=== PATIENT | male | born 1955 | race Hispanic/Latino ===

== ENCOUNTER 2018-07-11 07:54 | Emergency (ER) | payer SELFPAY ==
--- OUTSIDE RECORDS SUMMARY | 2018-07-11 08:00 | XMS REPORT ---
:1955 [facility] Address [address] [place] [address] [address] [place] [address] Care Team Providers Name Role Phone GEORGINA STARR Unavailable Unavailable Problems This patient has no known problems. Allergies, Adverse Reactions, Alerts This patient has no known allergies or adverse reactions. Medications This patient has no known medications. Results Test Description Test Time Test Comments Text Results Atomic Results Result Comments Troponin T 2016-05-15 20:46:00 Test Item Value Reference Range Comments Troponin T (test code=GERARD) <0.010 ng/mL 0.000-0.090 Basic Metabolic [id number] 20:46:00 Test Item Value Reference Range Comments Sodium (test code=NA) 135 mmol/L 135-145 Potassium (test code=K) 4.5 mmol/L 3.5-5.1 Chloride (test code=CL) 99 mmol/L 98-105 Carbon Dioxide (test 24 mmol/L 22-29 code=CO2) Glucose (test code=GLU) 119 mg/dL 70-115 Blood Urea Nitrogen (test 21 mg/dL 6-20 code=BUN) Creatinine (test 1.6 mg/dL 0.7-1.2 code=CREAT) Calcium (test code=CA) 9.1 mg/dL 8.3-10.5 BUN/Creatinine Ratio 13.1 (test code=BCRATIO) Anion Gap (test 12 mmol/L 7-16 code=AGAP) Estimated GFR (test 47 mL/min/1.73m2 eGFR (estimated Glomerular code=GFR) Filtration Rate) is an estimated value,calculated from the patient's serum creatinine using the MDRD equation.It is NOT the patient's actual GFR. The eGFR provides a more clinicallyuseful measure of kidney disease than serum creatinine alone.This calculation takes sex and race into account, if the informationis provided. If the race is not provided, and the patient isAfrican-Colombian, multiply by 1.212. If sex is not provided, and thepatient is female, multiply by 0.742. Results for patients <18 years ofage have not been validated by the MDRD study and should be interpretedwith caution.eGFR Result Interpretation:eGFR > or=60 is in the Normal RangeeGFR < 60 may mean kidney diseaseeGFR < 15 may mean kidney failureRanges recommended by the National Kidney Foundation,http://nkdep.nih .gov CBC with [id number] 20:25:00 Test Item Value Reference Range Comments WBC (test code=WBC) 9.8 K/cumm 4.4-10.5 RBC (test code=RBC) 4.32 M/cumm 4.10-5.70 Hemoglobin (test code=HGB) 13.5 gm/dL 13.4-17.4 Hematocrit (test code=HCT) 42.6 % 38.7-52.0 MCV (test code=MCV) 98.5 fL 80-100 MCH (test code=MCH) 31.4 pg 27.0-32.5 MCHC (test code=MCHC) 31.8 g/dL 32.0-37.5 RDW (test code=RDW) 13.6 % 11.5-14.5 Platelet Count (test code=PLTCT) 177 K/cumm 140-440 MPV (test code=MPV) 10.5 fL Diff Method (test code=DIFFM) Auto Neutrophil (test code=NEUT) 68.7 % 36-70 Lymphocyte (test code=LYMPH) 17.1 % 12-44 Monocyte (test code=MONO) 12.6 % 0-11 Eosinophil (test code=EOS) 1.1 % 0-7 Basophil (test code=BASO) 0.6 % 0-2 Neutro Abs (test code=ANEUT) 6.8 K/cumm 1.6-7.4 Lymph Abs (test code=ALYMPH) 1.7 K/cumm 0.5-4.6 [place] Abs (test code=AMONO) 1.2 K/cumm 0.0-1.2 Eos Abs (test code=AEOS) 0.10 K/cumm 0.00-0.74 Baso Abs (test code=ABASO) 0.1 K/cumm 0.00-0.21
[2018-07-11] MEDS ORDERED: ONDANSETRON 4 MG/2 ML VIAL ONE (08:21)
[2018-07-11] MEDS ORDERED: NA CHLORIDE 0.9% 500 ML ONE (08:21)
[2018-07-11 08:31] LABS: Absolute Monocytes 1.4 K/uL (0.1-1.3); Absolute Neutrophil 3.7 K/uL (1.8-8.0); Basophils % 0.8 % (0-1.3); Eosinophils % 9.7 % (0-4.4); Lymphocytes % 33.8 % (15.3-44.8); MPV 10.4 fL (7.6-11.3); Monocytes % 15.1 % (3.3-12.3); RBC Red Blood Cell Count 4.29 M/uL (4.33-5.43)
[2018-07-11 08:45] LABS: ALT/SGPT 44 U/L (12-78); AST/SGOT 53 U/L (15-37); Albumin 3.4 g/dL (3.4-5.0); Alkaline Phosphatase 123 U/L (45-117); BUN Blood Urea Nitrogen 10 mg/dL (7-18); Bicarbonate 26 mmol/L (21-32); Bilirubin Direct 0.4 mg/dL (0-0.2); Glucose Level 98 mg/dL (74-106); Lipase 125 U/L (73-393); Potassium 3.6 mmol/L (3.5-5.1); Protein, Total 8.3 g/dL (6.4-8.2); Sodium Level 142 mmol/L (136-145)
[2018-07-11 09:17] LABS: Blood Morphology Comment NOT SEEN (NOT SEEN); Platelet Estimate ADEQ
--- NOTE | 2018-07-11 09:17 | EKG ---
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
--- NOTE | 2018-07-11 09:56 | RAD REPORT ---
EXAM DESCRIPTION: CT - Abdomen Pelvis W Contrast - 07/11/2018 9:42 am CLINICAL HISTORY: Abdominal pain. Vomiting COMPARISON: 2014 TECHNIQUE: Computed axial tomography of the abdomen and pelvis was obtained. 100 cc Isovue-300 is ad ministered intravenously. Oral contrast was given. All CT scans are performed using dose optimization technique as appropriate and may include automated exposure control or mA/KV adjustment according to patient size. FINDINGS: Cirrhotic liver. Distended portal vein. Splenectomy Adrenals and kidney unremarkable Mild gallbladder distention. The appendix is normal caliber. There is no evidence of diverticulitis Small right inguinal hernia contains fat Small ventral hernia to the left of midline within the mid abdomen contains a small portion of colon. Tiny umbilical hernia IMPRESSION: Mild gallbladder distention. If clinically indicated further evaluation with ultrasound could be obtained Cirrhosis
[2018-07-11] MEDS ORDERED: MAGNE/ALUM HYDROXD 30 ML UCUP ONE (10:48)
[2018-07-11] MEDS ORDERED: LIDOCAINE VISCOUS 2% SOLN 15 ML UDC ONE (10:49)
[2018-07-11] MEDS ORDERED: MEPERIDINE HCL 25 MG/0.5 ML ONE (10:49)
--- NOTE | 2018-07-11 11:12 | RAD REPORT ---
EXAM DESCRIPTION: US - Abdomen Exam Limited - 07/11/2018 10:52 am CLINICAL HISTORY: ABD PAIN COMPARISON: ABDOMINAL EXAM LIMITED dated 09/17/2014 FINDINGS: The gallbladder demonstrates no gallstones. No pericholecystic fluid or gallbladder wall t hickening. The common bile duct is normal measuring 3 mm. The liver demonstrates no findings of intrahepatic biliary dilatation. IMPRESSION: Unremarkable examination.
--- NOTE | 2018-07-11 11:20 | ER ---
Nurse's Notes [facility] Name: Mic Gross Age: 63 yrs Sex: Male : 1955 Arrival Date: 07/11/2018 Time: 07:56 Bed 20 Private MD: None, None Diagnosis: Unspecified cirrhosis of liver;Ventral hernia;Enteritis Presentation: 07/11 08:07 Presenting complaint: Patient states: epigastric discomfort that radiates towards back, ss N/V that began 1 week ago. Transition of care: patient was not received from another setting of care. Onset of symptoms was July 04, 2018. Risk Assessment: Do you want to hurt yourself or someone else? Patient reports no desire to harm self or others. Initial Sepsis Screen: Does the patient meet any 2 criteria? No. Patient's initial sepsis screen is negative. Does the patient have a suspected source of infection? No. Patient's initial sepsis screen is negative. Care prior to arrival: None. 08:07 Method Of Arrival: Ambulatory ss 08:07 Acuity: RADHA 3 ss Triage Assessment: 08:05 General: Appears distressed, uncomfortable, Behavior is cooperative. Pain: Complains of ss pain in epigastric area Pain radiates to back Pain currently is 9 out of 10 on a pain scale. Pain began 1 week ago Is continuous. Neuro: Level of Consciousness is awake, alert, obeys commands. Respiratory: Airway is patent Respiratory effort is even, unlabored, Respiratory pattern is regular, symmetrical. GI: Reports nausea, vomiting. Historical: - Allergies: 08:10 No Known Allergies; ss - Home Meds: 08:10 None [Active]; ss - PMHx: 08:10 Hypertension; ss - PSHx: 08:10 splenectomy; ss - Immunization history:: Adult Immunizations unknown. - Social history:: Smoking status: Patient/guardian denies using tobacco. - Family history:: not pertinent. - Ebola Screening: : Patient denies exposure to infectious person Patient denies travel to an Ebola-affected area in the 21 days before illness onset. - Hospitalizations: : No recent hospitalization is reported. Screenin:05 Abuse screen: Denies threats or abuse. Denies injuries from another. Nutritional sv screening: No deficits noted. Tuberculosis screening: No symptoms or risk factors identified. Fall Risk None identified. Assessment: 08:05 General: Appears in no apparent distress. uncomfortable, slender, well developed, sv Behavior is cooperative, appropriate for age, anxious. Pain: Complains of pain in epigastric area and left upper quadrant Pain currently is 9 out of 10 on a pain scale. Pain began a week ago Is continuous, Noted to be grimacing, guarding. Neuro: Level of Consciousness is awake, alert, obeys commands, Oriented to person, place, time, situation, Moves all extremities. Full function Gait is steady. Respiratory: Respiratory effort is even, unlabored, Respiratory pattern is regular, symmetrical. GI: Abd is soft X 4 quads Abdomen is tender to palpation in epigastric area and left upper quadrant Reports nausea, vomiting. Derm: Skin is pink, warm \T\ dry. 08:30 Reassessment: Patient appears in no apparent distress at this time. No changes from sv previously documented assessment. Patient and/or family updated on plan of care and expected duration. Pain level reassessed. Patient is alert, oriented x 3, equal unlabored respirations, skin warm/dry/pink. 09:50 Reassessment: Patient appears in no apparent distress at this time. No changes from sv previously documented assessment. Patient and/or family updated on plan of care and expected duration. Pain level reassessed. Patient is alert, oriented x 3, equal unlabored respirations, skin warm/dry/pink. 10:15 Reassessment: Patient transported to US via wheelchair. aj1 10:27 Reassessment: Patient transported back to ER bed 20 via wheelchair. aj1 10:29 Reassessment: Patient reports that he is still having a lot of epigastric pain. aj1 Notified Dr[address] Sorensen. General: Appears in no apparent distress. uncomfortable, Behavior is calm, cooperative, appropriate for age. Neuro: Level of Consciousness is awake, alert, obeys commands. Cardiovascular: Patient's skin is warm and dry. Respiratory: Airway is patent Respiratory effort is even, unlabored, Respiratory pattern is regular, symmetrical. GI: Abdomen is non-distended, Reports upper abdominal pain, nausea, vomiting. GI:. : EENT: No signs and/or symptoms were reported regarding the EENT system. Derm: Skin is pink, warm \T\ dry. normal. Musculoskeletal: No signs and/or symptoms reported regarding the musculoskeletal system. Circulation, motion, and sensation intact. 11:30 Reassessment: Patient appears in no apparent distress at this time. No changes from aj1 previously documented assessment. Patient and/or family updated on plan of care and expected duration. Pain level reassessed. Patient is alert, oriented x 3, equal unlabored respirations, skin warm/dry/pink. Vital Signs: 08:07 BP 184 / 90; Pulse 66; Resp 18; Temp 98.2(TE); Pulse Ox 96% on R/A; Weight 68.04 kg; ss Height 5 ft. 6 in. (167.64 cm); Pain 9/10; 08:56 BP 140 / 85; Pulse 62; Resp 18; Pulse Ox 96% ; sv 09:52 BP 139 / 113; Pulse 62; Resp 18; Pulse Ox 97% ; sv 10:30 BP 146 / 76; Pulse 60; Resp 18; Pulse Ox 96% on R/A; aj1 08:07 Body Mass Index 24.21 (68.04 kg, 167.64 cm) ED Course: 07:56 Patient arrived in ED. mr 07:57 None, None is Private Physician. mr 07:57 Wero Sorensen MD is Attending Physician. rn 08:05 Patient has correct armband on for positive identification. Placed in gown. Bed in low sv position. Call light in reach. Pulse ox on. NIBP on. Door closed. Warm blanket given. Head of bed elevated. 08:06 Naomi Albrecht, RN is Primary Nurse. sv 08:07 Arm band placed on right wrist. ss 08:08 Triage completed. ss 08:10 Initial lab(s) drawn, by de, sent to lab. Inserted saline lock: 20 gauge in right sv forearm, using aseptic technique. Blood collected. Flushed right forearm with 5 ml normal saline. 08:27 Awaiting lab results, Awaiting CT Scan. sv 08:31 EKG done, by meteorological technician. reviewed by Wero Sorensen MD. at1 09:37 CT completed. Patient tolerated procedure well. Patient moved to CT via wheelchair. jg6 Patient moved back from CT. 09:42 CT Abd/Pelvis - W/Contrast In Process Unspecified. EDMS 09:49 Awaiting radiology results. sv 10:53 US Abdomen Limited In Process Unspecified. EDMS 11:53 No provider procedures requiring assistance completed. aj1 11:53 IV discontinued, intact, bleeding controlled, No redness/swelling at site. Pressure aj1 dressing applied. Administered Medications: 08:21 Drug: Zofran 4 mg Route: IVP; Site: right forearm; sv 08:28 Follow up: Response: No adverse reaction; Nausea is decreased sv 08:21 Drug: NS 0.9% 500 ml Route: IV; Rate: bolus; Site: right forearm; sv 10:41 Drug: Demerol 25 mg Route: IVP; Site: right antecubital; aj1 11:54 Follow up: Response: No adverse reaction aj1 10:41 Drug: GI Cocktail without - (Maalox Suspension 30 ml, Lidocaine Liquid 2 % 15 aj1 ml) Route: PO; 11:54 Follow up: Response: No adverse reaction aj1 Point of Care Testing: Guaiac: 08:13 Stool Guaiac: Negative; Stool Hemoccult Control: Pass; rn 08:22 Stool Guaiac: Negative; Stool Hemoccult Control: Pass; sv 08:[address] Sorensen sv Intake: 08:23 PO: 500ml (Contrast); Total: 500ml. sv 08:[address] pt finished contrast. sv Outcome: 11:20 Discharge ordered by . rn 11:55 Discharged to home ambulatory. aj1 11:55 Condition: good 11:55 Discharge instructions given to patient, Instructed on discharge instructions, follow up and referral plans. medication usage, Demonstrated understanding of instructions, follow-up care, medications, Prescriptions given X 2. 11:55 Patient left the ED. aj1 Signatures: Dispatcher [employer] EDHI Beronica Garvin RN RN aj1 Naomi Albrecht RN Jenn Panda Roman, MD MD rn Smirch, Shelby, RN RN ss Gonzales, Amanda, crop specialist EKG Tat1 Opal [id number]
--- NOTE | 2018-07-11 11:21 | EDPHYS ---
Physician Documentation [facility] Name: Mic Gross Age: 63 yrs Sex: Male : 1955 Arrival Date: 07/11/2018 Time: 07:56 Bed 20 Private MD: None, None ED Physician Wero Sorensen HPI: 07/11 08:05 This 63 yrs old Male presents to ER via Unassigned with complaints of rn Abdominal Pain. 08:05 The patient presents with abdominal pain in the left upper quadrant. Onset: The rn symptoms/episode began/occurred 1 week(s) ago. The symptoms radiate to Associated signs and symptoms: Pertinent positives: nausea and vomiting, diarrhea, Pertinent negatives: blood in stools, fever, hematuria, shortness of breath, vomiting blood. The symptoms are described as intermittent, sharp. Modifying factors: The symptoms are alleviated by nothing, the symptoms are aggravated by touching the area. Severity of pain: At its worst the pain was moderate in the emergency department the pain is unchanged. The patient has not experienced similar symptoms in the past. Reports intermittent upper abd pain for 1 week, coming and going so didn't get evaluated, woke up today with worsening pain and constant, assoc with nausea/vomiting/diarrhea. REports stool a little darker than normal but not bloody or black. + hx of acid reflux, doesn't take his prescribed medication. . Historical: - Allergies: 08:10 No Known Allergies; ss - Home Meds: 08:10 None [Active]; ss - PMHx: 08:10 Hypertension; ss - PSHx: 08:10 splenectomy; ss - Immunization history:: Adult Immunizations unknown. - Social history:: Smoking status: Patient/guardian denies using tobacco. - Family history:: not pertinent. - Ebola Screening: : Patient denies exposure to infectious person Patient denies travel to an Ebola-affected area in the 21 days before illness onset. - Hospitalizations: : No recent hospitalization is reported. ROS: 08:05 Constitutional: Negative for fever, chills, and weight loss, Eyes: Negative for injury, rn pain, redness, and discharge, Neck: Negative for injury, pain, and swelling, Cardiovascular: Negative for chest pain, palpitations, and edema, Respiratory: Negative for shortness of breath, cough, wheezing, and pleuritic chest pain, Abdomen/GI: + abd pain/nausea/vomiting/diarrhea MS/Extremity: Negative for injury and deformity, Skin: Negative for injury, rash, and discoloration, Neuro: Negative for headache, weakness, numbness, tingling, and seizure. Exam: 08:05 Constitutional: This is a well developed, well nourished patient who is awake, alert, rn appears anxious Head/Face: Normocephalic, atraumatic. Eyes: Pupils equal round and reactive to light, extra-ocular motions intact. Periorbital areas with no swelling, redness, or edema. ENT: dry MM Cardiovascular: Regular rate and rhythm. No pulse deficits. Respiratory: No increased work of breathing, no retractions or nasal flaring. Abdomen/GI: soft, + moderate ventral hernia, midline vertical scar, + tender LUQ and left abdomen, no peritoneal signs. MS/ Extremity: Pulses equal, no cyanosis. Neurovascular intact. Full, normal range of motion. Equal circumference. Neuro: Awake and alert, GCS 15, oriented to person, place, time, and situation. Cranial nerves II-XII grossly intact. Motor strength 5/5 in all extremities. Sensory grossly intact. Cerebellar exam normal. Normal gait. 09:21 ECG was reviewed by the Attending Physician. rn Vital Signs: 08:07 BP 184 / 90; Pulse 66; Resp 18; Temp 98.2(TE); Pulse Ox 96% on R/A; Weight 68.04 kg; ss Height 5 ft. 6 in. (167.64 cm); Pain 9/10; 08:56 BP 140 / 85; Pulse 62; Resp 18; Pulse Ox 96% ; sv 09:52 BP 139 / 113; Pulse 62; Resp 18; Pulse Ox 97% ; sv 10:30 BP 146 / 76; Pulse 60; Resp 18; Pulse Ox 96% on R/A; aj1 08:07 Body Mass Index 24.21 (68.04 kg, 167.64 cm) ss MDM: 07:58 Patient medically screened. rn 11:18 Differential diagnosis: cholecystitis, Cholelithiasis, gastritis, gastroesophageal rn reflux disease, non-specific abd pain, pancreatitis, Peptic Ulcer Disease. Data reviewed: vital signs, nurses notes, lab test result(s), radiologic studies, CT scan, ultrasound, and as a result, I will discharge patient. Counseling: I had a detailed discussion with the patient and/or guardian regarding: the historical points, exam findings, and any diagnostic results supporting the discharge/admit diagnosis, lab results, radiology results, the need for outpatient follow up, to return to the emergency department if symptoms worsen or persist or if there are any questions or concerns that arise at home. Special discussion: Based on the patient's Hx, exam, and Dx evaluation, there is no indication for emergent surgery or inpatient Tx. It is understood by the patient/guardian that if the Sx's persist or worsen they need to return immediately for re-evaluation. I discussed with the patient/guardian in detail that at this point there is no indication for admission to the hospital. It is understood, however, that if the symptoms persist or worsen the patient needs to return immediately for re-evaluation. Based on the history and exam findings, there is no indication for further emergent testing or inpatient evaluation. I discussed with the patient/guardian the need to see the ski top trimmer for further evaluation of the symptoms. ED course: Negative bloodowork/ct abd/ultrasound. + cirrhosis. Abd pain likely 2/2 gastritis/acid reflux/enteritis. 07/11 08:05 Order name: Basic Metabolic Panel; Complete Time: 09:03 rn 07/11 08:05 Order name: CBC with Diff; Complete Time: 09:20 rn 07/11 08:05 Order name: Hepatic Function; Complete Time: 09:03 rn 07/11 08:05 Order name: Lipase; Complete Time: 09:03 rn 07/11 08:22 Order name: Occult Blood--Ancillary; Complete Time: 09:20 sv 07/11 08:35 Order name: Manual Differential; Complete Time: 09:20 EDMS 07/11 08:05 Order name: CT Abd/Pelvis - W/Contrast; Complete Time: 10:05 rn 07/11 08:05 Order name: EKG; Complete Time: 08:05 rn 07/11 10:05 Order name: US Abdomen Limited; Complete Time: 11:18 rn 07/11 08:05 Order name: IV Saline Lock; Complete Time: 08:20 rn 07/11 08:05 Order name: Labs collected and sent; Complete Time: 08:20 rn 07/11 08:05 Order name: EKG - Nurse/Tech; Complete Time: 08:28 rn EC:21 Rate is 54 beats/min. Rhythm is regular. QRS [place] is Normal. DC interval is normal. QRS rn interval is normal. QT interval is normal. No Q waves. T waves are Normal. No ST changes noted. Clinical impression: Sinus bradycardia and No evidence of ischemia. Interpreted by me. Reviewed by me. Administered Medications: 08:21 Drug: Zofran 4 mg Route: IVP; Site: right forearm; sv 08:28 Follow up: Response: No adverse reaction; Nausea is decreased sv 08:21 Drug: NS 0.9% 500 ml Route: IV; Rate: bolus; Site: right forearm; sv 10:41 Drug: Demerol 25 mg Route: IVP; Site: right antecubital; aj1 11:54 Follow up: Response: No adverse reaction aj1 10:41 Drug: GI Cocktail without - (Maalox Suspension 30 ml, Lidocaine Liquid 2 % 15 aj1 ml) Route: PO; 11:54 Follow up: Response: No adverse reaction aj1 Point of Care Testing: Guaiac: 08:13 Stool Guaiac: Negative; Stool Hemoccult Control: Pass; rn 08:22 Stool Guaiac: Negative; Stool Hemoccult Control: Pass; sv 08:[address] Sorensen Disposition: 07/11/18 11:20 Discharged to Home. Impression: Unspecified cirrhosis of liver, Ventral hernia, Enteritis. - Condition is Stable. - Discharge Instructions: Gastritis, Adult, Viral Gastroenteritis, Adult, Ventral Hernia. - Prescriptions for Zofran ODT 4 mg Oral tablet,disintegrating - place 1 tablet by TRANSLINGUAL route every 8 hours As needed; 20 tablet. Zantac 300 mg Oral Tablet - take 1 tablet by ORAL route At bedtime; 30 tablet. - Medication Reconciliation Form, Thank You Letter, Antibiotic Education, Prescription Opioid Use form. - Follow up: Private Physician; When: As needed; Reason: Recheck today's complaints, Re-evaluation by your physician. - Problem is new. - Symptoms have improved. Signatures: Dispatcher [employer] Beronica Whitman RN RN aj1 Naomi Albrecht RN RN sv Wero Sorensen MD MD rn Smirch, Shelby, RN RN ss Corrections: (The following items were deleted from the chart) 09:07 08:44 Occult Blood--Ancillary+PA.LAB.BRZ ordered. EDDE EDMS 11:55 11:20 07/11/2018 11:20 Discharged to Home. Impression: Unspecified cirrhosis of liver; aj1 Ventral hernia; Enteritis. Condition is Stable. Forms are Medication Reconciliation Form, Thank You Letter, Antibiotic Education, Prescription Opioid Use. Follow up: Private Physician; When: As needed; Reason: Recheck today's complaints, Re-evaluation by your physician. Problem is new. Symptoms have improved. rn
[2018-07-11 12:36] VITALS: TEMP 98.2
[2018-07-11 12:39] VITALS: BP 146/76; O2SAT 96
== END 2018-07-11 11:55 | disposition home or self-care (01) ==
LOC: ER 07:54
DX: K52.9 Noninfective gastroenteritis and colitis, unspecified (principal); K43.9 Ventral hernia without obstruction or gangrene; K74.60 Unspecified cirrhosis of liver; I10 Essential (primary) hypertension
CPT/HCPCS: 36415; 74177; 76705; 80048; 80076; 82272; 83690; 85025; 93005; 99285; J2175; J2405; Q9967

== ENCOUNTER 2019-03-11 08:43 | Emergency (ER) | payer SELFPAY ==
--- OUTSIDE RECORDS SUMMARY | 2019-03-11 08:45 | XMS REPORT | Summary of Care ---
:1955 Author Organization [facility] Address [address] [place] [address] Care Team Providers Name Role Phone Pcp, Patient Does Not Have A Primary Care Provider Reason for Referral Other (Routine) Status Reason Specialty Diagnoses / Referred By Contact Referred To Procedures Contact New Request Diagnoses Generalized abdominal pain Ventral hernia, recurrent Contusion of right knee, initial encounter Cellulitis of right lower extremity Narciso Aguilar MD Humphrey, [place], Procedures Discharge Follow-up: Specialty Provider KATIE PAUL; 3-[address] [place] [address] [address] [place], [place] [id number] [place] [address] [address]in [address] [place] [address] MRI/CAT Scan (STAT) Status Reason Specialty Diagnoses / Referred By Referred To Procedures Contact Contact New Request Diagnostic Diagnoses Generalized abdominal pain Narciso Aguilar, Radiology Procedures CT ABDOMEN PELVIS W CONTRAST 301 [facility] [address] [place] [address] Radiology Services (STAT) Status Reason Specialty Diagnoses / Referred By Referred To Procedures Contact Contact New Request Diagnostic Diagnoses Generalized abdominal pain Narciso Aguilar, Radiology Procedures XR KNEE 4+ VW RIGHT 301 [facility] [address] [place] [address] MRI/CAT Scan (STAT) Status Reason Specialty Diagnoses / Referred By Referred To Procedures Contact Contact New Request Diagnostic Diagnoses Generalized abdominal pain Narciso Aguilar, Radiology Procedures CT ABDOMEN PELVIS W CONTRAST [address] [place] [address] [place] [address] Radiology Services (STAT) Status Reason Specialty Diagnoses / Referred By Referred To Procedures Contact Contact New Request Diagnostic Diagnoses Generalized abdominal pain Narciso Aguilar, Radiology Procedures XR KNEE 4+ VW RIGHT [address] [place] [address] [place] [phone] Reason for Visit Reason Comments HIATAL HERNIA pain Leg Pain R Auth/Cert Status Reason Specialty Diagnoses / Referred By Referred To Procedures Contact Contact [facility] [address] [place] [address] [place] [address] Encounter Details Date Type Department Care Team Description 11/08/2018 Emergency [facility] Narciso Aguilar MD Generalized abdominal pain (Primary Dx); Department [address] [place] [address] Ventral hernia, recurrent; [address] [place] [address] [address] Contusion of right knee, initial encounter; [place] [address] [place] [address] Cellulitis of right lower extremity [phone] Allergies No Known Allergiesdocumented as of this encounter (statuses as of 11/08/2018) Medications Medication Sig Dispensed Refills Start Date End Date Status amLODIPine (NORVASC) Take 1 tablet 30 tablet 3 07/09/2015 Active 10 mg tablet by mouth daily. lisinopril Take 2 tablets 60 tablet 3 07/09/2015 Active (PRINIVIL,ZESTRIL) 10 by mouth daily. mg tablet traMADOL (ULTRAM) 50 Take 1 tablet 20 tablet 0 08/19/2015 Active mg tablet by mouth every 6 (six) hours as needed for Pain (scale 4-6). sulfamethoxazole-trime Take 1 tablet 20 tablet 0 08/19/2015 Active thoprim (BACTRIM DS) by mouth every 800-160 mg per tablet 12 (twelve) hours. docusate sodium 250 mg Take 1 capsule 20 capsule 0 11/08/2018 Active capsuleIndications: by mouth daily. Generalized abdominal pain, Ventral hernia, recurrent, Contusion of right knee, initial encounter, Cellulitis of right lower extremity ondansetron 4 mg Take 1 tablet 20 tablet 0 11/08/2018 Active disintegrating by mouth every tabletIndications: 4 (four) hours Generalized abdominal as needed for pain, Ventral hernia, Nausea and recurrent, Contusion Vomiting (N/V). of right knee, initial encounter, Cellulitis of right lower extremity clindamycin 300 mg Take 1 capsule 40 capsule 0 11/08/2018 11/18/2018 Active capsuleIndications: by mouth 4 Generalized abdominal (four) times pain, Ventral hernia, daily for 10 recurrent, Contusion days. of right knee, initial encounter, Cellulitis of right lower extremity documented as of this encounter (statuses as of 11/08/2018) Active Problems Problem Noted Date Gangrene of finger 07/06/2015 Osteomyelitis 07/06/2015 Adrenal insufficiency 07/06/2015 Chronic rheumatic arthritis 07/06/2015 Dry gangrene 07/04/2015 Arteritis 07/04/2015 documented as of this encounter (statuses as of 11/08/2018) Social History Tobacco Use Types Packs/Day Years Used Date Smoker, Current Status Unknown Comments: 1 pack per week, previously 1ppd x 10-15 years Alcohol Use Drinks/Week oz/Week Comments No 0 Standard drinks or equivalent 0.0 former heavy drinker Sex Assigned at Date Recorded Not on file Job Start Date Occupation Industry Not on file Not on file Not on file Travel History Travel Start Travel End No recent travel history available. documented as of this encounter Last Filed Vital Signs Vital Sign Reading Time Taken Comments Blood Pressure 167/139 11/08/2018 5:00 PM CDT Pulse 68 11/08/2018 5:00 PM CDT Temperature 36.8 C (98.3 F) 11/08/2018 2:25 PM CDT Respiratory Rate 18 11/08/2018 5:00 PM CDT Oxygen Saturation 95% 11/08/2018 5:00 PM CDT Inhaled Oxygen Concentration - - Weight 65.8 kg (145 lb) 11/08/2018 2:25 PM CDT Height 167.6 cm (5' 6") 11/08/2018 2:25 PM CDT Body Mass Index 23.4 11/08/2018 2:25 PM CDT documented in this encounter Discharge Instructions Narciso Bailey MD - 11/08/2018 RETURN FOR ANY QUESTIONS OR CONCERNS Today you were seen by Narciso Aguilar Jr., MD You were seen today for Chief Complaint Patient presents with HIATAL HERNIA pain Leg Pain R Your ER diagnosis was ICD-10-CM ICD-9-CM 1. Generalized abdominal pain R10.84 789.07 2. Ventral hernia, recurrent K43.2 553.21 3. Contusion of right knee, initial encounter S80.01XA 924.11 NO LIFE-THREATENING FINDINGS ON TODAY'S EXAM. YOUR PRESCRIPTIONS : Check out [employer] for medication discounts Medication List ASK your doctor about these medications amLODIPine 10 mg tablet Commonly known as: NORVASC Take 1 tablet by mouth daily. lisinopril 10 mg tablet Commonly known as: PRINIVIL,ZESTRIL Take 2 tablets by mouth daily. sulfamethoxazole-trimethoprim 800-160 mg per tablet Commonly known as: BACTRIM DS Take 1 tablet by mouth every 12 (twelve) hours. traMADol 50 mg tablet Commonly known as: ULTRAM Take 1 tablet by mouth every 6 (six) hours as needed for Pain (scale 4-6). ER precautions and follow up : 1. Return to ER if your symptoms should worsen or fail to improve within 72 hours. 2. The care provided in the emergency room was for acute problems only. 3. You should follow up with your primary care provider within 72 hours. 4. Fill and take all your medications as prescribed. 5. Make sure you are staying adequately hydrated. Busque attencion immediatamente si usted tiene los sitomas sigue, vuelve peor o si hay sitomas nuevas o para cualquiera preoccupacion incluyendo dolor del pecho , falta aire, se siente debile, mas fievre, mas dolor, nausea, vomitando, sangrando que no es normal, confusion, baja or pierdas conciencia. MAY FOLLOW-UP WITH A PROVIDER OF YOUR CHOICE, SUCH : 1. A PHYSICIAN OF YOUR CHOICE 2. [facility], . LOCATIONS IN [facility] 3. [facility], [address], [place]; [phone] OR, IF YOU WISH TO FOLLOW-UP WITHIN THE [facility], MAY TRY THESE OPTIONS (CLINIC APPOINTMENTS AVAILABLE ON [id number] BASIS): 1. SCHEDULE AN APPOINTMENT ONLINE AT WWW[facility] 2. OR CALL THE [facility] ACCESS CENTER AT OR 3. OR CALL YOUR [facility] PHYSICIAN'S OFFICE DIRECTLY IF YOU ARE ALREADY AN ESTABLISHED [facility] PATIENT. [facility] RETURN TO WORK / SCHOOL EXCUSE Mic Gross WAS SEEN IN THE ER AND DISCHARGED 11/08/2018 TODAY, 5:09 PM & May return to Work / School / Incarceration on X with activity as tolerated indicated below. ___The following limitations apply until pt is seen by Physician and cleared to return to normal activity. _X_ Off for two days and return to activity as tolerated at work or school ___ No Sports ___ No work ___ Do not return until fever free for 24 hours. ___ No school NARCISO AGUILAR Jr., MD [facility] [address] [place] [address] [place] [address] ### The patient may have been given Narcotic pain medications during their stay in the ED that may show up on a Drug Screen. The hospital discharge paper work will identify these medications. AttachmentsThe following attachments cannot be sent through Care Everywhere.Hernia (Adult) (Maldivian)Lower Extremity Contusion (Maldivian)Cellulitis , Discharge Instructions for (Maldivian)documented in this encounter Plan of Treatment Health Maintenance Due Date Last Done Comments DTaP,Tdap,and Td Vaccines (1 - 1976 Tdap) COLONOSCOPY 06/10/2007 Zoster Recombinant Vaccine 06/10/2007 (SHINGRIX) (1 of 2) LUNG CANCER SCREEN: Recommended 2012 for age 55-80 with 30 + pack year history INFLUENZA VACCINE (#1) 2018 HEPATITIS C (HCV) SCREEN Completed 07/05/2015 PNEUMOCOCCAL 0-64 YEARS COMBINED Aged Out No longer eligible based on SERIES patient's age to complete this topic documented as of this encounter Procedures Procedure Name Priority Date/Time Associated Diagnosis Comments CT ABDOMEN PELVIS W STAT 11/08/2018 4:26 Generalized Results for this CONTRAST PM CDT abdominal pain procedure are in the results section. XR KNEE 4+ VW RIGHT STAT 11/08/2018 3:34 Generalized Results for this PM CDT abdominal pain procedure are in the results section. CBC WITH DIFFERENTIAL STAT 11/08/2018 3:02 Generalized Results for this PM CDT abdominal pain procedure are in the results section. ACTIVATED PARTIAL STAT 11/08/2018 3:02 Generalized Results for this THRMPLAS JULIO C PM CDT abdominal pain procedure are in the results section. PROTHROMBIN TIME / STAT 11/08/2018 3:02 Generalized Results for this INR PM CDT abdominal pain procedure are in the results section. CBC WITH DIFF Routine 11/08/2018 3:02 Generalized Results for this PM CDT abdominal pain procedure are in the results section. BASIC METABOLIC PANEL STAT 11/08/2018 3:02 Generalized Results for this (NA, K, CL, CO2, PM CDT abdominal pain procedure are in GLUCOSE, BUN, the results CREATININE, CA) section. HEPATIC FUNCTION STAT 11/08/2018 3:02 Generalized Results for this PANEL (10355) PM CDT abdominal pain procedure are in (ALB,T.PRO,BILI the results T,BU/BC,ALT,AST,ALK section. PHOS) LIPASE STAT 11/08/2018 3:02 Generalized Results for this PM CDT abdominal pain procedure are in the results section. NOTICE OF PRIVACY Routine 11/08/2018 2:00 PRACTICES PM CDT CONSENT/REFUSAL FOR Routine 11/08/2018 1:59 DIAGNOSIS AND PM CDT TREATMENT documented in this encounter Results CT ABDOMEN PELVIS W CONTRAST (11/08/2018 4:26 PM CDT) Specimen Narrative Performed At CT Abdomen and Pelvis with intravenous contrast. PACS/VR/DOSE CLINICAL HISTORY: Hernia complication. DOSE: Up-to-date CT equipment and radiation dose reduction techniques were employed. CTDIvol: 5.90 mGy. DLP: 292 mGy-cm. TECHNIQUE : Contiguous axial imaging from the level of the lung bases through the pubic symphysis were performed after the uncomplicated administration of Omnipaque contrast material. Coronal and sagittal reconstructions were obtained. Auto mA and/or iterative reconstruction were used to reduce radiation dose. FINDINGS: Comparison is made with 09/18/2014 study. Lower lungs: Minimal groundglass haziness noted in the lower lungs, more in the left lower lung. No focal consolidation. No pleural effusion or pericardial effusion. Liver, Gallbladder and Spleen: S/P splenectomy. Liver is 16.7 cm with dilated portal venous circulation noted. Serosal surface of the liver appear slightly ambulating suggestive of chronic primary liver disease. Thickened gallbladder kaye with serosal edema also likely secondary to liver disease. Biliary ducts are normal size. 30 mm lesion is seen in the central right lobe (? Segment #8). Peritoneum:No free air or free fluid. No lymphadenopathy. Pancreas and Adrenals:Unremarkable pancreas and adrenal glands. Kidneys and Ureters:No visible calculi in the renal collecting systems. No hydroureter or hydronephrosis. No enhancing kidney lesions. Vessels: Mild atherosclerosis. Mild ectasia of infrarenal segment of the abdominal aorta just above the bifurcation with maximum diameter of 23 mm. No aortic aneurysm. Retroperitoneum: No abnormal fluid or lymphadenopathy. Bowel: Mild constipation. Unremarkable small bowel gas pattern. Normal appendix is visualized. Bladder and Reproductive Organs: Unremarkable. Bones: Multilevel degenerative disc disease, more severe at L4-L5. Soft tissues: Multiple small ventral abdominal wall hernias beginning at the level of the epigastrium containing small amount of fat and intra-abdominal blood vessels without any evidence of strangulation or incarceration. Small fat-containing umbilical hernia noted. CONCLUSION: 1. Multiple small ventral abdominal wall hernias, extending from the subxiphoid portion up to supraumbilical region, containing fat and intra-abdominal vessels without any evidence of strangulation or incarceration. 2. S/P splenectomy. 3. Liver morphology suggestive of chronic primary liver disease with dilated portal veins without any ascites. There is possibly an enhancing 3 cm lesion in the central right lobe, of uncertain etiology. The lesion may be monitored by follow up triple phase CT scan of liver. 4. Thickened gallbladder kaye and mucosal enhancement, likely secondary to liver disease, without any calcified gallstones or distention of the gallbladder. Procedure Note [facility], Radiant Results Inft User - 11/08/2018 4:[address] Abdomen and Pelvis with intravenous contrast. CLINICAL HISTORY: Hernia complication. DOSE: Up-to-date CT equipment and radiation dose reduction techniques were employed. CTDIvol: 5.90 mGy. DLP: 292 mGy-cm. TECHNIQUE : Contiguous axial imaging from the level of the lung bases through the pubic symphysis were performed after the uncomplicated administration of Omnipaque contrast material. Coronal and sagittal reconstructions were obtained. Auto mA and/or iterative reconstruction were used to reduce radiation dose. FINDINGS: Comparison is made with 09/18/2014 study. Lower lungs: Minimal groundglass haziness noted in the lower lungs, more in the left lower lung. No focal consolidation. No pleural effusion or pericardial effusion. Liver, Gallbladder and Spleen: S/P splenectomy. Liver is 16.7 cm with dilated portal venous circulation noted. Serosal surface of the liver appear slightly ambulating suggestive of chronic primary liver disease. Thickened gallbladder kaye with serosal edema also likely secondary to liver disease. Biliary ducts are normal size. 30 mm lesion is seen in the central right lobe (? Segment #8). Peritoneum: No free air or free fluid. No lymphadenopathy. Pancreas and Adrenals: Unremarkable pancreas and adrenal glands. Kidneys and Ureters: No visible calculi in the renal collecting systems. No hydroureter or hydronephrosis. No enhancing kidney lesions. Vessels: Mild atherosclerosis. Mild ectasia of infrarenal segment of the abdominal aorta just above the bifurcation with maximum diameter of 23 mm. No aortic aneurysm. Retroperitoneum: No abnormal fluid or lymphadenopathy. Bowel: Mild constipation. Unremarkable small bowel gas pattern. Normal appendix is visualized. Bladder and Reproductive Organs: Unremarkable. Bones: Multilevel degenerative disc disease, more severe at L4-L5. Soft tissues: Multiple small ventral abdominal wall hernias beginning at the level of the epigastrium containing small amount of fat and intra-abdominal blood vessels without any evidence of strangulation or incarceration. Small fat-containing umbilical hernia noted. CONCLUSION: 1. Multiple small ventral abdominal wall hernias, extending from the subxiphoid portion up to supraumbilical region, containing fat and intra-abdominal vessels without any evidence of strangulation or incarceration. 2. S/P splenectomy. 3. Liver morphology suggestive of chronic primary liver disease with dilated portal veins without any ascites. There is possibly an enhancing 3 cm lesion in the central right lobe, of uncertain etiology. The lesion may be monitored by follow up triple phase CT scan of liver. 4. Thickened gallbladder kaye and mucosal enhancement, likely secondary to liver disease, without any calcified gallstones or distention of the gallbladder. Performing Organization Address City/State/Zipcode Phone Number PACS/VR/DOSE XR KNEE 4+ VW RIGHT (11/08/2018 3:34 PM CDT) Specimen Narrative Performed At HISTORY:Pain. S/P fall. PACS/VR/DOSE FINDINGS: AP, lateral, oblique views of the right knee obtained with portable technique showed no acute fracture or dislocation. No significant changes of arthritis or aggressive bone lesions seen. No significant knee joint effusion. Mild soft tissue swelling along the anteromedial aspect of the knee noted. CONCLUSIONS: No acute fracture or dislocation in right knee. Procedure Note [facility], Radiant Results Inft User - 11/08/2018 3:41 PM CDT HISTORY: Pain. S/P fall. FINDINGS: AP, lateral, oblique views of the right knee obtained with portable technique showed no acute fracture or dislocation. No significant changes of arthritis or aggressive bone lesions seen. No significant knee joint effusion. Mild soft tissue swelling along the anteromedial aspect of the knee noted. CONCLUSIONS: No acute fracture or dislocation in right knee. Performing Organization Address City/State/Zipcode Phone Number PACS/VR/DOSE CBC WITH DIFFERENTIAL (11/08/2018 3:02 PM CDT) WBC 9.07 4.20 - 10.70 [facility] 10*3/L [facility] RBC 4.00 (L) 4.26 - 5.52 [facility] 10*6/L [facility] HGB 13.3 12.2 - 16.4 [facility] g/dL [facility] HCT 40.8 38.4 - 49.3 % [facility] MCV 102.0 (H) 81.7 - 95.6 fL [facility] MCH 33.3 (H) 26.1 - 32.7 pg [facility] MCHC 32.6 31.2 - 35.0 [facility] g/dL [facility] RDW-SD 52.8 (H) 38.5 - 51.6 fL [facility] RDW-CV 13.9 12.1 - 15.4 % [facility] PLT 185 150 - 328 [facility] 10*3/L [facility] MPV 11.4 9.8 - 13.0 fL [facility] NRBC/100 WBC 0.0 0.0 - 10.0 /100 [facility] WBCs [facility] NRBC x10^3 <0.01 10*3/L [facility] GRAN MAT (NEUT) % 44.6 % [facility] IMM GRAN % 0.30 % [facility] LYMPH % 32.1 % [facility] MONO % 14.4 % [facility] EOS % 8.2 % [facility] BASO % 0.4 % [facility] GRAN MAT x10^3(ANC) 4.04 1.99 - 6.95 [facility] 10*3/uL [facility] IMM GRAN x10^3 0.03 0.00 - 0.06 [facility] 10*3/uL HOSPITAL [facility] LYMPH x10^3 2.91 1.09 - 3.23 [facility] 10*3/uL [facility]ITAL [facility] MONO x10^3 1.31 (H) 0.36 - 1.02 [facility] 10*3/uL [facility] EOS x10^3 0.74 (H) 0.06 - 0.53 [facility] 10*3/uL [facility] BASO x10^3 0.04 0.01 - 0.09 [facility] 103/uL [facility] Specimen Blood - VENOUS Performing Organization Address [facility] Phone Number [facility] CLIA: [id number], [address] [place], [place] [id number] LAB[address]AT[address] Prothrombin Time (PT) / INR (11/08/2018 3:02 PM CDT) PROTIME PATIENT 13.7 12.0 - 14.7 [facility] LABORATORY INR 1.1Comment: Normal [facility] INR <1.1; Warfarin [facility] Therapeutic range LABORATORY 2.0 to 3.0 or 2.5 to 3.5, depending upon the indications. Specimen Blood - VENOUS Performing Organization Address [facility] Phone Number [facility] CLIA: [id number], [address] [place], [place] [address] LABORAT[address] aPTT (11/08/2018 3:02 PM CDT) APTT Patient 32 23 - 38 Seconds [facility] Specimen Blood - VENOUS Narrative Performed At The [facility] patient population mean normal value [facility] for aPTT is 30 seconds. Performing Organization Address [facility] Phone Number [facility] CLIA: [id number], [address] [place] [address] Lipase Serum (11/08/2018 3:02 PM CDT) LIPASE 195 0 - 220 U/L [facility] Specimen Blood - VENOUS Performing Organization Address [facility] Phone Number [facility] CLIA: [id number], [address] [place] [address] Hepatic Function Panel (ALB, T.PRO, BILI T, BU/BC, ALT, AST, ALK PHOS) (2018 3:02 PM CDT) TOTAL BILI 0.5 0.1 - 1.1 mg/dL [facility] BILI UNCON 0.3 0.1 - 1.1 mg/dL [facility] BILI CONJ 0.0 0.0 - 0.3 mg/dL [facility] T PROTEIN 8.1 6.3 - 8.2 g/dL [facility] ALBUMIN 3.9 3.5 - 5.0 g/dL [facility] ALK PHOS 124 (H) 34 - 122 U/L [facility] ALT(SGPT) 38 9 - 51 U/L [facility] AST(SGOT) 57 (H) 13 - 40 U/L [facility] Specimen Blood - VENOUS Performing Organization Address City/[facility] Phone Number [facility] CLIA: [id number], [address] [place] [address] Basic Metabolic Panel (NA, K, CL, CO2, GLUCOSE, BUN, CREATININE, CA) (2018 3:02 PM CDT) NA 146 (H) 135 - 145 [facility] mmol/L [facility] K 3.5 3.5 - 5.0 [facility] mmol/L [facility] CL 109 (H) 98 - 108 mmol/L [facility] CO2 TOTAL 28 23 - 31 mmol/L [facility] AGAP 9 2 - 16 [facility] BUN 10 7 - 23 mg/dL [facility] GLUCOSE 92 70 - 110 mg/dL [facility] CREATININE 0.77 0.60 - 1.25 [facility] mg/dL [facility] CALCIUM 9.2 8.6 - 10.6 [facility] mg/dL [facility] eGFR Calculation 102.7 mL/min/1.73m2 [facility] (Non-[facility] LABORATORY [place] Citizen) eGFR Calculation 124.5 mL/min/1.73m2 [facility] () [facility] Specimen Blood - VENOUS Narrative Performed At Association of Glomerular Filtration Rate (GFR) [facility]ATORY and Staging of Kidney Disease* + + +- + | GFR (mL/min/1.73 m2)| With Kidney Damage|Without Kidney Damage + + +- + |>90| Stage one| Normal + + +- + |60-89|S tage two| Decreased GFR + + +- + |30-59|S tage three| Stage three + + +- + |15-29|S tage four | Stage four + + +- + |<15 (or dialysis)|Stage five | Stage five + + +- + *Each stage assumes the associated GFR level has been in effect for at least three months.Stages 1 to 5, with or without kidney disease, indicate chronic kidney disease. Notes: Determination of stages one and two (with eGFR >59mL/min/1.73 m2) requires estimation of kidney damage for at least three months as defined by structural or functional abnormalities of the kidney, manifested by either: Pathological abnormalities or Markers of kidney damage (including abnormalities in the composition of the blood or urine or abnormalities in imaging tests). Performing Organization Address City/State/Zipcode Phone Number [facility] CLIA: [id number], [address] [place] [address] [facility] [address] documented in this encounter Visit Diagnoses Diagnosis Generalized abdominal pain - Primary Abdominal pain, generalized Ventral hernia, recurrent Incisional hernia without mention of obstruction or gangrene Contusion of right knee, initial encounter Cellulitis of right lower extremity Cellulitis and abscess of leg, except foot documented in this encounter Administered Medications Medication Order MAR Action Action Date Dose Rate Site FENTanyl PF (SUBLIMAZE (PF)) Given 11/08/2018 3:02 PM CDT 75 mcg injection 75 mcg 75 mcg, Slow IV Push, ONCE, 1 dose, 11/08/18 at 1600, STAT iohexol (OMNIPAQUE 350 BULK-150 mL) Given 11/08/2018 4:05 PM CDT 120 mL injection 120 mL 120 mL, Intravenous, ONCE, 1 dose, 11/08/18 at 1630, Routine ondansetron (ZOFRAN (PF)) injection 4 mg Given 11/08/2018 3:02 PM CDT 4 mg 4 mg, Slow IV Push, ONCE, 1 dose, 11/08/18 at 1600, RHETT documented in this encounter
--- OUTSIDE RECORDS SUMMARY | 2019-03-11 08:45 | XMS REPORT ---
:1955 [facility] Address [address] [place] [address] Care Team Providers Name Role Phone GEORGINA [...] (test code=GERARD) <0.010 ng/mL 0.000-0.090 Basic Metabolic [id number] 20:46:00 Test Item Value Reference Range Comments [...] race is not provided, and the patient isAfrican-Egyptian, multiply by 1.212. If sex is not [...] the National Kidney Foundation,http://nkdep.nih .gov CBC with [id number] 20:25:00 Test Item Value Reference Range Comments [...] Lymph Abs (test code=ALYMPH) 1.7 K/cumm 0.5-4.6 [place] Abs (test code=AMONO) 1.2 K/cumm 0.0-1.2 Eos Abs (test code=AEOS) 0.10 K/cumm 0.00-0.74 Baso Abs (test code=ABASO) 0.1 K/cumm 0.00-0.21
[2019-03-11] MEDS ORDERED: NA CHLORIDE 0.9% 500 ML ONE (09:03)
[2019-03-11] MEDS ORDERED: TRAMADOL HCL 50 MG TAB ONE (09:03)
[2019-03-11 09:33] LABS: ALT/SGPT 43 U/L (12-78); AST/SGOT 48 U/L (15-37); Albumin 3.4 g/dL (3.4-5.0); Alkaline Phosphatase 133 U/L (45-117); BUN Blood Urea Nitrogen 12 mg/dL (7-18); Bicarbonate 27 mmol/L (21-32); Bilirubin Direct 0.4 mg/dL (0-0.2); Bilirubin Total 1.1 mg/dL (0.2-1.0); Glucose Level 96 mg/dL (74-106); Lipase 145 U/L (73-393); Potassium 3.9 mmol/L (3.5-5.1); Protein, Total 8.3 g/dL (6.4-8.2); Sodium Level 140 mmol/L (136-145)
[2019-03-11] MEDS ORDERED: HYDROCODONE/APAP 10/325 TAB ONE (09:56)
--- NOTE | 2019-03-11 10:52 | RAD REPORT ---
EXAM DESCRIPTION: RAD - Hand Right 3 View - 03/11/2019 9:33 am CLINICAL HISTORY: Persistent right hand pain following trauma COMPARISON: April 2015 FINDINGS: No acute fractures identified. There is no dislocation or periosteal reaction noted. Defo rmity of the fifth metacarpal evident from remodeling of prior trauma. There is probably old trauma c hange to the base of the fourth with metacarpal. Minimal IP joint space narrowing. No erosive or spur ring component. IMPRESSION: No fracture or acute finding to the right hand.
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
[2019-03-11 11:44] VITALS: BP 147/79; TEMP 97.8; O2SAT 99
== END 2019-03-11 11:25 | disposition home or self-care (01) ==
LOC: ER 08:43
DX: K74.60 Unspecified cirrhosis of liver (principal); S60.221A Contusion of right hand, initial encounter; G89.29 Other chronic pain; I10 Essential (primary) hypertension
CPT/HCPCS: 36415; 80048; 80076; 83690; 99284; J7040

== ENCOUNTER 2019-03-21 08:29 | Emergency (ER) | payer SELFPAY ==
--- OUTSIDE RECORDS SUMMARY | 2019-03-21 08:31 | XMS REPORT ---
:1955 [facility] Address [address] [place] [address] [address] [place] [address] Care Team Providers Name Role Phone GEORGINA [...] (test code=GERARD) <0.010 ng/mL 0.000-0.090 Basic Metabolic [id number] 20:46:00 Test Item Value Reference Range Comments [...] race is not provided, and the patient isAfrican-Sri Lankan, multiply by 1.212. If sex is not [...] the National Kidney Foundation,http://nkdep.nih .gov CBC with [id number] 20:25:00 Test Item Value Reference Range Comments [...] Lymph Abs (test code=ALYMPH) 1.7 K/cumm 0.5-4.6 [place] Abs (test code=AMONO) 1.2 K/cumm 0.0-1.2 Eos Abs (test code=AEOS) 0.10 K/cumm 0.00-0.74 Baso Abs (test code=ABASO) 0.1 K/cumm 0.00-0.21
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
--- NOTE | 2019-03-21 09:47 | RAD REPORT ---
EXAM DESCRIPTION: RAD - Knee Left 3 View - 03/21/2019 8:51 am CLINICAL HISTORY: Left knee pain status post injury FINDINGS: No fracture or dislocation is seen. Osteoporosis
[2019-03-21 09:48] LABS: Absolute Lymphocytes (CBC) 1.7 K/uL (0.7-4.9); Basophils % 0.9 % (0-1.3); Hematocrit 41.4 % (39.6-49.0); Lymphocytes % 21.4 % (15.3-44.8); MPV 9.4 fL (7.6-11.3); RBC Red Blood Cell Count 4.06 M/uL (4.33-5.43)
--- NOTE | 2019-03-21 09:49 | RAD REPORT ---
EXAM DESCRIPTION: RAD - Hand Right 3 View - 03/21/2019 8:47 am CLINICAL HISTORY: Right hand pain status post injury FINDINGS: No acute fracture or dislocation is seen. Old fractures of the fourth and fifth metacarpal s Osteoporosis
[2019-03-21] MEDS ORDERED: MORPHINE 4 MG/ML SYR ONE (09:51)
[2019-03-21] MEDS ORDERED: ONDANSETRON 4 MG/2 ML VIAL ONE (09:51)
[2019-03-21 09:52] LABS: Protime INR 1.04
[2019-03-21 10:01] LABS: BUN Blood Urea Nitrogen 12 mg/dL (7-18); Bicarbonate 28 mmol/L (21-32); Glucose Level 64 mg/dL (74-106); Potassium 3.5 mmol/L (3.5-5.1); Sodium Level 140 mmol/L (136-145)
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
[2019-03-21 10:35] LABS: Blood Morphology Comment NOT SEEN (NOT SEEN); Platelet Estimate ADEQ
[2019-03-21 13:58] VITALS: BP 183/107; TEMP 98.2; O2SAT 96
== END 2019-03-21 11:29 | disposition home or self-care (01) ==
LOC: ER 08:29
DX: S16.1XXA Strain of muscle, fascia and tendon at neck level, initial encounter (principal); S20.229A Contusion of unspecified back wall of thorax, initial encounter; S60.221A Contusion of right hand, initial encounter; S83.8X2A Sprain of other specified parts of left knee, initial encounter; I10 Essential (primary) hypertension; V13.4XXA Pedal cycle driver injured in collision with car, pick-up truck or van in traffic accident, initial encounter; Z72.0 Tobacco use
CPT/HCPCS: 36415; 70450; 71260; 72125; 74177; 80048; 85025; 85610; 85730; 96374; 96375; 99284; J2405; Q9967

== ENCOUNTER 2019-06-01 11:53 | Inpatient (IN) | payer SELFPAY ==
--- OUTSIDE RECORDS SUMMARY | 2019-06-01 11:55 | XMS REPORT ---
:1955 [facility] Address [address] [place] [address] [address] [place] [address] Care Team Providers Name Role Phone GEORGINA [...] (test code=GERARD) <0.010 ng/mL 0.000-0.090 Basic Metabolic [id number] 20:46:00 Test Item Value Reference Range Comments [...] race is not provided, and the patient isAfrican-Cypriot, multiply by 1.212. If sex is not [...] the National Kidney Foundation,http://nkdep.nih .gov CBC with [id number] 20:25:00 Test Item Value Reference Range Comments [...] Lymph Abs (test code=ALYMPH) 1.7 K/cumm 0.5-4.6 Peñuelas Abs (test code=AMONO) 1.2 K/cumm 0.0-1.2 Eos Abs (test code=AEOS) 0.10 K/cumm 0.00-0.74 Baso Abs (test code=ABASO) 0.1 K/cumm 0.00-0.21
[2019-06-01] MEDS ORDERED: FENTANYL CITR 100 MCG/2 ML ONE (12:18)
[2019-06-01 12:19] LABS: Absolute Lymphocytes (CBC) 2.5 K/uL (0.7-4.9); Basophils % 1.1 % (0-1.3); MPV 9.9 fL (7.6-11.3); RBC Red Blood Cell Count 4.43 M/uL (4.33-5.43)
[2019-06-01] MEDS ORDERED: NITROGLYCERIN 0.4 MG/TAB SL ONE (12:19)
[2019-06-01] MEDS ORDERED: ONDANSETRON 4 MG/2 ML VIAL ONE (12:19)
[2019-06-01 12:26] LABS: Protime INR 0.97
[2019-06-01 12:37] LABS: ALT/SGPT 50 U/L (12-78); AST/SGOT 49 U/L (15-37); Albumin 3.4 g/dL (3.4-5.0); Alkaline Phosphatase 169 U/L (45-117); BUN Blood Urea Nitrogen 16 mg/dL (7-18); Bicarbonate 26 mmol/L (21-32); Bilirubin Direct 0.2 mg/dL (0-0.2); Bilirubin Total 0.5 mg/dL (0.2-1.0); Glucose Level 114 mg/dL (74-106); NT PRO-BNP 75 pg/mL (<125); Sodium Level 139 mmol/L (136-145); Troponin (Emerg Dept Use Only) < 0.02 ng/mL (0.0-0.045)
[2019-06-01] MEDS ORDERED: NITROGLYCERIN/D5W 50 MG/250 ML BTL IV ONE (13:14)
--- NOTE | 2019-06-01 13:16 | RAD REPORT ---
EXAM DESCRIPTION: RAD - Chest Single View - 06/01/2019 12:26 pm CLINICAL HISTORY: CHEST PAIN COMPARISON: Two view chest January 2017 TECHNIQUE: AP portable chest image was obtained 06/01/2019 12:26 pm . FINDINGS: Lungs are clear. Heart and vasculature are normal. No measurable pleural effusion and no p neumothorax. No acute bony abnormality seen. No acute aortic findings suspected. IMPRESSION: No acute cardiopulmonary process. No significant change from comparison.
--- NOTE | 2019-06-01 13:20 | RAD REPORT ---
EXAM DESCRIPTION: CT - Angio Aorta For Dissection - 06/01/2019 1:02 pm CLINICAL HISTORY: Chest pain radiating to the back. back pain;Chest pain COMPARISON: Abdomen Exam Limited dated 07/11/2018; Abdomen Pelvis W Contrast dated 07/11/2018 TECHNIQUE: CT angiography of the aorta was performed with MIPs. All CT scans are performed using dose optimization technique as appropriate and may include automated exposure control or mA/KV adjustment according to patient size. FINDINGS: A left aortic arch is present with normal branching pattern of the great vessels.No acute aortic finding is seen such as aneurysm, penetrating ulcer or dissection. The celiac axis, SMA, LOY and renal arteries are patent. No evidence of pulmonary embolism. The lungs are clear. Nodular liver contour is identified compatible with cirrhosis. Enhancing arterial phase mass is seen the superior right lobe liver measuring 26 x 25 mm and the smaller adjacent similar arterial phase en hancing lesion is present in the left lobe measuring 9 x 7 mm.Splenectomy noted.Pancreatic parenchyma is within normal limits. No pancreatic ductal dilatation. Adrenal glands and kidneys are within norm al limits. Several small fat containing umbilical hernias. No bowel obstruction, free fluid or abscess.Normal appendix.No pathologic enlarged lymphadenopathy id entified. [id number] degenerative changes throughout the lumbar spine. IMPRESSION: No acute aortic finding is demonstrated. Liver cirrhosis with enhancing arterial phase masses as detailed. In the setting of cirrhosis, this i s quite worrisome for hepatocellular carcinoma. Consider correlation with alpha fetoprotein levels. N onemergent MRI liver protocol followup may also provide additional information.
--- NOTE | 2019-06-01 14:13 | ER ---
Nurse's Notes [facility] Name: Mic Gross Age: 63 yrs Sex: Male : 1955 Arrival Date: 06/01/2019 Time: 11:57 Bed 4 Private MD: Diagnosis: Hypertensive Emergency;Unstable angina Presentation: 05/31 12:00 Chief complaint: Patient states: mid-sternal chest pain radiating to back that began aa5 this morning. Pt denies cough, denies SOB. Reports nausea, denies vomiting. 12:00 Coronavirus screen: Patient denies fever greater than 100.4F, cough, shortness of aa5 breath, or difficulty breathing. Ebola Screen: Patient negative for fever greater than or equal to 101.5 degrees Fahrenheit, and additional compatible Ebola Virus Disease symptoms. Initial Sepsis Screen: Does the patient meet any 2 criteria? No. Patient's initial sepsis screen is negative. Does the patient have a suspected source of infection? No. Patient's initial sepsis screen is negative. Risk Assessment: Do you want to hurt yourself or someone else? Patient reports no desire to harm self or others. 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 - Social history:: Smoking status: Patient reports the use of cigarette tobacco products, denies chronic smoking, but will smoke occasionally. Screenin:18 Abuse screen: Denies threats or abuse. Denies injuries from another. Nutritional hb screening: No deficits noted. Tuberculosis screening: No symptoms or risk factors identified. Fall Risk None identified. Assessment: 12:00 General: Appears distressed, uncomfortable, Behavior is calm, cooperative. Pain: aa5 Complains of pain in mid-sternal area Pain radiates to thoracic area Pain currently is 8 out of 10 on a pain scale. Quality of pain is described as sharp, shooting, Pain began "this morning" Is continuous. Neuro: Level of Consciousness is awake, alert, obeys commands, Oriented to person, place, time, situation. Cardiovascular: Heart tones S1 S2 present Rhythm is regular. Respiratory: Airway is patent Respiratory effort is even, unlabored, Respiratory pattern is regular, symmetrical, Breath sounds are clear bilaterally. Denies cough, shortness of breath. GI: Abdomen is round non-distended, Hernia noted Bowel sounds present X 4 quads. Abd is soft and non tender X 4 quads. Reports nausea, Patient currently denies vomiting. : No signs and/or symptoms were reported regarding the genitourinary system. EENT: No signs and/or symptoms were reported regarding the EENT system. Derm: Skin is pink, warm \\T\\ dry. Musculoskeletal: Range of motion: intact in all extremities. 12:52 Reassessment: Patient is alert, oriented x 3, equal unlabored respirations, skin aa5 warm/dry/pink. Patient states symptoms have not improved. 12:52 Pain: Pain currently is 7 out of 10 on a pain scale. aa5 13:17 Reassessment: Pt c/o chest pain 10/10, XIN Rothman notified, nitro infusion started as hb ordered. 13:40 Reassessment: Patient is alert, oriented x 3, equal unlabored respirations, skin aa5 warm/dry/pink. Patient states feeling better. Patient states symptoms have improved. General: Appears comfortable. Pain: Pain currently is 1 out of 10 on a pain scale. 14:15 Reassessment: Patient is alert, oriented x 3, equal unlabored respirations, skin aa5 warm/dry/pink. US at bedside. . 14:40 Reassessment: Patient is alert, oriented x 3, equal unlabored respirations, skin aa5 warm/dry/pink. Patient states feeling better. 14:40 Pain: Pain currently is 1 out of 10 on a pain scale. aa5 14:45 Reassessment: Dr. Spain (Hospitalist) at bedside. . aa5 15:20 Reassessment: Pt resting in bed with eyes closed, respirations even and unlabored, skin aa5 is pink/warm/dry. Sinus rhythm on monitor. . 16:16 Reassessment: Unsuccessful attempt to call report to ICU. aa5 16:16 Reassessment: Pt resting in bed with eyes closed, equal and unlabored respirations. . aa5 16:33 Reassessment: Pt resting in bed with eyes closed, easy to awaken to verbal stimuli. Pt aa5 notified of wait time to be transported to ICU 2, pt verbalized understanding of wait time. Awaiting for ICU nurse to call back for report. . 16:44 Reassessment: Patient is alert, oriented x 3, equal unlabored respirations, skin aa5 warm/dry/pink. Vital Signs: 12:02 BP 193 / 120 RA; Pulse 70; Resp 20 S; Pulse Ox 98% on R/A; aa5 12:04 BP 202 / 100 LA; Pulse 71; Resp 24 S; Pulse Ox 97% on R/A; aa5 12:15 BP 178 / 106; Pulse 68; Resp 24 S; Temp 98.5(O); Pulse Ox 97% on R/A; aa5 12:40 BP 122 / 77; Pulse 60; Resp 18 S; Pulse Ox 97% on R/A; aa5 13:03 BP 164 / 107; Pulse 66; Resp 16 S; Pulse Ox 99% on R/A; aa5 13:15 BP 174 / 128; Pulse 55; Resp 16 S; Pulse Ox 99% on R/A; aa5 13:30 BP 113 / 79; Pulse 57; Resp 18 S; Pulse Ox 96% on R/A; aa5 13:43 BP 125 / 82; Pulse 59; Resp 16 S; Pulse Ox 98% on R/A; aa5 14:00 BP 116 / 60; Pulse 58; Resp 18 S; Pulse Ox 98% on R/A; aa5 14:15 Weight 70.31 kg; Height 5 ft. 6 in. (167.64 cm); hb 14:20 BP 136 / 81; Pulse 57; Resp 18 S; Pulse Ox 100% on R/A; aa5 15:20 BP 119 / 70; Pulse 60; Resp 16; Temp 97.8(TE); Pulse Ox 100% on R/A; mh5 16:15 BP 134 / 77; Pulse 61; Resp 16; Pulse Ox 100% on R/A; hb 16:32 Temp 98.7(O); aa5 14:15 Body Mass Index 25.02 (70.31 kg, 167.64 cm) hb ED Course: 11:57 Patient arrived in ED. am2 12:00 Patient has correct armband on for positive identification. Placed in gown. Bed in low aa5 position. Call light in reach. Side rails up X2. funeral assistant on. Pulse ox on. NIBP on. 12:00 Arm band placed on. aa5 12:04 Stephan Pascual PA is PHCP. jr8 12:04 Juan J Forbes MD is Attending Physician. jr8 12:08 Initial lab(s) drawn, by al, sent to lab. Inserted saline lock: 20 gauge in left aa5 antecubital area, using aseptic technique. Blood collected. 12:12 Jessie Godwin, RN is Primary Nurse. aa5 12:13 Warm blanket given. 5 12:14 EKG done, by ED staff, reviewed by Stephan LAUREN. 5 12:20 Triage completed. aa5 12:26 XRAY Chest (1 view) In Process Unspecified. EDMS 13:02 CT Aorta for Dissection In Process Unspecified. EDMS 14:12 Jessie Spain MD is Hospitalizing Provider. jr8 16:43 No provider procedures requiring assistance completed. Patient admitted, IV remains in aa5 place. Administered Medications: 12:17 Drug: Nitroglycerin 0.4 mg Route: Sublingual; hb 12:18 Drug: fentaNYL (PF) 50 mcg Route: IVP; Site: left antecubital; hb 12:25 Follow up: Response: No adverse reaction aa5 12:18 Drug: Zofran (Ondansetron) 4 mg Route: IVP; Site: left antecubital; hb 12:25 Follow up: Response: No adverse reaction aa5 12:34 Drug: Nitroglycerin 0.4 mg Route: Sublingual; hb 12:48 Drug: Nitroglycerin 0.4 mg Route: Sublingual; aa5 12:52 Follow up: Response: No adverse reaction aa5 13:17 Drug: Nitro Drip - (Nitroglycerin 50 mg, D5W 250 ml) Route: IV; Rate: 5 mcg/min; Site: hb left antecubital; 13:40 Follow up: Response: Marked relief of symptoms aa5 16:44 Follow up: IV Status: Infusion continued upon admission aa5 14:39 Drug: Lovenox 1 mg/kg {Note: administered 70mg .} Route: Sub-Q; Site: left lower aa5 abdomen; 16:34 Follow up: Response: No adverse reaction aa5 14:39 Drug: Aspirin Chewable Tablet 324 mg Route: PO; aa5 16:34 Follow up: Response: No adverse reaction aa5 Outcome: 14:12 Decision to Hospitalize by Provider. boby 16:44 Admitted to ICU accompanied by nurse, accompanied by tech, via stretcher, room ICU 5, aa5 on monitor, with chart, Report called to MARKELL Hester 16:44 Condition: stable 16:44 Instructed on the need for admit, Demonstrated understanding of instructions. 16:54 Patient left the ED. Signatures: Dispatcher [employer] EDJessie Diego RN RN aa5 Stephan Pascual PA PA jr8 Lindsey Voss RN RN hb Martinez, Maria 5 Shamika Elizabeth am2 Corrections: (The following items were deleted from the chart) 12:23 12:13 Patient has correct armband on for positive identification. Placed in gown. Bed aa5 in low position. Call light in reach. Side rails up X2. 5 12:23 12:13 funeral assistant on. Pulse ox on. NIBP on. mh5 aa5
--- NOTE | 2019-06-01 14:13 | EDPHYS ---
Physician Documentation [facility] Name: Mic Gross Age: 63 yrs Sex: Male : 1955 Arrival Date: 06/01/2019 Time: 11:57 Bed 4 Private MD: ED Physician Juan J Forbes HPI: 05/31 14:07 This 63 yrs old Male presents to ER via Wheelchair with complaints of Chest jr8 Pain, Nausea. 14:07 The patient or guardian reports chest pain that is located primarily in the substernal jr8 area. Onset: acutely, today. The pain radiates to back. Associated signs and symptoms: The patient has no apparent associated signs or symptoms. The chest pain is described as sharp, stabbing. Duration: The patient or guardian reports a single episode, that is still ongoing, and worsening. Modifying factors: The symptoms are alleviated by nothing. the symptoms are aggravated by nothing. Severity of pain: At its worst the pain was moderate in the emergency department the pain is unchanged. The patient has not experienced similar symptoms in the past. The patient has not recently seen a physician. 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 - Social history:: Smoking status: Patient reports the use of cigarette tobacco products, denies chronic smoking, but will smoke occasionally. ROS: 14:07 Eyes: Negative for injury, pain, redness, and discharge, ENT: Negative for injury, jr8 pain, and discharge, Neck: Negative for injury, pain, and swelling, Respiratory: Negative for shortness of breath, cough, wheezing, and pleuritic chest pain, Abdomen/GI: Negative for abdominal pain, nausea, vomiting, diarrhea, and constipation, Back: Negative for injury and pain, MS/Extremity: Negative for injury and deformity, Skin: Negative for injury, rash, and discoloration, Neuro: Negative for headache, weakness, numbness, tingling, and seizure. 14:07 Cardiovascular: Positive for chest pain, Negative for edema, orthopnea, palpitations, paroxysmal nocturnal dyspnea. Exam: 14:07 Eyes: Pupils equal round and reactive to light, extra-ocular motions intact. Lids and jr8 lashes normal. Conjunctiva and sclera are non-icteric and not injected. Cornea within normal limits. Periorbital areas with no swelling, redness, or edema. ENT: Nares patent. No nasal discharge, no septal abnormalities noted. Tympanic membranes are normal and external auditory canals are clear. Oropharynx with no redness, swelling, or masses, exudates, or evidence of obstruction, uvula midline. Mucous membranes moist. Neck: Trachea midline, no thyromegaly or masses palpated, and no cervical lymphadenopathy. Supple, full range of motion without nuchal rigidity, or vertebral point tenderness. No Meningismus. Cardiovascular: Regular rate and rhythm with a normal S1 and S2. No gallops, murmurs, or rubs. Normal PMI, no JVD. No pulse deficits. Respiratory: Lungs have equal breath sounds bilaterally, clear to auscultation and percussion. No rales, rhonchi or wheezes noted. No increased work of breathing, no retractions or nasal flaring. Abdomen/GI: Soft, non-tender, with normal bowel sounds. No distension or tympany. No guarding or rebound. No evidence of tenderness throughout. Back: No spinal tenderness. No costovertebral tenderness. Full range of motion. Skin: Warm, dry with normal turgor. Normal color with no rashes, no lesions, and no evidence of cellulitis. Neuro: Awake and alert, GCS 15, oriented to person, place, time, and situation. Cranial nerves II-XII grossly intact. Motor strength 5/5 in all extremities. Sensory grossly intact. Cerebellar exam normal. Normal gait. 14:07 Musculoskeletal/extremity: Extremities: grossly normal except: noted in the RLE: erythema, tenderness, ROM: intact in all extremities, full active range of motion, full passive range of motion, Circulation is intact in all extremities. Sensation intact. 16:06 ECG was reviewed by the Attending Physician. [facility] Vital Signs: 12:02 BP 193 / 120 RA; Pulse 70; Resp 20 S; Pulse Ox 98% on R/A; aa5 12:04 BP 202 / 100 LA; Pulse 71; Resp 24 S; Pulse Ox 97% on R/A; aa5 12:15 BP 178 / 106; Pulse 68; Resp 24 S; Temp 98.5(O); Pulse Ox 97% on R/A; aa5 12:40 BP 122 / 77; Pulse 60; Resp 18 S; Pulse Ox 97% on R/A; aa5 13:03 BP 164 / 107; Pulse 66; Resp 16 S; Pulse Ox 99% on R/A; aa5 13:15 BP 174 / 128; Pulse 55; Resp 16 S; Pulse Ox 99% on R/A; aa5 13:30 BP 113 / 79; Pulse 57; Resp 18 S; Pulse Ox 96% on R/A; aa5 13:43 BP 125 / 82; Pulse 59; Resp 16 S; Pulse Ox 98% on R/A; aa5 14:00 BP 116 / 60; Pulse 58; Resp 18 S; Pulse Ox 98% on R/A; aa5 14:15 Weight 70.31 kg; Height 5 ft. 6 in. (167.64 cm); hb 14:20 BP 136 / 81; Pulse 57; Resp 18 S; Pulse Ox 100% on R/A; aa5 15:20 BP 119 / 70; Pulse 60; Resp 16; Temp 97.8(TE); Pulse Ox 100% on R/A; mh5 16:15 BP 134 / 77; Pulse 61; Resp 16; Pulse Ox 100% on R/A; hb 16:32 Temp 98.7(O); aa5 14:15 Body Mass Index 25.02 (70.31 kg, 167.64 cm) hb MDM: 12:04 Patient medically screened. [facility] 14:01 Data reviewed: vital signs, nurses notes, lab test result(s), EKG, radiologic studies, [facility] CT scan, plain films. Data interpreted: Pulse oximetry: on room air is 98 %. Interpretation: normal. Counseling: I had a detailed discussion with the patient and/or guardian regarding: the historical points, exam findings, and any diagnostic results supporting the discharge/admit diagnosis, lab results, radiology results, the need for further work-up and treatment in the hospital. Physician consultation: Jessie Spain MD was called at 14:02, was contacted at 14:02, regarding admission, to the ICU, consult, patient's condition, and will see patient in ED. 14:09 The patient was given aspirin in the Emergency Department. 05/31 12:05 Order name: Basic Metabolic Panel; Complete Time: 12:38 05/31 12:05 Order name: CBC with Diff; Complete Time: 12:36 05/31 12:05 Order name: LFT's; Complete Time: 12:38 05/31 12:05 Order name: Magnesium; Complete Time: 12:38 05/31 12:05 Order name: NT PRO-BNP; Complete Time: 12:38 05/31 12:05 Order name: PT-INR; Complete Time: 12:36 05/31 12:05 Order name: Troponin (emerg Dept Use Only); Complete Time: 12:38 05/31 12:05 Order name: XRAY Chest (1 view); Complete Time: 13:20 05/31 12:37 Order name: CT Aorta for Dissection; Complete Time: 13:41 05/31 14:07 Order name: US Extremity Venous Unilateral Ltd 05/31 14:49 Order name: US; Complete Time: 14:50 EDMS 05/31 12:05 Order name: EKG; Complete Time: 12:06 05/31 12:05 Order name: Cardiac monitoring; Complete Time: 12:12 05/31 12:05 Order name: EKG - Nurse/Tech; Complete Time: 12:12 05/31 12:05 Order name: IV Saline Lock; Complete Time: 12:12 05/31 12:05 Order name: Labs collected and sent; Complete Time: 12:12 05/31 12:05 Order name: O2 Per Protocol; Complete Time: 12:12 05/31 12:05 Order name: O2 Sat Monitoring; Complete Time: 12:12 05/31 16:32 Order name: Diet Heart Healthy; Complete Time: 16:32 aa5 EC:06 Rate is 57 beats/min. Rhythm is regular, Sinus bradycardia. QRS [place] is Normal. [place] jr8 interval is normal at 168 msec. QRS interval is normal at 82 msec. QT interval is normal at 451 msec. No Q waves. T waves are Normal. No ST changes noted. Clinical impression: Sinus bradycardia. Interpreted by me. Reviewed by me. Administered Medications: 12:17 Drug: Nitroglycerin 0.4 mg Route: Sublingual; hb 12:18 Drug: fentaNYL (PF) 50 mcg Route: IVP; Site: left antecubital; hb 12:25 Follow up: Response: No adverse reaction aa5 12:18 Drug: Zofran (Ondansetron) 4 mg Route: IVP; Site: left antecubital; hb 12:25 Follow up: Response: No adverse reaction aa5 12:34 Drug: Nitroglycerin 0.4 mg Route: Sublingual; hb 12:48 Drug: Nitroglycerin 0.4 mg Route: Sublingual; aa5 12:52 Follow up: Response: No adverse reaction aa5 13:17 Drug: Nitro Drip - (Nitroglycerin 50 mg, D5W 250 ml) Route: IV; Rate: 5 mcg/min; Site: hb left antecubital; 13:40 Follow up: Response: Marked relief of symptoms aa5 16:44 Follow up: IV Status: Infusion continued upon admission aa5 14:39 Drug: Lovenox 1 mg/kg {Note: administered 70mg .} Route: Sub-Q; Site: left lower aa5 abdomen; 16:34 Follow up: Response: No adverse reaction aa5 14:39 Drug: Aspirin Chewable Tablet 324 mg Route: PO; aa5 16:34 Follow up: Response: No adverse reaction aa5 Disposition: 06/01/19 14:12 Hospitalization ordered by Jessie Spain for Inpatient Admission. Preliminary diagnosis are Hypertensive Emergency, Unstable angina. - Bed requested for Intensive Care Unit. - Status is Inpatient Admission. hb - Condition is Fair. - Problem is new. - Symptoms have improved. Critical care time excluding procedures: 14:01 Critical care time: Bedside Care: 20 minutes, Consultation: 10 minutes. Total time: 30 jr8 minutes Addendum: 06/09/2019 06:52 Co-signature as Attending Physician, Juan J Forbes MD. m a2 Signatures: Dispatcher [employer] Jessie Casillas RN RN aa5 Maribel Thayer RN RN Stephan Pascual PA PA jr8 Lindsey Voss RN RN Juan J Forbes MD MD ma2 Corrections: (The following items were deleted from the chart) 05/31 16:04 14:12 Hospitalization Ordered by Jessie Spain MD for Inpatient Admission. Preliminary ss diagnosis is Hypertensive Emergency; Unstable angina. Bed requested for Intensive Care Unit. Status is Inpatient Admission. Condition is Fair. Problem is new. Symptoms have improved. jr8 16:44 16:04 06/01/2019 14:12 Hospitalization Ordered by Jessie Spain MD for Inpatient aa5 Admission. Preliminary diagnosis is Hypertensive Emergency; Unstable angina. Bed requested for Intensive Care Unit. Status is Inpatient Admission. Condition is Fair. Problem is new. Symptoms have improved. ss 16:54 16:44 06/01/2019 14:12 Hospitalization Ordered by Jessie Spain MD for Inpatient hb Admission. Preliminary diagnosis is Hypertensive Emergency; Unstable angina. Bed requested for Intensive Care Unit. Status is Inpatient Admission. Condition is Fair. Problem is new. Symptoms have improved. aa5
[2019-06-01] MEDS ORDERED: ENOXAPARIN 80 MG/0.8 ML SQ ONE (14:23)
[2019-06-01] MEDS ORDERED: ASPIRIN 81 MG CHEWABLE TABLET ONE (14:23)
--- NOTE | 2019-06-01 14:47 | RAD REPORT ---
EXAM DESCRIPTION: US - Extremity Venous Uni Ltd - 06/01/2019 2:41 pm CLINICAL HISTORY: erythema;Pain Leg swelling and edema. COMPARISON: UPPER EXT ARTERY BILATERAL dated 04/21/2015 FINDINGS: Right lower extremity venous system was interrogated with Doppler technique. Normal flow, compressibility and augmentation was noted. There is no DVT present. IMPRESSION: No evidence of right lower extremity deep venous thrombosis.
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
--- NOTE | 2019-06-01 16:53 | EKG ---
Test Date: 2019-06-01 Test Time: 12:05:38 Groundskeeping Yardman: MICHELLE MEASUREMENT RESULTS: Intervals: Rate: 66 NH: 160 QRSD: 82 QT: 404 QTc: 423 [place]: P: 62 NH: 160 QRS: 43 T: 73 INTERPRETIVE STATEMENTS: Sinus rhythm with premature atrial complexes Otherwise normal ECG Compared to ECG 07/11/2018 08:27:12 Atrial premature complex(es) now present Sinus bradycardia no longer present Electronically Signed On 06-01-19 16:52:51 CDT by Clint Sosa
[2019-06-01] MEDS ORDERED: MORPHINE 2 MG/ML SYR IV PRN (17:20)
[2019-06-01] MEDS ORDERED: NITROGLYCERIN/D5W 50 MG/250 ML BTL IV PRN (17:20)
[2019-06-01] MEDS ORDERED: ACETAMINOPHEN 500 MG TAB PO PRN (17:20)
[2019-06-01] MEDS ORDERED: HYDROMORPHONE HCL 1 MG/ML INJ IV PRN (17:51)
[2019-06-01 18:42] VITALS: BMI 25.0
[2019-06-01] MEDS ORDERED: ATORVASTATIN 40 MG TAB PO SCH (21:00)
[2019-06-01] MEDS: METOPROLOL TAR 50 MG TAB PO SCH (21:45)
[2019-06-01] MEDS: VANCOMYCIN 1.25 GM in NA CHLORIDE 0.9% 250 ML IVPB SCH (21:47)
[2019-06-01] MEDS: HYDROMORPHONE HCL 1 MG/ML INJ IV PRN (21:58)
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
[2019-06-02] MEDS: HYDROMORPHONE HCL 1 MG/ML INJ IV PRN ×6 (01:00→16:50)
[2019-06-02 06:16] LABS: BUN Blood Urea Nitrogen 14 mg/dL (7-18); Bicarbonate 27 mmol/L (21-32); Glucose Level 98 mg/dL (74-106); HDL Cholesterol 50 mg/dL (40-60); LDL Cholesterol, Calculated 93 (<130); Potassium 4.1 mmol/L (3.5-5.1); Sodium Level 139 mmol/L (136-145)
[2019-06-02 06:18] LABS: Absolute Lymphocytes (CBC) 2.9 K/uL (0.7-4.9); Basophils % 0.6 % (0-1.3); Hematocrit 43.7 % (39.6-49.0); Lymphocytes % 27.2 % (15.3-44.8); MPV 10.7 fL (7.6-11.3); RBC Red Blood Cell Count 4.39 M/uL (4.33-5.43)
[2019-06-02] MEDS ORDERED: REGADENOSON 0.4 MG/5 ML SYR IV ONE (08:06)
[2019-06-02] MEDS: ONDANSETRON 4 MG/2 ML VIAL IV PRN ×2 (08:54→16:49)
[2019-06-02] MEDS ORDERED: lisinopriL 20 MG TAB PO SCH (09:00)
[2019-06-02] MEDS: VANCOMYCIN 1.25 GM in NA CHLORIDE 0.9% 250 ML IVPB SCH (09:00)
[2019-06-02] MEDS ORDERED: ASPIRIN EC 81 MG TAB PO SCH (09:00)
[2019-06-02] MEDS: METOPROLOL TAR 50 MG TAB PO SCH (09:00)
[2019-06-02] MEDS ORDERED: ENSURE ENLIVE 237 ML CAN PO PRN (09:44)
--- NOTE | 2019-06-02 11:19 | RAD REPORT ---
EXAM DESCRIPTION: NM - Rest Stress Cardiac Imaging - 06/02/2019 11:09 am CLINICAL HISTORY: Chest pain. COMPARISON: None. TECHNIQUE: The patient was administered approximately 10mCi of Tc 99m Sestamibi prior to resting SPE CT imaging of the heart. The patient was then administered approximately 30 mCi of Tc 99m Sestamibi f ollowing exercise or pharmacologic stress. Multiplanar SPECT images were reviewed. FINDINGS: There is a small, mild area of diminished radiotracer activity involving the inferior lef t ventricular myocardium on stress sequences. This appears normal on rest images. Otherwise there is normal radiotracer uptake involving the entire left ventricular myocardium on stre ss and rest images The left ventricular ejection fraction equals 54% IMPRESSION: Small apparent reversible perfusion defect involving the inferior left ventricular myoca rdium. This may indicate stress-induced ischemia
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
[2019-06-02] MEDS ORDERED: NITROGLYCERIN 0.4 MG/TAB SL PRN (12:32)
[2019-06-02] MEDS ORDERED: MORPHINE 2 MG/ML SYR IV ONE (12:33)
[2019-06-02 13:24] LABS: Hematocrit 43.9 % (39.6-49.0); MPV 10.6 fL (7.6-11.3); RBC Red Blood Cell Count 4.42 M/uL (4.33-5.43)
[2019-06-02 13:29] LABS: Protime INR 1.01
[2019-06-02] MEDS ORDERED: LIDOCAINE 1% MPF 30 ML VIAL ONE (13:49)
[2019-06-02] MEDS ORDERED: HEPA 1000U/500MLS 1,000 UNIT/500 ML BAG IV ONE (13:49)
[2019-06-02] MEDS ORDERED: NA CHLORIDE 0.9% 0 ML ONE (13:49)
[2019-06-02] MEDS ORDERED: ATROPINE SULF 1 MG/10 ML SYR IV ONE (13:49)
[2019-06-02] MEDS ORDERED: FENTANYL CITR 100 MCG/2 ML ONE (13:49)
[2019-06-02] MEDS ORDERED: NA CHLORIDE 0.9% 500 ML ONE (13:50)
[2019-06-02 13:57] LABS: ALT/SGPT 42 U/L (12-78); AST/SGOT 44 U/L (15-37); Albumin 3.2 g/dL (3.4-5.0); Alkaline Phosphatase 140 U/L (45-117); BUN Blood Urea Nitrogen 13 mg/dL (7-18); Bicarbonate 26 mmol/L (21-32); Bilirubin Total 0.6 mg/dL (0.2-1.0); CKMB Creatine Kinase MB 2.1 ng/mL (0.3-3.6); Creatine Phosphokinase 105 U/L (39-308); Glucose Level 144 mg/dL (74-106); NT PRO-BNP 184 pg/mL (<125); Potassium 3.7 mmol/L (3.5-5.1); Protein, Total 8.3 g/dL (6.4-8.2); Sodium Level 138 mmol/L (136-145)
[2019-06-02 13:58] LABS: C-Reactive Protein < 2.90 mg/L (<3.00)
[2019-06-02] MEDS ORDERED: MIDAZOLAM HCL 2 MG/2 ML INJ ONE (14:01)
--- NOTE | 2019-06-02 14:36 | EKG ---
Test Date: 2019-06-02 Test Time: 12:32:44 Research Worker Kitchen: CY MEASUREMENT RESULTS: Intervals: Rate: 68 NH: 162 QRSD: 84 QT: 424 QTc: 450 [place]: P: 53 NH: 162 QRS: 46 T: 68 INTERPRETIVE STATEMENTS: Normal sinus rhythm Normal ECG Compared to ECG 06/01/2019 13:30:20 Sinus bradycardia no longer present Electronically Signed On 06-02-19 14:35:45 CDT by Clint Sosa
--- NOTE | 2019-06-02 14:39 | EKG ---
Test Date: 2019-06-01 Test Time: 13:30:20 Grounds Supervisor: WINSTON MEASUREMENT RESULTS: Intervals: Rate: 57 MA: 168 QRSD: 82 QT: 464 QTc: 451 [place]: P: 65 MA: 168 QRS: 56 T: 73 INTERPRETIVE STATEMENTS: Sinus bradycardia Otherwise normal ECG Compared to ECG 06/01/2019 12:05:38 Sinus rhythm no longer present Atrial premature complex(es) no longer present Electronically Signed On 06-02-19 14:37:03 CDT by Clint Sosa
--- NOTE | 2019-06-02 15:16 | ECHO ---
HEIGHT: 5 ft 6 in WEIGHT: 155 lb 0 oz DATE OF STUDY: 06/02/[address]: Clint Sosa MD 2-DIMENSIONAL: YES M.MODE: YES DOPPLER: YES COLOR FLOW: YES TDS: NO PORTABLE: NO DEFINITY: NO BUBBLE STUDY: NO DIAGNOSIS: CHEST PAIN, HYPERTENSION CARDIAC HISTORY: CATHERIZATION: NO SURGERY: NO PROSTHETIC VALVE: NO PACEMAKER: NO MEASUREMENTS (cm) DIASTOLIC (NORMALS) SYSTOLIC (NORMALS) IVSd 0.9 (0.6-1.2) LA Diam 3.6 (1.9-4.0) LVEF 55% LVIDd 3.9 (3.5-5.7) LVIDs 2.8 (2.0-3.5) %FS 28% LVPWd 0.8 (0.6-1.2) Ao Diam 2.8 (2.0-3.7) 2 DIMENSIONAL ASSESSMENT: RIGHT ATRIUM: NORMAL LEFT ATRIUM: NORMAL RIGHT VENTRICLE: NORMAL LEFT VENTRICLE: NORMAL TRICUSPID VALVE: NORMAL MITRAL VALVE: NORMAL PULMONIC VALVE: NORMAL AORTIC VALVE: NORMAL PERICARDIAL EFFUSION: NONE AORTIC ROOT: NORMAL LEFT VENTRICULAR WALL MOTION: NORMAL DOPPLER/COLOR FLOW: NORMAL COMMENTS: NORMAL 2D ECHOCARDIOGRAM WITH DOPPLER. NO WALL MOTION ABNORMALITY. NO EFFUSION. TECHNOLOGIST: Elizabeth OLIVER
--- NOTE | 2019-06-02 15:21 | TREADPHA ---
DX: CHEST PAIN Date of Study: 06/02/2019 Ht: 5 6 Wt: 155 lb 0 oz Consulting Physician: MATEO MEDICATIONS: TYLENOL, NORVASC, ASPIRIN, LIPITOR, DILAUDID, LOPRESSOR, PRINIVIL, ZOFRAN HISTORY: 63 YEAR OLD MALE WITH COMPLAINTS OF CHEST PAIN. HISTORY OF HEPATITIS C, HYPERTENSION, NON SMOKER AND NON DRINKER. PHYSICIAL EXAMINATION: RESTING B.P.: 146/89 RESTING H.R.: 62 RESTING EKG: NORMAL PROTOCOL: LEXISCAN EXERCISE TIME: 3:30 B.P. AT PEAK STRESS: 139/85 IMPRESSION: LEXISCAN INJECTED, FOLLOWED BY CARDIOLITE PER PROTOCOL. SEE NUCLEAR MEDICINE REPORT. NO SUPRAVENTRICULAR TACHYCARDIA, VENTRICULAR TACHYCARDIA, PREMATURE VENTRICULAR COMPLEXES OR PREMATURE ATRIAL COMPLEXES NOTED. PATIENT REPORTS CHEST PAIN 5/10 THROUGHOUT PROCEDURE.
[2019-06-02 16:22] VITALS: TEMP 98.3; O2SAT 95
--- NOTE | 2019-06-02 17:13 | OP ---
Surgeon: Clint Sosa MD Entry Specialist: Ramón Lazaro. Indications For Procedure: Mr. Gross came in with severe chest pain, diaphoresis, normal EKG, nor mal troponin, normal CT of the chest as far as dissection is concerned, looks like he may have liver cancer based on the CT of his abdomen. Continues to have chest pain. His echocardiogram was normal. He did have a positive stress test. Description Of Procedure: He was taken to the oven laborer today as an inpatient. He was prepped and dr mix in the routine sterile fashion. He was given fentanyl for sedation. A 6-Spanish sheath was intr oduced in the right common femoral artery successfully. Angio-Seal was used to close the case. Judk ins catheter left and right were used to cannulate the left main and right main respectively. His RC A was very large, dominant with diffuse plaquing throughout. The circumflex itself was normal. The LAD had diffuse plaquing throughout. There was about a 50% ostial ramus lesion very close to the lef t main, LAD, and the circumflex trifurcation. Decision was made to treat him medically. Complications: None. Estimated Blood Loss: 5 mL. Anesthesia: Total conscious sedation was 30 minutes. Final Diagnosis: Moderate coronary artery disease. Plan: Continue medical therapy with aspirin, Plavix, statin, and a calcium channel katia as well a s his lisinopril with hydrochlorothiazide. The patient is to follow up regarding his liver masses. The case was discussed with Dr. Spain. From my standpoint, patient can go home today. I would like to see him in the office in the next 2 to 4 weeks. STEVEN/ELANA Voice ID: [id number] Report ID: [id number]
[2019-06-02 17:55] VITALS: BP 141/77
[2019-06-02] MEDS ORDERED: AMLODIPINE 10 MG TAB PO SCH (18:00)
[2019-06-02] MEDS ORDERED: hydroCHLOROthiazide 12.5 MG CAP PO SCH (18:00)
== END 2019-06-02 18:15 | disposition home or self-care (01) | DRG 287 ==
LOC: ER 11:53 → ERHOLD 14:28 → 3RD-ICU 16:44
PROVIDERS: ADMIT Family Medicine; ATTEND Family Medicine
PROC: 4A023N7 Measurement of Cardiac Sampling and Pressure, Left Heart, Percutaneous Approach (ICD-10-PCS; principal; 2019-06-02)
PROC: 4A02XM4 Measurement of Cardiac Total Activity, External Approach (ICD-10-PCS; 2019-06-02)
PROC: B2111ZZ Fluoroscopy of Multiple Coronary Arteries using Low Osmolar Contrast (ICD-10-PCS; 2019-06-02)
PROC: B2151ZZ Fluoroscopy of Left Heart using Low Osmolar Contrast (ICD-10-PCS; 2019-06-02)
DX: I16.1 Hypertensive emergency (principal); C22.0 Liver cell carcinoma; L03.115 Cellulitis of right lower limb; I25.10 Atherosclerotic heart disease of native coronary artery without angina pectoris; F41.9 Anxiety disorder, unspecified; I10 Essential (primary) hypertension; F17.210 Nicotine dependence, cigarettes, uncomplicated; Z79.82 Long term (current) use of aspirin; Z79.899 Other long term (current) drug therapy; Z90.81 Acquired absence of spleen; M10.9 Gout, unspecified; B19.20 Unspecified viral hepatitis C without hepatic coma
CPT/HCPCS: 36415; 71045; 71275; 74175; 78452; 80048; 80053; 80061; 80076; 82550; 82553; 82947; 83735; 83880; 84484; 85025; 85027; 85610; 85730; 86140; 93005; 93017; 93306; 93458; 93971; 94760; 96365; 96366; 96372; 96375; 99285; A9500; C1760; C1893; J0583; J1170; J1650; J2250; J2270; J2405; J2785; J3010; J7030; J7040; Q9967

== ENCOUNTER 2019-08-18 09:04 | Emergency (ER) | payer SELFPAY ==
--- OUTSIDE RECORDS SUMMARY | 2019-08-18 09:52 | XMS REPORT | Continuity of Care Document ---
:1955 Author Organization [facility] t Address [facility] [address] [place] [address] Care Team Providers Name Role Phone GEORGINA STARR Attending Clinician Unavailable GEORGINA STARR Admitting Clinician Unavailable Problems This patient has no known problems. Allergies, Adverse Reactions, Alerts This patient has no known allergies or adverse reactions. Medications This patient has no known medications. Procedures This patient has no known procedures. Results Test Description Test Time Test Comments Results Result Comments Source Troponin T 2016-05-15 20:46:00 Test Item Value Reference Range Interpretation Comme nts Troponin T (test code = GERARD) <0.010 ng/mL 0.000-0.090 N Basic Metabolic [id number] 20:46:00 Test Item Value Reference Range Interpretation Comments Sodium (test code = 135 mmol/L 135-145 N NA) Potassium (test 4.5 mmol/L 3.5-5.1 N code = K) Chloride (test code 99 mmol/L 98-105 N = CL) Carbon Dioxide 24 mmol/L 22-29 N (test code = CO2) Glucose (test code 119 mg/dL 70-115 H = GLU) Blood Urea Nitrogen 21 mg/dL 6-20 H (test code = BUN) Creatinine (test 1.6 mg/dL 0.7-1.2 H code = CREAT) Calcium (test code 9.1 mg/dL 8.3-10.5 N = CA) BUN/Creatinine 13.1 Ratio (test code = BCRATIO) Anion Gap (test 12 mmol/L 7-16 N code = AGAP) Estimated GFR (test 47 eGFR (es timated code = GFR) mL/min/1.73m2 Glomerular Nhan tration Rate) is an est imated value,calculate d from the patient's s bob creatinine usin g the MDRD equation.I t is NOT the patient 's actual GFR. The eGFR provides a more clinicallyusefu l measure of kidn ey disease than se rum creatinine alone.This calculation tigist es sex and race into account, if the informationis provided. If th e race is not provided , and the patient isRina can, multiply by 1.2 12. If sex is not prov ided, and thepatient is female, multipl y by 0.742. Results for patients <18 ye ars ofage have not been validated by th e MDRD study and kaitlynn d be interpretedwith caution.eGFR Re sult Interpretation: eGFR > or = 60 is in t he Normal RangeeGF R < 60 may mean kidney diseaseeGFR < 1 5 may mean kidney failureRange s recommended by the National Kidney Foundation,http ://nkd ep.nih.gov CBC with [id number] 20:25:00 Test Item Value Reference Range Interpretation Comments WBC (test code = WBC) 9.8 K/cumm 4.4-10.5 N RBC (test code = RBC) 4.32 M/cumm 4.10-5.70 N Hemoglobin (test code = HGB) 13.5 gm/dL 13.4-17.4 N Hematocrit (test code = HCT) 42.6 % 38.7-52.0 N MCV (test code = MCV) 98.5 fL 80-100 N MCH (test code = MCH) 31.4 pg 27.0-32.5 N MCHC (test code = MCHC) 31.8 g/dL 32.0-37.5 L RDW (test code = RDW) 13.6 % 11.5-14.5 N Platelet Count (test code = 177 K/cumm 140-440 N PLTCT) MPV (test code = MPV) 10.5 fL Diff Method (test code = DIFFM) Auto Neutrophil (test code = NEUT) 68.7 % 36-70 N Lymphocyte (test code = LYMPH) 17.1 % 12-44 N Monocyte (test code = MONO) 12.6 % 0-11 H Eosinophil (test code = EOS) 1.1 % 0-7 N Basophil (test code = BASO) 0.6 % 0-2 N Neutro Abs (test code = ANEUT) 6.8 K/cumm 1.6-7.4 N Lymph Abs (test code = ALYMPH) 1.7 K/cumm 0.5-4.6 N [place] Abs (test code = AMONO) 1.2 K/cumm 0.0-1.2 N Eos Abs (test code = AEOS) 0.10 K/cumm 0.00-0.74 N Baso Abs (test code = ABASO) 0.1 K/cumm 0.00-0.21 N
[2019-08-18] MEDS ORDERED: HYDROCODONE/APAP 7.5/325 MG TAB ONE ×2 (09:54→11:51)
[2019-08-18 10:08] LABS: Hematocrit 42.8 % (39.6-49.0); Lymphocytes % 23.6 % (15.3-44.8); MPV 9.8 fL (7.6-11.3); RBC Red Blood Cell Count 4.27 M/uL (4.33-5.43)
[2019-08-18 10:27] LABS: BUN Blood Urea Nitrogen 15 mg/dL (7-18); Bicarbonate 25 mmol/L (21-32); Glucose Level 82 mg/dL (74-106); Potassium 3.3 mmol/L (3.5-5.1); Sodium Level 141 mmol/L (136-145)
--- NOTE | 2019-08-18 11:30 | EDPHYS ---
Physician Documentation [facility] Name: Mic Gross Age: 64 yrs Sex: Male : 1955 Arrival Date: 08/18/2019 Time: 09:07 Bed 15 Private MD: ED Physician Fabio Mock HPI: 08/17 10:25 This 64 yrs old Male presents to ER via Ambulatory with complaints of Leg kdr Swelling. 10:25 The patient presents with pain, that is acute, swelling, tenderness. The complaints kdr affect the right hamstring, posterior aspect of right knee, right calf, right quadriceps, right knee, right conley and anterior aspect of right ankle. Context: The problem was sustained at home, resulted from an unknown cause, the patient can fully bear weight, the patient is able to ambulate, with mild difficulty, Problem is a result from a previous injury: No. Onset: The symptoms/episode began/occurred acutely, yesterday. Modifying factors: The symptoms are alleviated by nothing. the symptoms are aggravated by movement, bending knee, Touching. Associated signs and symptoms: The patient has no apparent associated signs or symptoms. Treatment prior to arrival includes: no previous treatment. Severity of symptoms: At their worst the symptoms were severe, incapacitating, just prior to arrival, in the emergency department the symptoms are unchanged. The patient has not experienced similar symptoms in the past. The patient has not recently seen a physician. The patient was mowing his grass and when he sat down to rest, he started to have pain in his right medial knee area. It quickly spread to the entire leg from the ankle up to his right posterior iliac crest. There is no obvious injury or insect bite. He has not . 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 - Social history:: Smoking status: Patient denies any tobacco usage or history of. ROS: 10:25 Constitutional: Negative for fever, chills, and weight loss, Eyes: Negative for injury, kdr pain, redness, and discharge, Neck: Negative for injury, pain, and swelling, Cardiovascular: Negative for chest pain, palpitations, and edema, Respiratory: Negative for shortness of breath, cough, wheezing, and pleuritic chest pain, Abdomen/GI: Negative for abdominal pain, nausea, vomiting, diarrhea, and constipation, Back: Negative for injury and pain, : Negative for injury, bleeding, discharge, and swelling, Skin: Negative for injury, rash, and discoloration, Neuro: Negative for headache, weakness, numbness, tingling, and seizure activity. Psych: Negative for depression, anxiety, suicide ideation, homicidal ideation, and hallucinations, Allergy/Immunology: Negative for hives, rash, and allergies, Endocrine: Negative for neck swelling, polydipsia, polyuria, polyphagia, and marked weight changes, Hematologic/Lymphatic: Negative for swollen nodes, abnormal bleeding, and unusual bruising. 10:25 MS/extremity: Positive for pain, tenderness, of the right leg. Exam: 10:25 Constitutional: This is a well developed, well nourished patient who is awake, alert, kdr and in no acute distress. Head/Face: Normocephalic, atraumatic. Eyes: Pupils equal round and reactive to light, extra-ocular motions intact. Lids and lashes normal. Conjunctiva and sclera are non-icteric and not injected. Cornea within normal limits. Periorbital areas with no swelling, redness, or edema. Neck: Trachea midline, no thyromegaly or masses palpated, and no cervical lymphadenopathy. Supple, full range of motion without nuchal rigidity, or vertebral point tenderness. No Meningismus. Chest/axilla: Normal chest wall appearance and motion. Nontender with no deformity. No lesions are appreciated. Cardiovascular: Regular rate and rhythm with a normal S1 and S2. No gallops, murmurs, or rubs. Normal PMI, no JVD. No pulse deficits. Respiratory: Lungs have equal breath sounds bilaterally, clear to auscultation and percussion. No rales, rhonchi or wheezes noted. No increased work of breathing, no retractions or nasal flaring. 10:25 Musculoskeletal/extremity: Extremities: grossly normal except: noted in the right leg: pain, tenderness. Vital Signs: 09:39 BP 166 / 101; Pulse 117; Resp 18; Temp 98; Pulse Ox 96% ; Weight 65.77 kg; Height 5 ft. sv 6 in. (167.64 cm); Pain 10/10; 10:26 BP 164 / 96; Pulse 61; Resp 18; Pulse Ox 98% ; sv 11:35 BP 155 / 95; Pulse 62; Resp 20; Pulse Ox 99% ; sv 09:39 Body Mass Index 23.40 (65.77 kg, 167.64 cm) sv MDM: 10:25 Data reviewed: vital signs, nurses notes, lab test result(s), radiologic studies. kdr Counseling: I had a detailed discussion with the patient and/or guardian regarding: the historical points, exam findings, and any diagnostic results supporting the discharge/admit diagnosis, lab results, radiology results, the need for outpatient follow up. ED course: The patient is stating that his pain is improving. 11:29 Patient medically screened. kdr 08/17 09:31 Order name: CBC with Diff; Complete Time: 11:23 kdr 08/17 09:31 Order name: Chem 7; Complete Time: 11:23 kdr 08/17 09:31 Order name: ESR; Complete Time: 11:23 kdr 08/17 09:31 Order name: CRP; Complete Time: 11:23 kdr 08/17 09:31 Order name: US Extremity Venous Unilateral Ltd kdr Administered Medications: 10:09 Drug: [place] (7.5 mg-325 mg) 1 tabs {Note: rass2.} Route: PO; sv 11:00 Follow up: Response: No adverse reaction; RASS: Restless (+1) sv 11:52 Drug: [place] (7.5 mg-325 mg) 1 tabs {Note: rass2.} Route: PO; sv 11:53 Follow up: Response: Medication administered at discharge. sv 11:52 Drug: Flexeril 10 mg Route: PO; sv 11:53 Follow up: Response: Medication administered at discharge. sv Disposition: 08/18/19 11:29 Discharged to Home. Impression: Pain in right leg. - Condition is Stable. - Discharge Instructions: Leg Cramps, Musculoskeletal Pain, Heat Therapy, [id number]. - Prescriptions for Tylenol- Codeine #4 300-60 mg Oral Tablet - take 1 tablet by ORAL route every 6 hours As needed; 10 tablet. - Medication Reconciliation Form, Thank You Letter, Prescription Opioid Use form. - Follow up: Private Physician; When: 2 - 3 days; Reason: If symptoms return, Further diagnostic work-up, Recheck today's complaints, Continuance of care, Re-evaluation by your physician. - Problem is new. - Symptoms have improved. Signatures: Dispatcher [employer] Naomi Shane RN RN Fabio Eaton MD MD kdr Corrections: (The following items were deleted from the chart) 11:53 11:29 08/18/2019 11:29 Discharged to Home. Impression: Pain in right leg. Condition is sv Stable. Forms are Medication Reconciliation Form, Thank You Letter, Antibiotic Education, Prescription Opioid Use. Follow up: Private Physician; When: 2 - 3 days; Reason: If symptoms return, Further diagnostic work-up, Recheck today's complaints, Continuance of care, Re-evaluation by your physician. Problem is new. Symptoms have improved. kdr
--- NOTE | 2019-08-18 11:30 | ER ---
Nurse's Notes [facility] Name: Mic Gross Age: 64 yrs Sex: Male : 1955 Arrival Date: 08/18/2019 Time: 09:07 Bed 15 Private MD: Diagnosis: Pain in right leg Presentation: 08/17 09:39 Chief complaint: Patient states: RLE swelling, pain, and redness with pain to the right sv lower back started yesterday. Coronavirus screen: Proceed with normal triage. Patient denies a cough. Patient denies shortness of breath or difficulty breathing. Patient denies measured and/or subjective temperature greater than 100.4F prior to today's visit. Patient denies travel on a cruise ship or to a country the [facility] currently lists as an affected area. Patient denies contact with known and/or suspected case of COVID-19. Ebola Screen: No symptoms or risks identified at this time. Initial Sepsis Screen: Does the patient meet any 2 criteria? HR > 90 bpm. No. Patient's initial sepsis screen is negative. Does the patient have a suspected source of infection? No. Patient's initial sepsis screen is negative. Risk Assessment: Do you want to hurt yourself or someone else? Patient reports no desire to harm self or others. Onset of symptoms was August 17, 2019. 09:39 Method Of Arrival: Ambulatory 09:39 Acuity: RADHA 2 sv Triage Assessment: 09:39 General: Appears in no apparent distress. uncomfortable, well developed, Behavior is sv cooperative, appropriate for age, anxious, restless. Pain: Complains of pain in right leg Pain radiates to right low back Pain currently is 10 out of 10 on a pain scale. Pain began 1 day ago. Is continuous, Aggravated by increased activity, weight bearing. Neuro: Level of Consciousness is awake, alert, obeys commands, Oriented to person, place, time, situation, Moves all extremities. Full function Gait is steady. Respiratory: Airway is patent Respiratory effort is even, unlabored, Respiratory pattern is regular, symmetrical. Derm: Skin is intact, Skin is pink, warm \T\ dry. Musculoskeletal: Range of motion: intact in all extremities, Swelling present in lateral aspect of right calf, right calf, medial aspect of right calf and right conley Redness noted to RLE. 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 - Social history:: Smoking status: Patient denies any tobacco usage or history of. Screenin:39 Abuse screen: Denies threats or abuse. Denies injuries from another. Nutritional sv screening: No deficits noted. Tuberculosis screening: No symptoms or risk factors identified. Fall Risk None identified. Assessment: 09:59 Reassessment: Patient appears in no apparent distress at this time. No changes from sv previously documented assessment. Patient and/or family updated on plan of care and expected duration. Pain level reassessed. Patient is alert, oriented x 3, equal unlabored respirations, skin warm/dry/pink. 11:27 Reassessment: Patient appears in no apparent distress at this time. Patient and/or sv family updated on plan of care and expected duration. Pain level reassessed. Patient is alert, oriented x 3, equal unlabored respirations, skin warm/dry/pink. 11:51 Reassessment: Patient appears in no apparent distress at this time. No changes from sv previously documented assessment. Patient and/or family updated on plan of care and expected duration. Pain level reassessed. Patient is alert, oriented x 3, equal unlabored respirations, skin warm/dry/pink. Vital Signs: 09:39 BP 166 / 101; Pulse 117; Resp 18; Temp 98; Pulse Ox 96% ; Weight 65.77 kg; Height 5 ft. sv 6 in. (167.64 cm); Pain 10/10; 10:26 BP 164 / 96; Pulse 61; Resp 18; Pulse Ox 98% ; sv 11:35 BP 155 / 95; Pulse 62; Resp 20; Pulse Ox 99% ; sv 09:39 Body Mass Index 23.40 (65.77 kg, 167.64 cm) sv ED Course: 09:07 Patient arrived in ED. as 09:15 Naomi Albrecht RN is Primary Nurse. sv 09:16 Fabio Mock MD is Attending Physician. kdr 09:39 Patient has correct armband on for positive identification. Bed in low position. Call sv light in reach. Pulse ox on. NIBP on. Door closed. Head of bed elevated. 09:39 Arm band placed on. sv 09:40 Triage completed. sv 09:59 Inserted saline lock: 20 gauge in right antecubital area, using aseptic technique. sv Blood collected. Flushed right antecubital with 5 ml normal saline. 10:27 Awaiting: Ultrasound. sv 10:38 Patient taken to ultrasound. via wheelchair. sv 10:56 Patient moved back from ultrasound. sv 10:57 Awaiting radiology results. sv 11:25 US Extremity Venous Unilateral Ltd Sent. sv 11:27 Awaiting radiology results. sv 11:42 US Extremity Venous Unilateral Ltd In Process Unspecified. EDMS 11:51 No provider procedures requiring assistance completed. IV discontinued, intact, sv bleeding controlled, No redness/swelling at site. Pressure dressing applied. Administered Medications: 10:09 Drug: Cornelius (7.5 mg-325 mg) 1 tabs {Note: rass2.} Route: PO; sv 11:00 Follow up: Response: No adverse reaction; RASS: Restless (+1) sv 11:52 Drug: Cornelius (7.5 mg-325 mg) 1 tabs {Note: rass2.} Route: PO; sv 11:53 Follow up: Response: Medication administered at discharge. sv 11:52 Drug: Flexeril 10 mg Route: PO; sv 11:53 Follow up: Response: Medication administered at discharge. sv Outcome: 11:29 Discharge ordered by . kdr 11:51 Discharged to home ambulatory, with friend. sv 11:51 Condition: stable 11:51 Discharge instructions given to patient, Instructed on discharge instructions, follow up and referral plans. no drinking with medication, no driving heavy equipment, medication usage, Pt's friend driving him home Demonstrated understanding of instructions, follow-up care, medications, Prescriptions given X 1. 11:53 Patient left the ED. sv Signatures: Dispatcher [employer] EDMS Naomi Albrecht RN RN Fabio Eaton MD MD kdr Martinez, Amelia as
[2019-08-18] MEDS ORDERED: CYCLOBENZAPRINE 10 MG TAB ONE (11:50)
--- NOTE | 2019-08-18 11:50 | RAD REPORT ---
EXAM DESCRIPTION: US - Extremity Venous Uni Ltd - 08/18/2019 11:41 am CLINICAL HISTORY: PAIN COMPARISON: None. TECHNIQUE: Real-time sonographic evaluation of the right lower extremity deep venous systems was per formed. FINDINGS: Normal compressibility, flow augmentation, phasic flow and spontaneous flow are identified in the right lower extremity common femoral, superficial femoral, popliteal and posterior tibial vei ns. No intraluminal filling defects seen. Enlarged right groin lymph nodes are seen. These are likely reactive. Imaging characteristics support a benign etiology. IMPRESSION: No DVT in the right lower extremity. Prominent right groin lymph nodes appearing to be reactive and benign in appearance.
[2019-08-18 11:58] VITALS: TEMP 98
[2019-08-18 11:59] VITALS: BP 164/96; O2SAT 98
== END 2019-08-18 11:53 | disposition home or self-care (01) ==
LOC: ER 09:04
DX: M79.604 Pain in right leg (principal); Z85.05 Personal history of malignant neoplasm of liver
CPT/HCPCS: 36415; 80048; 85025; 85652; 86140; 93971; 99284

== ENCOUNTER 2020-03-01 06:34 | Inpatient (IN) | payer SELFPAY ==
--- OUTSIDE RECORDS SUMMARY | 2020-03-01 06:36 | XMS REPORT | Continuity of Care Document ---
:1955 Author Organization [facility] t Address [address] [place] [address] Care Team Providers Name Role Phone Jenn Michael RN Attending Clinician Akira Attending Clinician Malou Piedra Attending Clinician Ryan AREVALO Attending Clinician Miguel AREVALO Attending Clinician RO Attending Clinician Unavailable Ryan AREVALO Admitting Clinician RO Admitting Clinician Unavailable Problems This patient has no known problems. Allergies, Adverse Reactions, Alerts This patient has no known allergies or adverse reactions. Medications This patient has no known medications. Procedures This patient has no known procedures. Encounters Start End Encounter Admission Attending Care Care Encounter Source Date/Time Date/Time Type Type Clinicians Facility Department ID 2019-06-11 2019-06-11 Patient Jenn Michaelanshu [id number] 00:00:00 00:00:00 Outreach E [place] [id number] [place] [id number] 2019-04-27 2019-04-27 Patient Jenn Michael [id number] 00:00:00 00:00:00 Outreach E [place] [id number] [place] [id number] 2019-04-13 2019-04-13 Transition Shaila Champion [id number] 00:00:00 00:00:00 of Care Kandice [place] [id number] [place] [id number] 2019-04-10 2019-04-12 Hospital Fabio Guzman [id number] 10:55:39 18:18:00 Encounter Fabio Guzman [id number] [facility] [id number] 2018-11-08 2018-11-08 Emergency [facility] [id number] 14:26:03 17:32:00 Narciso Torres [id number] [place] [id number] [place] [id number] Results Test Description Test Time Test Comments Results Result Comments Source Troponin T 2016-05-15 20:46:00 Test Item Value Reference Range Interpretation Comme nts Troponin T (test code = GERARD) <0.010 ng/mL 0.000-0.090 N Basic Metabolic [id number] 20:46:00 Test Item Value Reference Range Interpretation [...] is not provided , and the patient isAfrican-Ameri can, multiply by 1.2 12. If sex is not prov ided, and thepatient is female, multipl y by 0.742. Results for patients <18 ye ars ofage have not been validated by th e MDRD study and shoul d be interpretedwith caution.eGFR Re sult Interpretation: eGFR > or = 60 is in t he Normal RangeeGF R < 60 may mean kidney diseaseeGFR < 1 5 may mean kidney failureRange s recommended by the National Kidney Foundation,http ://nkd ep.nih.gov CBC with [id number] 20:25:00 Test Item Value Reference Range Interpretation [...] code = ALYMPH) 1.7 K/cumm 0.5-4.6 N [place] Abs (test code = AMONO) 1.2 K/cumm 0.0-1.2 N Eos Abs (test code = AEOS) 0.10 K/cumm 0.00-0.74 N Baso Abs (test code = ABASO) 0.1 K/cumm 0.00-0.21 N
[2020-03-01 06:56] LABS: Absolute Lymphocytes (CBC) 2.4 K/uL (0.7-4.9); Hematocrit 40.2 % (39.6-49.0); MPV 10.1 fL (7.6-11.3); RBC Red Blood Cell Count 4.03 M/uL (4.33-5.43)
[2020-03-01 06:58] LABS: Protime INR 0.95
[2020-03-01 07:17] LABS: ALT/SGPT 49 U/L (12-78); AST/SGOT 60 U/L (15-37); Albumin 3.2 g/dL (3.4-5.0); Alkaline Phosphatase 202 U/L (45-117); BUN Blood Urea Nitrogen 18 mg/dL (7-18); Bicarbonate 27 mmol/L (21-32); Bilirubin Direct 0.2 mg/dL (0-0.2); Bilirubin Total 0.5 mg/dL (0.2-1.0); Glucose Level 98 mg/dL (74-106); Magnesium 2.1 mg/dL (1.8-2.4); NT PRO-BNP 87 pg/mL (<125); Potassium 3.3 mmol/L (3.5-5.1); Protein, Total 8.5 g/dL (6.4-8.2); Sodium Level 142 mmol/L (136-145); Troponin (Emerg Dept Use Only) < 0.02 ng/mL (0.0-0.045)
--- NOTE | 2020-03-01 08:04 | RAD REPORT ---
EXAM DESCRIPTION: RAD - Chest Single View - 03/01/2020 6:59 am CLINICAL HISTORY: CHEST PAIN COMPARISON: Portable May 2019 TECHNIQUE: AP portable chest image was obtained 03/01/2020 6:59 am . FINDINGS: Lungs are clear. Heart and vasculature are normal. No measurable pleural effusion and no p neumothorax. No acute bony abnormality seen. No acute aortic findings suspected. IMPRESSION: No acute cardiopulmonary process. No significant change from comparison study.
[2020-03-01 08:25] LABS: Blood Morphology Comment NOT SEEN (NOT SEEN); Platelet Estimate ADEQ
--- NOTE | 2020-03-01 08:25 | EDPHYS ---
Physician Documentation [facility] Name: Mic Gross Age: 64 yrs Sex: Male : 1955 Arrival Date: 03/01/2020 Time: 06:35 Bed 4 Private MD: ED Physician Matteo Reyes Historical: - Allergies: 03/01 06:40 No Known Allergies; rv - PMHx: 06:40 Hepatitis; C; Hernia; Hypertension; liver cancer; rv - Immunization history:: Adult Immunizations up to date. - Social history:: Smoking status: Patient denies any tobacco usage or history of. Vital Signs: 06:35 BP 157 / 86; Pulse 79; Resp 17; Temp 98.2; Pulse Ox 98% ; Weight 63.5 kg; Pain 10/10; rv MDM: 07:10 Patient medically screened. 03/01 06:37 Order name: Basic Metabolic Panel; Complete Time: 08:07 03/01 08:07 Interpretation: Normal except: K 3.3; CA 8.3. 03/01 06:37 Order name: CBC with Diff; Complete Time: 08:07 03/01 08:07 Interpretation: Normal except: RBC 4.03; HGB 13.2; EOSINOPHIL % 5.0; MN% 16.6. 03/01 06:37 Order name: LFT's; Complete Time: 08:07 03/01 08:07 Interpretation: Normal except: A/G 0.6; ALB 3.2; TP 8.5; GLOB 5.3; ALK 202; AST 60. 03/01 06:37 Order name: Magnesium; Complete Time: 08:07 03/01 08:08 Interpretation: Within normal limits: MG 2.1. 03/01 06:37 Order name: NT PRO-BNP; Complete Time: 08:07 03/01 08:08 Interpretation: Within normal limits: NT PRO-BNP 87. 03/01 06:37 Order name: PT-INR; Complete Time: 08:07 03/01 08:08 Interpretation: Within normal limits: PT 11.2. 03/01 06:37 Order name: Troponin (emerg Dept Use Only); Complete Time: 08:07 03/01 08:08 Interpretation: Within normal limits: TROPED < 0.02. 4 03/01 06:37 Order name: XRAY Chest (1 view); Complete Time: 08:07 03/01 08:08 Interpretation: No acute disease. 4 03/01 06:37 Order name: EKG; Complete Time: 06:38 ea 03/01 06:37 Order name: Cardiac monitoring; Complete Time: 06:37 ea 03/01 06:37 Order name: EKG - Nurse/Tech; Complete Time: 06:49 03/01 06:37 Order name: IV Saline Lock; Complete Time: 06:38 ea 03/01 06:37 Order name: Labs collected and sent; Complete Time: 06:38 ea 03/01 06:37 Order name: O2 Per Protocol; Complete Time: 06:38 03/01 06:37 Order name: O2 Sat Monitoring; Complete Time: 06:38 ea Administered Medications: No medications were administered Disposition: 03/01/20 08:24 Hospitalization ordered by Juan J Meza for Observation. Preliminary diagnosis is Chest pain, unspecified. - Bed requested for Telemetry/MedSurg (observation). - Status is Observation. tw4 - Condition is Stable. - Problem is new. - Symptoms have improved. Signatures: Dispatcher [employer] Vickie Canales, RN RN Matteo Whitlock MD MD tw4 Trevor Gramajo RN RN rv
--- NOTE | 2020-03-01 08:25 | ER ---
Nurse's Notes [facility] Name: Mic Gross Age: 64 yrs Sex: Male : 1955 Arrival Date: 03/01/2020 Time: 06:35 Bed 4 Private MD: Diagnosis: Chest pain, unspecified Presentation: 03/01 06:35 Chief complaint: EMS states: CHEST PAIN STARTED AT 0200, SHARP IN THE MIDSTERNAL rv RADIATING TO THE BACK. 10/10 PAIN SCALE. EMS GIVEN ONE DOSE OF 0.4MG NITRO, CHEST PAIN UNRELIEVED. Coronavirus screen: Client denies travel out of the [place] in the last 14 days. Ebola Screen: No symptoms or risks identified at this time. Initial Sepsis Screen: Does the patient meet any 2 criteria? No. Patient's initial sepsis screen is negative. Does the patient have a suspected source of infection? No. Patient's initial sepsis screen is negative. Risk Assessment: Do you want to hurt yourself or someone else? Patient reports no desire to harm self or others. Onset of symptoms was March 01, 2020 at 02:00. 06:35 Method Of Arrival: EMS: [facility] rv 06:35 Acuity: RADHA 3 rv Triage Assessment: 06:40 General: Appears comfortable, Behavior is calm, cooperative. Pain: Complains of pain in rv chest. Neuro: Level of Consciousness is awake, alert, obeys commands, Oriented to person, place, time, situation. Cardiovascular: Patient's skin is warm and dry. Cardiovascular: Rhythm is sinus tachycardia. Respiratory: Airway is patent Respiratory effort is even, unlabored. Derm: Skin is intact. Historical: - Allergies: 06:40 No Known Allergies; rv - PMHx: 06:40 Hepatitis; C; Hernia; Hypertension; liver cancer; rv - Immunization history:: Adult Immunizations up to date. - Social history:: Smoking status: Patient denies any tobacco usage or history of. Screenin:38 Abuse screen: Denies threats or abuse. Nutritional screening: No deficits noted. ea Tuberculosis screening: No symptoms or risk factors identified. Fall Risk IV access (20 points). Assessment: 08:46 Reassessment: Patient appears in no apparent distress at this time. Patient and/or ph family updated on plan of care and expected duration. Pain level reassessed. Patient is alert, oriented x 3, equal unlabored respirations, skin warm/dry/pink. P ambulated to restroom w/ steady gait, c/o pain to mid-sternal area. 09:45 Reassessment: Patient appears in no apparent distress at this time. Patient and/or ph family updated on plan of care and expected duration. Pain level reassessed. Patient is alert, oriented x 3, equal unlabored respirations, skin warm/dry/pink. General: Appears in no apparent distress. uncomfortable, Behavior is cooperative, anxious. Pain: Complains of pain in mid-sternal area. Neuro: Level of Consciousness is awake, alert, obeys commands, Oriented to person, place, time, situation. Cardiovascular: Reports chest pain, nausea. Respiratory: Reports cough that is since yesterday Airway is patent Respiratory effort is even, unlabored, Respiratory pattern is regular, symmetrical. GI: Reports nausea, vomiting. Derm: Skin is intact, Skin is pink, warm \T\ dry. Musculoskeletal: Circulation, motion, and sensation intact. Range of motion: intact in all extremities. Vital Signs: 06:35 BP 157 / 86; Pulse 79; Resp 17; Temp 98.2; Pulse Ox 98% ; Weight 63.5 kg; Pain 10/10; rv 08:00 BP 157 / 91; Pulse 62; Resp 18; Pulse Ox 96% on R/A; ph 09:00 BP 133 / 86; Pulse 67; Resp 18; Pulse Ox 98% on R/A; ph 10:33 BP 134 / 93; Pulse 69; Resp 18; Pulse Ox 95% on R/A; ph ED Course: 06:35 Patient arrived in ED. rv 06:38 Maintain EMS IV. Dressing intact. Good blood return noted. Site clean \T\ dry. Gauge \T\ ea site: 20 G left AC. 06:40 Triage completed. rv 06:41 Arm band placed on right wrist. Patient placed in the treatment room, on a stretcher, rv Patient notified of wait time. 06:41 Patient has correct armband on for positive identification. Pulse ox on. NIBP on. rv 06:58 XRAY Chest (1 view) In Process Unspecified. EDMS 07:08 Be Vincent RN is Primary Nurse. em 07:10 Matteo Reyes MD is Attending Physician. tw4 08:24 Juan J Meza MD is Hospitalizing Provider. tw4 10:33 No provider procedures requiring assistance completed. ph Administered Medications: 09:00 CANCELLED (Physician Discretion): TORadol 30 mg IVP once tw4 09:14 Drug: morphine 4 mg Route: IVP; Site: left antecubital; ph 10:56 Follow up: Response: No adverse reaction ph 09:14 Drug: Zofran (Ondansetron) 4 mg Route: IVP; Site: left antecubital; ph 10:56 Follow up: Response: No adverse reaction ph Outcome: 08:24 Decision to Hospitalize by Provider. tw4 10:56 Patient left the ED. ph Signatures: Dispatcher [employer] Be De Los Santos, RN RN Abimbola Rolon RN RN Vickie Dean RN RN ea Wadley, Terrence, MD MD tw4 Trevor Gramajo RN RN rv
[2020-03-01] MEDS ORDERED: KETOROLAC 30 MG/ML INJ ONE (09:16)
[2020-03-01] MEDS ORDERED: MORPHINE 4 MG/ML SYR ONE (09:20)
[2020-03-01] MEDS ORDERED: ONDANSETRON 4 MG/2 ML VIAL ONE (09:20)
[2020-03-01] MEDS ORDERED: ALPRAZOLAM 0.25 MG TABLET PO PRN (09:26)
[2020-03-01] MEDS ORDERED: ACETAMINOPHEN 500 MG TAB PO PRN (09:26)
[2020-03-01 12:28] LABS: HDL Cholesterol 59 mg/dL (40-60); LDL Cholesterol, Calculated 103 (<130); Troponin I < 0.02 ng/mL (0.0-0.045)
[2020-03-01] MEDS: MORPHINE 4 MG/ML SYR IV PRN ×2 (13:54→18:47)
[2020-03-01] MEDS: METOPROLOL TAR 50 MG TAB PO SCH (16:15)
[2020-03-01] MEDS: lisinopriL 10 MG TAB PO SCH (16:15)
[2020-03-01 18:40] VITALS: BMI 22.6
--- NOTE | 2020-03-01 20:04 | CON ---
Date of Consultation: 03/01/2020 Reason For Admission: Chest pain. History Of Present Illness: Mr. Gross is a 64-year-old male. He has a history of liver cancer, h ypertension, hepatitis C, dyslipidemia. He has moderate coronary artery disease. Heart catheterizat ion in May 2019 showed moderate plaquing in the RCA, LAD, and circumflex, but he had a significant stenosis in the ostium of the ramus, which was small and it was decided to treat it medically. He ca me in with chest pain, shortness of breath, cough. No fever. No chills. Denied PND, orthopnea, ped al edema, palpitation, or syncope. He is already ruled out for an NC. His chest x-ray is negative. His potassium was 3.3. Past Medical History: As stated above. Allergies: NONE. Review of Systems: Negative. Social History: Negative. Family History: Negative. Medications: At home include aspirin, Plavix, Lipitor, Norvasc, lisinopril, metoprolol, hydrochlorot hiazide. Physical Examination: Vital Signs: Stable. He was afebrile. General: He was in no acute distress. He was in sinus rhythm. HEENT: Negative. Neck: Supple with no bruit. Chest: Some expiratory wheezing. Cardiac: Normal. Abdomen: Benign. Extremities: No clubbing, cyanosis, or edema. Diagnostic Data: As stated earlier. EKG was nonspecific. Impression And Plan: 1.Chest pain, sounds more like related to bronchitis than cardiac. It is somehow pleuritic. Nevert heless, he does have a history of CAD that is mild and that could be causing his symptoms. The locat ion of the stenosis in the ramus is such where we should not do any intervention. I would increase h is beta-blockers. It may be worse. Put him on some antibiotics and some inhalers as well. 2.History of liver cancer. 3.Hypertension, well controlled. 4.Hepatitis C. 5.Dyslipidemia, well controlled. 6.Hypokalemia, probably secondary to hydrochlorothiazide. He should be on potassium supplements at home. The patient can go home whenever it is okay with Dr. Meza. We will see him in the office as a n outpatient. STEVEN/ELANA Voice ID: [id number] Report ID: [id number]
[2020-03-02] MEDS: METOPROLOL TAR 50 MG TAB PO SCH (05:30)
[2020-03-02] MEDS: MORPHINE 4 MG/ML SYR IV PRN (05:31)
[2020-03-02 05:36] LABS: Absolute Lymphocytes (CBC) 2.3 K/uL (0.7-4.9); Basophils % 0.7 % (0-1.3); Lymphocytes % 25.7 % (15.3-44.8); MPV 10.4 fL (7.6-11.3); RBC Red Blood Cell Count 4.09 M/uL (4.33-5.43)
[2020-03-02 05:51] LABS: BUN Blood Urea Nitrogen 15 mg/dL (7-18); Bicarbonate 28 mmol/L (21-32); Glucose Level 95 mg/dL (74-106); Potassium 3.8 mmol/L (3.5-5.1); Sodium Level 140 mmol/L (136-145)
[2020-03-02] MEDS: lisinopriL 10 MG TAB PO SCH (08:13)
[2020-03-02] MEDS ORDERED: ASPIRIN EC 81 MG TAB PO SCH (09:00)
[2020-03-02] MEDS ORDERED: ENOXAPARIN 40 MG/0.4 ML SQ SCH (09:00)
--- NOTE | 2020-03-02 10:27 | P.HP ---
Certification for Inpatient Patient admitted to: Inpatient With expected LOS: >2 Midnights Patient will require the following post-hospital care: None Practitioner: I am a practitioner with admitting privileges, knowledge of patient current condition, hospital course, and medical plan of care. Services: Services provided to patient in accordance with Admission requirements found in Title 42 Section 412.3 of the Code of Federal Regulations Patient History Date of Service: 03/01/20 Reason for admission: Chest pain rule out acute coronary syndrome History of Present Illness: Patient is a 64-year-old gentleman who came to the hospital with chest discomfort. Pain was mainly in the sternal region. Patient has some lightheadedness associated with it. He came into the ER for further evaluation. Cardiology saw the patient in 1 to rule map for acute coronary syndrome. Patient does have Coronary artery disease but medical therapy has been recommen ded. Heart catheterization was performed a few months ago and at this time unless troponins elevate no further interventions will be necessary. Patient is homeless and he really has no place to go. Will have health and social care teacher give information regarding shelters. At this time, patient be admitted for observation. Patient also has a history of liver cancer. He does not want anything done extensively regarding this. Patient would benefit from hospice care. Allergies No Known Drug Allergies Allergy (Verified 10/15/15 08:12) Unknown No Known Allergies Allergy (Uncoded 02/07/17 15:49) Unknown Home Medications: NK [No Home Meds] 03/01/20 - Past Medical/Surgical History Diabetic: No -: Hypertension -: gout -: hepatitis c -: ruputured spleen -: hernia -: tobacco abuse -: splenectomy -: I&D left hand - Family History Mother Medical History: Heart disease, Diabetes Father Medical History: Lung disease, Diabetes Brother Medical History: Diabetes - Social History Smoking Status: Former smoker Alcohol use: Yes CD- Drugs: No Caffeine use: Yes Place of Residence: Homeless Review of Systems 10-point ROS is otherwise unremarkable Physical Examination - Vital Signs Temperature: 97.2 F Blood Pressure: 149/83 Pulse: 57 Respirations: 17 Pulse Ox (%): 98 - Physical Exam General: Alert, In no apparent distress, Oriented x3 HEENT: Atraumatic, PERRLA, Mucous membr. moist/pink, EOMI, Sclerae nonicteric Neck: Supple, 2+ carotid pulse no bruit, No LAD, Without JVD or thyroid abnormality Respiratory: Clear to auscultation bilaterally, Normal air movement Cardiovascular: Regular rate/rhythm, Normal S1 S2, No murmurs Gastrointestinal: Normal bowel sounds, Soft and benign, Non-distended, No tenderness Musculoskeletal: No clubbing, No swelling, No tenderness Integumentary: Other (Rash in the inguinal region in the back) Neurological: Normal gait, Normal speech, Normal strength at 5/5 x4 extr, Normal tone, Normal affect Lymphatics: No axilla or inguinal lymphadenopathy - Studies Laboratory Data (last 24 hrs) 03/01/20 11:48: Troponin I < 0.02, Triglycerides 64, Cholesterol 175, HDL Cholesterol 59, Cholesterol/HDL Ratio 2.97 Assessment & Plan - Problems (Diagnosis) (1) Chest pain, rule out acute myocardial infarction Current Visit: Yes Status: Acute (2) Hepatocellular carcinoma Current Visit: Yes Status: Acute (3) DM2 (diabetes mellitus, type 2) Current Visit: No Status: Acute (4) Hepatitis C Current Visit: No Status: Chronic - Plan 1. Serial troponins and EKG 2. Appreciate Cardiology consultation 3. Follow up as an outpatient at discharge 4. Anti-platelet therapy, anti coagulation, beta-katia, statin, and O2 as needed 5. IV morphine for pain 6. Nitro p.r.n. 7. Was inpatient information regarding hospice care Discharge Plan: Home Plan to discharge in: 24 Hours - Advance Directives Does patient have a Living Will: No Does patient have a Durable POA for Healthcare: No - Code Status/Comfort Care Code Status Assessed: Yes Code Status: Full Code Critical Care: No Time Spent Managing PTS Care (In Minutes): 35
[2020-03-02 13:03] VITALS: BP 117/72; TEMP 97.6
[2020-03-02 13:38] VITALS: O2SAT 95
--- NOTE | 2020-03-02 14:07 | EKG ---
Test Date: 2020-03-01 Test Time: 06:37:06 Export Freight Clerk: DOLORES MEASUREMENT RESULTS: Intervals: Rate: 78 KS: 154 QRSD: 84 QT: 402 QTc: 458 [place]: P: -6 KS: 154 QRS: 41 T: 63 INTERPRETIVE STATEMENTS: Normal sinus rhythm Normal ECG Compared to ECG 06/02/2019 12:32:44 No significant changes Electronically Signed On 03-02-20 14:04:53 ROD PLACER by Clint Sosa
--- NOTE | 2020-03-04 23:37 | P.DS ---
Discharge Date: 03/02/20 Disposition: ROUTINE DISCHARGE Discharge Condition: GOOD Reason for Admission: Chest pain rule out acute coronary syndrome - Problems (1) Chest pain, rule out acute myocardial infarction Status: Acute (2) Hepatocellular carcinoma Status: Acute (3) DM2 (diabetes mellitus, type 2) Status: Acute (4) Hepatitis C Status: Chronic Brief History of Present Illness: Patient is a 64-year-old gentleman who came to the hospital with chest discomfort. Pain was mainly in the sternal region. Patient has some lightheadedness associated with it. He came into the ER for further evaluation. Cardiology saw the patient in 1 to rule map for acute coronary syndrome. Patient does have Coronary artery disease but medical therapy has been recommended. Heart catheterization was performed a few months ago and at this time unless troponins elevate no further interventions will be necessary. Patient is homeless and he really has no place to go. Will have social security specialist give information regarding shelters. At this time, patient be admitted for observation. Patient also has a history of liver cancer. He does not want anything done extensively regarding this. Patient would benefit from hospice care. Hospital Course: Patient being ruled out for acute coronary syndrome. Troponins were negative x3. At this time, patient is stable for discharge with outpatient followup. Patient has a history of liver cancer but does not want any further treatment. He will benefit from hospice care. Vital Signs/Physical Exam: Temp Pulse Resp BP Pulse Ox 97.6 F 65 16 117/72 95 03/02/20 12:00 03/02/20 12:00 03/02/20 12:00 03/02/20 12:00 03/02/20 12:00 General: Alert, In no apparent distress, Oriented x3 Laboratory Data at Discharge: WBC 8.9 K/uL (4.3-10.9) 03/02/20 05:06 Hgb 13.4 g/dL (13.6-17.9) L 03/02/20 05:06 Hct 41.0 % (39.6-49.0) 03/02/20 05:06 Plt Count 201 K/uL (152-406) 03/02/20 05:06 PT 11.2 SECONDS (9.5-12.5) 03/01/20 06:39 INR 0.95 03/01/20 06:39 Sodium 140 mmol/L (136-145) 03/02/20 05:06 Potassium 3.8 mmol/L (3.5-5.1) 03/02/20 05:06 BUN 15 mg/dL (7-18) 03/02/20 05:06 Creatinine 0.71 mg/dL (0.55-1.3) 03/02/20 05:06 Glucose 95 mg/dL (74-106) 03/02/20 05:06 Magnesium 2.1 mg/dL (1.8-2.4) 03/01/20 06:39 Total Bilirubin 0.5 mg/dL (0.2-1.0) 03/01/20 06:39 AST 60 U/L (15-37) H 03/01/20 06:39 ALT 49 U/L (12-78) 03/01/20 06:39 Alkaline Phosphatase 202 U/L (45-117) H 03/01/20 06:39 Troponin I < 0.02 ng/mL (0.0-0.045) 03/01/20 20:08 Triglycerides 64 mg/dL (<150) 03/01/20 11:48 Cholesterol 175 mg/dL (<200) 03/01/20 11:48 HDL Cholesterol 59 mg/dL (40-60) 03/01/20 11:48 Cholesterol/HDL Ratio 2.97 03/01/20 11:48 Home Medications: NK [No Home Meds] 03/01/20 Patient Discharge Instructions: OK TO DC IV AND DC HOME. FOLLOW-UP WITH PRIMARY CARE PROVIDER IN 1-2 WEEKS. FOLLOW-UP WITH CARDIOLOGY IN 1-2 WEEKS. RETURN TO THE ER IF symptoms worsen. CALL or TEXT DR. GLORIA AT [phone] IF ANY QUESTIONS REGARDING HOSPITAL STAY. PLEASE CALL THE FLOOR AT [phone] IF ANY MEDICATION OR NURSING QUESTIONS. Diet: ADA Activity: Fall precautions Followup: Clint Sosa MD [ACTIVE - CAN ADMIT] - NONE,NONE [Primary Care Provider] - Time spent managing pt's care (in minutes): 25
== END 2020-03-02 14:33 | disposition home or self-care (01) | DRG 313 ==
LOC: ER 06:34 → ERHOLD 09:26 → 2ND 10:42 → OBSVTOIN 18:18
PROVIDERS: ADMIT Hospitalist; ATTEND Hospitalist
DX: R07.9 Chest pain, unspecified (principal); C22.0 Liver cell carcinoma; I10 Essential (primary) hypertension; E78.5 Hyperlipidemia, unspecified; E11.9 Type 2 diabetes mellitus without complications; E87.6 Hypokalemia; I25.10 Atherosclerotic heart disease of native coronary artery without angina pectoris; B19.20 Unspecified viral hepatitis C without hepatic coma; Z85.05 Personal history of malignant neoplasm of liver; Z79.82 Long term (current) use of aspirin; Z79.899 Other long term (current) drug therapy; Z79.02 Long term (current) use of antithrombotics/antiplatelets; Z59.0 Homelessness; Z87.891 Personal history of nicotine dependence; Z20.822 Contact with and (suspected) exposure to COVID-19
CPT/HCPCS: 36415; 71045; 80048; 80061; 80076; 82105; 82947; 83735; 83880; 84484; 85025; 85610; 93005; 96374; 96375; 99284; G0378; J1650; J2405; U0003

== ENCOUNTER 2020-04-03 06:35 | Emergency (ER) | payer SELFPAY ==
--- OUTSIDE RECORDS SUMMARY | 2020-04-03 06:37 | XMS REPORT | Continuity of Care Document ---
:1955 Author Organization [facility] t Address [address] [place] [address] Care Team Providers Name Role Phone Jenn [...] Facility Department ID 2019-06-11 2019-06-11 Patient Jenn Michael [id number] 00:00:00 00:00:00 Outreach E [place] [id number] [place] [id number] 2019-04-27 2019-04-27 Patient Jenn Michael [id number] 00:00:00 00:00:00 Outreach E [place] [id number] [place] [id number] 2019-04-13 2019-04-13 Transition Shaila Champion [id number] 00:00:00 00:00:00 of Care Kandice Aviles [id number] [place] [id number] 2019-04-10 2019-04-12 Hospital Fabio Guzman [id number] 10:55:39 18:18:00 Encounter Fabio Guzman [id number] [facility] [id number] 2018-11-08 2018-11-08 Emergency [facility] [id number] 14:26:03 17:32:00 Narciso Torres [id number] [place] [id number] [place] [id number] Results Test Description Test Time Test Comments Results Result Comments Source Troponin T 2016-05-15 20:46:00 Test Item Value Reference Range Interpretation Comme nts Troponin T (test code = GERARD) <0.010 ng/mL 0.000-0.090 N Basic Metabolic [id number] 20:46:00 Test Item Value Reference Range Interpretation [...] National Kid[employer] Foundation,http ://nkd ep.nih.gov CBC with [id number] 20:25:00 Test Item Value Reference Range Interpretation [...] code = ALYMPH) 1.7 K/cumm 0.5-4.6 N Mitchell Abs (test code = AMONO) 1.2 K/cumm 0.0-1.2 N Eos Abs (test code = AEOS) 0.10 K/cumm 0.00-0.74 N Baso Abs (test code = ABASO) 0.1 K/cumm 0.00-0.21 N
[2020-04-03 07:26] LABS: Absolute Lymphocytes (CBC) 1.7 K/uL (0.7-4.9); Basophils % 0.8 % (0-1.3); Hematocrit 39.6 % (39.6-49.0); Lymphocytes % 19.4 % (15.3-44.8); RBC Red Blood Cell Count 4.04 M/uL (4.33-5.43)
[2020-04-03 07:33] LABS: ALT/SGPT 46 U/L (12-78); AST/SGOT 50 U/L (15-37); Alkaline Phosphatase 172 U/L (45-117); BUN Blood Urea Nitrogen 12 mg/dL (7-18); Bicarbonate 28 mmol/L (21-32); Bilirubin Direct 0.2 mg/dL (0-0.2); Bilirubin Total 0.4 mg/dL (0.2-1.0); Glucose Level 128 mg/dL (74-106); Lipase 153 U/L (73-393); Potassium 3.5 mmol/L (3.5-5.1); Sodium Level 140 mmol/L (136-145)
[2020-04-03] MEDS ORDERED: ONDANSETRON 4 MG/2 ML VIAL ONE ×2 (07:39→09:27)
[2020-04-03] MEDS ORDERED: NA CHLORIDE 0.9% 1,000 ML ONE (07:39)
[2020-04-03] MEDS ORDERED: MORPHINE 4 MG/ML SYR ONE (07:39)
[2020-04-03] MEDS ORDERED: FAMOTIDINE 20 MG/2 ML VIAL IV ONE (07:39)
--- NOTE | 2020-04-03 08:26 | RAD REPORT ---
EXAM DESCRIPTION: CTAbdomen Pelvis W Contrast - 04/03/2020 7:52 am CLINICAL HISTORY: Abdominal pain. ABD PAIN COMPARISON: Abdomen Pelvis W Contrast dated 07/11/2018; CT ABD PELVIS W CONTRAST dated 09/17/2014; C T ABD PELVIS W CONTRAST dated 09/11/2008 TECHNIQUE: Biphasic CT imaging of the abdomen and pelvis was performed with 100 ml non-ionic IV cont rast. All CT scans are performed using dose optimization technique as appropriate and may include automated exposure control or mA/KV adjustment according to patient size. FINDINGS: The lung bases are clear. The liver is prominent in size with nodular contour present most compatible with liver cirrhosis. Dif fuse fatty liver infiltration is present. Several vague rounded low-density lesions are present in th e liver, the largest in the superior right lobe measuring 3.0 x 2.6 cm. No intrahepatic biliary dilat ation seen. The spleen appears surgically absent. The pancreas, right adrenal gland are normal. Mild nodular thic kening of the left adrenal gland is seen, measuring up to 11 mm. No focal renal mass or hydronephrosi s. No perinephric abnormality. Complex small to moderate sized fat containing midline ventral hernia noted. No bowel involvement is seen. Small bilateral inguinal hernias containing fat, slightly greater on the right. No bowel obstruction, free air, free fluid or abscess. The appendix is normal. No evidence of signi ficant lymphadenopathy. Moderate lumbar degenerative changes are present. IMPRESSION: Liver cirrhosis is present with diffuse fatty liver. Several liver lesions are suspected , largest in the superior right lobe measuring 3 cm. Nonemergent follow-up MRI liver protocol is paolo mmended. Small to moderate fat containing ventral hernia along the midline is noted without bowel involvement.
[2020-04-03] MEDS ORDERED: PROMETHAZINE INJ 25 MG/ML AMP ONE (10:26)
--- NOTE | 2020-04-03 11:38 | ER ---
Nurse's Notes [facility] Name: Mic Gross Age: 64 yrs Sex: Male : 1955 Arrival Date: 04/03/2020 Time: 06:35 Bed 13 Private MD: Diagnosis: Vomiting;Abdominal and pelvic pain Presentation: 04/03 06:50 Chief complaint: Patient states: abd pain that radiates into back after lifting up a em boiler, hx of hernia, states that it is bigger since last night. Coronavirus screen: Client denies travel out of the [place] in the last 14 days. Ebola Screen: Patient negative for fever greater than or equal to 101.5 degrees Fahrenheit, and additional compatible Ebola Virus Disease symptoms Patient denies exposure to infectious person. Patient denies travel to an Ebola-affected area in the 21 days before illness onset. No symptoms or risks identified at this time. Initial Sepsis Screen: Does the patient meet any 2 criteria? No. Patient's initial sepsis screen is negative. Does the patient have a suspected source of infection? No. Patient's initial sepsis screen is negative. Risk Assessment: Do you want to hurt yourself or someone else? Patient reports no desire to harm self or others. Onset of symptoms was April 03, 2020. 06:50 Method Of Arrival: Ambulatory em 06:50 Acuity: RADHA 3 em Historical: - Allergies: 06:52 No Known Allergies; em - PMHx: 06:52 Hepatitis; C; Hernia; Hypertension; liver cancer; em - PSHx: 06:52 abd surgery; em - Immunization history:: Adult Immunizations up to date. - Social history:: Smoking status: Patient denies any tobacco usage or history of. Screenin:20 Abuse screen: Denies threats or abuse. Nutritional screening: No deficits noted. em Tuberculosis screening: No symptoms or risk factors identified. Fall Risk None identified. Assessment: 07:40 Reassessment: Patient appears in no apparent distress at this time. Patient and/or tw2 family updated on plan of care and expected duration. Pain level reassessed. Patient is alert, oriented x 3, equal unlabored respirations, skin warm/dry/pink. Patient states symptoms have not improved. 10:13 Reassessment: pt dry heaving at this time, provider notified, pt states "it feels like tw2 acid reflux". 11:36 Reassessment: Patient appears in no apparent distress at this time. Patient and/or tw2 family updated on plan of care and expected duration. Pain level reassessed. Patient is alert, oriented x 3, equal unlabored respirations, skin warm/dry/pink. Patient states feeling better. 12:21 Reassessment: Patient appears in no apparent distress at this time. Patient and/or tw2 family updated on plan of care and expected duration. Pain level reassessed. Patient is alert, oriented x 3, equal unlabored respirations, skin warm/dry/pink. Vital Signs: 06:50 BP 167 / 98; Pulse 73; Resp 18; Temp 98.0(O); Pulse Ox 100% on R/A; Weight 68.04 kg; em Height 5 ft. 6 in. (167.64 cm); Pain 10/10; 08:40 BP 137 / 95; Pulse 75; Resp 17; Pulse Ox 97% on R/A; tw2 09:45 BP 153 / 87; Pulse 65; Resp 14; Pulse Ox 97% on R/A; tw2 11:37 BP 137 / 74; Pulse 64; Resp 17; Pulse Ox 97% on R/A; tw2 06:50 Body Mass Index 24.21 (68.04 kg, 167.64 cm) em ED Course: 06:35 Patient arrived in ED. cl3 06:52 Triage completed. em 06:52 Arm band placed on. em 07:00 Initial lab(s) drawn, by mi, sent to lab. Inserted saline lock: 20 gauge in right em forearm, using aseptic technique. Blood collected. 07:13 Fabio Mock MD is Attending Physician. kdr 07:21 Mary Mercedes RN is Primary Nurse. tw2 07:35 Inserted saline lock: 22 gauge in left forearm, using aseptic technique. tw2 07:42 IV discontinued, intact, bleeding controlled, No redness/swelling at site. Pressure tw2 dressing applied, 20 g RIGHT FA, infiltration noted. 07:52 CT Abd/Pelvis - IV Contrast Only In Process Unspecified. EDMS Administered Medications: 07:35 Drug: NS 0.9% 1000 ml Route: IV; Rate: 1 bolus; Site: left forearm; tw2 09:44 Follow up: Response: No adverse reaction; IV Status: Completed infusion; IV Intake: tw2 1000ml 07:36 Drug: Zofran (Ondansetron) 4 mg Route: IVP; Site: left forearm; tw2 09:44 Follow up: Response: No adverse reaction tw2 07:38 Drug: morphine 4 mg {Note: RASS 0.} Route: IVP; Site: left forearm; tw2 09:11 Follow up: Response: No adverse reaction; Pain is decreased; RASS: Alert and Calm (0) tw2 07:40 Drug: Pepcid 20 mg Route: IVP; Site: left forearm; tw2 09:07 Follow up: Response: No adverse reaction tw2 09:11 Drug: Zofran (Ondansetron) 4 mg Route: IVP; Site: left forearm; tw2 11:36 Follow up: Response: No adverse reaction tw2 10:13 Drug: Phenergan 12.5 mg Route: IVP; Site: left forearm; tw2 11:36 Follow up: Response: No adverse reaction; Nausea is decreased tw2 Intake: 09:44 IV: 1000ml; Total: 1000ml. tw2 Outcome: 11:38 Discharge ordered by . kdr 12:21 Discharged to home ambulatory. tw2 12:21 Condition: stable 12:21 Discharge instructions given to patient, Instructed on discharge instructions, follow up and referral plans. medication usage, Demonstrated understanding of instructions, follow-up care, medications, Prescriptions given X 2. 12:22 Patient left the ED. tw2 Signatures: Dispatcher [employer] Fabio Ramirez MD MD kdr Munoz, Edgar, RN RN em Wise, Tara, RN RN tw2 Juliann Draper cl3 Corrections: (The following items were deleted from the chart) 07:49 07:48 Reassessment: Patient appears in no apparent distress at this time. Patient tw2 and/or family updated on plan of care and expected duration. Pain level reassessed. Patient is alert, oriented x 3, equal unlabored respirations, skin warm/dry/pink. Patient states symptoms have not improved. tw2
--- NOTE | 2020-04-03 11:38 | EDPHYS ---
Physician Documentation [facility] Name: Mic Gross Age: 64 yrs Sex: Male : 1955 Arrival Date: 04/03/2020 Time: 06:35 Bed 13 Private MD: ED Physician Fabio Mock HPI: 04/03 07:20 This 64 yrs old Male presents to ER via Ambulatory with complaints of kdr Abdominal Pain. 07:20 The patient presents with abdominal pain in the upper abdomen. Onset: The kdr symptoms/episode began/occurred last night. The symptoms radiate to left back, the left flank. Associated signs and symptoms: Pertinent positives: nausea and vomiting. The symptoms are described as achy, constant, dull, steady. Modifying factors: The symptoms are alleviated by nothing, the symptoms are aggravated by nothing. Severity of pain: At its worst the pain was severe incapacitating in the emergency department the pain is unchanged. The patient has not experienced similar symptoms in the past. The patient has not recently seen a physician. Historical: - Allergies: 06:52 No Known Allergies; em - PMHx: 06:52 Hepatitis; C; Hernia; Hypertension; liver cancer; em - PSHx: 06:52 abd surgery; em - Immunization history:: Adult Immunizations up to date. - Social history:: Smoking status: Patient denies any tobacco usage or history of. ROS: 07:20 Constitutional: Negative for fever, chills, and weight loss, Eyes: Negative for injury, kdr pain, redness, and discharge, Neck: Negative for injury, pain, and swelling, Cardiovascular: Negative for chest pain, palpitations, and edema, Respiratory: Negative for shortness of breath, cough, wheezing, and pleuritic chest pain, Back: Negative for injury and pain, : Negative for injury, bleeding, discharge, and swelling, MS/Extremity: Negative for injury and deformity, Skin: Negative for injury, rash, and discoloration, Neuro: Negative for headache, weakness, numbness, tingling, and seizure activity. Psych: Negative for depression, anxiety, suicide ideation, homicidal ideation, and hallucinations, Allergy/Immunology: Negative for hives, rash, and allergies, Endocrine: Negative for neck swelling, polydipsia, polyuria, polyphagia, and marked weight changes, Hematologic/Lymphatic: Negative for swollen nodes, abnormal bleeding, and unusual bruising. 07:20 Abdomen/GI: Positive for abdominal pain, nausea and vomiting, abdominal cramps, Negative for black/tarry stool, rectal pain, rectal bleeding. Exam: 07:20 Constitutional: This is a well developed, well nourished patient who is awake, alert, kdr and in moderate distress. Head/Face: Normocephalic, atraumatic. Eyes: Pupils equal round and reactive to light, extra-ocular motions intact. Lids and lashes normal. Conjunctiva and sclera are non-icteric and not injected. Cornea within normal limits. Periorbital areas with no swelling, redness, or edema. Neck: Trachea midline, no thyromegaly or masses palpated, and no cervical lymphadenopathy. Supple, full range of motion without nuchal rigidity, or vertebral point tenderness. No Meningismus. Chest/axilla: Normal chest wall appearance and motion. Nontender with no deformity. No lesions are appreciated. Cardiovascular: Regular rate and rhythm with a normal S1 and S2. No gallops, murmurs, or rubs. Normal PMI, no JVD. No pulse deficits. Respiratory: Lungs have equal breath sounds bilaterally, clear to auscultation and percussion. No rales, rhonchi or wheezes noted. No increased work of breathing, no retractions or nasal flaring. Back: No spinal tenderness. No costovertebral tenderness. Full range of motion. Skin: Warm, dry with normal turgor. Normal color with no rashes, no lesions, and no evidence of cellulitis. MS/ Extremity: Pulses equal, no cyanosis. Neurovascular intact. Full, normal range of motion. Neuro: Awake and alert, GCS 15, oriented to person, place, time, and situation. Cranial nerves II-XII grossly intact. Motor strength 5/5 in all extremities. Sensory grossly intact. Cerebellar exam normal. Normal gait. Psych: Awake, alert, with orientation to person, place and time. Behavior, mood, and affect are within normal limits. 07:20 Abdomen/GI: Inspection: scar(s), are noted in the epigastric area, umbilical area and suprapubic area, Bowel sounds: Vital Signs: 06:50 BP 167 / 98; Pulse 73; Resp 18; Temp 98.0(O); Pulse Ox 100% on R/A; Weight 68.04 kg; em Height 5 ft. 6 in. (167.64 cm); Pain 10/10; 08:40 BP 137 / 95; Pulse 75; Resp 17; Pulse Ox 97% on R/A; tw2 09:45 BP 153 / 87; Pulse 65; Resp 14; Pulse Ox 97% on R/A; tw2 11:37 BP 137 / 74; Pulse 64; Resp 17; Pulse Ox 97% on R/A; tw2 06:50 Body Mass Index 24.21 (68.04 kg, 167.64 cm) em MDM: 11:38 Patient medically screened. kdr 14:56 Data reviewed: vital signs, nurses notes, lab test result(s), radiologic studies. kdr Counseling: I had a detailed discussion with the patient and/or guardian regarding: the historical points, exam findings, and any diagnostic results supporting the discharge/admit diagnosis, lab results, radiology results, the need for outpatient follow up. 04/03 06:56 Order name: Basic Metabolic Panel; Complete Time: 08:51 em 04/03 06:56 Order name: CBC with Diff; Complete Time: 08:51 em 04/03 06:56 Order name: Hepatic Function; Complete Time: 08:51 em 04/03 06:56 Order name: Lipase; Complete Time: 08:51 em 04/03 07:19 Order name: CT Abd/Pelvis - IV Contrast Only; Complete Time: 08:51 kdr 04/03 06:56 Order name: IV Saline Lock; Complete Time: 07:27 em 04/03 06:56 Order name: Labs collected and sent; Complete Time: 07:27 em 04/03 09:04 Order name: PO challenge; Complete Time: 09:44 kdr 04/03 10:26 Order name: PO challenge: Repeat 15 - 20 minutes after phenergan; Complete Time: 11:36 kdr Administered Medications: 07:35 Drug: NS 0.9% 1000 ml Route: IV; Rate: 1 bolus; Site: left forearm; tw2 09:44 Follow up: Response: No adverse reaction; IV Status: Completed infusion; IV Intake: tw2 1000ml 07:36 Drug: Zofran (Ondansetron) 4 mg Route: IVP; Site: left forearm; tw2 09:44 Follow up: Response: No adverse reaction tw2 07:38 Drug: morphine 4 mg {Note: RASS 0.} Route: IVP; Site: left forearm; tw2 09:11 Follow up: Response: No adverse reaction; Pain is decreased; RASS: Alert and Calm (0) tw2 07:40 Drug: Pepcid 20 mg Route: IVP; Site: left forearm; tw2 09:07 Follow up: Response: No adverse reaction tw2 09:11 Drug: Zofran (Ondansetron) 4 mg Route: IVP; Site: left forearm; tw2 11:36 Follow up: Response: No adverse reaction tw2 10:13 Drug: Phenergan 12.5 mg Route: IVP; Site: left forearm; tw2 11:36 Follow up: Response: No adverse reaction; Nausea is decreased tw2 Disposition: 04/03/20 11:38 Discharged to Home. Impression: Vomiting, Abdominal and pelvic pain. - Condition is Stable. - Discharge Instructions: Nausea and Vomiting, Adult, [id number], Abdominal Pain, Adult, [id number]. - Prescriptions for promethazine 25 mg Oral Tablet - take 1 tablet by ORAL route every 6 hours As needed; 20 tablet. - Medication Reconciliation Form, Thank You Letter form. - Follow up: Private Physician; When: 2 - 3 days; Reason: If symptoms return, Further diagnostic work-up, Recheck today's complaints, Continuance of care, Re-evaluation by your physician. - Problem is new. - Symptoms have improved. Signatures: Dispatcher [employer] EDFabio Duncan MD MD [facility] Be Vincent RN RN Mary Mercedes RN RN tw2 Corrections: (The following items were deleted from the chart) 12:22 11:38 04/03/2020 11:38 Discharged to Home. Impression: Vomiting; Abdominal and pelvic tw2 pain. Condition is Stable. Forms are Medication Reconciliation Form, Thank You Letter, Antibiotic Education, Prescription Opioid Use. Follow up: Private Physician; When: 2 - 3 days; Reason: If symptoms return, Further diagnostic work-up, Recheck today's complaints, Continuance of care, Re-evaluation by your physician. Problem is new. Symptoms have improved. kdr
[2020-04-03 12:42] VITALS: TEMP 98
[2020-04-03 12:43] VITALS: O2SAT 97
[2020-04-03 12:45] VITALS: BP 137/74
== END 2020-04-03 12:22 | disposition home or self-care (01) ==
LOC: ER 06:35
DX: R10.2 Pelvic and perineal pain (principal); I10 Essential (primary) hypertension; Z85.05 Personal history of malignant neoplasm of liver
CPT/HCPCS: 36415; 74177; 80048; 80076; 83690; 85025; 96361; 96374; 96375; 99284; J2405; J2550; J7030; Q9967

== ENCOUNTER 2020-04-29 07:24 | Emergency (ER) | payer SELFPAY ==
--- OUTSIDE RECORDS SUMMARY | 2020-04-29 07:27 | XMS REPORT | Continuity of Care Document ---
:[address] [facility] t Address [address] [place] [address] Care Team Providers Name Role Phone Jenn [...] 2019-06-11 2019-06-11 Patient Jenn Michael [id number] 00:00:00 00:00:00 Outreach E [place] [id number] [place] [id number] 2019-04-27 2019-04-27 Patient Jenn Michael [id number] 00:00:00 00:00:00 Outreach E [place] [id number] [place] [id number] 2019-04-13 2019-04-13 Transition Shaila Champion [id number] 00:00:00 00:00:00 of Care Kandice Aviles [id number] [place] [id number] 2019-04-10 2019-04-12 Hospital Fabio Guzman [id number] 10:55:39 18:18:00 Encounter Fabio Guzman [id number] [facility] [id number] 2018-11-08 2018-11-08 Emergency [facility] [id number] 14:26:03 17:32:00 Narciso Torres [id number] [place] [id number] [place] [id number] [id number] Results Test Description Test Time Test Comments Results Result Comments Source Troponin T 2016-05-15 20:46:00 Test Item Value Reference Range Interpretation Comme nts Troponin T (test code = GERARD) <0.010 ng/mL 0.000-0.090 N Basic Metabolic [id number] 20:46:00 Test Item Value Reference Range Interpretation [...] [employer],http :[email or web address] ep.nih.gov CBC with [id number] 20:25:00 Test Item Value Reference Range Interpretation [...] code = ALYMPH) 1.7 K/cumm 0.5-4.6 N Whitley Abs (test code = AMONO) 1.2 K/cumm 0.0-1.2 N Eos Abs (test code = AEOS) 0.10 K/cumm 0.00-0.74 N Baso Abs (test code = ABASO) 0.1 K/cumm 0.00-0.21 N
[2020-04-29] MEDS ORDERED: MEPERIDINE HCL 50 MG/ML ONE (08:05)
[2020-04-29] MEDS ORDERED: dexAMETHasone 10 MG/ML VIAL ONE (08:05)
[2020-04-29 08:29] LABS: BUN Blood Urea Nitrogen 8 mg/dL (7-18); Bicarbonate 23 mmol/L (21-32); Glucose Level 96 mg/dL (74-106); Sodium Level 140 mmol/L (136-145)
--- NOTE | 2020-04-29 08:29 | RAD REPORT ---
EXAM DESCRIPTION: CT - Stone Protocol - 04/29/2020 8:09 am CLINICAL HISTORY: left flank pain, history of liver cancer COMPARISON: Abdomen Pelvis W Contrast dated 04/03/2020 TECHNIQUE: Axial [address] imaging of the abdomen and pelvis was performed without IV contrast. No IV contrast was given because of allergy, abnormal renal function, patient refusal or physician re quest. No oral contrast. All CT scans are performed using dose optimization technique as appropriate and may include automated exposure control or mA/KV adjustment according to patient size. FINDINGS: No suspicious findings in the lung bases. No focal liver lesions confirmed on this noncontrast study. Left lobe is enlarged relative to the rig ht and there is a prominent nodular liver capsule. Caudate lobe is also larger than typically seen. F indings are all consistent with the previously detailed cirrhosis. Prominent vasculature is seen in t he upper abdomen. Splenomegaly changes are present. No pancreatic or peripancreatic acute findings. Gallstones can be o ccult on CT imaging. No acute gallbladder or biliary tree finding. No obstructing or nonobstructing calculi seen in either kidney. There is no hydronephrosis. No signi ficant adrenal finding. Isodense renal masses and pyelonephritis cannot be excluded in the absence of IV contrast. Urinary bladder is only partially filled. No bladder wall thickening or mass. No bladde r stone or intraluminal abnormality seen. Prostate gland and seminal vesicles are not outside of norm al range. No gastric dilatation. Gastric wall thickening is seen in the proximal body and antrum which could be peristalsis artifacts. Gastritis or antritis cannot be excluded and can be correlated with clinical presentation. No small bowel dilatation. No acute small bowel finding. Moderately large stool volume fills the rect um. There is a section of rectosigmoid colon that shows circumferential wall thickening believed to b e a peristalsis artifact. The bowel and bowel content proximal to this narrowing are not distended or dilated. Moderately large stool volume fills the right-side of the colon. The appendix is normal. No free air, free fluid or inflammatory stranding. No mass or bulky lymphadenopathy. The patient britt s multiple small ventral hernia defects superior to the umbilicus. There is no extension of bowel and no significant congestion or edema in the herniated fat. Patient has a small to moderate-sized fat o nly right inguinal hernia. No suspicious bony findings. Disc and bony degenerative changes are present throughout the lumbar spi ne. Degenerative changes most pronounced at L5-S1. IMPRESSION: No hydronephrosis, obstructing calculus or other acute finding to explain the patient 's pain pattern. Isodense masses and pyelonephritis are not excluded on a stone protocol study. Rivera of the gastric antrum, proximal body are prominent. This is probably due to peristalsis and joseph ited content within the lumen. Gastritis/antritis cannot be excluded. Moderate retained stool volume in the rectum and right-side of the colon. No free air or surgically emergent finding. Full assessment is limited is the absence of IV contrast.
[2020-04-29 08:34] LABS: Absolute Lymphocytes (CBC) 2.8 K/uL (0.7-4.9); Basophils % 0.8 % (0-1.3); Hematocrit 41.4 % (39.6-49.0); MPV 11.3 fL (7.6-11.3); RBC Red Blood Cell Count 4.21 M/uL (4.33-5.43)
[2020-04-29 08:37] LABS: Potassium 4.2 mmol/L (3.5-5.1)
[2020-04-29] MEDS ORDERED: MORPHINE 4 MG/ML SYR ONE (09:24)
--- NOTE | 2020-04-29 10:07 | EDPHYS ---
Physician Documentation [facility] Name: Mic Gross Age: 64 yrs Sex: Male : 1955 Arrival Date: 04/29/2020 Time: 07:24 Bed 19 Private MD: ED Physician Wero Sorensen HPI: 04/29 08:02 This 64 yrs old Male presents to ER via Wheelchair with complaints of L Side rn Pain. 08:02 The patient complains of pain in the left low back and left mid back. The pain radiates rn to the left leg. Onset: The symptoms/episode began/occurred this morning. Modifying factors: The symptoms are alleviated by nothing. the symptoms are aggravated by movement. Associated signs and symptoms: Pertinent positives: pain radiating to left lower extremity, Pertinent negatives: fever, urinary frequency, hematuria. Severity of pain: At its worst the pain was moderate in the emergency department the pain is unchanged. The patient has not experienced similar symptoms in the past. The patient has not recently seen a physician. Reports woke up with left flank pain, worse with movement and palpation, radiates down left leg, + chronic back problems, told in past needed lower back surgery, no recent injury. No weakness to legs. . Historical: - Allergies: 07:42 No Known Allergies; jd3 - Home Meds: 07:42 lisinopril 10 mg Oral tab 1 tab once daily for Hypertension [Active]; jd3 - PMHx: 07:42 Hepatitis; C; Hernia; Hypertension; liver cancer; jd3 - PSHx: 07:42 abd surgery; jd3 - Immunization history:: Adult Immunizations unknown. - Social history:: Smoking status: Patient reports the use of cigarette tobacco products, denies chronic smoking, but will smoke occasionally. - Family history:: not pertinent. - Hospitalizations: : No recent hospitalization is reported. ROS: 08:02 Constitutional: Negative for fever, chills, and weight loss, Eyes: Negative for injury, rn pain, redness, and discharge, Cardiovascular: Negative for chest pain, palpitations, and edema, Respiratory: Negative for shortness of breath, cough, wheezing, and pleuritic chest pain, Abdomen/GI: Negative for abdominal pain, nausea, vomiting, diarrhea, and constipation, Back: + left lower back pain : Negative for injury, bleeding, discharge, and swelling, MS/Extremity: Negative for injury and deformity, Skin: Negative for injury, rash, and discoloration, Neuro: Negative for headache, weakness, numbness, tingling, and seizure. Exam: 08:02 Constitutional: This is a well developed, well nourished patient who is awake, alert, rn appears uncomfortable Head/Face: Normocephalic, atraumatic. Neck: No midline tenderness Cardiovascular: Regular rate and rhythm. No pulse deficits. Respiratory: No increased work of breathing, no retractions or nasal flaring. Abdomen/GI: soft, non-tender, + ventral hernia, easily reducible MS/ Extremity: Pulses equal, no cyanosis. Neurovascular intact. Full, normal range of motion. Equal circumference. Neuro: Awake and alert, GCS 15, oriented to person, place, time, and situation. Cranial nerves II-XII grossly intact. Motor strength 5/5 in all extremities. Sensory grossly intact. Vital Signs: 07:43 BP 142 / 95; Pulse 68; Resp 19 S; Temp 98.0(O); Pulse Ox 96% on R/A; Weight 65.77 kg jd3 (R); Height 5 ft. 6 in. (167.64 cm) (R); Pain 10/10; 08:37 BP 169 / 92; Pulse 67; Resp 18 S; Pulse Ox 100% on R/A; jd3 09:58 BP 157 / 89; Pulse 67; Resp 17 S; Pulse Ox 97% on R/A; jd3 07:43 Body Mass Index 23.40 (65.77 kg, 167.64 cm) jd3 MDM: 07:44 Patient medically screened. rn 10:04 Differential diagnosis: nephrolithiasis, radiculopathy. Data reviewed: vital signs, rn nurses notes, lab test result(s), radiologic studies, CT scan, and as a result, I will discharge patient. Counseling: I had a detailed discussion with the patient and/or guardian regarding: the historical points, exam findings, and any diagnostic results supporting the discharge/admit diagnosis, lab results, radiology results, the need for outpatient follow up. Response to treatment: the patient's symptoms have mildly improved after treatment, and as a result, I will discharge patient. Special discussion: I discussed with the patient/guardian in detail that at this point there is no indication for admission to the hospital. It is understood, however, that if the symptoms persist or worsen the patient needs to return immediately for re-evaluation. ED course: CT no acute findings, likely radiculopathy given no injury and chronic back problems, now walking and feels better after medication. Will dc home with pcp and spine f/u as needed. . 04/29 07:46 Order name: CBC with Diff rn 04/29 07:46 Order name: Basic Metabolic Panel; Complete Time: 09:04 rn 04/29 07:44 Order name: CT Stone Protocol; Complete Time: 09: rn 04/29 07:46 Order name: CBC with Automated Diff; Complete Time: 09:04 EDMS 04/29 07:46 Order name: IV Start; Complete Time: 08:22 rn Administered Medications: 07:55 Drug: Decadron - Dexamethasone 10 mg Route: IVP; Site: right forearm; jd3 08:50 Follow up: Response: No adverse reaction jd3 08:22 Drug: Demerol 50 mg Route: IVP; Site: right forearm; jd3 09:20 Follow up: Response: No adverse reaction; RASS: Alert and Calm (0) jd3 09:10 Drug: morphine 4 mg Route: IVP; Site: right forearm; jd3 10:10 Follow up: Response: No adverse reaction; RASS: Alert and Calm (0) jd3 Disposition: 04/29/20 10:06 Discharged to Home. Impression: Radiculopathy, lumbosacral region. - Condition is Stable. - Discharge Instructions: Lumbosacral Radiculopathy. - Prescriptions for Cyclobenzaprine 10 mg Oral Tablet - take 1 tablet by ORAL route every 8 hours As needed; 12 tablet. Medrol ([place]) 4 mg Oral Tablets, Dose Pack - take 1 tablet by ORAL route as directed - follow package instructions; 1 packet. Tylenol- Codeine #3 300-30 mg Oral Tablet - take 1 tablet by ORAL route every 4-6 hours As needed; 12 tablet. - Medication Reconciliation Form, Thank You Letter, Antibiotic Education, Prescription Opioid Use form. - Follow up: Private Physician; When: As needed; Reason: Recheck today's complaints, Re-evaluation by your physician. - Problem is new. - Symptoms have improved. Signatures: Dispatcher [employer] EDMS Wero Sorensen MD MD rn Demarco, MARKELL Cash RN jd3 Corrections: (The following items were deleted from the chart) 10:45 10:06 04/29/2020 10:06 Discharged to Home. Impression: Radiculopathy, lumbosacral jd3 region. Condition is Stable. Forms are Medication Reconciliation Form, Thank You Letter, Antibiotic Education, Prescription Opioid Use. Follow up: Private Physician; When: As needed; Reason: Recheck today's complaints, Re-evaluation by your physician. Problem is new. Symptoms have improved. rn
--- NOTE | 2020-04-29 10:07 | ER ---
Nurse's Notes [facility] Name: Mic Gross Age: 64 yrs Sex: Male : 1955 Arrival Date: 04/29/2020 Time: 07:24 Bed 19 Private MD: Diagnosis: Radiculopathy, lumbosacral region Presentation: 04/29 07:40 Chief complaint: Patient states: "when I got up this morning I had intense left side jd3 pain about at my hip that goes all the way down and then up through my back. some nausea, but this pain made it to where I can't move.". Coronavirus screen: At this time, the client does not indicate any symptoms associated with coronavirus-19. Ebola Screen: Patient negative for fever greater than or equal to 101.5 degrees Fahrenheit, and additional compatible Ebola Virus Disease symptoms. Initial Sepsis Screen: Does the patient meet any 2 criteria? No. Patient's initial sepsis screen is negative. Does the patient have a suspected source of infection? No. Patient's initial sepsis screen is negative. Risk Assessment: Do you want to hurt yourself or someone else? Patient reports no desire to harm self or others. Onset of symptoms was April 29, 2020. 07:40 Method Of Arrival: Wheelchair jd3 07:40 Acuity: RADHA 3 jd3 07:42 Note pt reports not taking home meds recently for being out of his meds. jd3 Historical: - Allergies: 07:42 No Known Allergies; jd3 - Home Meds: 07:42 lisinopril 10 mg Oral tab 1 tab once daily for Hypertension [Active]; jd3 - PMHx: 07:42 Hepatitis; C; Hernia; Hypertension; liver cancer; jd3 - PSHx: 07:42 abd surgery; jd3 - Immunization history:: Adult Immunizations unknown. - Social history:: Smoking status: Patient reports the use of cigarette tobacco products, denies chronic smoking, but will smoke occasionally. - Family history:: not pertinent. - Hospitalizations: : No recent hospitalization is reported. Screenin:45 Abuse screen: Denies threats or abuse. Nutritional screening: No deficits noted. jd3 Tuberculosis screening: No symptoms or risk factors identified. Fall Risk Ambulatory Aid- None/Bed Rest/Nurse Assist (0 pts). Gait- Normal/Bed Rest/Wheelchair (0 pts) Mental Status- Oriented to own ability (0 pts). Total Caldwell Fall Scale indicates No Risk (0-24 pts). Assessment: 07:43 General: Appears in no apparent distress. uncomfortable, Behavior is calm, cooperative, jd3 appropriate for age. Pain: Complains of pain in left flank Pain radiates to back and left leg Quality of pain is described as sharp, shooting. Neuro: Level of Consciousness is awake, alert, obeys commands, Oriented to person, place, time, situation. Cardiovascular: Denies chest pain, Capillary refill < 3 seconds Patient's skin is warm and dry. Respiratory: Airway is patent Respiratory effort is even, unlabored, Respiratory pattern is regular, symmetrical. GI: Abdomen is round non-distended, Abd is soft and non tender X 4 quads. Reports nausea. : Reports pain in left flank(s). EENT: No signs and/or symptoms were reported regarding the EENT system. Derm: Skin is intact, Skin is dry, Skin is normal, Skin temperature is warm. Musculoskeletal: Circulation, motion, and sensation intact. Range of motion: intact in all extremities. 08:38 Reassessment: No changes from previously documented assessment. Patient and/or family jd3 updated on plan of care and expected duration. Pain level reassessed. Patient is alert, oriented x 3, equal unlabored respirations, skin warm/dry/pink. provider notified of continued pain. 09:59 Reassessment: Patient appears in no apparent distress at this time. Patient and/or jd3 family updated on plan of care and expected duration. Pain level reassessed. Patient is alert, oriented x 3, equal unlabored respirations, skin warm/dry/pink. 10:43 Reassessment: Patient appears in no apparent distress at this time. Patient and/or jd3 family updated on plan of care and expected duration. Pain level reassessed. Patient is alert, oriented x 3, equal unlabored respirations, skin warm/dry/pink. Vital Signs: 07:43 BP 142 / 95; Pulse 68; Resp 19 S; Temp 98.0(O); Pulse Ox 96% on R/A; Weight 65.77 kg jd3 (R); Height 5 ft. 6 in. (167.64 cm) (R); Pain 10/10; 08:37 BP 169 / 92; Pulse 67; Resp 18 S; Pulse Ox 100% on R/A; jd3 09:58 BP 157 / 89; Pulse 67; Resp 17 S; Pulse Ox 97% on R/A; jd3 07:43 Body Mass Index 23.40 (65.77 kg, 167.64 cm) jd3 ED Course: 07:24 Patient arrived in ED. ds1 07:40 Shailesh Demarco RN is Primary Nurse. jd3 07:42 Triage completed. jd3 07:43 Wero Sorensen MD is Attending Physician. rn 07:43 Arm band placed on. jd3 07:45 Patient has correct armband on for positive identification. Bed in low position. Call jd3 light in reach. Side rails up X 1. Pulse ox on. NIBP on. 07:55 Inserted saline lock: 20 gauge in right forearm, using aseptic technique. Blood jd3 collected. 08:09 CT Stone Protocol In Process Unspecified. EDMS 10:43 No provider procedures requiring assistance completed. IV discontinued, intact, jd3 bleeding controlled, No redness/swelling at site. Pressure dressing applied. Administered Medications: 07:55 Drug: Decadron - Dexamethasone 10 mg Route: IVP; Site: right forearm; jd3 08:50 Follow up: Response: No adverse reaction jd3 08:22 Drug: Demerol 50 mg Route: IVP; Site: right forearm; jd3 09:20 Follow up: Response: No adverse reaction; RASS: Alert and Calm (0) jd3 09:10 Drug: morphine 4 mg Route: IVP; Site: right forearm; jd3 10:10 Follow up: Response: No adverse reaction; RASS: Alert and Calm (0) jd3 Outcome: 10:06 Discharge ordered by . rn 10:43 Discharged to home via wheelchair, with friend. jd3 10:43 Condition: stable 10:43 Discharge instructions given to patient, Instructed on discharge instructions, follow up and referral plans. medication usage, Demonstrated understanding of instructions, follow-up care, medications, Prescriptions given X 3. 10:45 Patient left the ED. jd3 Signatures: [facility] Madga Ruiz ds1 Wero Sorensen MD MD rn Davies, Jonathon, RN RN jamy
== END 2020-04-29 10:45 | disposition home or self-care (01) ==
LOC: ER 07:24
DX: M54.17 Radiculopathy, lumbosacral region (principal); F17.210 Nicotine dependence, cigarettes, uncomplicated; I10 Essential (primary) hypertension; Z85.05 Personal history of malignant neoplasm of liver
CPT/HCPCS: 36415; 74176; 76377; 80048; 85025; 96374; 96375; 99284; J1100; J2175

== ENCOUNTER 2020-06-18 06:31 | Emergency (ER) | payer SELFPAY ==
--- OUTSIDE RECORDS SUMMARY | 2020-06-18 06:34 | XMS REPORT | Continuity of Care Document ---
:1955 Author Organization [facility] t Address [address] [place] [address] Care Team Providers Name Role Phone Jenn [...] 2019-06-11 2019-06-11 Patient Jenn Michael [id number] 00:00:00 00:00:00 Outreach E [place] [id number] [place] [id number] [id number] 2019-04-27 2019-04-27 Patient Jenn Michael [id number] 00:00:00 00:00:00 Outreach E [place] [id number] [place] [id number] 2019-04-13 2019-04-13 Transition Shaila Champion [id number] 00:00:00 00:00:00 of Care Kandice Av[place] [id number] [place] [id number] 2019-04-10 2019-04-12 [facility] Fabio Guzman [id number] 10:55:39 18:18:00 Encounter Fabio Guzman [id number] [facility] [id number] 2018-11-08 2018-11-08 Emergency [facility] [id number] 14:26:03 17:32:00 Narciso Torres [id number] [place] [id number] [place] [id number] Results Test Description Test Time Test Comments Results Result Comments Source Troponin T 2016-05-15 20:46:00 Test Item Value Reference Range Interpretation Comme nts Troponin T (test code = GERARD) <0.010 ng/mL 0.000-0.090 N Basic Metabolic [id number] 20:46:00 Test Item Value Reference Range Interpretation [...] National Kidney Foundation,http :[email or web address] ep.nih.gov CBC with [id number] 20:25:00 Test Item Value Reference Range Interpretation [...] code = ALYMPH) 1.7 K/cumm 0.5-4.6 N [place] Abs (test code = AMONO) 1.2 K/cumm 0.0-1.2 N Eos Abs (test code = AEOS) 0.10 K/cumm 0.00-0.74 N Baso Abs (test code = ABASO) 0.1 K/cumm 0.00-0.21 N
[2020-06-18 07:12] LABS: Absolute Lymphocytes (CBC) 2.2 K/uL (0.7-4.9); Basophils % 0.8 % (0-1.3); Hematocrit 40.4 % (39.6-49.0); Lymphocytes % 23.3 % (15.3-44.8); MPV 9.8 fL (7.6-11.3); RBC Red Blood Cell Count 4.15 M/uL (4.33-5.43)
[2020-06-18 07:19] LABS: Protime INR 1.05
[2020-06-18] MEDS ORDERED: NA CHLORIDE 0.9% 1,000 ML ONE (07:20)
[2020-06-18] MEDS ORDERED: MORPHINE 4 MG/ML SYR ONE ×2 (07:20→08:49)
[2020-06-18] MEDS ORDERED: ONDANSETRON 4 MG/2 ML VIAL ONE (07:20)
[2020-06-18 07:33] LABS: ALT/SGPT 54 U/L (12-78); AST/SGOT 62 U/L (15-37); Albumin 3.2 g/dL (3.4-5.0); Alkaline Phosphatase 157 U/L (45-117); BUN Blood Urea Nitrogen 10 mg/dL (7-18); Bicarbonate 26 mmol/L (21-32); Bilirubin Direct 0.2 mg/dL (0-0.2); Bilirubin Total 0.5 mg/dL (0.2-1.0); Glucose Level 90 mg/dL (74-106); Lipase 351 U/L (73-393); Magnesium 1.9 mg/dL (1.8-2.4); NT PRO-BNP 71 pg/mL (<125); Potassium 3.7 mmol/L (3.5-5.1); Protein, Total 8.1 g/dL (6.4-8.2); Sodium Level 138 mmol/L (136-145); Troponin (Emerg Dept Use Only) < 0.02 ng/mL (0.0-0.045)
--- NOTE | 2020-06-18 08:27 | RAD REPORT ---
EXAM DESCRIPTION: RAD - Chest Single View - 06/18/2020 7:05 am CLINICAL HISTORY: COUGH COMPARISON: Portable March 01, 2020 TECHNIQUE: AP portable chest image was obtained 06/18/2020 7:05 am . FINDINGS: Lungs are clear. Heart and vasculature are normal. No measurable pleural effusion and no p neumothorax. No acute bony abnormality seen. No acute aortic findings suspected. IMPRESSION: No acute cardiopulmonary process. No significant change from comparison study.
[2020-06-18 08:33] LABS: Urine Blood Negative (Negative); Urine Glucose Negative (Negative); Urine Protein Negative (Negative)
--- NOTE | 2020-06-18 08:49 | RAD REPORT ---
EXAM DESCRIPTION: CT - Angio Aorta For Dissection - 06/18/2020 8:11 am CLINICAL HISTORY: Dissection;Abdominal distention, abdominal pain, chest pain, cardiac stents, prior splenectomy COMPARISON: Portable chest June 18, noncontrast CT abdomen and pelvis April 29, CT dissection study May 2019, contrast CT study June 01, 2020 TECHNIQUE: Dynamically enhanced 3 mm thick images of the chest, abdomen, and upper pelvis were obtai katey during administration of approximately 150mL Isovue 370 IV contrast. Sagittal and coronal reconst ruction images were generated using MIP and reviewed. Exam utilizes a protocol to evaluate entire cou rse of the aorta. All CT scans are performed using dose optimization technique as appropriate and may include automated exposure control or mA/KV adjustment according to patient size. FINDINGS: Aorta is normal in diameter with no dissection or other acute aortic findings. Mild athero sclerotic calcifications are present along the kaye with no displaced calcification. Minimal dilatat ion of the infrarenal abdominal aorta is noted. Aorta reaches 2.6 cm AP x 2.1 cm TR. This matches the examination performed 1 year earlier. Reconstruction images show no significant findings. Pulmonary arteries are normal as well. No cardiomegaly, pericardial thickening or pericardial effusio n. In the medial margin and superior segment left lower lobe there is an ill-defined 7 millimeter sized area of ground-glass opacification not clearly seen on prior imaging. This could be trace amount of a telectasis, scarring or a very minute infiltrate. Mass lesion is unlikely but follow-up is needed. Fl eischner Society 2017 follow-up recommendation would be CT imaging in 6-12 months. No other mass or n odule identified. No pleural thickening, pleural effusion or pneumothorax. Kaye of the esophagus appear mildly prominent but difficult to fully assess. No abnormal mediastinal or hilar mass or lymphadenopathy seen. No chest wall mass or abnormal axillary lymphadenopathy. Celiac, SMA and renal arteries show no suspicious findings. Nodular liver capsule contour is present with an enlarged left lobe relative to the right lobe. This cirrhotic or diffuse hepatic parenchymal pattern has been previously detailed. In the upper central r ight lobe at the segment IV/VIII junction there is a 3.0 cm AP x 3.5 cm TR enhancing focus. This rafael ures larger than prior imaging. At the posterior margin of this enhancing mass is a the 1.4 cm AP x 2 .1 cm mass showing similar enhancement characteristics. In the midline central left lobe a 14 x 14 mi llimeter rounded enhancing focus is present. There are numerous additional smaller rounded enhancing foci scattered throughout the liver parenchyma. No mass seen within the pancreatic parenchyma. Small lymph nodes are present in the gastrohepatic lig ament and posterior body of the pancreas large is 13 mm in size (image 78/220). Splenectomy changes a re present. Renal function is symmetric with no renal parenchymal mass lesion. Left renal mass or lym ph node (image 82/220) measures 2.1 cm which is increased from the April 03 study. Gallbladder is distended without wall thickening or adjacent edema. No biliary tree dilatation. No di lated bowel loop or acute bowel finding. No free air, free fluid or inflammatory stranding. No bulky lymphadenopathy or omental thickening. No urinary bladder abnormality. Bilateral fat filled inguinal hernias are present. Patient has several ventral hernias. In the superi or most aspect of the midline abdominal wall the hernia contains the anti mesenteric portion of the m id transverse colon. No edema of the colon or adjacent fat. IMPRESSION: Negative CT scan of the aorta for acute finding. The minimal dilatation of the infrarena l portion has not changed from the study of 1 year earlier. Multiple enhancing lesions of a cirrhotic liver showing evidence for interval enlargement and new les ions. The comparison studies all have a different protocol which results in imaging of the liver at d ifferent time intervals from contrast administration. This makes it difficult to definitively assess for interval growth or change. A true interval change in the liver is suspected and multifocal hepatocellular carcinoma cannot be ex cluded in a patient with cirrhosis. Follow-up contrast-enhanced outpatient liver MRI imaging would be recommended. Small focus of ground-glass opacification in the superior segment left lower lobe is present as the o nly lung parenchymal abnormality. This can be re-evaluated with CT imaging in 6-12 months. A few upper abdominal lymph nodes and left adrenal mass/lymph node have enlarged since the April maging. Superior abdomen ventral hernia contains anti mesenteric margin of the mid transverse colon. No colon wall thickening or edema. No congestion or edematous fat No other significant findings on chest, abdomen and upper pelvis examination.
--- NOTE | 2020-06-18 08:55 | ER ---
Nurse's Notes [facility] Name: Mic Gross Age: 65 yrs Sex: Male : 1955 Arrival Date: 06/18/2020 Time: 06:32 Bed 13 Private MD: Diagnosis: Other chronic pain;Unspecified cirrhosis of liver Presentation: 06/18 06:44 Chief complaint: Patient states: I am having left leg pain and left upper abdominal jb4 pain. It started earlier this morning. I can't take it anymore. Coronavirus screen: At this time, the client does not indicate any symptoms associated with coronavirus-19. Ebola Screen: No symptoms or risks identified at this time. Initial Sepsis Screen: Does the patient meet any 2 criteria? No. Patient's initial sepsis screen is negative. Does the patient have a suspected source of infection? No. Patient's initial sepsis screen is negative. Risk Assessment: Do you want to hurt yourself or someone else? Patient reports no desire to harm self or others. Onset of symptoms was June 18, 2020. Transition of care: patient was not received from another setting of care. 06:44 Method Of Arrival: Wheelchair jb4 06:44 Acuity: RADHA 2 jb4 Historical: - Allergies: 06:46 No Known Allergies; jb4 - Home Meds: 06:46 lisinopril 10 mg Oral tab 1 tab once daily for Hypertension [Active]; jb4 - PMHx: 06:46 Hepatitis; C; Hernia; Hypertension; liver cancer; jb4 - PSHx: 06:46 abd surgery; Heart stents; splenectomy; jb4 - Immunization history:: Adult Immunizations up to date, Client reports having NOT received the Covid vaccine. - Social history:: Smoking status: Patient denies any tobacco usage or history of. Patient uses alcohol, occasionally. Patient/guardian denies using street drugs. Screenin:07 Abuse screen: Denies threats or abuse. Denies injuries from another. Nutritional hb screening: No deficits noted. Tuberculosis screening: No symptoms or risk factors identified. Fall Risk None identified. Assessment: 06:44 General: Appears in no apparent distress. uncomfortable, Behavior is cooperative, jb4 agitated, anxious. Pain: Complains of pain in anterior aspect of left lateral abdomen and left upper quadrant Pain radiates to left leg Pain currently is 10 out of 10 on a pain scale. Quality of pain is described as stabbing. Neuro: Level of Consciousness is awake, alert, obeys commands, Oriented to person, place, time, situation. Cardiovascular: Patient's skin is warm and dry. Respiratory: Airway is patent Respiratory effort is even, unlabored, Respiratory pattern is regular, symmetrical. GI: No signs and/or symptoms were reported involving the gastrointestinal system. : No signs and/or symptoms were reported regarding the genitourinary system. EENT: No signs and/or symptoms were reported regarding the EENT system. Derm: Skin is intact, Skin is pink, warm \T\ dry. Musculoskeletal: Circulation, motion, and sensation intact. Range of motion: intact in all extremities. 07:46 Reassessment: Pt to CT. hb 09:10 Reassessment: Patient appears in no apparent distress at this time. Patient and/or hb family updated on plan of care and expected duration. Pain level reassessed. Patient is alert, oriented x 3, equal unlabored respirations, skin warm/dry/pink. Vital Signs: 06:44 BP 197 / 110; Pulse 72; Resp 20; Temp 98.2(O); Pulse Ox 99% on R/A; Weight 68.04 kg jb4 (R); Height 5 ft. 6 in. (167.64 cm) (R); Pain 10/10; 09:10 BP 160 / 87; Pulse 88; Resp 16; Pulse Ox 100% ; hb 06:44 Body Mass Index 24.21 (68.04 kg, 167.64 cm) jb4 ED Course: 06:32 Patient arrived in ED. cl3 06:35 Matt Harris MD is Attending Physician. vinod 06:46 Triage completed. jb4 06:46 Arm band placed on right wrist. jb4 07:00 Inserted saline lock: 20 gauge in right antecubital area, using aseptic technique. ds4 Blood collected. 07:01 Attending Physician role handed off by Matt Harris MD rn 07:01 Wero Sorensen MD is Attending Physician. rn 07:24 Lindsey Voss, MARKELL is Primary Nurse. hb 08:07 Patient has correct armband on for positive identification. Bed in low position. Call hb light in reach. 08:13 XRAY Chest (1 view) In Process Unspecified. EDMS 08:13 CT Aorta for Dissection In Process Unspecified. EDMS 09:11 No provider procedures requiring assistance completed. IV discontinued, intact, hb bleeding controlled, No redness/swelling at site. Administered Medications: 07:10 Drug: Zofran (Ondansetron) 4 mg Route: IVP; Site: right antecubital; jb4 07:12 Drug: NS 0.9% 500 ml Route: IV; Rate: bolus; Site: right antecubital; jb4 07:12 Drug: morphine 4 mg Route: IVP; Site: right antecubital; jb4 08:34 Drug: morphine 4 mg Route: IVP; Site: right antecubital; hb 08:36 Drug: NS 0.9% 1000 ml Route: IV; Rate: 100 ml/hr; Site: right antecubital; hb Outcome: 08:54 Discharge ordered by MD. rn 09:11 Discharged to home ambulatory. hb 09:11 Condition: stable 09:11 Discharge instructions given to patient, Instructed on discharge instructions, follow up and referral plans. medication usage, Demonstrated understanding of instructions, follow-up care, medications, Prescriptions given X 1. 11:00 Patient left the ED. vg1 Signatures: Dispatcher [employer] EDPR Matt Harris MD MD cha Nieto, Roman, MD MD rn Swanson, Donovan ds4 Lindsey Voss RN RN hb Bryson, James, RN RN jb4 Juliann Draper Victoria RN RN vg1
--- NOTE | 2020-06-18 08:55 | EDPHYS ---
Physician Documentation [facility] Name: Mic Gross Age: 65 yrs Sex: Male : 1955 Arrival Date: 06/18/2020 Time: 06:32 Bed 13 Private MD: ED Physician Wero Sorensen HPI: 06/18 06:49 This 65 yrs old Male presents to ER via Wheelchair with complaints of Numbness vinod Of Arm, Numbness Of Legs. Historical: - Allergies: 06:46 No Known Allergies; jb4 - Home Meds: 06:46 lisinopril 10 mg Oral tab 1 tab once daily for Hypertension [Active]; jb4 - PMHx: 06:46 Hepatitis; C; Hernia; Hypertension; liver cancer; jb4 - PSHx: 06:46 abd surgery; Heart stents; splenectomy; jb4 - Immunization history:: Adult Immunizations up to date, Client reports having NOT received the Covid vaccine. - Social history:: Smoking status: Patient denies any tobacco usage or history of. Patient uses alcohol, occasionally. Patient/guardian denies using street drugs. ROS: 06:50 Constitutional: Negative for fever, chills, and weight loss, Eyes: Negative for injury, vinod pain, redness, and discharge, ENT: Negative for injury, pain, and discharge, Neck: Negative for injury, pain, and swelling, Cardiovascular: Negative for chest pain, palpitations, and edema, Respiratory: Negative for shortness of breath, cough, wheezing, and pleuritic chest pain, Back: Negative for injury and pain, : Negative for injury, bleeding, discharge, and swelling, Skin: Negative for injury, rash, and discoloration, Neuro: Negative for headache, weakness, numbness, tingling, and seizure, Psych: Negative for depression, anxiety, suicide ideation, homicidal ideation, and hallucinations, Allergy/Immunology: Negative for hives, rash, and allergies, Endocrine: Negative for neck swelling, polydipsia, polyuria, polyphagia, and marked weight changes, Hematologic/Lymphatic: Negative for swollen nodes, abnormal bleeding, and unusual bruising. 06:50 Abdomen/GI: Positive for abdominal pain, nausea and vomiting, abdominal distension, of the right upper quadrant, right lower quadrant, left lower quadrant and abdomen diffusely. 06:50 MS/extremity: Positive for pain, strong femoral, popliteal, dp and pt, no homans , no cords. Exam: 06:50 Constitutional: This is a well developed, well nourished patient who is awake, alert, vinod and in no acute distress. Head/Face: Normocephalic, atraumatic. Eyes: Pupils equal round and reactive to light, extra-ocular motions intact. Lids and lashes normal. Conjunctiva and sclera are non-icteric and not injected. Cornea within normal limits. Periorbital areas with no swelling, redness, or edema. ENT: Nares patent. No nasal discharge, no septal abnormalities noted. Tympanic membranes are normal and external auditory canals are clear. Oropharynx with no redness, swelling, or masses, exudates, or evidence of obstruction, uvula midline. Mucous membranes moist. Neck: Trachea midline, no thyromegaly or masses palpated, and no cervical lymphadenopathy. Supple, full range of motion without nuchal rigidity, or vertebral point tenderness. No Meningismus. Chest/axilla: Normal chest wall appearance and motion. Nontender with no deformity. No lesions are appreciated. Cardiovascular: Regular rate and rhythm with a normal S1 and S2. No gallops, murmurs, or rubs. Normal PMI, no JVD. No pulse deficits. Respiratory: Lungs have equal breath sounds bilaterally, clear to auscultation and percussion. No rales, rhonchi or wheezes noted. No increased work of breathing, no retractions or nasal flaring. Back: No spinal tenderness. No costovertebral tenderness. Full range of motion. Male : Normal genitalia with no discharge or lesions. Skin: Warm, dry with normal turgor. Normal color with no rashes, no lesions, and no evidence of cellulitis. Neuro: Awake and alert, GCS 15, oriented to person, place, time, and situation. Cranial nerves II-XII grossly intact. Motor strength 5/5 in all extremities. Sensory grossly intact. Cerebellar exam normal. Normal gait. Psych: Awake, alert, with orientation to person, place and time. Behavior, mood, and affect are within normal limits. 06:50 Abdomen/GI: Inspection: distension, Bowel sounds: active, Palpation: nontender, Liver: no appreciated palpable abnormalities, Hernia: noted in the epigastric area, incarceration, is not appreciated, tenderness, is not appreciated. 06:57 ECG was reviewed by the Attending Physician. [facility] Vital Signs: 06:44 BP 197 / 110; Pulse 72; Resp 20; Temp 98.2(O); Pulse Ox 99% on R/A; Weight 68.04 kg jb4 (R); Height 5 ft. 6 in. (167.64 cm) (R); Pain 10/10; 09:10 BP 160 / 87; Pulse 88; Resp 16; Pulse Ox 100% ; hb 06:44 Body Mass Index 24.21 (68.04 kg, 167.64 cm) jb4 MDM: 06:35 Patient medically screened. vinod 06:54 Differential diagnosis: pyelonephritis, UTI, ruptured AAA, dissecting AAA, AAA, acute vinod coronary syndrome, bowel obstruction, coronary artery disease, diverticulitis, Herpes Zoster, sympomatic leaking abdominal aortic aneurysm, Mesenteric ischemia or infarction, non-specific abd pain, pancreatitis, Peptic Ulcer Disease, Pyelonephritis, Ureterolithiasis. Data reviewed: vital signs, nurses notes, lab test result(s), EKG, radiologic studies, plain films. Data interpreted: groundwater monitoring technician: rate is 72 beats/min, rhythm is regular, Pulse oximetry: on room air is 99 %. Test interpretation: by ED physician or midlevel provider: ECG, plain radiologic studies. Counseling: I had a detailed discussion with the patient and/or guardian regarding: the historical points, exam findings, and any diagnostic results supporting the discharge/admit diagnosis, lab results, radiology results. 06:56 ED course: dr sorensen to check labs, dispo accordingly. vinod 07:32 ED course: Signed out to me by Dr. Harris, plan is for bloodwork and ct scan. Patient rn evaluated by me, reports chronic left sided abd and flank pain, but now with vomiting and diarrhea. reports has followed up with pcp and still no clear diagnosis since I saw him last for this 1.5 months ago.. 08:53 ED course: No acute findings in blood or CT chest/abdomen/pelvis. + slight worsening of rn known cirrhosis. Will dc home with GI f/u for outpt MRI and further evaluation. BP improved to 160/87 after pain medication. . 06/18 06:49 Order name: Basic Metabolic Panel [facility] 06/18 06:49 Order name: CBC with Diff [facility] 06/18 06:49 Order name: LFT's 06/18 06:49 Order name: Magnesium 06/18 06:49 Order name: NT PRO-BNP 06/18 06:49 Order name: PT-INR 06/18 06:49 Order name: Troponin (emerg Dept Use Only) 06/18 06:49 Order name: Lipase 06/18 06:49 Order name: Urine Culture 06/18 06:56 Order name: Lactate 06/18 07:19 Order name: CBC with Automated Diff; Complete Time: 07:55 EDMS 06/18 07:20 Order name: Protime (+INR); Complete Time: 07:55 EDMS 06/18 07:31 Order name: Lactate; Complete Time: 07:55 EDMS 06/18 07:34 Order name: Basic Metabolic Panel; Complete Time: 07:55 EDMS 06/18 06:49 Order name: XRAY Chest (1 view); Complete Time: 08:51 vinod 06/18 06:49 Order name: EKG; Complete Time: 06:50 06/18 06:49 Order name: Cardiac monitoring; Complete Time: 06:58 06/18 06:49 Order name: CT Aorta for Dissection; Complete Time: 08:51 06/18 07:34 Order name: Liver (Hepatic) Function; Complete Time: 07:55 EDMS 06/18 07:34 Order name: Troponin (Emerg Dept Use Only); Complete Time: 07:55 EDMS 06/18 07:34 Order name: NT PRO-BNP; Complete Time: 07:55 EDMS 06/18 07:34 Order name: Magnesium; Complete Time: 07:55 EDMS 06/18 07:34 Order name: Lipase; Complete Time: 07:55 EDMS 06/18 08:33 Order name: Urine Dipstick-Ancillary EDMS 06/18 06:49 Order name: EKG - Nurse/Tech; Complete Time: 06:58 vinod 06/18 06:49 Order name: IV Saline Lock; Complete Time: 07:00 vinod 06/18 06:49 Order name: Labs collected and sent; Complete Time: 06:58 vinod 06/18 06:49 Order name: O2 Per Protocol; Complete Time: 06:58 vinod 06/18 06:49 Order name: O2 Sat Monitoring; Complete Time: 06:58 [facility] 06/18 06:49 Order name: Urine Dipstick-Ancillary (obtain specimen); Complete Time: 08:36 vinod EC:57 Rate is 68 beats/min. Rhythm is regular. QRS Erhard is Normal. ID interval is normal. QRS vinod interval is normal. QT interval is normal. No Q waves. T waves are Normal. No ST changes noted. Clinical impression: Normal ECG and No evidence of ischemia. Interpreted by me. Reviewed by me. Administered Medications: 07:10 Drug: Zofran (Ondansetron) 4 mg Route: IVP; Site: right antecubital; jb4 07:12 Drug: NS 0.9% 500 ml Route: IV; Rate: bolus; Site: right antecubital; jb4 07:12 Drug: morphine 4 mg Route: IVP; Site: right antecubital; jb4 08:34 Drug: morphine 4 mg Route: IVP; Site: right antecubital; hb 08:36 Drug: NS 0.9% 1000 ml Route: IV; Rate: 100 ml/hr; Site: right antecubital; hb Disposition: 06/18/20 08:54 Discharged to Home. Impression: Other chronic pain, Unspecified cirrhosis of liver. - Condition is Stable. - Discharge Instructions: Chronic Pain, Inguinal Hernia, Adult. - Prescriptions for Tramadol 50 mg Oral Tablet - take 1 tablet by ORAL route every 8 hours as needed; 12 tablet. - Medication Reconciliation Form, Thank You Letter, Antibiotic Education, Prescription Opioid Use, SBAR form form. - Follow up: Private Physician; When: As needed; Reason: Recheck today's complaints, Re-evaluation by your physician. - Problem is chronic. - Symptoms have improved. Signatures: Dispatcher [employer] [facility] Matt Harris MD MD cha Nieto, Roman, MD MD rn Baxter, Heather, MARKELL RN Ramirez Arora RN MARKELL jb4 Telma Tejeda RN RN vg1 Corrections: (The following items were deleted from the chart) 09:01 08:42 URINE DIPSTICK--ANCILLARY+U.LAB.BRZ ordered. [facility] 11:00 08:54 06/18/2020 08:54 Discharged to Home. Impression: Other chronic pain; Unspecified vg1 cirrhosis of liver. Condition is Stable. Forms are SBAR form, Medication Reconciliation Form, Thank You Letter, Antibiotic Education, Prescription Opioid Use. Follow up: Private Physician; When: As needed; Reason: Recheck today's complaints, Re-evaluation by your physician. Problem is chronic. Symptoms have improved. rn
[2020-06-18 11:13] VITALS: TEMP 98.2
[2020-06-18 11:15] VITALS: BP 160/87; O2SAT 100
--- NOTE | 2020-06-19 16:14 | EKG ---
Test Date: 2020-06-18 Test Time: 06:54:08 Invoice Classification Clerk: EBEN MEASUREMENT RESULTS: Intervals: Rate: 68 WV: 170 QRSD: 90 QT: 410 QTc: 435 [place]: P: 68 WV: 170 QRS: 67 T: 68 INTERPRETIVE STATEMENTS: Normal sinus rhythm Normal ECG Compared to ECG 03/01/2020 06:37:06 No significant changes Electronically Signed On 06-19-20 16:07:33 CDT by Clint Sosa
== END 2020-06-18 11:00 | disposition home or self-care (01) ==
LOC: ER 06:31
DX: G89.29 Other chronic pain (principal); K74.60 Unspecified cirrhosis of liver; B19.20 Unspecified viral hepatitis C without hepatic coma; I10 Essential (primary) hypertension; Z95.818 Presence of other cardiac implants and grafts
CPT/HCPCS: 36415; 71045; 71275; 74175; 80048; 80076; 81003; 83605; 83690; 83735; 83880; 84484; 85025; 85610; 87086; 87088; 93005; 96374; 96375; 99284; J2405; J7030; Q9967

== ENCOUNTER 2020-07-22 09:01 | Emergency (ER) | payer SELFPAY ==
--- OUTSIDE RECORDS SUMMARY | 2020-07-22 09:04 | XMS REPORT | Continuity of Care Document ---
:1955 Author Organization [facility] t Address [address] [place] [address] Care Team Providers Name Role Phone Jenn [...] 2019-06-11 2019-06-11 Patient Jenn Michael [id number] 00:00:00 00:00:00 Outreach E [place] [id number] Julian [id number] 2019-04-27 2019-04-27 Patient Jenn Michael [id number] 00:00:00 00:00:00 Outreach E [place]iles [id number] Julian [id number] 2019-04-13 2019-04-13 Transition Shaila Champion [id number] 00:00:00 00:00:00 of Care Kandice Aviles [id number] [place] [id number] 2019-04-10 2019-04-12 [facility] Fabio Guzman [id number] 10:55:39 18:18:00 Encounter Fabio Guzman [id number] [facility] [id number] 2018-11-08 2018-11-08 Emergency [facility] [id number] 14:26:03 17:32:00 Narciso Torres [id number] [place] [id number] [place] [id number] Results Test Description Test Time Test Comments Results Result Comments Source Troponin T 2016-05-15 20:46:00 Test Item Value Reference Range Interpretation Comme nts Troponin T (test code = GERARD) <0.010 ng/mL 0.000-0.090 N Basic Metabolic [id number] 20:46:00 Test Item Value Reference Range Interpretation [...] [employer],http :[email or web address] ep.nih.gov CBC with [id number] 20:25:00 Test Item Value Reference Range Interpretation [...] code = ALYMPH) 1.7 K/cumm 0.5-4.6 N Cataño Abs (test code = AMONO) 1.2 K/cumm 0.0-1.2 N Eos Abs (test code = AEOS) 0.10 K/cumm 0.00-0.74 N Baso Abs (test code = ABASO) 0.1 K/cumm 0.00-0.21 N
[2020-07-22 10:00] LABS: Absolute Lymphocytes (CBC) 1.7 K/uL (0.7-4.9); Hematocrit 40.1 % (39.6-49.0); Lymphocytes % 18.6 % (15.3-44.8); RBC Red Blood Cell Count 4.17 M/uL (4.33-5.43)
[2020-07-22] MEDS ORDERED: ONDANSETRON 4 MG/2 ML VIAL ONE (10:13)
[2020-07-22] MEDS ORDERED: MORPHINE 4 MG/ML SYR ONE (10:13)
[2020-07-22 10:22] LABS: Protime INR 1.05
[2020-07-22 10:34] LABS: ALT/SGPT 60 U/L (12-78); AST/SGOT 63 U/L (15-37); Albumin 3.4 g/dL (3.4-5.0); Alkaline Phosphatase 157 U/L (45-117); BUN Blood Urea Nitrogen 13 mg/dL (7-18); Bicarbonate 26 mmol/L (21-32); Bilirubin Direct 0.4 mg/dL (0-0.2); Glucose Level 105 mg/dL (74-106); NT PRO-BNP 185 pg/mL (<125); Potassium 3.8 mmol/L (3.5-5.1); Protein, Total 8.8 g/dL (6.4-8.2); Sodium Level 142 mmol/L (136-145); Troponin (Emerg Dept Use Only) < 0.02 ng/mL (0.0-0.045)
--- NOTE | 2020-07-22 11:21 | RAD REPORT ---
EXAM DESCRIPTION: US - Extremity Venous Uni Ltd - 07/22/2020 10:31 am CLINICAL HISTORY: Pain;Swelling COMPARISON: None. TECHNIQUE: Real-time sonographic evaluation of the right lower extremity deep venous systems was per formed. FINDINGS: Normal compressibility, flow augmentation, phasic flow and spontaneous flow are identified in the right lower extremity common femoral, superficial femoral, popliteal and posterior tibial vei ns. No intraluminal filling defects seen. IMPRESSION: No DVT in the right lower extremity.
--- NOTE | 2020-07-22 11:22 | RAD REPORT ---
EXAM DESCRIPTION: RAD - Chest Single View - 07/22/2020 9:40 am CLINICAL HISTORY: Cough;Chest pain, shortness of breath COMPARISON: Portable May 18 TECHNIQUE: AP portable chest image was obtained 07/22/2020 9:40 am . FINDINGS: Lungs are clear. Heart and vasculature are normal. No measurable pleural effusion and no p neumothorax. No acute bony abnormality seen. No acute aortic findings suspected. IMPRESSION: No acute cardiopulmonary process. No significant change from comparison study.
--- NOTE | 2020-07-22 11:22 | RAD REPORT ---
EXAM DESCRIPTION: RAD - Shoulder Left 2 View - 07/22/2020 9:40 am CLINICAL HISTORY: PAIN COMPARISON: No comparisons TECHNIQUE: Internal and external rotation views of the left shoulder were obtained. FINDINGS: There is no fracture or dislocation. Minimal AC joint degenerative changes are present. No significant spurring from the clavicle or acromion. Acromial humeral joint space normal. No abnormal soft tissue calcifications. No acute or suspicious findings. IMPRESSION: Negative two-view left shoulder examination for acute findings.
[2020-07-22 11:32] LABS: SARS-COV-2 RT PCR NEGATIVE (NEGATIVE)
--- NOTE | 2020-07-22 14:20 | EDPHYS ---
Physician Documentation [facility] Name: Mic Gross Age: 65 yrs Sex: Male : 1955 Arrival Date: 07/22/2020 Time: 09:02 Bed 6 Private MD: Matt Richards HPI: 07/22 09:26 This 65 yrs old Male presents to ER via Ambulatory with complaints of Chest pm1 Pain, Leg Swelling. 09:26 The patient or guardian reports chest pain that is located primarily in the mid-sternal pm1 area. Onset: yesterday. The pain does not radiate. Associated signs and symptoms: Pertinent positives: Cough with productive sputum that he attributes to walking in the rain yesterday. Patient did not have a car so he walked from [place] to [place] yesterday. Prior to onset of chest pain yesterday, he was working on a car. The trunk latch or support failed and the trunk landed on his left shoulder. The chest pain is described as Constant and aching. Duration: The patient or guardian reports a single episode, that is still ongoing, and unchanged. Historical: - Allergies: 09:12 No Known Allergies; ll1 - PMHx: 09:12 Hepatitis; C; Hernia; Hypertension; liver cancer; ll1 - PSHx: 09:12 abd surgery; Heart stents; splenectomy; ll1 - Immunization history:: Flu vaccine is up to date. - Social history:: Smoking status: Patient reports the use of cigarette tobacco products, denies chronic smoking, but will smoke occasionally. ROS: 09:26 Constitutional: Negative for fever, chills, and weight loss, Eyes: Negative for injury, pm1 pain, redness, and discharge, ENT: Negative for injury, pain, and discharge, Neck: Negative for injury, pain, and swelling. 09:26 Respiratory: Negative for shortness of breath, cough, wheezing, and pleuritic chest pain, Abdomen/GI: Negative for abdominal pain, nausea, vomiting, diarrhea, and constipation, Back: Negative for injury and pain, Skin: Negative for injury, rash, and discoloration, Neuro: Negative for headache, weakness, numbness, tingling, and seizure. 09:26 Cardiovascular: Positive for chest pain, swelling to right lower conley, Negative for edema, palpitations. 09:26 MS/extremity: Positive for pain, of the anterior aspect of left shoulder. Exam: 09:26 Constitutional: This is a well developed, well nourished patient who is awake, alert, pm1 and in no acute distress. Head/Face: Normocephalic, atraumatic. Neck: Trachea midline, no thyromegaly or masses palpated, and no cervical lymphadenopathy. Supple, full range of motion without nuchal rigidity, or vertebral point tenderness. No Meningismus. 09:26 Respiratory: Lungs have equal breath sounds bilaterally, clear to auscultation and percussion. No rales, rhonchi or wheezes noted. No increased work of breathing, no retractions or nasal flaring. 09:26 Back: No spinal tenderness. No costovertebral tenderness. Full range of motion. Skin: Warm, dry with normal turgor. Normal color with no rashes, no lesions, and no evidence of cellulitis. MS/ Extremity: Pulses equal, no cyanosis. Neurovascular intact. Full, normal range of motion. 09:26 Eyes: Exam is negative for acute changes, Periorbital structures: appear normal, Pupils: no acute changes, Extraocular movements: no acute changes, Conjunctiva: normal. 09:26 ENT: Mouth: Lips: normal, Oral mucosa: normal, pink and intact, moist, Posterior pharynx: is normal, airway is patent, no erythema, no exudate, no peritonsilar mass, no pooling of secretions, no swelling. 09:26 Chest/axilla: Inspection: normal, Palpation: tenderness, of the left clavicle, anterior aspect of left upper chest and mid-sternal area, that totally reproduces the patient's complaints. 09:26 Cardiovascular: Exam negative for acute changes, Rate: normal, Rhythm: regular, Pulses: no pulse deficits are appreciated, Heart sounds: normal, normal S1and S2. 09:26 Abdomen/GI: Exam negative for acute changes, Inspection: abdomen appears normal, Palpation: abdomen is soft and non-tender, in all quadrants. 09:26 Neuro: Exam negative for acute changes, Orientation: is normal, Mentation: is normal, Motor: is normal, moves all fours. Vital Signs: 09:09 BP 156 / 106; Pulse 68; Resp 18; Temp 97.7; Pulse Ox 92% on R/A; Weight 70.31 kg; ll1 Height 5 ft. 6 in. (167.64 cm); Pain 10/10; 10:06 BP 155 / 92; Pulse 70; Resp 16 S; Pulse Ox 95% on R/A; jd3 11:00 BP 156 / 99; Pulse 64; Resp 17 S; Pulse Ox 95% on R/A; jd3 12:05 BP 157 / 75; Pulse 85; Resp 16 S; Pulse Ox 95% on R/A; jd3 13:16 BP 144 / 80; Pulse 71; Resp 17 S; Pulse Ox 95% on R/A; Pain 10/10; jd3 14:18 BP 165 / 100; Pulse 77; Resp 18 S; Pulse Ox 95% on R/A; jd3 09:09 Body Mass Index 25.02 (70.31 kg, 167.64 cm) ll1 MDM: 09:11 Patient medically screened. vinod 14:16 Data reviewed: vital signs. Data interpreted: Pulse oximetry: on room air is 95 %. pm1 Interpretation: normal. 07/22 09:18 Order name: Basic Metabolic Panel; Complete Time: 10:37 pm07/22 09:18 Order name: CBC with Diff; Complete Time: 10:16 pm1 07/22 09:18 Order name: LFT's; Complete Time: 10:37 pm07/22 09:18 Order name: Magnesium; Complete Time: 10:37 pm07/22 09:18 Order name: NT PRO-BNP; Complete Time: 10:37 pm07/22 09:18 Order name: PT-INR; Complete Time: 10:37 pm07/22 09:18 Order name: Troponin (emerg Dept Use Only); Complete Time: 10:37 pm07/22 09:18 Order name: XRAY Chest (1 view); Complete Time: 11:26 pm07/22 09:18 Order name: Strep; Complete Time: 11:20 pm07/22 09:18 Order name: Shoulder Left (2 View) XRAY; Complete Time: 11:26 pm07/22 11:16 Order name: Throat Culture EDMS 07/22 11:32 Order name: COVID-19/FLU A+B; Complete Time: 11:32 EDMS 07/22 09:18 Order name: EKG; Complete Time: 09:19 pm1 07/22 09:18 Order name: Cardiac monitoring; Complete Time: 09:43 pm1 07/22 09:18 Order name: EKG - Nurse/Tech; Complete Time: 09:25 pm1 07/22 09:18 Order name: IV Saline Lock; Complete Time: 09:53 pm1 07/22 09:18 Order name: Labs collected and sent; Complete Time: 09:53 pm1 07/22 09:18 Order name: O2 Per Protocol; Complete Time: 09:22 pm1 07/22 09:18 Order name: O2 Sat Monitoring; Complete Time: 09:22 pm1 07/22 09:18 Order name: Extremity Venous Uni Ltd US; Complete Time: 11:26 pm1 Administered Medications: 10:02 Drug: morphine 4 mg Route: IVP; Site: right antecubital; jd3 11:00 Follow up: Response: No adverse reaction; RASS: Alert and Calm (0) jd3 10:02 Drug: Zofran (Ondansetron) 4 mg Route: IVP; Site: right antecubital; jd3 11:02 Follow up: Response: No adverse reaction jd3 Disposition: 07/23 10:00 Co-signature as Attending Physician, Matt Harris MD I agree with the assessment and vinod plan of care. Disposition: 07/22/20 14:19 Discharged to Home. Impression: Cellulitis of right lower limb, Bronchitis, not specified as acute or chronic. - Condition is Stable. - Discharge Instructions: Acute Bronchitis, Adult, Cellulitis, Adult, How to Use an Inhaler. - Prescriptions for Bactrim DS 800- 160 mg Oral Tablet - take 1 tablet by ORAL route every 12 hours for 10 days; 20 tablet. Medrol ([place]) 4 mg Oral Tablets, Dose Pack - take 1 tablet by ORAL route as directed - follow package instructions; 1 packet. Guaifenesin AC 10- 100 mg/5 mL Oral Liquid - take 10 milliliter by ORAL route every 4 hours As needed; 240 milliliter. - Medication Reconciliation Form, Thank You Letter, Antibiotic Education, Prescription Opioid Use form. - Follow up: Emergency Department; When: As needed; Reason: Worsening of condition. Follow up: Private Physician; When: 2 - 3 days; Reason: Recheck today's complaints, Continuance of care, Re-evaluation by your physician. - Problem is new. - Symptoms have improved. Signatures: Dispatcher [employer] EDUT Matt Harris, Familia Casillas MD, cha, PUBLISHING EDITOR PUBLISHING EDITOR pm1 Shailesh Demarco RN RN Erwin Russell RN RN ll1 Corrections: (The following items were deleted from the chart) 07/22 10:47 09:19 CORONAVIRUS+MR.LAB.BRZ ordered. EDUT EDUT 10:48 09:19 Influenza Screen (A \T\ B)+BA.LAB.BRZ ordered. [facility] EDMS 14:48 14:19 07/22/2020 14:19 Discharged to Home. Impression: Cellulitis of right lower limb; jd3 Bronchitis, not specified as acute or chronic. Condition is Stable. Forms are Medication Reconciliation Form, Thank You Letter, Antibiotic Education, Prescription Opioid Use. Follow up: Emergency Department; When: As needed; Reason: Worsening of condition. Follow up: Private Physician; When: 2 - 3 days; Reason: Recheck today's complaints, Continuance of care, Re-evaluation by your physician. Problem is new. Symptoms have improved. pm1
--- NOTE | 2020-07-22 14:20 | ER ---
Nurse's Notes [facility] Name: Mic Gross Age: 65 yrs Sex: Male : 1955 Arrival Date: 07/22/2020 Time: 09:02 Bed 6 Private MD: Diagnosis: Cellulitis of right lower limb;Bronchitis, not specified as acute or chronic Presentation: 07/22 09:09 Chief complaint: Patient states: CP and SOB since last night. R leg swelling worse than ll1 L. + N/V. States his L shoulder hurts, car trunk fell onto L shoulder yesterday. Coronavirus screen: Client denies travel out of the [place] in the last 14 days. difficulty breathing, Client presents with at least one sign or symptom that may indicate coronavirus-19. Standard/surgical mask placed on the client. Ebola Screen: Patient denies travel to an Ebola-affected area in the 21 days before illness onset. Initial Sepsis Screen: Does the patient meet any 2 criteria? No. Patient's initial sepsis screen is negative. Does the patient have a suspected source of infection? Yes: Other: CP/SOB. Risk Assessment: Do you want to hurt yourself or someone else? Patient reports no desire to harm self or others. Onset of symptoms was July 21, 2020. 09:09 Method Of Arrival: Ambulatory ll1 09:09 Acuity: RADHA 3 ll1 Historical: - Allergies: 09:12 No Known Allergies; ll1 - PMHx: 09:12 Hepatitis; C; Hernia; Hypertension; liver cancer; ll1 - PSHx: 09:12 abd surgery; Heart stents; splenectomy; ll1 - Immunization history:: Flu vaccine is up to date. - Social history:: Smoking status: Patient reports the use of cigarette tobacco products, denies chronic smoking, but will smoke occasionally. Screenin:05 Abuse screen: Denies threats or abuse. Nutritional screening: No deficits noted. jd3 Tuberculosis screening: No symptoms or risk factors identified. Fall Risk IV access (20 points). Ambulatory Aid- None/Bed Rest/Nurse Assist (0 pts). Gait- Normal/Bed Rest/Wheelchair (0 pts) Mental Status- Oriented to own ability (0 pts). Total Caldwell Fall Scale indicates No Risk (0-24 pts). Assessment: 10:03 General: Appears in no apparent distress. uncomfortable, Behavior is calm, cooperative, jd3 appropriate for age. Pain: Complains of pain in chest, right leg and left leg Pain does not radiate. Quality of pain is described as sharp, shooting, Pain began 1 day ago. Neuro: Level of Consciousness is awake, alert, obeys commands, Oriented to person, place, time, situation. Cardiovascular: Reports chest pain, Capillary refill < 3 seconds Patient's skin is warm and dry. Rhythm is regular. Respiratory: Airway is patent Respiratory effort is even, unlabored, Respiratory pattern is regular, symmetrical, Denies cough, shortness of breath. GI: Abdomen is non-distended, Abd is soft and non tender X 4 quads. Reports nausea. : No signs and/or symptoms were reported regarding the genitourinary system. EENT: No signs and/or symptoms were reported regarding the EENT system. Derm: Skin is intact, Skin is dry, Skin is normal, Skin temperature is warm Rash noted that is red, on right conley. 11:01 Reassessment: Patient appears in no apparent distress at this time. Patient and/or jd3 family updated on plan of care and expected duration. Pain level reassessed. Patient is alert, oriented x 3, equal unlabored respirations, skin warm/dry/pink. 12:05 Reassessment: Patient appears in no apparent distress at this time. No changes from jd3 previously documented assessment. Patient and/or family updated on plan of care and expected duration. Pain level reassessed. Patient is alert, oriented x 3, equal unlabored respirations, skin warm/dry/pink. 13:15 Reassessment: Patient appears in no apparent distress at this time. Patient and/or jd3 family updated on plan of care and expected duration. Pain level reassessed. Patient is alert, oriented x 3, equal unlabored respirations, skin warm/dry/pink. pt reporting pain returning in stomach. pt hunched over in pain, provider notified. 14:18 Reassessment: Patient appears in no apparent distress at this time. Patient and/or jd3 family updated on plan of care and expected duration. Pain level reassessed. Patient is alert, oriented x 3, equal unlabored respirations, skin warm/dry/pink. provider at bedside. 14:46 Reassessment: Patient appears in no apparent distress at this time. Patient and/or jd3 family updated on plan of care and expected duration. Pain level reassessed. Patient is alert, oriented x 3, equal unlabored respirations, skin warm/dry/pink. pt reported understanding of discharge instructions, even and steady gait upon discharge. Vital Signs: 09:09 BP 156 / 106; Pulse 68; Resp 18; Temp 97.7; Pulse Ox 92% on R/A; Weight 70.31 kg; ll1 Height 5 ft. 6 in. (167.64 cm); Pain 10/10; 10:06 BP 155 / 92; Pulse 70; Resp 16 S; Pulse Ox 95% on R/A; jd3 11:00 BP 156 / 99; Pulse 64; Resp 17 S; Pulse Ox 95% on R/A; jd3 12:05 BP 157 / 75; Pulse 85; Resp 16 S; Pulse Ox 95% on R/A; jd3 13:16 BP 144 / 80; Pulse 71; Resp 17 S; Pulse Ox 95% on R/A; Pain 10/10; jd3 14:18 BP 165 / 100; Pulse 77; Resp 18 S; Pulse Ox 95% on R/A; jd3 09:09 Body Mass Index 25.02 (70.31 kg, 167.64 cm) ll1 ED Course: 09:02 Patient arrived in ED. as 09:06 Familia Merchant NP is PHCP. pm1 09:06 Matt Harris MD is Attending Physician. pm1 09:12 Triage completed. ll1 09:12 Arm band placed on Patient placed in an exam room, on a stretcher. ll1 09:21 Shailesh Demarco, MARKELL is Primary Nurse. jd3 09:40 XRAY Chest (1 view) In Process Unspecified. EDMS 09:40 Shoulder Left (2 View) XRAY In Process Unspecified. EDMS 09:49 Extremity Venous Uni Ltd US In Process Unspecified. EDMS 10:00 Inserted saline lock: 20 gauge in right antecubital area, using aseptic technique. jd3 Blood collected. 10:05 Patient has correct armband on for positive identification. Placed in gown. Bed in low jd3 position. Call light in reach. Side rails up X 1. monitoring engineer on. Pulse ox on. NIBP on. 10:06 Patient maintains SpO2 saturation greater than 95% on room air. jd3 14:46 No provider procedures requiring assistance completed. IV discontinued, intact, jd3 bleeding controlled, No redness/swelling at site. Pressure dressing applied. Administered Medications: 10:02 Drug: morphine 4 mg Route: IVP; Site: right antecubital; jd3 11:00 Follow up: Response: No adverse reaction; RASS: Alert and Calm (0) jd3 10:02 Drug: Zofran (Ondansetron) 4 mg Route: IVP; Site: right antecubital; jd3 11:02 Follow up: Response: No adverse reaction jd3 Outcome: 14:19 Discharge ordered by MD. pm1 14:47 Discharged to home ambulatory, with family. jd3 14:47 Condition: stable 14:47 Discharge instructions given to patient, Instructed on discharge instructions, follow up and referral plans. medication usage, Demonstrated understanding of instructions, follow-up care, medications, Prescriptions given X 3. 14:48 Patient left the ED. jd3 Signatures: Dispatcher [employer] EDHoney Reyes Patrick, GEORGE TEST ENG pm1 Shailesh Demarco, MARKELL RN jd3 Erwin Draper RN RN ll1
[2020-07-22 14:56] VITALS: TEMP 97.7
[2020-07-22 14:58] VITALS: O2SAT 95
[2020-07-22 15:04] VITALS: BP 165/100
--- NOTE | 2020-07-23 11:35 | EKG ---
Test Date: 2020-07-22 Test Time: 09:17:58 Brine Purifier: FRANKY MEASUREMENT RESULTS: Intervals: Rate: 66 ID: [id number] QRSD: 84 QT: 416 QTc: 436 [place]: P: 56 ID: [id number] QRS: 56 T: 66 INTERPRETIVE STATEMENTS: Normal sinus rhythm Normal ECG Compared to ECG 06/18/2020 06:54:08 No significant changes Electronically Signed On 07-23-20 11:31:24 CDT by Clint Sosa
== END 2020-07-22 14:48 | disposition home or self-care (01) ==
LOC: ER 09:01
DX: J40 Bronchitis, not specified as acute or chronic (principal); L03.115 Cellulitis of right lower limb; I10 Essential (primary) hypertension; F17.210 Nicotine dependence, cigarettes, uncomplicated; Z20.822 Contact with and (suspected) exposure to COVID-19; Z85.05 Personal history of malignant neoplasm of liver; Z95.818 Presence of other cardiac implants and grafts
CPT/HCPCS: 0240U; 36415; 71045; 80048; 80076; 83735; 83880; 84484; 85025; 85610; 87070; 87081; 93005; 93971; 96374; 96375; 99285; J2405

== ENCOUNTER 2020-08-02 08:25 | Emergency (ER) | payer SELFPAY ==
--- OUTSIDE RECORDS SUMMARY | 2020-08-02 08:29 | XMS REPORT | Continuity of Care Document ---
:1955 Author Organization [facility] t Address [address] [place] [address] Care Team Providers Name Role Phone Jenn Michael RN Attending Clinician Akira Attending Clinician Maolu Piedra Attending Clinician Ryan AREVALO Attending Clinician [...] Department ID 2019-06-11 2019-06-11 Patient Jenn Michael Shaila [id number] 00:00:00 00:00:00 Outreach Nettie Aviles [id number] [place] [id number] 2019-04-27 2019-04-27 Patient Jenn Michael Shaila [id number] 00:00:00 00:00:00 Outreach Nettie Aviles [id number] [place] [id number] 2019-04-13 2019-04-13 Transition Shaila Champion [id number] 00:00:00 00:00:00 of Care Kandice Aviles [id number] [place] [id number] 2019-04-10 2019-04-12 [facility] Fabio Guzman [id number] 10:55:39 18:18:00 Encounter Fabio Guzman [id number] [facility] [id number] 2018-11-08 2018-11-08 [facility] [id number] 14:26:03 17:32:00 Narciso Torres [id number] [place] [id number] [place] [id number] [id number] Results Test Description Test Time Test Comments Results Result Comments Source Troponin T 2016-05-15 20:46:00 Test Item Value Reference Range Interpretation Comme nts Troponin T (test code = GERARD) <0.010 ng/mL 0.000-0.090 N Basic Metabolic [id number] 20:46:00 Test Item Value Reference Range Interpretation [...] National Kid[employer] Foundation,http :[email or web address] ep.nih.gov CBC with [id number] 20:25:00 Test Item Value Reference Range Interpretation [...] code = ALYMPH) 1.7 K/cumm 0.5-4.6 N [place] Abs (test code = AMONO) 1.2 K/cumm 0.0-1.2 N Eos Abs (test code = AEOS) 0.10 K/cumm 0.00-0.74 N Baso Abs (test code = ABASO) 0.1 K/cumm 0.00-0.21 N
[2020-08-02 11:09] LABS: Absolute Lymphocytes (CBC) 2.4 K/uL (0.7-4.9); Hematocrit 44.3 % (39.6-49.0); Lymphocytes % 29.2 % (15.3-44.8); MPV 10.4 fL (7.6-11.3); RBC Red Blood Cell Count 4.52 M/uL (4.33-5.43)
[2020-08-02] MEDS ORDERED: cloNIDine HCL 0.1 MG TAB ONE (11:16)
[2020-08-02] MEDS ORDERED: ONDANSETRON 4 MG/2 ML VIAL ONE (11:20)
[2020-08-02 11:32] LABS: ALT/SGPT 70 U/L (12-78); AST/SGOT 72 U/L (15-37); Albumin 3.5 g/dL (3.4-5.0); Alkaline Phosphatase 154 U/L (45-117); BUN Blood Urea Nitrogen 12 mg/dL (7-18); Bicarbonate 27 mmol/L (21-32); Bilirubin Direct 0.3 mg/dL (0-0.2); Bilirubin Total 0.7 mg/dL (0.2-1.0); Glucose Level 98 mg/dL (74-106); Lipase 113 U/L (73-393); Potassium 4.2 mmol/L (3.5-5.1); Protein, Total 9.1 g/dL (6.4-8.2); Sodium Level 139 mmol/L (136-145)
--- NOTE | 2020-08-02 11:38 | RAD REPORT ---
EXAM DESCRIPTION: CT - Chest Abdomen Pelvis W Cont - 08/02/2020 11:10 am CLINICAL HISTORY: abdominal pain, chest pain, prior splenectomy, prior heart stent COMPARISON: CT CHEST ABD PELVIS W CONTRAST dated 10/06/2014; Angio Aorta For Dissection dated 06/19/19 21; Stone Protocol dated 04/29/2020; Abdomen Pelvis W Contrast dated 04/03/2020 TECHNIQUE: Following dynamic enhancement using 100 milliliters nonionic IV contrast, axial imaging o f the chest, abdomen and pelvis was performed. Biphasic technique was utilized through the abdomen. No oral contrast administered. All CT scans are performed using dose optimization technique as appropriate and may include automated exposure control or mA/KV adjustment according to patient size. FINDINGS: Lungs are clear of mass and infiltrate. No pleural effusion, pleural thickening or pneumot horax. No significant aortic or pulmonary arterial tree finding. Mediastinal and hilar regions show n o mass or abnormal lymphadenopathy. No chest wall mass or axillary lymphadenopathy. The liver is again noted to be grossly abnormal. There is nodularity of the liver capsule. No portal vein thrombus is present. Again noted are multiple enhancing lesions within the hepatic parenchyma. T he clustered masses near the hepatic veins superior aspect of the liver show evidence for further inc rease in size. One of the clustered lesions measured 3.0 x 3.5 cm May 2020. This lesion now measure s 3.3 x 3.9 cm. Similar enlargement noted in the other clustered masses. The additional small lesions scattered in the liver are similar or slightly enlarged from prior imaging. Spleen is absent. No pancreatic abnormality. No acute gallbladder or biliary tree finding. Gallstones can be occult on CT imaging. Symmetric renal function is seen with no mass or hydronephrosis. Right adrenal gland is normal. A 26 millimeter left adrenal mass has enlarged from serial imaging. Attenuat ion value is 78 Hounsfield units. Kaye of the stomach are prominent in the fundus and proximal body. This is similar to prior imaging. Assessment is difficult. There is a small amount of content within the gastric lumen. No dilated lar ge or small bowel loops. Moderate stool volume present throughout the colon. No free air, free fluid or inflammatory stranding. In the superior aspect of the abdominal wall at the level of the liver the re is a ventral hernia. This contains the anti mesenteric border of the mid transverse colon. This is similar to prior imaging. No wall thickening is present. Disc and bone degenerative changes are present. No clearly pathologic bone process. No significant vascular findings. IMPRESSION: CT chest imaging shows no acute or emergent finding. Grossly abnormal cirrhotic liver with interval enlargement of the multiple liver lesions previously d etailed. Interval enlargement of left adrenal mass since prior imaging. Gastric kaye are prominent but not fully assessed in a contracted state. No gross change from prior imaging. Herniated midportion transverse colon upper abdomen unchanged from prior imaging. No acute component seen.
--- NOTE | 2020-08-02 12:00 | ER ---
Nurse's Notes [facility] Name: Mic Gross Age: 65 yrs Sex: Male : 1955 Arrival Date: 08/02/2020 Time: 08:28 Bed 7 Private MD: Diagnosis: Abdominal and pelvic pain;Nausea and vomiting Presentation: 08/02 08:31 Chief complaint: Patient states: "I am having stomach pain in my left upper stomach jd3 with nausea and vomiting. it is also been hard for me to use the bathroom, like I have to push it out.". Coronavirus screen: At this time, the client does not indicate any symptoms associated with coronavirus-19. Ebola Screen: Patient negative for fever greater than or equal to 101.5 degrees Fahrenheit, and additional compatible Ebola Virus Disease symptoms. Initial Sepsis Screen: Does the patient meet any 2 criteria? No. Patient's initial sepsis screen is negative. Does the patient have a suspected source of infection? No. Patient's initial sepsis screen is negative. Risk Assessment: Do you want to hurt yourself or someone else? Patient reports no desire to harm self or others. Onset of symptoms was August 02, 2020. 08:31 Method Of Arrival: Wheelchair jd3 08:31 Acuity: RADHA 3 jd3 Historical: - Allergies: 08:33 No Known Allergies; jd3 - Home Meds: 08:33 lisinopril 10 mg Oral tab 1 tab once daily for Hypertension [Active]; jd3 - PMHx: 08:33 Hepatitis; C; Hernia; Hypertension; liver cancer; jd3 - PSHx: 08:33 abd surgery; Heart stents; splenectomy; jd3 - Immunization history:: Adult Immunizations up to date. - Social history:: Smoking status: Patient reports the use of cigarette tobacco products. Screenin:32 Abuse screen: Denies threats or abuse. Denies injuries from another. Nutritional ld1 screening: No deficits noted. Tuberculosis screening: No symptoms or risk factors identified. Fall Risk None identified. Assessment: 10:32 General: Appears in no apparent distress. uncomfortable, Behavior is calm, cooperative, ld1 appropriate for age. Pain: Complains of pain in left upper quadrant and left lower quadrant Pain currently is 9 out of 10 on a pain scale. Quality of pain is described as throbbing, Pain began 1 day ago. Is continuous. Neuro: Level of Consciousness is awake, alert, obeys commands, Oriented to person, place, time, situation. Cardiovascular: Capillary refill < 3 seconds Patient's skin is warm and dry. Respiratory: Airway is patent Respiratory effort is even, unlabored, Respiratory pattern is regular, symmetrical. GI: Abdomen is round non-distended, Last BM was August 02, 2020. Bowel sounds present X 4 quads. Abd is soft Abdomen is tender to palpation X 4 quads. Guarding noted Reports lower abdominal pain, upper abdominal pain, nausea, vomiting. : No signs and/or symptoms were reported regarding the genitourinary system. EENT: No signs and/or symptoms were reported regarding the EENT system. Derm: Pt has raised area, size of an egg on left abd. Pt states it is a hernia. Musculoskeletal: No signs and/or symptoms reported regarding the musculoskeletal system. 11:46 Reassessment: Patient appears in no apparent distress at this time. No changes from ld1 previously documented assessment. Patient and/or family updated on plan of care and expected duration. Pain level reassessed. Waiting on results in bed. Denies concerns at this time. 12:25 Reassessment: Pt up for discharge, waiting for Dr Mock to speak to pt regarding sv discharge. 13:27 Reassessment: Patient appears in no apparent distress at this time. No changes from ld1 previously documented assessment. Patient and/or family updated on plan of care and expected duration. Pain level reassessed. Waiting on results in bed. No signs of distress. Vital Signs: 08:33 BP 125 / 93; Pulse 94; Resp 17 S; Temp 97.2(TE); Pulse Ox 97% on R/A; Weight 68.04 kg jd3 (R); Height 5 ft. 6 in. (167.64 cm) (R); Pain 10/10; 10:32 BP 175 / 158; Pulse 64; Resp 18; Temp 97.5(O); Pulse Ox 97% on R/A; Weight 68.1 kg; ld1 Pain 9/10; 11:46 BP 156 / 136; Pulse 71; Resp 18; Pulse Ox 98% on R/A; Pain 8/10; ld1 13:27 BP 143 / 102; Pulse 72; Resp 18; Pulse Ox 99% on R/A; ld1 10:32 Body Mass Index 24.23 (68.10 kg, 167.64 cm) ld1 ED Course: 08:28 Patient arrived in ED. mr 08:33 Triage completed. jd3 08:34 Arm band placed on. jd3 10:32 Betty Bedolla, MARKELL is Primary Nurse. ld1 10:32 Patient has correct armband on for positive identification. Bed in low position. Call ld1 light in reach. Side rails up X2. Pulse ox on. NIBP on. 10:45 Fabio Mock MD is Attending Physician. kdr 11:00 Inserted saline lock: 20 gauge in right antecubital area, using aseptic technique. bp Blood collected. 11:10 CT Chest, Abdomen, Pelvis - W/Contrast In Process Unspecified. EDMS 13:28 No provider procedures requiring assistance completed. IV discontinued, intact, ld1 bleeding controlled, No redness/swelling at site. Administered Medications: 10:57 Drug: cloNIDine 0.2 mg Route: PO; ld1 11:15 Follow up: Response: No adverse reaction ld1 11:03 Drug: Zofran (Ondansetron) 4 mg Route: IVP; Site: right antecubital; ld1 13:26 Follow up: Response: Nausea is decreased ld1 Outcome: 12:00 Discharge ordered by . kdr 13:28 Discharged to home ambulatory. ld1 13:28 Condition: stable 13:28 Discharge instructions given to patient, Instructed on discharge instructions, follow up and referral plans. medication usage, Demonstrated understanding of instructions, follow-up care, medications. 13:28 Patient left the ED. ld1 Signatures: Dispatcher [employer] EDMS Naomi Albrecht RN RN sv Rittger, Kevin, MD MD [facility] eJnn Rubio mr DemarcoShailesh RN RN jd3 Peltier, Brian, RN RN bp Betty Bedolla RN RN ld1 Corrections: (The following items were deleted from the chart) 11:50 11:46 BP 170 / 149; Pulse 69bpm; Resp 18bpm; Pulse Ox 98% RA; Pain 8/10; ld1 ld1
--- NOTE | 2020-08-02 12:00 | EDPHYS ---
Physician Documentation [facility] Name: Mic Gross Age: 65 yrs Sex: Male : 1955 Arrival Date: 08/02/2020 Time: 08:28 Bed 7 Private MD: ED Physician Fabio Mock HPI: 08/02 16:14 This 65 yrs old Male presents to ER via Wheelchair with complaints of kdr Abdominal Pain, Breathing Difficulty. 16:14 The patient presents with abdominal pain in the upper abdomen. Onset: The kdr symptoms/episode began/occurred gradually, 2 day(s) ago. Associated signs and symptoms: Pertinent positives: nausea, Pertinent negatives: vomiting. The symptoms are described as achy, crampy, intermittent, sharp. Modifying factors: The symptoms are alleviated by nothing, the symptoms are aggravated by movement, touching the area. Severity of pain: At its worst the pain was moderate severe just prior to arrival, in the emergency department the pain is unchanged. The patient has experienced similar episodes in the past, a few times. The patient has not recently seen a physician. Historical: - Allergies: 08:33 No Known Allergies; jd3 - Home Meds: 08:33 lisinopril 10 mg Oral tab 1 tab once daily for Hypertension [Active]; jd3 - PMHx: 08:33 Hepatitis; C; Hernia; Hypertension; liver cancer; jd3 - PSHx: 08:33 abd surgery; Heart stents; splenectomy; jd3 - Immunization history:: Adult Immunizations up to date. - Social history:: Smoking status: Patient reports the use of cigarette tobacco products. ROS: 16:14 Constitutional: Negative for fever, chills, and weight loss, Eyes: Negative for injury, kdr pain, redness, and discharge, Neck: Negative for injury, pain, and swelling, Cardiovascular: Negative for chest pain, palpitations, and edema, Respiratory: Negative for shortness of breath, cough, wheezing, and pleuritic chest pain, Back: Negative for injury and pain, : Negative for injury, bleeding, discharge, and swelling, MS/Extremity: Negative for injury and deformity, Skin: Negative for injury, rash, and discoloration, Neuro: Negative for headache, weakness, numbness, tingling, and seizure activity. Psych: Negative for depression, anxiety, suicide ideation, homicidal ideation, and hallucinations, Allergy/Immunology: Negative for hives, rash, and allergies, Endocrine: Negative for neck swelling, polydipsia, polyuria, polyphagia, and marked weight changes, Hematologic/Lymphatic: Negative for swollen nodes, abnormal bleeding, and unusual bruising. 16:14 Abdomen/GI: Positive for abdominal pain, nausea, Negative for diarrhea, constipation, abdominal cramps, abdominal distension, black/tarry stool, rectal pain. Exam: 16:14 Constitutional: This is a well developed, well nourished patient who is awake, alert, kdr and in no acute distress. Head/Face: Normocephalic, atraumatic. Eyes: Pupils equal round and reactive to light, extra-ocular motions intact. Lids and lashes normal. Conjunctiva and sclera are non-icteric and not injected. Cornea within normal limits. Periorbital areas with no swelling, redness, or edema. Neck: Trachea midline, no thyromegaly or masses palpated, and no cervical lymphadenopathy. Supple, full range of motion without nuchal rigidity, or vertebral point tenderness. No Meningismus. Chest/axilla: Normal chest wall appearance and motion. Nontender with no deformity. No lesions are appreciated. Cardiovascular: Regular rate and rhythm with a normal S1 and S2. No gallops, murmurs, or rubs. Normal PMI, no JVD. No pulse deficits. Respiratory: Lungs have equal breath sounds bilaterally, clear to auscultation and percussion. No rales, rhonchi or wheezes noted. No increased work of breathing, no retractions or nasal flaring. Back: No spinal tenderness. No costovertebral tenderness. Full range of motion. Skin: Warm, dry with normal turgor. Normal color with no rashes, no lesions, and no evidence of cellulitis. MS/ Extremity: Pulses equal, no cyanosis. Neurovascular intact. Full, normal range of motion. Neuro: Awake and alert, GCS 15, oriented to person, place, time, and situation. Cranial nerves II-XII grossly intact. Motor strength 5/5 in all extremities. Sensory grossly intact. Cerebellar exam normal. Normal gait. Psych: Awake, alert, with orientation to person, place and time. Behavior, mood, and affect are within normal limits. 16:14 Abdomen/GI: Inspection: abdomen appears normal, Bowel sounds: normal, Palpation: soft, mild abdominal tenderness, in the left upper quadrant. Vital Signs: 08:33 BP 125 / 93; Pulse 94; Resp 17 S; Temp 97.2(TE); Pulse Ox 97% on R/A; Weight 68.04 kg jd3 (R); Height 5 ft. 6 in. (167.64 cm) (R); Pain 10/10; 10:32 BP 175 / 158; Pulse 64; Resp 18; Temp 97.5(O); Pulse Ox 97% on R/A; Weight 68.1 kg; ld1 Pain 9/10; 11:46 BP 156 / 136; Pulse 71; Resp 18; Pulse Ox 98% on R/A; Pain 8/10; ld1 13:27 BP 143 / 102; Pulse 72; Resp 18; Pulse Ox 99% on R/A; ld1 10:32 Body Mass Index 24.23 (68.10 kg, 167.64 cm) ld1 MDM: 12:00 Patient medically screened. kdr 12:28 ED course: HORSE TREKKING GUIDE: Negative. kdr 16:14 Data reviewed: vital signs, nurses notes, lab test result(s), radiologic studies. kdr Counseling: I had a detailed discussion with the patient and/or guardian regarding: the historical points, exam findings, and any diagnostic results supporting the discharge/admit diagnosis, lab results, radiology results, the need for outpatient follow up. Response to treatment: the patient's symptoms have markedly improved after treatment. Special discussion: Based on the patient's Hx, exam, and Dx evaluation, there is no indication for emergent surgery or inpatient Tx. It is understood by the patient/guardian that if the Sx's persist or worsen they need to return immediately for re-evaluation. I discussed with the patient/guardian in detail that at this point there is no indication for admission to the hospital. It is understood, however, that if the symptoms persist or worsen the patient needs to return immediately for re-evaluation. 08/02 10:51 Order name: Basic Metabolic Panel; Complete Time: 11:54 kdr 08/02 10:51 Order name: CBC with Diff; Complete Time: 11:54 kdr 08/02 10:51 Order name: CT Chest, Abdomen, Pelvis - W/Contrast; Complete Time: 11:54 kdr 08/02 10:51 Order name: Hepatic Function; Complete Time: 11:54 [facility] 08/02 10:51 Order name: Lipase; Complete Time: 11:54 kdr 08/02 10:51 Order name: IV Saline Lock; Complete Time: 10:57 [facility] 08/02 10:51 Order name: Labs collected and sent; Complete Time: 10:58 [facility] Administered Medications: 10:57 Drug: cloNIDine 0.2 mg Route: PO; ld1 11:15 Follow up: Response: No adverse reaction ld1 11:03 Drug: Zofran (Ondansetron) 4 mg Route: IVP; Site: right antecubital; ld1 13:26 Follow up: Response: Nausea is decreased ld1 Disposition: 08/02/20 12:00 Discharged to Home. Impression: Abdominal and pelvic pain, Nausea and vomiting. - Condition is Fair. - Discharge Instructions: Nausea and Vomiting, Adult, Vzjx-li-Rjec, Abdominal Pain, Adult, Xrgd-bn-Rbay. - Prescriptions for Pepcid 20 mg Oral Tablet - take 1 tablet by ORAL route every 12 hours for 10 days; 20 tablet. Tramadol 50 mg Oral Tablet - take 1 tablet by ORAL route every 8 hours as needed; 12 tablet. - Medication Reconciliation Form, Thank You Letter, Prescription Opioid Use form. - Follow up: Private Physician; When: 2 - 3 days; Reason: If symptoms return, Further diagnostic work-up, Recheck today's complaints, Continuance of care, Re-evaluation by your physician. - Problem is an acute exacerbation. - Symptoms have improved. Signatures: Dispatcher [employer] EDOR Fabio Mock MD MD kdr Shailesh Demarco RN RN jBetty Templeton RN RN ld1 Corrections: (The following items were deleted from the chart) 13:28 12:00 08/02/2020 12:00 Discharged to Home. Impression: Abdominal and pelvic pain; ld1 Nausea and vomiting. Condition is Fair. Forms are Medication Reconciliation Form, Thank You Letter, Antibiotic Education, Prescription Opioid Use. Follow up: Private Physician; When: 2 - 3 days; Reason: If symptoms return, Further diagnostic work-up, Recheck today's complaints, Continuance of care, Re-evaluation by your physician. Problem is an acute exacerbation. Symptoms have improved. kdr
[2020-08-02 14:03] VITALS: TEMP 97.5
[2020-08-02 14:06] VITALS: BP 143/102; O2SAT 99
== END 2020-08-02 13:28 | disposition home or self-care (01) ==
LOC: ER 08:25
DX: R10.10 Upper abdominal pain, unspecified (principal); R11.2 Nausea with vomiting, unspecified; R10.2 Pelvic and perineal pain; I10 Essential (primary) hypertension; Z85.05 Personal history of malignant neoplasm of liver; B19.20 Unspecified viral hepatitis C without hepatic coma; Z95.5 Presence of coronary angioplasty implant and graft; F17.210 Nicotine dependence, cigarettes, uncomplicated
CPT/HCPCS: 36415; 71260; 74177; 80048; 80076; 82565; 83690; 85025; 96374; 99284; J2405; Q9967

== ENCOUNTER 2020-08-27 18:25 | Emergency (ER) | payer SELFPAY ==
--- OUTSIDE RECORDS SUMMARY | 2020-08-27 18:29 | XMS REPORT | Continuity of Care Document ---
:1955 Author Organization [facility] t Address [address] [place] [address] Care Team Providers Name Role Phone Jenn [...] 2019-06-11 Patient Jenn Michael Shaila [id number] 00:00:00 00:00:00 Outreach E Stefan [id number] [place] [id number] 2019-04-27 2019-04-27 Patient Jenn Michael Shaila [id number] 00:00:00 00:00:00 Outreach E Stefan [id number] [place] [id number] 2019-04-13 2019-04-13 Transition Shaila Champion [id number] 00:00:00 00:00:00 of Care Kandice Aviles [id number] [place] [id number] 2019-04-10 2019-04-12 Hospital Fabio Guzman [id number] 10:55:39 18:18:00 Encounter Fabio Guzman [id number] [facility] [id number] 2018-11-08 2018-11-08 Emergency [facility] [id number] 14:26:03 17:32:00 Narciso Torres [id number] [place] [id number] [place] [id number] Results Test Description Test Time Test Comments Results Result Comments Source Troponin T 2016-05-15 20:46:00 Test Item Value Reference Range Interpretation Comme nts Troponin T (test code = GERARD) <0.010 ng/mL 0.000-0.090 N Basic Metabolic [id number] 20:46:00 Test Item Value Reference Range Interpretation [...] National Kidney Foundation,http ://nkd ep.nih.gov CBC with [id number] 20:25:00 Test Item Value Reference Range Interpretation [...] code = ALYMPH) 1.7 K/cumm 0.5-4.6 N [place] Abs (test code = AMONO) 1.2 K/cumm 0.0-1.2 N Eos Abs (test code = AEOS) 0.10 K/cumm 0.00-0.74 N Baso Abs (test code = ABASO) 0.1 K/cumm 0.00-0.21 N
--- NOTE | 2020-08-27 19:33 | RAD REPORT ---
EXAM DESCRIPTION: RAD - Ribs Left - 08/27/2020 7:06 pm CLINICAL HISTORY: Left rib pain FINDINGS: No fracture is seen
[2020-08-27] MEDS ORDERED: HYDROCODONE/APAP 7.5/325 MG TAB ONE (19:42)
--- NOTE | 2020-08-27 20:07 | RAD REPORT ---
EXAM DESCRIPTION: USExtremity Venous Uni Ltd08/27/2020 7:36 pm CLINICAL HISTORY: Right leg pain COMPARISON: June 2020 FINDINGS: Right common femoral, superficial femoral, popliteal and right posterior tibial veins are compressible and demonstrate augmentation. Doppler demonstrates good flow. IMPRESSION: No evidence of deep venous thrombosis involving the right lower extremity.
--- NOTE | 2020-08-27 20:48 | EDPHYS ---
Physician Documentation [facility] Name: Mic Gross Age: 65 yrs Sex: Male : 1955 Arrival Date: 08/27/2020 Time: 18:26 Bed 16 Private MD: ED Physician Wero Sorensen HPI: 08/27 18:44 This 65 yrs old Male presents to ER via Wheelchair with complaints of right cp side pain, Arm Pain. 18:44 The patient or guardian reports chest pain that is located primarily in the left cp lateral anterior chest and left lateral posterior chest. 18:44 Onset: today. cp 18:44 Patient reports striking left lateral rib area against truck while loading drum today. cp Patient also c/o redness and pain to right lower leg for past several days. Historical: - Allergies: 18:35 No Known Allergies; jl7 - PMHx: 18:35 Hepatitis; C; Hernia; Hypertension; liver cancer; jl7 - PSHx: 18:35 Splenectomy; jl7 - Immunization history:: Adult Immunizations up to date, Client reports receiving the 1st dose of the Covid vaccine. - Social history:: Smoking status: Patient denies any tobacco usage or history of. ROS: 18:50 Constitutional: Negative for body aches, chills, fever, poor PO intake. cp 18:50 Eyes: Negative for injury, pain, redness, and discharge. cp 18:50 ENT: Negative for ear pain, sore throat, difficulty swallowing, difficulty handling secretions. 18:50 Cardiovascular: Positive for chest pain, of the left lateral posterior chest and left lateral anterior chest, Negative for edema, palpitations. 18:50 Respiratory: Negative for cough, shortness of breath, wheezing. 18:50 Abdomen/GI: Negative for abdominal pain, nausea, vomiting, and diarrhea. 18:50 Skin: Positive for erythema, swelling, of the right lower leg. 18:50 Neuro: Negative for altered mental status, headache, weakness. 18:50 All other systems are negative. Exam: 18:55 Constitutional: The patient appears in no acute distress, alert, awake, cp non-diaphoretic, non-toxic, well developed, well nourished. 18:55 Head/Face: Normocephalic, atraumatic. cp 18:55 Eyes: Periorbital structures: appear normal, Conjunctiva: normal, no exudate, no injection, Sclera: no appreciated abnormality, Lids and lashes: appear normal, bilaterally. 18:55 ENT: External ear(s): are unremarkable, Nose: is normal, Mouth: Lips: moist, Oral mucosa: moist, Posterior pharynx: Airway: no evidence of obstruction, patent. 18:55 Neck: ROM/movement: is normal, is supple, without pain, no range of motions limitations. 18:55 Chest/axilla: Inspection: normal, Palpation: crepitus, is not appreciated, tenderness, that is severe, of the left lateral anterior chest and left lateral posterior chest. 18:55 Cardiovascular: Rate: normal, Rhythm: regular. 18:55 Respiratory: the patient does not display signs of respiratory distress, Respirations: normal, no use of accessory muscles, no retractions, labored breathing, is not present, Breath sounds: are clear throughout, no decreased breath sounds, no stridor, no wheezing. 18:55 Abdomen/GI: Inspection: scar(s), Bowel sounds: active, all quadrants, Palpation: abdomen is soft and non-tender, in all quadrants. 18:55 Back: vertebral tenderness, is not appreciated. 18:55 Skin: cellulitis, that is mild, well demarcated, on the right lower leg. Vital Signs: 18:32 BP 162 / 98; Pulse 112; Resp 22 S; Temp 99.1(TE); Pulse Ox 98% on R/A; Weight 68.04 kg; jl7 Pain 10/10; 21:08 Pulse 70; Resp 18 S; Pulse Ox 95% on R/A; ad5 MDM: 18:39 Patient medically screened. cp 19:00 Differential diagnosis: acute pericarditis, costochondritis, pleurisy, pneumonia, cp pneumothorax, rib contusion, rib fracture, cellulitis, abscess, DVT. 20:47 Data reviewed: vital signs, nurses notes, radiologic studies, plain films, ultrasound. cp 20:47 Test interpretation: by ED physician or midlevel provider: plain radiologic studies. cp Counseling: I had a detailed discussion with the patient and/or guardian regarding: the historical points, exam findings, and any diagnostic results supporting the discharge/admit diagnosis, radiology results, the need for outpatient follow up, a family practitioner, to return to the emergency department if symptoms worsen or persist or if there are any questions or concerns that arise at home. Response to treatment: the patient's symptoms have markedly improved after treatment, VSS. No signs of respiratory distress and patient appears non-toxic. Pain improved with meds. Will discharge to home for continued monitoring. 08/27 18:44 Order name: US Extremity Venous Unilateral Ltd; Complete Time: 20:24 cp 08/27 20:24 Interpretation: Report reviewed. cp 08/27 18:44 Order name: VANE Ribs LEFT; Complete Time: 19:35 cp 08/27 19:35 Interpretation: Report reviewed. cp Administered Medications: 19:25 Drug: Hydrocodone-Acetaminophen (7.5 mg-325 mg) 1 tabs Route: PO; ad5 20:54 Follow up: Response: No adverse reaction; RASS: Alert and Calm (0) ad5 20:41 Drug: Clindamycin 600 mg {Note: medication changed to po per provider VORB, IM not ad5 available.} Route: IM; Site: Other; 20:42 Drug: fentaNYL (PF) 25 mcg {Note: RASS 0.} Route: IM; Site: left deltoid; ad5 Disposition Summary: 08/27/20 20:48 Discharge Ordered Location: Home cp Problem: new cp Symptoms: have improved cp Condition: Stable cp Diagnosis - Cellulitis of right lower limb cp - Contusion of thorax - left lateral chest cp Followup: cp - With: Private Physician - When: 1 - 2 days - Reason: Recheck today's complaints Discharge Instructions: - Discharge Summary Sheet cp - Rib Contusion cp - Cellulitis, Adult cp Forms: - Medication Reconciliation Form cp - Thank You Letter cp - Antibiotic Education cp - Prescription Opioid Use cp Prescriptions: - Clindamycin HCl 300 mg Oral Capsule - take 1 capsule by ORAL route every 6 hours for 10 days; 40 capsule; Refills: 0, cp Product Selection Permitted - Ibuprofen 800 mg Oral Tablet - take 1 tablet by ORAL route every 8 hours As needed take with food; 30 tablet; cp Refills: 0, Product Selection Permitted - Cyclobenzaprine 10 mg Oral Tablet - take 1 tablet by ORAL route every 8 hours As needed; 20 tablet; Refills: 0, cp Product Selection Permitted Signatures: Dispatcher [employer] EDMS Matt Costa PA PA cp Leal, Jahala, RN RN [email or web address] [place] ad5 Corrections: (The following items were deleted from the chart) 20:50 20:48 Chest pain, unspecified - left lateral rib pain cp cp
--- NOTE | 2020-08-27 20:48 | ER ---
Nurse's Notes [facility] Name: Mic Gross Age: 65 yrs Sex: Male : 1955 Arrival Date: 08/27/2020 Time: 18:26 Bed 16 Private MD: Diagnosis: Cellulitis of right lower limb;Contusion of thorax-left lateral chest Presentation: 08/27 18:32 Chief complaint: Patient states: Loading a drum onto the truck, turned and ran left rib jl7 cage into tailgate, reports severe pain to left rib cage. Right lower extremity noted to be red and swollen, reports it's been like that for a couple days. Coronavirus screen: Client denies travel out of the [place] in the last 14 days. At this time, the client does not indicate any symptoms associated with coronavirus-19. Ebola Screen: No symptoms or risks identified at this time. Initial Sepsis Screen: Does the patient meet any 2 criteria? No. Patient's initial sepsis screen is negative. Does the patient have a suspected source of infection? No. Patient's initial sepsis screen is negative. Risk Assessment: Do you want to hurt yourself or someone else? Patient reports no desire to harm self or others. Onset of symptoms was August 27, 2020 at 12:00. Care prior to arrival: None. 18:32 Method Of Arrival: Wheelchair [facility] 18:32 Acuity: RADHA 3 jl7 Historical: - Allergies: 18:35 No Known Allergies; jl7 - PMHx: 18:35 Hepatitis; C; Hernia; Hypertension; liver cancer; jl7 - PSHx: 18:35 Splenectomy; jl7 - Immunization history:: Adult Immunizations up to date, Client reports receiving the 1st dose of the Covid vaccine. - Social history:: Smoking status: Patient denies any tobacco usage or history of. Screenin:33 Abuse screen: Denies threats or abuse. Denies injuries from another. Nutritional ad5 screening: No deficits noted. Tuberculosis screening: No symptoms or risk factors identified. Fall Risk None identified. Assessment: 19:32 General: Appears uncomfortable, Behavior is calm, cooperative, appropriate for age. ad5 Pain: Complains of pain in L ribs. Neuro: No deficits noted. Level of Consciousness is awake, alert, obeys commands, Oriented to person, place, time, situation, Appropriate for age Spinner Iron are equal bilaterally Moves all extremities. Cardiovascular: Capillary refill < 3 seconds Patient's skin is warm and dry. Respiratory: Airway is patent Respiratory effort is even, unlabored, Respiratory pattern is regular, symmetrical. Derm: Reports redness, edema to RLE, states s/s over past few days. Ambulatory with steady gait, distal SMCs intact. 19:33 Musculoskeletal: Reports pain to L chest s/p hitting on rail of truck. ad5 20:30 Reassessment: Pt reports continued pain to L ribs, resp even/unlabored. Provider aware, ad5 awaiting further orders. Will continue to monitor. Vital Signs: 18:32 BP 162 / 98; Pulse 112; Resp 22 S; Temp 99.1(TE); Pulse Ox 98% on R/A; Weight 68.04 kg; jl7 Pain 10/10; 21:08 Pulse 70; Resp 18 S; Pulse Ox 95% on R/A; ad5 ED Course: 18:26 Patient arrived in ED. am2 18:35 Triage completed. jl7 18:35 Arm band placed on right wrist. jl7 18:37 Matt Costa PA is PHCP. cp 18:37 Wero Sorensen MD is Attending Physician. cp 18:44 Raman Henderson, MARKELL is Primary Nurse. bp 19:05 XRAY Ribs LEFT In Process Unspecified. EDMS 19:32 US Extremity Venous Unilateral Ltd Sent. ad5 19:34 Patient has correct armband on for positive identification. Bed in low position. Call ad5 light in reach. Side rails up X 1. Door closed. Noise minimized. Head of bed elevated. 19:36 US Extremity Venous Unilateral Ltd In Process Unspecified. EDMS 21:09 No provider procedures requiring assistance completed. Patient did not have IV access ad5 during this emergency room visit. Administered Medications: 19:25 Drug: Hydrocodone-Acetaminophen (7.5 mg-325 mg) 1 tabs Route: PO; ad5 20:54 Follow up: Response: No adverse reaction; RASS: Alert and Calm (0) ad5 20:41 Drug: Clindamycin 600 mg {Note: medication changed to po per provider VORB, IM not ad5 available.} Route: IM; Site: Other; 20:42 Drug: fentaNYL (PF) 25 mcg {Note: RASS 0.} Route: IM; Site: left deltoid; ad5 Outcome: 20:48 Discharge ordered by MD. cp 21:09 Discharged to home ambulatory, with family. ad5 21:09 Condition: stable 21:09 Discharge instructions given to patient, Instructed on discharge instructions, follow up and referral plans. medication usage, Demonstrated understanding of instructions, follow-up care, medications, Prescriptions given X 3. 21:09 Patient left the ED. ad5 Signatures: Dispatcher [employer] EDMS Matt Costa PA PA cp Leal, Jahala, RN RN jl7 Shamika Elizabeth 2 Raman Henderson RN RN [place] ad5 Corrections: (The following items were deleted from the chart) 19:34 19:32 Neuro: No deficits noted. Level of Consciousness is awake, alert, obeys commands, ad5 Oriented to person, place, time, situation, Appropriate for age Spinner Iron are equal bilaterally Moves all extremities. ad5
[2020-08-27 21:15] VITALS: BP 162/98; TEMP 99.1
[2020-08-27 21:18] VITALS: O2SAT 95
[2020-08-27] MEDS ORDERED: FENTANYL CITR 100 MCG/2 ML ONE (21:18)
== END 2020-08-27 21:09 | disposition home or self-care (01) ==
LOC: ER 18:25
DX: L03.115 Cellulitis of right lower limb (principal); S20.212A Contusion of left front wall of thorax, initial encounter; I10 Essential (primary) hypertension; Z85.05 Personal history of malignant neoplasm of liver
CPT/HCPCS: 93971; 96372; 99283; J3010

== ENCOUNTER 2020-09-03 09:40 | Emergency (ER) | payer SELFPAY ==
--- OUTSIDE RECORDS SUMMARY | 2020-09-03 09:48 | XMS REPORT | Continuity of Care Document ---
:1955 Author Organization [facility] t Address [address] [place] [address] Care Team Providers Name Role Phone Jenn [...] 2019-06-11 Patient Jenn Michael Shaila [id number] 00:00:00 00:00:00 Outreach Nettie Aviles [id number] [place] [id number] 2019-04-27 2019-04-27 Patient Jenn Michael Shaila [id number] 00:00:00 00:00:00 Outreach E Stefan [id number] [place] [id number] 2019-04-13 2019-04-13 Transition Shaila Champion [id number] 00:00:00 00:00:00 of Care Kandice Aviles [id number] [place] [id number] 2019-04-10 2019-04-12 [facility] Fabio Guzman [id number] 10:55:39 18:18:00 Encounter Fabio Guzman [id number] [facility] [id number] 2018-11-08 2018-11-08 Emergency [facility] [id number] 14:26:03 17:32:00 Narciso Torres [id number] [place] [id number] [place] [id number] Results Test Description Test Time Test Comments Results Result Comments Source Troponin T 2016-05-15 20:46:00 Test Item Value Reference Range Interpretation Comme nts Troponin T (test code = GERARD) <0.010 ng/mL 0.000-0.090 N Basic Metabolic [id number] 20:46:00 Test Item Value Reference Range Interpretation [...] National Kidney Foundation,http ://nkd ep.nih.gov CBC with [id number] 20:25:00 Test Item Value Reference Range Interpretation [...] code = ALYMPH) 1.7 K/cumm 0.5-4.6 N [place] Abs (test code = AMONO) 1.2 K/cumm 0.0-1.2 N Eos Abs (test code = AEOS) 0.10 K/cumm 0.00-0.74 N Baso Abs (test code = ABASO) 0.1 K/cumm 0.00-0.21 N
[2020-09-03 10:11] LABS: Absolute Lymphocytes (CBC) 2.9 K/uL (0.7-4.9); Basophils % 0.7 % (0-1.3); Hematocrit 36.7 % (39.6-49.0); Lymphocytes % 35.4 % (15.3-44.8); MPV 9.1 fL (7.6-11.3); RBC Red Blood Cell Count 3.77 M/uL (4.33-5.43)
[2020-09-03 10:14] LABS: Protime INR 0.97
[2020-09-03] MEDS ORDERED: FENTANYL CITR 100 MCG/2 ML ONE (10:26)
--- NOTE | 2020-09-03 10:29 | RAD REPORT ---
EXAM DESCRIPTION: RAD - Chest Single View - 09/03/2020 10:21 am CLINICAL HISTORY: Chest pain COMPARISON: 07/22/2020 TECHNIQUE: AP portable chest image was obtained . FINDINGS: Lungs are clear. Heart and vasculature are normal. No measurable pleural effusion and no p neumothorax. No gross bony abnormality seen. IMPRESSION: No acute cardiopulmonary process.
[2020-09-03 10:33] LABS: ALT/SGPT 63 U/L (12-78); AST/SGOT 70 U/L (15-37); Albumin 3.2 g/dL (3.4-5.0); Alkaline Phosphatase 142 U/L (45-117); BUN Blood Urea Nitrogen 17 mg/dL (7-18); Bicarbonate 27 mmol/L (21-32); Bilirubin Direct 0.2 mg/dL (0-0.2); Bilirubin Total 0.5 mg/dL (0.2-1.0); Glucose Level 86 mg/dL (74-106); Lipase 154 U/L (73-393); Magnesium 1.9 mg/dL (1.8-2.4); NT PRO-BNP 168 pg/mL (<125); Potassium 3.8 mmol/L (3.5-5.1); Protein, Total 8.2 g/dL (6.4-8.2); Sodium Level 142 mmol/L (136-145); Troponin (Emerg Dept Use Only) < 0.02 ng/mL (0.0-0.045)
[2020-09-03 11:00] LABS: Blood Morphology Comment NOT SEEN (NOT SEEN); Platelet Estimate ADEQ
--- NOTE | 2020-09-03 11:18 | RAD REPORT ---
EXAM DESCRIPTION: CT - Abdomen Pelvis W Contrast - 09/03/2020 11:00 am CLINICAL HISTORY: Abdominal pain, vomiting and diarrhea. COMPARISON: 04/03/2020 TECHNIQUE: Biphasic, helical CT imaging of the abdomen and pelvis was performed following oral and 1 00 ml non-ionic IV contrast. All CT scans are performed using dose optimization technique as appropriate and may include automated exposure control or mA/KV adjustment according to patient size. FINDINGS: No suspicious findings in the lung bases. Cirrhotic liver morphology. Lesion in the left hepatic lobe measuring approximately 3.6 centimeters i s identified, previously 3 centimeter. There are also smaller satellite lesions. Enlarging 2.9 centim eter nodule either arising from or adjacent to the left adrenal gland. No renal calculi or hydronephr osis. Splenectomy. Pancreas is unremarkable. Several small fat containing ventral hernias no bowel ob struction is identified. Nonspecific pericholecystic edema. This was present on the prior CT as well. Atherosclerosis. No renal lesions or hydronephrosis. The bladder is decompressed. No osseous lesions are seen. Degener ative changes are present in the spine. IMPRESSION: Mild interval enlargement of a lesion in the left hepatic lobe as well as enlarging left adrenal nodule concerning which may represent multifocal hepatocellular carcinoma with metastatic di sease. Hepatic protocol MRI could better evaluate. No acute process identified, however.
--- NOTE | 2020-09-03 11:55 | RAD REPORT ---
EXAM DESCRIPTION: CT - Chest For Pe Angio - 09/03/2020 11:00 am CLINICAL HISTORY: Chest pain COMPARISON: None. TECHNIQUE: Dynamically enhanced 5 mm thick images of the chest were obtained during administration o f 100 mL non-ionic IV contrast. All CT scans are performed using dose optimization technique as appropriate and may include automated exposure control or mA/KV adjustment according to patient size. FINDINGS: No mass or infiltrate in the lung parenchyma. No pleural thickening or pleural effusion. N o pneumothorax. Coronary artery calcifications. No abnormal mediastinal or hilar mass or lymphadenopathy seen. Reference same-day CT the abdomen pelvis for additional findings. IMPRESSION: Negative for pulmonary embolism or other acute findings within the chest. Reference [facility] e-day CT of the abdomen and pelvis for additional findings regarding the liver and adrenal mass.
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
[2020-09-03 13:51] VITALS: TEMP 98.2
[2020-09-03 13:56] VITALS: BP 138/97; O2SAT 100
--- NOTE | 2020-09-04 13:03 | EKG ---
Test Date: 2020-09-03 Test Time: 09:59:19 Paintings Conservator: CHANTE MEASUREMENT RESULTS: Intervals: Rate: 67 NM: 162 QRSD: 84 QT: 412 QTc: 435 Starks: P: 52 NM: 162 QRS: 59 T: 63 INTERPRETIVE STATEMENTS: Normal sinus rhythm Normal ECG Compared to ECG 07/22/2020 09:17:58 No significant changes Electronically Signed On 09-04-20 12:59:45 CDT by Clint Sosa
== END 2020-09-03 13:44 | disposition home or self-care (01) ==
LOC: ER 09:40
DX: R16.0 Hepatomegaly, not elsewhere classified (principal); I10 Essential (primary) hypertension; Z85.05 Personal history of malignant neoplasm of liver
CPT/HCPCS: 36415; 71045; 71275; 74177; 80048; 80076; 83690; 83735; 83880; 84484; 85025; 85610; 93005; 96374; 99285; J3010; Q9967

== ENCOUNTER 2020-10-18 07:44 | Emergency (ER) | payer SELFPAY ==
--- OUTSIDE RECORDS SUMMARY | 2020-10-18 07:46 | XMS REPORT | Continuity of Care Document ---
:1955 Author Organization [facility] t Address [address] [place] [address] Care Team Providers Name Role Phone Pinky Nieto Attending Clinician Jenn Michael RN Attending Clinician Akira Attending [...] Date/Time Type Type Clinicians Facility Department ID 2020-10-07 2020-10-07 Emergency STANLEY Fong [id number] 10:18:00 11:49:00 Pinky Torres [id number] [place] [id number] [place] [id number] 2019-06-11 2019-06-11 Patient Jenn Michael [id number] 00:00:00 00:00:00 Outreach Nettie Bostony [id number] [place] [id number] 2019-04-27 2019-04-27 Patient Jenn Michael [id number] 00:00:00 00:00:00 Outreach Nettie Bostony [id number] [place] [id number] 2019-04-13 2019-04-13 Transition Shaila Champion [id number] 00:00:00 00:00:00 of Care Kandice Aviles [id number] [place] [id number] 2019-04-10 2019-04-12 [facility] Fabio Guzman Elvira [id number] 10:55:39 18:18:00 [id number] [id number] 2018-11-08 2018-11-08 Emergency [facility] [id number] 14:26:03 17:32:00 Narciso Torres [id number] [place] [id number] [place] [id number] [id number] Results Test Description Test Time Test Comments Results Result Comments Source Troponin T 2016-05-15 20:46:00 Test Item Value Reference Range Interpretation Comme nts Troponin T (test code = GERARD) <0.010 ng/mL 0.000-0.090 N Basic Metabolic [id number] 20:46:00 Test Item Value Reference Range Interpretation [...] National [employer],http :[email or web address] ep.nih.gov CBC with [id number] 20:25:00 Test Item Value Reference Range Interpretation [...] code = ALYMPH) 1.7 K/cumm 0.5-4.6 N [place] Abs (test code = AMONO) 1.2 K/cumm 0.0-1.2 N Eos Abs (test code = AEOS) 0.10 K/cumm 0.00-0.74 N Baso Abs (test code = ABASO) 0.1 K/cumm 0.00-0.21 N
--- NOTE | 2020-10-18 09:27 | RAD REPORT ---
EXAM DESCRIPTION: RAD - Chest Single View - 10/18/2020 8:43 am CLINICAL HISTORY: CHEST PAIN COMPARISON: September 03, 2020 TECHNIQUE: AP portable chest image was obtained 10/18/2020 8:43 am . Image was repeated with a BB mar ker placed lower left chest at an area noted by the patient has a painful palpable mass FINDINGS: No peripheral mass or consolidations seen. Small bilateral nipple shadows seen lower lung robertson. No failure or volume overload. Heart and vasculature are normal. No measurable pleural effusion and no pneumothorax. No acute bony abnormality seen. No acute aortic findings suspected. In the BB marked area there is no defined mass, air, foreign body or abnormal calcification. The deep er ribcage is unremarkable. IMPRESSION: No acute cardiopulmonary process.
--- NOTE | 2020-10-18 09:38 | RAD REPORT ---
EXAM DESCRIPTION: RAD - Ribs Left - 10/18/2020 8:44 am CLINICAL HISTORY: Fall, left-sided chest and rib pain COMPARISON: None. FINDINGS: No displaced rib fracture is seen and no non-displaced rib fractures suspected. No aggress brigette rib lesion. No underlying pneumothorax, effusion, infiltrate or pulmonary contusion. No abnormal soft tissue finding identifiable. IMPRESSION: Negative left rib series.
--- NOTE | 2020-10-18 09:54 | EDPHYS ---
Physician Documentation [facility] Name: Mic Gross Age: 65 yrs Sex: Male : 1955 Arrival Date: 10/18/2020 Time: 07:46 Bed Waiting Private MD: ED Physician Fabio Mock HPI: 10/18 08:04 This 65 yrs old Male presents to ER via Ambulatory with complaints of kdr Shortness Of Breath, Congestion. 08:04 The patient has shortness of breath at rest, with light activity. Onset: The kdr symptoms/episode began/occurred gradually, 1 week(s) ago. Duration: The symptoms are continuous, and are steadily getting worse. The patient's shortness of breath is aggravated by coughing, Palpation. Associated signs and symptoms: Pertinent positives: productive cough, fever, Patient also has several other complaints including discharge from both eyes, nausea vomiting and cough and congestion. He also complains of subjective fever.. Severity of symptoms: At their worst the symptoms were mild moderate in the emergency department the symptoms are unchanged. The patient has not experienced similar symptoms in the past. The patient has been recently seen by a physician: The patient states that last week, he was trying to jump over someone has supposed to step on them and when he did so, he hit the corner of a wall. Since then he has had increasing and persistent pain to the left lateral chest wall. He was seen at [facility] (Former[facility]) the day this happened and states he had a chest x-ray at that time which was reportedly negative. Since then he has had increasing pain and what he feels is a cyst on his left lateral posterior axillary line thorax at about the nipple line. There is no obvious trauma.. Historical: - Allergies: 08:01 No Known Allergies; da3 - Immunization history:: Client reports receiving the 1st dose of the Covid vaccine, first shot 1 month ago. ROS: 08:04 Constitutional: Negative for fever, chills, and weight loss, ENT: Negative for injury, kdr pain, and discharge, Neck: Negative for injury, pain, and swelling, Back: Negative for injury and pain, : Negative for injury, bleeding, discharge, and swelling, MS/Extremity: Negative for injury and deformity, Skin: Negative for injury, rash, and discoloration, Neuro: Negative for headache, weakness, numbness, tingling, and seizure activity. Psych: Negative for depression, anxiety, suicide ideation, homicidal ideation, and hallucinations, Allergy/Immunology: Negative for hives, rash, and allergies, Endocrine: Negative for neck swelling, polydipsia, polyuria, polyphagia, and marked weight changes, Hematologic/Lymphatic: Negative for swollen nodes, abnormal bleeding, and unusual bruising. 08:04 Eyes: Positive for discharge, matting, Patient complains of green discharge since this morning from both eyes, Negative for icterus, injury or acute deformity, itching, pain. 08:04 Cardiovascular: Positive for chest pain, with cough, with movement, Negative for edema, orthopnea, palpitations, paroxysmal nocturnal dyspnea. 08:04 Respiratory: Positive for cough, with clear sputum, shortness of breath, at rest. Patient has shortness of breath secondary to chest pain at the site previously described, Negative for dyspnea on exertion, hemoptysis, orthopnea, pleurisy. Exam: 08:04 Constitutional: This is a well developed, well nourished patient who is awake, alert, kdr and in no acute distress. Head/Face: Normocephalic, atraumatic. Eyes: Pupils equal round and reactive to light, extra-ocular motions intact. Lids and lashes normal. Conjunctiva and sclera are non-icteric and not injected. Cornea within normal limits. Periorbital areas with no swelling, redness, or edema. Neck: Trachea midline, no thyromegaly or masses palpated, and no cervical lymphadenopathy. Supple, full range of motion without nuchal rigidity, or vertebral point tenderness. No Meningismus. Cardiovascular: Regular rate and rhythm with a normal S1 and S2. No gallops, murmurs, or rubs. Normal PMI, no JVD. No pulse deficits. Respiratory: Lungs have equal breath sounds bilaterally, clear to auscultation and percussion. No rales, rhonchi or wheezes noted. No increased work of breathing, no retractions or nasal flaring. Abdomen/GI: Soft, non-tender, with normal bowel sounds. No distension or tympany. No guarding or rebound. No evidence of tenderness throughout. Back: No spinal tenderness. No costovertebral tenderness. Full range of motion. Skin: Warm, dry with normal turgor. Normal color with no rashes, no lesions, and no evidence of cellulitis. MS/ Extremity: Pulses equal, no cyanosis. Neurovascular intact. Full, normal range of motion. Neuro: Awake and alert, GCS 15, oriented to person, place, time, and situation. Cranial nerves II-XII grossly intact. Motor strength 5/5 in all extremities. Sensory grossly intact. Cerebellar exam normal. Normal gait. Psych: Awake, alert, with orientation to person, place and time. Behavior, mood, and affect are within normal limits. 08:04 Chest/axilla: Inspection: Patient has a tender nodule and on the left lateral thorax at about the nipple line. It is at the posterior axillary line. There is no ecchymosis or erythema at the site. On palpation there is a tender movable nodule. Is approximately 1 cm in diameter.. Vital Signs: 07:57 BP 153 / 103; Pulse 84; Resp 20; Temp 98.7; Pulse Ox 97% on R/A; da3 MDM: 09:53 Patient medically screened. kdr 14:40 Data reviewed: vital signs, nurses notes, lab test result(s), EKG, radiologic studies. kdr Counseling: I had a detailed discussion with the patient and/or guardian regarding: the historical points, exam findings, and any diagnostic results supporting the discharge/admit diagnosis, lab results, radiology results, the need for outpatient follow up. 10/18 10:31 Order name: SARS-COV-2 RT PCR EDMS 10/18 08:03 Order name: CXR XRAY; Complete Time: 09:35 kdr 10/18 08:03 Order name: Ribs Left XRAY; Complete Time: 09:51 kdr Administered Medications: No medications were administered Disposition Summary: 10/18/20 09:53 Discharge Ordered Location: Home kdr Problem: new kdr Symptoms: have improved kdr Condition: Stable kdr Diagnosis - Chest pain on breathing kdr - Chest pain, unspecified - Left lateral chest wall pain kdr - Fracture of one rib, left side - Clinical diagnosis kdr Followup: kdr - With: Private Physician - When: 2 - 3 days - Reason: If symptoms return, Further diagnostic work-up, Recheck today's complaints, Continuance of care, Re-evaluation by your physician Discharge Instructions: - Discharge Summary Sheet kdr - Chest Wall Pain, [id number] kdr - Nonspecific Chest Pain, Adult, [id number] kdr - Rib Fracture, [id number] kdr Forms: - Medication Reconciliation Form kdr - Thank You Letter kdr Prescriptions: - Tramadol 50 mg Oral Tablet - take 1 tablet by ORAL route every 8 hours as needed; 12 tablet; Refills: 0, kdr Product Selection Permitted Signatures: Dispatcher [employer] EDMS Fabio Mock MD MD kdr Lex Long RN RN da3 Corrections: (The following items were deleted from the chart) 09:23 08:03 CORONAVIRUS+MRRePADMINI.BRZ ordered. EDNV EDMS
--- NOTE | 2020-10-18 09:54 | ER ---
Nurse's Notes [facility] Name: Mic Gross Age: 65 yrs Sex: Male : 1955 Arrival Date: 10/18/2020 Time: 07:46 Bed Waiting Private MD: Diagnosis: Chest pain on breathing;Chest pain, unspecified-Left lateral chest wall pain;Fracture of one rib, left side-Clinical diagnosis Presentation: 10/18 07:56 Chief complaint: Patient states: left rib pain secondary to a fall 1 week ago. da3 07:56 Method Of Arrival: Ambulatory da3 08:00 Coronavirus screen: Client denies travel out of the [place] in the last 14 days. Ebola da3 Screen: No symptoms or risks identified at this time. Risk Assessment: Do you want to hurt yourself or someone else? Patient reports no desire to harm self or others. 08:00 Acuity: RADHA 3 da3 Triage Assessment: 07:59 General: Appears uncomfortable, Behavior is calm, cooperative. da3 Historical: - Allergies: 08:01 No Known Allergies; da3 - Immunization history:: Client reports receiving the 1st dose of the Covid vaccine, first shot 1 month ago. Vital Signs: 07:57 BP 153 / 103; Pulse 84; Resp 20; Temp 98.7; Pulse Ox 97% on R/A; da3 ED Course: 07:46 Patient arrived in ED. as 07:52 Fabio Mock MD is Attending Physician. kdr 08:00 Triage completed. da3 08:44 CXR XRAY In Process Unspecified. EDMS 08:44 Ribs Left XRAY In Process Unspecified. EDMS Administered Medications: No medications were administered Outcome: 09:53 Discharge ordered by . kdr 10:33 Patient left the ED. da3 Signatures: Dispatcher [employer] EDMS Fabio Mock MD MD kdr Honey Nuno David, RN RN da3
[2020-10-18 10:39] VITALS: BP 153/103; TEMP 98.7; O2SAT 97
== END 2020-10-18 10:33 | disposition home or self-care (01) ==
LOC: ER 07:44
DX: U07.1 COVID-19 (principal); S22.32XA Fracture of one rib, left side, initial encounter for closed fracture; W22.8XXA Striking against or struck by other objects, initial encounter; Y93.89 Activity, other specified
CPT/HCPCS: 71045; 99282; U0003

== ENCOUNTER 2020-12-02 07:41 | Emergency (ER) | payer SELFPAY ==
[2020-12-02 08:18] LABS: Protime INR 1.02
[2020-12-02] MEDS ORDERED: ONDANSETRON 4 MG/2 ML VIAL ONE (08:20)
[2020-12-02] MEDS ORDERED: MORPHINE 4 MG/ML SYR ONE (08:20)
[2020-12-02 08:24] LABS: BUN Blood Urea Nitrogen 11 mg/dL (7-18); Bicarbonate 26 mmol/L (21-32); Glucose Level 120 mg/dL (74-106); Potassium 3.8 mmol/L (3.5-5.1); Sodium Level 141 mmol/L (136-145)
[2020-12-02 08:55] LABS: Basophils % 0.8 % (0-1.3); Hematocrit 39.1 % (39.6-49.0); Lymphocytes % 24.9 % (15.3-44.8); MPV 10.4 fL (7.6-11.3)
--- NOTE | 2020-12-02 09:17 | RAD REPORT ---
EXAM DESCRIPTION: CT - Chest Abdomen Pelvis W Cont - 12/02/2020 8:47 am CLINICAL HISTORY: Chest and abdominal pain status post fall COMPARISON: September 03, 2020 cat scan TECHNIQUE: Computed axial tomography of the chest, abdomen and pelvis was obtained. 100 cc Isovue-30 0 was administered intravenously. Oral contrast was not requested. This limits evaluation of bowel. All CT scans are performed using dose optimization technique as appropriate and may include automated exposure control or mA/KV adjustment according to patient size. FINDINGS: A pleural effusion is not present. No pericardial effusion A pulmonary contusion is not seen. A mediastinal hematoma is not present. 3.9 centimeter left adrenal mass has enlarged. Previously it measured 2.6 centimeters Cirrhotic liver containing multiple lesions. 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 Small ventral hernias IMPRESSION: No traumatic injury involving the chest, abdomen nor pelvis is seen. 3.9 centimeter left adrenal mass has enlarged Multiple hepatic lesions again demonstrated. Cirrhosis
--- NOTE | 2020-12-02 09:27 | ER ---
Nurse's Notes [facility] Name: Mic Gross Age: 65 yrs Sex: Male : 1955 Arrival Date: 12/02/2020 Time: 07:43 Bed 6 Private MD: Diagnosis: Contusion of back wall of thorax Presentation: 12/02 07:53 Chief complaint: Left sided rib cage pain 10 after mechanical fall on stairs last hb night. Coronavirus screen: At this time, the client does not indicate any symptoms associated with coronavirus-19. Ebola Screen: No symptoms or risks identified at this time. Risk Assessment: Do you want to hurt yourself or someone else? Patient reports no desire to harm self or others. Onset of symptoms was December 02, 2020. 07:53 Method Of Arrival: Ambulatory hb 07:53 Acuity: RADHA 3 hb 08:13 Initial Sepsis Screen: Does the patient meet any 2 criteria? No. Patient's initial ap3 sepsis screen is negative. Does the patient have a suspected source of infection? No. Patient's initial sepsis screen is negative. Historical: - Allergies: 07:48 No Known Drug Allergies; ll1 - Home Meds: 08:14 lisinopril 10 mg Oral tab 1 tab once daily for Hypertension [Active]; ap3 - PMHx: 07:48 Hepatitis; C; Hernia; Hypertension; liver cancer; ll1 - PSHx: 07:48 Splenectomy; ll1 - Immunization history:: Client reports receiving the 1st dose of the Covid vaccine. - Social history:: Smoking status: Patient denies any tobacco usage or history of. - Family history:: not pertinent. - Hospitalizations: : No recent hospitalization is reported. Screenin:48 Abuse screen: Denies threats or abuse. Nutritional screening: No deficits noted. ll1 Tuberculosis screening: No symptoms or risk factors identified. 08:13 Fall Risk Fall in past 12 months (25 points). No secondary diagnosis (0 pts). IV access ap3 (20 points). Ambulatory Aid- None/Bed Rest/Nurse Assist (0 pts). Gait- Normal/Bed Rest/Wheelchair (0 pts) Mental Status- Oriented to own ability (0 pts). Total Caldwell Fall Scale indicates High Risk Score (45 or more points). Fall prevention measures have been instituted. Side Rails Up X 2 Placed Close to Nursing Station Frequent Obs/Assessments Occuring As available patient and family educated on Fall Prevention Program and Strategies. Assessment: 08:11 General: Appears uncomfortable, Behavior is restless. Pain: Complains of pain in ap3 anterior and postierior left sided rib pain. Neuro: Level of Consciousness is awake, alert, obeys commands, Oriented to person, place, time, situation, Moves all extremities. Gait is steady, Speech is normal. Cardiovascular: Capillary refill < 3 seconds Patient's skin is warm and dry. Respiratory: Airway is patent Respiratory effort is even. GI: No signs and/or symptoms were reported involving the gastrointestinal system. : No signs and/or symptoms were reported regarding the genitourinary system. Musculoskeletal:. Musculoskeletal: Reports off and on cramping in the right leg. Vital Signs: 07:53 BP 182 / 113; Pulse 95; Resp 18; Temp 98.1(TE); Pulse Ox 100% on R/A; Weight 68.04 kg; hb Height 5 ft. 6 in. (167.64 cm); Pain 10/10; 08:59 Pulse 81; Resp 18; Pulse Ox 99% on R/A; ap3 07:53 Body Mass Index 24.21 (68.04 kg, 167.64 cm) hb ED Course: 07:43 Patient arrived in ED. ds1 07:44 Wero Sorensen MD is Attending Physician. rn 07:48 Erwin Draper, MARKELL is Primary Nurse. ll1 07:48 Arm band placed on Patient placed in an exam room, on a stretcher. ll1 07:55 Triage completed. hb 07:59 Inserted saline lock: 20 gauge in right antecubital area, using aseptic technique. ap3 Blood collected. 08:10 Ptt, Activated Sent. mh5 08:10 PT-INR Sent. mh5 08:10 Basic Metabolic Panel Sent. mh5 08:10 CBC with Diff Sent. mh5 08:11 Shamika Tirado, MARKELL is Primary Nurse. ap3 08:13 Patient has correct armband on for positive identification. Placed in gown. Bed in low ap3 position. Call light in reach. Side rails up X 1. Pulse ox on. NIBP on. Door closed. Noise minimized. 08:47 CT Chest, Abdomen, Pelvis - W/Contrast In Process Unspecified. EDMS 09:40 No provider procedures requiring assistance completed. IV discontinued, intact, ap3 bleeding controlled, No redness/swelling at site. Pressure dressing applied. Administered Medications: 08:04 Drug: morphine 4 mg Route: IVP; Site: right antecubital; ap3 09:41 Follow up: Response: No adverse reaction ap3 09:41 Follow up: Response: Pain is decreased; RASS: Alert and Calm (0) ap3 08:04 Drug: Zofran (Ondansetron) 4 mg Route: IVP; Site: right antecubital; ap3 09:41 Follow up: Response: No adverse reaction; Nausea is decreased ap3 Outcome: 09:27 Discharge ordered by . rn 09:41 Discharged to home ambulatory. ap3 09:41 Condition: good 09:41 Discharge instructions given to patient, Instructed on discharge instructions, follow up and referral plans. Demonstrated understanding of instructions, follow-up care. 09:41 Patient left the ED. ap3 Signatures: Dispatcher [employer] EDKY Magda Ruiz ds1 Wero Sorensen MD MD rn Baxter, Heather RN Pavithra Cassidy [facility] Shamika Tirado RN RN ap3 Erwin Draper RN RN ll1
--- NOTE | 2020-12-02 09:27 | EDPHYS ---
Physician Documentation [facility] Name: Mic Gross Age: 65 yrs Sex: Male : 1955 Arrival Date: 12/02/2020 Time: 07:43 Bed 6 Private MD: ED Physician Wero Sorensen HPI: 12/02 08:05 This 65 yrs old Male presents to ER via Ambulatory with complaints of Fall rn Injury - Rib Pain. 08:05 Details of fall: The patient fell from an upright position, while walking. Onset: The rn symptoms/episode began/occurred just prior to arrival. Associated injuries: The patient sustained injury to the chest, contusion, swelling, tenderness, injury to the abdomen, tenderness. Severity of symptoms: At their worst the symptoms were moderate, in the emergency department the symptoms are unchanged. The patient has not experienced similar symptoms in the past. The patient has not recently seen a physician. Patient reports walking down stairs, slipped, fell on his back hurting his ribs. Reports left upper posterior rib pain and tenderness. Also reports abdominal pain but cannot tell me if related to trauma. Denies loss of consciousness. Denies head injury or neck pain. Denies spinal pain. Denies injury to extremities.. Historical: - Allergies: 07:48 No Known Drug Allergies; ll1 - Home Meds: 08:14 lisinopril 10 mg Oral tab 1 tab once daily for Hypertension [Active]; ap3 - PMHx: 07:48 Hepatitis; C; Hernia; Hypertension; liver cancer; ll1 - PSHx: 07:48 Splenectomy; ll1 - Immunization history:: Client reports receiving the 1st dose of the Covid vaccine. - Social history:: Smoking status: Patient denies any tobacco usage or history of. - Family history:: not pertinent. - Hospitalizations: : No recent hospitalization is reported. ROS: 08:05 Constitutional: Negative for fever, chills, and weight loss, Eyes: Negative for injury, rn pain, redness, and discharge, ENT: Negative for injury, pain, and discharge, Neck: Negative for injury, pain, and swelling, Cardiovascular: Positive for left upper posterior rib pain Respiratory: Negative for shortness of breath, cough, wheezing, and pleuritic chest pain, Abdomen/GI: Positive for abdominal pain, negative for nausea vomiting or diarrhea Back: Positive for upper left back pain : Negative for injury, bleeding, discharge, and swelling, MS/Extremity: Negative for injury and deformity, Skin: Negative for injury, rash, and discoloration, Neuro: Negative for headache, weakness, numbness, tingling, and seizure. Exam: 08:05 Constitutional: This is a well developed, well nourished patient who is awake, alert, rn appears in pain and uncomfortable but able to ambulate from wheelchair to bed without assistance Head/Face: Normocephalic, atraumatic. Eyes: Periorbital areas with no swelling, redness, or edema. Neck: Trachea midline, no masses palpated. Supple, full range of motion without nuchal rigidity, or vertebral point tenderness. Chest/axilla: Mild left posterior upper chest wall tenderness without crepitus. Cardiovascular: Regular rate and rhythm. No pulse deficits. Respiratory: Mild tachypnea with splinting on deep inspiration Abdomen/GI: Soft, mild left upper quadrant tenderness, no peritoneal signs Back: No spinal tenderness. Skin: Warm, dry MS/ Extremity: Pulses equal, no cyanosis. Neuro: Awake and alert, GCS 15, oriented to person, place, time, and situation. Cranial nerves II-XII grossly intact. Motor strength 5/5 in all extremities. Sensory grossly intact. Cerebellar exam normal. Normal gait. Vital Signs: 07:53 BP 182 / 113; Pulse 95; Resp 18; Temp 98.1(TE); Pulse Ox 100% on R/A; Weight 68.04 kg; hb Height 5 ft. 6 in. (167.64 cm); Pain 10/10; 08:59 Pulse 81; Resp 18; Pulse Ox 99% on R/A; ap3 07:53 Body Mass Index 24.21 (68.04 kg, 167.64 cm) hb MDM: 07:44 Patient medically screened. rn 09:26 Differential diagnosis: abrasion, contusion, fracture, multiple trauma, sprain, strain. rn Data reviewed: vital signs, nurses notes, lab test result(s), radiologic studies, CT scan, and as a result, I will discharge patient. Data interpreted: Pulse oximetry: on room air is 99 %. Interpretation: normal. Counseling: I had a detailed discussion with the patient and/or guardian regarding: the historical points, exam findings, and any diagnostic results supporting the discharge/admit diagnosis, lab results, radiology results, the need for outpatient follow up, to return to the emergency department if symptoms worsen or persist or if there are any questions or concerns that arise at home. Response to treatment: the patient's symptoms have mildly improved after treatment, and as a result, I will discharge patient. Special discussion: Based on the patient's history, exam, and Dx evaluation, there is no indication for emergent intervention or inpatient Tx. It is understood by the patient/guardian that if the Sx's persist or worsen they need to return immediately for re-evaluation. Based on the patient's Hx, exam, and Dx evaluation, there is no indication for emergent surgery or inpatient Tx. It is understood by the patient/guardian that if the Sx's persist or worsen they need to return immediately for re-evaluation. I discussed with the patient/guardian in detail that at this point there is no indication for admission to the hospital. It is understood, however, that if the symptoms persist or worsen the patient needs to return immediately for re-evaluation. ED course: No acute traumatic findings on CT chest abdomen pelvis. CAT scan results discussed with patient including known liver findings and known adrenal mass that seems to have enlarged. Will follow up with PCP.. 12/02 07:52 Order name: CBC with Diff; Complete Time: 09: rn 12/02 07:52 Order name: Basic Metabolic Panel; Complete Time: : rn 12/02 07:52 Order name: PT-INR; Complete Time: 09: rn 12/02 07:52 Order name: Ptt, Activated; Complete Time: : rn 12/02 07:52 Order name: CT Chest, Abdomen, Pelvis - W/Contrast; Complete Time: 09: rn 12/02 07:52 Order name: IV Start; Complete Time: 08: rn Administered Medications: 08:04 Drug: morphine 4 mg Route: IVP; Site: right antecubital; ap3 09:41 Follow up: Response: No adverse reaction ap3 09:41 Follow up: Response: Pain is decreased; RASS: Alert and Calm (0) ap3 08:04 Drug: Zofran (Ondansetron) 4 mg Route: IVP; Site: right antecubital; ap3 09:41 Follow up: Response: No adverse reaction; Nausea is decreased ap3 Disposition Summary: 12/02/20 09:27 Discharge Ordered Location: Home rn Problem: new rn Symptoms: have improved rn Condition: Stable rn Diagnosis - Contusion of back wall of thorax rn Followup: rn - With: Private Physician - When: As needed - Reason: Recheck today's complaints, Re-evaluation by your physician Discharge Instructions: - Discharge Summary Sheet rn - Contusion rn - Rib Contusion rn Forms: - Medication Reconciliation Form rn - Thank You Letter rn - Antibiotic rn women services - Prescription Opioid Use rn Signatures: Dispatcher [employer] EDWero Engel MD MD rn Baxter, Heather RN RN Shamika Valdez RN RN ap3 Erwin Draper RN RN ll1
[2020-12-02 09:52] VITALS: BP 182/113; TEMP 98.1
[2020-12-02 09:53] VITALS: O2SAT 99
== END 2020-12-02 09:41 | disposition home or self-care (01) ==
LOC: ER 07:41
DX: S20.222A Contusion of left back wall of thorax, initial encounter (principal); W10.9XXA Fall (on) (from) unspecified stairs and steps, initial encounter; Y93.01 Activity, walking, marching and hiking; I10 Essential (primary) hypertension; Z85.05 Personal history of malignant neoplasm of liver
CPT/HCPCS: 36415; 71260; 74177; 80048; 85025; 85610; 85730; 96374; 96375; 99284; J2405; Q9967

== ENCOUNTER 2020-12-06 11:02 | Emergency (ER) | payer SELFPAY ==
[2020-12-06 11:56] LABS: Absolute Lymphocytes (CBC) 1.8 K/uL (0.7-4.9); Basophils % 1.3 % (0-1.3); Hematocrit 34.4 % (39.6-49.0); Lymphocytes % 28.8 % (15.3-44.8); MPV 9.7 fL (7.6-11.3); RBC Red Blood Cell Count 3.71 M/uL (4.33-5.43)
[2020-12-06] MEDS ORDERED: MORPHINE 4 MG/ML SYR ONE (12:00)
[2020-12-06] MEDS ORDERED: ONDANSETRON 4 MG/2 ML VIAL ONE (12:00)
[2020-12-06 12:12] LABS: BUN Blood Urea Nitrogen 16 mg/dL (7-18); Bicarbonate 26 mmol/L (21-32); Glucose Level 154 mg/dL (74-106); Potassium 3.7 mmol/L (3.5-5.1); Sodium Level 144 mmol/L (136-145)
--- NOTE | 2020-12-06 12:21 | RAD REPORT ---
EXAM DESCRIPTION: CT - Thorax W/ Con CLINICAL HISTORY: Chest pain blunt trauma, tree limb struck ant chest COMPARISON: Chest For Pe Angio dated 09/03/2020; Chest Abdomen Pelvis W Cont dated 12/02/2020; Abdomen Pelvis W Contrast dated 09/03/2020 FINDINGS: The lungs are mildly emphysematous but clear. No pleural thickening or pleural effusion. N o pneumothorax. No axillary, mediastinal or hilar adenopathy. No acute fracture is evident. Liver cirrhosis with multiple liver masses again seen. 3.9 cm left adre nal mass is also present. All CT scans are performed using dose optimization technique as appropriate and may include automated exposure control or mA/KV adjustment according to patient size. IMPRESSION: No trauma related abnormality seen in the chest.
--- NOTE | 2020-12-06 12:34 | EDPHYS ---
Physician Documentation [facility] Name: Mic Gross Age: 65 yrs Sex: Male : 1955 Arrival Date: 12/06/2020 Time: 11:04 Bed 9 Private MD: ED Physician Wero Sorensen HPI: 12/06 11:24 This 65 yrs old Male presents to ER via Ambulatory with complaints of Tree rn Limb Fell On Chest. 11:27 The patient or guardian reports chest pain that is located primarily in the anterior rn chest wall. Onset: The symptoms/episode began/occurred yesterday. The pain does not radiate. Associated signs and symptoms: Pertinent negatives: abdominal pain, syncope, vomiting. The chest pain is described as aching. Duration: The patient or guardian reports multiple episodes, that are intermittent. Modifying factors: The symptoms are alleviated by nothing. the symptoms are aggravated by deep breath, palpation of area. Severity of pain: At its worst the pain was moderate in the emergency department the pain is unchanged. The patient has not experienced similar symptoms in the past. The patient has been recently seen by a physician:. Patient states cutting a tree limb down yesterday when large limb struck him while standing injury. Was not knocked off of tree did not fall from a height. Reports pain to anterior chest that does not radiate. Worse when palpates region. Denies shortness of breath.. 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 - Social history:: Smoking status: Patient denies any tobacco usage or history of. - Family history:: not pertinent. - Hospitalizations: : No recent hospitalization is reported. ROS: 11:27 Constitutional: Negative for fever, chills, and weight loss, Eyes: Negative for injury, rn pain, redness, and discharge, Neck: Negative for injury, pain, and swelling, Cardiovascular: Positive for traumatic chest pain Respiratory: Negative for shortness of breath, cough, wheezing, and pleuritic chest pain, Abdomen/GI: Negative for abdominal pain, nausea, vomiting, diarrhea, and constipation, Back: Negative for injury and pain, : Negative for injury, bleeding, discharge, and swelling, MS/Extremity: Negative for injury and deformity, Skin: Negative for injury, rash, and discoloration, Neuro: Negative for headache, weakness, numbness, tingling, and seizure. Exam: 11:27 Constitutional: This is a well developed, well nourished patient who is awake, alert, rn appears uncomfortable Head/Face: Normocephalic, atraumatic. Eyes: Pupils equal round and reactive to light, extra-ocular motions intact. Lids and lashes normal. Conjunctiva and sclera are non-icteric and not injected. Cornea within normal limits. Periorbital areas with no swelling, redness, or edema. Neck: Trachea midline, no thyromegaly or masses palpated, and no cervical lymphadenopathy. Supple, full range of motion without nuchal rigidity, or vertebral point tenderness. No Meningismus. Chest/axilla: Positive tenderness anterior chest wall without crepitus or ecchymosis Cardiovascular: Regular rate and rhythm. No pulse deficits. Respiratory: No increased work of breathing, no retractions or nasal flaring. Abdomen/GI: Soft, non-tender Skin: Warm, dry MS/ Extremity: Pulses equal, no cyanosis. Neurovascular intact. Full, normal range of motion. Equal circumference. Neuro: Awake and alert, GCS 15, oriented to person, place, time, and situation. Vital Signs: 11:15 BP 186 / 101; Pulse 89; Resp 18; Temp 98.0; Pulse Ox 100% ; Weight 65.77 kg; Height 5 ll1 ft. 6 in. (167.64 cm); Pain 10/10; 11:40 BP 160 / 88; Pulse 78; Resp 18; Pulse Ox 100% ; vg1 12:56 BP 128 / 88; Pulse 70; Resp 18; Pulse Ox 98% ; vg1 11:15 Body Mass Index 23.40 (65.77 kg, 167.64 cm) ll1 MDM: 11:18 Patient medically screened. rn 12:32 Differential diagnosis: Blunt Chest Trauma Chest Wall Contusion Chest Wall Injury rn Pneumothorax Pulmonary Contusion Rib Fracture. Data reviewed: vital signs, nurses notes, lab test result(s), radiologic studies, CT scan, and as a result, I will discharge patient. 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 Interpretation: normal. Counseling: I had a detailed discussion with the patient and/or guardian regarding: the historical points, exam findings, and any diagnostic results supporting the discharge/admit diagnosis, lab results, radiology results, the need for outpatient follow up, to return to the emergency department if symptoms worsen or persist or if there are any questions or concerns that arise at home. Response to treatment: the patient's symptoms have mildly improved after treatment, and as a result, I will discharge patient. Special discussion: Based on the patient's history, exam, and Dx evaluation, there is no indication for emergent intervention or inpatient Tx. It is understood by the patient/guardian that if the Sx's persist or worsen they need to return immediately for re-evaluation. I discussed with the patient/guardian in detail that at this point there is no indication for admission to the hospital. It is understood, however, that if the symptoms persist or worsen the patient needs to return immediately for re-evaluation. ED course: No acute traumatic findings found on CT chest. Stable vitals. Feels much better after morphine.. 12/06 11:23 Order name: CBC with Diff rn 12/06 11:23 Order name: Basic Metabolic Panel rn 12/06 11:23 Order name: CT Chest W/ Con; Complete Time: 12:28 rn 12/06 11:24 Order name: CBC with Automated Diff EDMS 12/06 11:24 Order name: Basic Metabolic Panel; Complete Time: 12:28 EDMS 12/06 11:59 Order name: Manual Differential EDMS 12/06 11:22 Order name: IV Start; Complete Time: 11:48 rn Administered Medications: 11:43 Drug: Zofran (Ondansetron) 4 mg Route: IVP; Site: right antecubital; vg1 12:57 Follow up: Response: No adverse reaction; Pain is decreased vg1 12:57 Follow up: Response: Marked relief of symptoms vg1 11:45 Drug: morphine 4 mg Route: IVP; Site: right antecubital; vg1 12:57 Follow up: Response: No adverse reaction; Pain is decreased vg1 Disposition Summary: 12/06/20 12:34 Discharge Ordered Location: Home rn Problem: new rn Symptoms: have improved rn Condition: Stable rn Diagnosis - Contusion of front wall of thorax rn Followup: rn - With: Private Physician - When: As needed - Reason: Recheck today's complaints, Re-evaluation by your physician Discharge Instructions: - Discharge Summary Sheet rn - Contusion rn Forms: - Medication Reconciliation Form rn - Thank You Letter rn - Antibiotic merchandising intern - Prescription Opioid Use rn Signatures: Dispatcher [employer] EDWreo Engel MD MD rn Garcia, Victoria, RN RN vg1 Erwin Draper RN RN ll1
--- NOTE | 2020-12-06 12:34 | ER ---
Nurse's Notes [facility] Name: Mic Gross Age: 65 yrs Sex: Male : 1955 Arrival Date: 12/06/2020 Time: 11:04 Bed 9 Private MD: Diagnosis: Contusion of front wall of thorax Presentation: 12/06 11:15 Chief complaint: Patient states: Hit by a large limb R chest yesterday at noon. Pain ll1 and SOB since. Drank spoiled milk this morning. Had N/V and abd pain since. Coronavirus screen: Vaccine status: Patient reports receiving the 1st dose of the Covid vaccine. Client denies travel out of the [place] in the last 14 days. At this time, the client does not indicate any symptoms associated with coronavirus-19. Ebola Screen: Patient denies travel to an Ebola-affected area in the 21 days before illness onset. Initial Sepsis Screen: Does the patient meet any 2 criteria? No. Patient's initial sepsis screen is negative. Does the patient have a suspected source of infection? Yes: Bone or joint infection. Risk Assessment: Do you want to hurt yourself or someone else? Patient reports no desire to harm self or others. Onset of symptoms was December 05, 2020. 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 - Social history:: Smoking status: Patient denies any tobacco usage or history of. - Family history:: not pertinent. - Hospitalizations: : No recent hospitalization is reported. Screenin:17 Abuse screen: Denies threats or abuse. Nutritional screening: No deficits noted. vg1 Tuberculosis screening: No symptoms or risk factors identified. Fall Risk No fall in past 12 months (0 pts). No secondary diagnosis (0 pts). IV access (20 points). Ambulatory Aid- None/Bed Rest/Nurse Assist (0 pts). Gait- Normal/Bed Rest/Wheelchair (0 pts) Mental Status- Oriented to own ability (0 pts). Total Caldwell Fall Scale indicates No Risk (0-24 pts). Assessment: 11:30 General: Appears in no apparent distress. comfortable, Behavior is calm, cooperative. vg1 Pain: Complains of pain in anterior aspect of right upper chest and lower ABD Pain radiates to Right side of shoulder Pain currently is 10 out of 10 on a pain scale. Pain began 1 day ago. Noted to be grimacing, guarding, moaning. Neuro: Level of Consciousness is awake, alert, obeys commands, Oriented to person, place, time, situation. Cardiovascular: Patient's skin is warm and dry. Respiratory: Airway is patent Respiratory effort is even, unlabored. GI: Reports nausea, vomiting, since this morning. Stated thinks drank spoiled milk, and since drinking it has had an upset stomach. : No signs and/or symptoms were reported regarding the genitourinary system. EENT: No signs and/or symptoms were reported regarding the EENT system. Derm: Skin is intact, is healthy with good turgor. Musculoskeletal: Circulation, motion, and sensation intact. 12:57 Reassessment: Patient appears in no apparent distress at this time. No changes from vg1 previously documented assessment. Patient and/or family updated on plan of care and expected duration. Pain level reassessed. Patient is alert, oriented x 3, equal unlabored respirations, skin warm/dry/pink. Vital Signs: 11:15 BP 186 / 101; Pulse 89; Resp 18; Temp 98.0; Pulse Ox 100% ; Weight 65.77 kg; Height 5 ll1 ft. 6 in. (167.64 cm); Pain 10/10; 11:40 BP 160 / 88; Pulse 78; Resp 18; Pulse Ox 100% ; vg1 12:56 BP 128 / 88; Pulse 70; Resp 18; Pulse Ox 98% ; vg1 11:15 Body Mass Index 23.40 (65.77 kg, 167.64 cm) ll1 ED Course: 11:04 Patient arrived in ED. rg4 11:16 Triage completed. ll1 11:17 Arm band placed on Patient placed in an exam room, on a stretcher. ll1 11:18 Wero Sorensen MD is Attending Physician. rn 11:27 Telma Tejeda RN is Primary Nurse. vg1 11:48 Initial lab(s) drawn, by ms, sent to lab. Inserted saline lock: 20 gauge in right vg1 antecubital area, using aseptic technique. Blood collected. 11:53 CT Chest W/ Con In Process Unspecified. EDMS 12:17 Patient has correct armband on for positive identification. Bed in low position. Call vg1 light in reach. Side rails up X 1. 12:17 No provider procedures requiring assistance completed. vg1 12:56 IV discontinued, intact, bleeding controlled, No redness/swelling at site. Pressure vg1 dressing applied. Administered Medications: 11:43 Drug: Zofran (Ondansetron) 4 mg Route: IVP; Site: right antecubital; vg1 12:57 Follow up: Response: No adverse reaction; Pain is decreased vg1 12:57 Follow up: Response: Marked relief of symptoms vg1 11:45 Drug: morphine 4 mg Route: IVP; Site: right antecubital; vg1 12:57 Follow up: Response: No adverse reaction; Pain is decreased vg1 Outcome: 12:34 Discharge ordered by . rn 12:56 Discharged to home ambulatory. vg1 12:56 Condition: stable 12:56 Discharge instructions given to patient, Instructed on discharge instructions, follow up and referral plans. Demonstrated understanding of instructions, follow-up care. 12:57 Patient left the ED. vg1 Signatures: Dispatcher [employer] EDWero Engel MD MD rn Garcia, More rg4 Telma Tejeda RN RN vg1 Erwin Draper RN RN ll1
[2020-12-06 12:35] LABS: Anisocytosis 1+; Blood Morphology Comment NOTED (NOT SEEN); Platelet Estimate ADEQ
[2020-12-06 13:07] VITALS: TEMP 98
[2020-12-06 13:09] VITALS: BP 128/88; O2SAT 98
== END 2020-12-06 12:57 | disposition home or self-care (01) ==
LOC: ER 11:02
DX: S20.219A Contusion of unspecified front wall of thorax, initial encounter (principal); W20.8XXA Other cause of strike by thrown, projected or falling object, initial encounter; Y93.89 Activity, other specified; Y92.017 Garden or yard in single-family (private) house as the place of occurrence of the external cause
CPT/HCPCS: 36415; 71260; 80048; 85025; 96374; 96375; 99284; J2405; Q9967

== ENCOUNTER 2021-01-08 16:28 | Emergency (ER) | payer SELFPAY ==
[2021-01-08] MEDS ORDERED: MORPHINE 4 MG/ML SYR ONE ×2 (16:45→17:47)
[2021-01-08] MEDS ORDERED: ONDANSETRON 4 MG/2 ML VIAL ONE (16:45)
--- NOTE | 2021-01-08 17:06 | RAD REPORT ---
EXAM DESCRIPTION: RAD - Foot Right 3 View - 01/08/2021 4:59 pm CLINICAL HISTORY: crush injury;Pain COMPARISON: CT RIGHT FOOT W CONTRAST dated 11/01/2009; Foot Right 3 View dated 10/31/2009 FINDINGS: Oblique fracture is suspected involving the distal neck of the second and third metatarsal s. Moderate soft tissue swelling is present along the dorsum of the forefoot.
--- NOTE | 2021-01-08 17:47 | EDPHYS ---
Physician Documentation [facility] Name: Mic Gross Age: 65 yrs Sex: Male : 1955 Arrival Date: 01/08/2021 Time: 16:31 Bed 6 Private MD: ED Physician Juan J Forbes HPI: 01/08 16:50 This 65 yrs old Male presents to ER via Ambulatory with complaints of Crush cp Injury To Foot. 16:50 The patient presents with a crush injury, hitch of trailer. The complaints affect the cp dorsum of right foot. Onset: The symptoms/episode began/occurred just prior to arrival. Associated signs and symptoms: Pertinent positives: swelling, Pertinent negatives: calf tenderness, numbness, tingling. Severity of symptoms: in the emergency department the symptoms are unchanged, despite home interventions. Historical: - Allergies: 16:55 No Known Allergies; [facility] Home Meds: 16:55 lisinopril 10 mg Oral tab 1 tab once daily for Hypertension [Active]; [facility] - PMHx: 16:55 Hepatitis; C; Hernia; liver cancer; Hypertension; [facility] - PSHx: 17:56 None; [facility] - Immunization history:: Adult Immunizations up to date, Client reports receiving the 1st dose of the Covid vaccine, April 2020. - Immunization history: Last tetanus immunization: - up to date. - Social history:: Smoking status: Patient reports the use of cigarette tobacco products, denies chronic smoking, but will smoke occasionally. ROS: 16:55 Constitutional: Negative for body aches, chills, fever, poor PO intake. cp 16:55 Neck: Negative for pain with movement, pain at rest, stiffness. cp 16:55 Cardiovascular: Negative for chest pain. 16:55 Respiratory: Negative for cough, shortness of breath, wheezing. 16:55 Abdomen/GI: Negative for abdominal pain, nausea, vomiting, and diarrhea. 16:55 Back: Negative for pain at rest, pain with movement. 16:55 MS/extremity: Positive for pain, swelling, tenderness, of the dorsum of right foot, crush injury. 16:55 Neuro: Negative for numbness, tingling. 16:55 All other systems are negative. Exam: 17:00 Constitutional: The patient appears in no acute distress, alert, awake, well developed, cp well nourished, uncomfortable. 17:00 Head/Face: Normocephalic, atraumatic. cp 17:00 Neck: ROM/movement: is normal, is supple, without pain, no range of motions limitations. 17:00 Chest/axilla: Inspection: normal. 17:00 Cardiovascular: Rate: normal, Pulses: Pulses are 2+ in right dorsalis pedis artery. 17:00 Respiratory: the patient does not display signs of respiratory distress, Respirations: normal, no use of accessory muscles, no retractions, labored breathing, is not present. 17:00 Abdomen/GI: Exam negative for discomfort, distension, guarding, Inspection: abdomen appears normal. 17:00 Back: pain, is absent, ROM is normal. 17:00 Musculoskeletal/extremity: Extremities: grossly normal except: noted in the dorsum of right foot: ecchymosis, pain, swelling, tenderness, There is no evidence of deformity, overlying skin intact with no open wounds, the right foot Severe pain noted. Joints: the right knee and right ankle displays no pain to palpation, no restriction of ROM. 17:00 Neuro: Orientation: to person, place \T\ time. Mentation: is normal. Vital Signs: 16:47 BP 160 / 85; Pulse 86; Resp 18; Temp 98.6; Pulse Ox 98% ; Weight 70.31 kg; Height 5 ft. jh6 6 in. (167.64 cm); 17:51 BP 146 / 65; Pulse 82; Resp 18; Pulse Ox 100% on R/A; jh6 16:47 Body Mass Index 25.02 (70.31 kg, 167.64 cm) jh6 Lilly Coma Score: 16:47 Eye Response: spontaneous(4). Verbal Response: oriented(5). Motor Response: obeys jh6 commands(6). Total: 15. Trauma Score (Adult): 16:47 Eye Response: spontaneous(1); Verbal Response: oriented(1); Motor Response: obeys jh6 commands(2); Systolic BP: > 89 mm Hg(4); Respiratory Rate: 10 to 29 per min(4); Lilly Score: 15; Trauma Score: 12 Procedures: 18:30 Splinting: Splint applied to right foot using Orthoglass splint, posterior short leg. cp applied by tech. Examined by me, post splint application: neurovascular intact, Patient tolerated well. MDM: 16:44 Patient medically screened. cp 17:00 Differential diagnosis: fracture, sprain, contusion, open fracture. cp 17:45 Data reviewed: vital signs, nurses notes, radiologic studies, plain films. cp 17:45 Test interpretation: by ED physician or midlevel provider: plain radiologic studies. cp Counseling: I had a detailed discussion with the patient and/or guardian regarding: the historical points, exam findings, and any diagnostic results supporting the discharge/admit diagnosis, radiology results, the need for outpatient follow up, for definitive care, a orthopedic surgeon, to return to the emergency department if symptoms worsen or persist or if there are any questions or concerns that arise at home. Response to treatment: the patient's symptoms have markedly improved after treatment, and as a result, I will discharge patient. ED course: VSS. Pain improved with meds. Will discharge to home for continued monitoring. 01/08 16:44 Order name: XRAY Foot RIGHT 3 View; Complete Time: 17:47 cp 01/08 17:42 Order name: Splint Leg: Short Leg: posterior short leg and foot; Complete Time: 18:31 cp Administered Medications: 16:49 Drug: morphine 4 mg Route: IVP; Site: right antecubital; [facility] 17:45 Follow up: Response: No adverse reaction; Pain is unchanged, physician notified [facility] 16:49 Drug: Zofran (Ondansetron) 4 mg Route: IVP; Site: right antecubital; [facility] 17:51 Drug: morphine 4 mg Route: IVP; Site: left antecubital; [facility] Disposition: 18:30 Chart complete. cp Disposition Summary: 01/08/21 17:46 Discharge Ordered Location: Home cp Problem: new cp Symptoms: have improved cp Condition: Stable cp Diagnosis - Fracture of unspecified metatarsal bone(s), right foot - Nondisplaced fractures of cp Second and Third Metatarsals Followup: cp - With: Gerardo Arango MD - When: 2 - 3 days - Reason: foot fracture Discharge Instructions: - Discharge Summary Sheet cp - Metatarsal Fracture cp Forms: - Medication Reconciliation Form cp - Thank You Letter cp - Antibiotic Education cp - Prescription Opioid Use cp Prescriptions: - Ibuprofen 800 mg Oral Tablet - take 1 tablet by ORAL route every 8 hours As needed take with food; 30 tablet; cp Refills: 0, Product Selection Permitted - Tylenol-Codeine #3 300 mg-30 mg Oral - take 2 tablet by ORAL route every 6-8 hours; 20 tablet; Refills: 0, Product cp Selection Permitted Addendum: 01/13/2021 05:32 Co-signature as Attending Physician, Juan J Forbes MD PA/YACHT RIGGER's history reviewed, m a2 patient interviewed, and examined. I agree with assessment and care plan and confirm the diagnosis (es) above. Signatures: Dispatcher [employer] EDMS Matt Costa PA PA cp Alzahri, Mohammad, MD MD ma2 Opal Ruiz RN RN jh5 Farhana Granados RN RN jh6 Corrections: (The following items were deleted from the chart) 01/08 16:59 16:59 PSHx: Splenectomy; jh6 [facility] 17:41 17:41 Splint - Posterior Leg ordered. cp cp
--- NOTE | 2021-01-08 17:47 | ER ---
Nurse's Notes [facility] Name: Mic Gross Age: 65 yrs Sex: Male : 1955 Arrival Date: 01/08/2021 Time: 16:31 Bed 6 Private MD: Diagnosis: Fracture of unspecified metatarsal bone(s), right foot-Nondisplaced fractures of Second and Third Metatarsals Presentation: 01/08 16:40 Chief complaint: Patient states: Pt states that he was standing on top of a bumper when [facility] the trailer hitch for a mobile home fell, penning him between. pt has pain and swelling to rt lateral foot. Care prior to arrival: None. Mechanism of Injury: Crush injury from being trapped between trailer hitch and bumper of truck. Trauma event details: Injury occurred in the [facility], Injury occurred: at home. Injury occurred: January 08, 2021 Injury occurred at: 16:00. Activity prior to arrival: None. 16:40 Acuity: RADHA 3 [facility] 16:40 Method Of Arrival: Ambulatory [facility] 16:56 Coronavirus screen: Vaccine status: Patient reports receiving the 1st dose of the Covid jh6 vaccine. Client denies travel out of the [place] in the last 14 days. At this time, the client does not indicate any symptoms associated with coronavirus-19. Ebola Screen: Patient negative for fever greater than or equal to 101.5 degrees Fahrenheit, and additional compatible Ebola Virus Disease symptoms Patient denies exposure to infectious person. Patient denies travel to an Ebola-affected area in the 21 days before illness onset. No symptoms or risks identified at this time. Initial Sepsis Screen: Does the patient meet any 2 criteria? No. Patient's initial sepsis screen is negative. Does the patient have a suspected source of infection? No. Patient's initial sepsis screen is negative. Risk Assessment: Do you want to hurt yourself or someone else? Patient reports no desire to harm self or others. Onset of symptoms was January 08, 2021. Trauma Activation: Not Applicable Physician: ED Physician; Name: ; Notified At: ; Arrived At: Physician: General Surgeon; Name: ; Notified At: ; Arrived At: Physician: Radiology; Name: ; Notified At: ; Arrived At: Physician: Respiratory; Name: ; Notified At: ; Arrived At: Physician: Lab; Name: ; Notified At: ; Arrived At: Historical: - Allergies: 16:55 No Known Allergies; [facility] - Home Meds: 16:55 lisinopril 10 mg Oral tab 1 tab once daily for Hypertension [Active]; [facility] - PMHx: 16:55 Hepatitis; C; Hernia; liver cancer; Hypertension; [facility] - PSHx: 17:56 None; [facility] - Immunization history:: Adult Immunizations up to date, Client reports receiving the 1st dose of the Covid vaccine, April 2020. - Immunization history: Last tetanus immunization: - up to date. - Social history:: Smoking status: Patient reports the use of cigarette tobacco products, denies chronic smoking, but will smoke occasionally. Screenin:53 Abuse screen: Denies threats or abuse. Nutritional screening: No deficits noted. [facility] Tuberculosis screening: No symptoms or risk factors identified. Fall Risk None identified. Primary Survey: 16:54 NO uncontrolled hemorrhage observed. A: The patient is alert. Breathing/Chest: [facility] Respiratory pattern: regular. Circulation: Pulses: palpable right posterior tibial artery and left posterior tibial artery. Disability Alert. Exposure/Environment: All clothing and personal items were removed. Forensic evidence collection is not deemed to be indicated at this time. Items placed in patient belonging bag. A warming method has been applied: A warm blanket has been provided to the patient. 16:59 A: Airway: patent. [facility] 17:54 Reassessment Airway Airway Patent Breathing/Chest Respiratory effort Spontaneous [facility] Unlabored Circulation Pulses Palpable. Secondary Survey: 17:55 Musculoskeletal: Circulation, motion, and sensation intact. Capillary refill < 3 jh6 seconds. Assessment: 16:50 General: Appears uncomfortable, Behavior is cooperative. Pain: Complains of pain in [facility] right foot Pain radiates to right ankle Pain currently is 10 out of 10 on a pain scale. Quality of pain is described as Pain began suddenly, 1 hour ago. Is continuous, Alleviated by nothing. Aggravated by repositioning, weight bearing. Injury Description: Crush injury sustained to right foot. 17:40 Reassessment: No changes from previously documented assessment. states that the pain [facility] meds did help a little but now pain is returning. pt not tolerating elevation or ice pack. reports makes pain worse. Pain: Pain currently is 4 out of 10 on a pain scale. at worst was 10 out of 10 on a pain scale. Also complains of. 18:19 Reassessment: Patient and/or family updated on plan of care and expected duration. Pain jh6 level reassessed. S/P cast placement posterior lower leg rt with #5 Orthoglass and percy wrap. no increased pain and tolerated well. pms in tact.. Vital Signs: 16:47 BP 160 / 85; Pulse 86; Resp 18; Temp 98.6; Pulse Ox 98% ; Weight 70.31 kg; Height 5 ft. jh6 6 in. (167.64 cm); 17:51 BP 146 / 65; Pulse 82; Resp 18; Pulse Ox 100% on R/A; jh6 16:47 Body Mass Index 25.02 (70.31 kg, 167.64 cm) jh6 [place] Coma Score: 16:47 Eye Response: spontaneous(4). Verbal Response: oriented(5). Motor Response: obeys jh6 commands(6). Total: 15. Trauma Score (Adult): 16:47 Eye Response: spontaneous(1); Verbal Response: oriented(1); Motor Response: obeys jh6 commands(2); Systolic BP: > 89 mm Hg(4); Respiratory Rate: 10 to 29 per min(4); [place] Score: 15; Trauma Score: 12 ED Course: 16:31 Patient arrived in ED. mr 16:40 Farhana Granados is Primary Nurse. jh6 16:40 Thermoregulation: warm blanket given to patient. jh6 16:41 Matt Costa PA is PHCP. cp 16:41 Juan J Forbes MD is Attending Physician. cp 16:47 Triage completed. jh6 16:47 Arm band placed on left wrist. jh6 16:58 Patient has correct armband on for positive identification. Call light in reach. Side jh6 rails up X 1. 16:58 Patient maintains SpO2 saturation greater than 95% on room air. jh6 16:59 XRAY Foot RIGHT 3 View In Process Unspecified. EDMS 17:44 Gerardo Arango MD is Referral Physician. cp 17:53 Assist provider with fracture care of right calf, right Achilles and right heel jh6 Immobilized with preformed splint. 18:30 IV discontinued, intact, bleeding controlled, No redness/swelling at site. Pressure 5 dressing applied. Administered Medications: 16:49 Drug: morphine 4 mg Route: IVP; Site: right antecubital; 5 17:45 Follow up: Response: No adverse reaction; Pain is unchanged, physician notified 6 16:49 Drug: Zofran (Ondansetron) 4 mg Route: IVP; Site: right antecubital; 5 17:51 Drug: morphine 4 mg Route: IVP; Site: left antecubital; 6 Intake: 18:31 PO: 0ml; IV: 10ml; Tubes: 0ml (); Total: 10ml. 5 Output: 18:31 Urine: 0ml; Gastric: 0ml; Stool: 0; Drainage: 0ml; Total: 0ml. [facility] Outcome: 16:59 Patient's length of stay was not longer than 2 hours. 6 17:46 Discharge ordered by MD. cp 18:30 Discharged to home via wheelchair. [facility] 18:30 Condition: stable 18:30 Discharge instructions given to patient, Instructed on discharge instructions, follow up and referral plans. medication usage, safety practices, Demonstrated understanding of instructions, follow-up care, medications. 18:32 Patient left the ED. [facility] Signatures: Dispatcher [employer] SANJEEVGA Ramiro Jenn Matt Perez, Opal Nath cp RN RN 5 Farhana Granados RN RN 6 Corrections: (The following items were deleted from the chart) 16:59 16:59 PSHx: Splenectomy; 6 6
[2021-01-08 18:38] VITALS: TEMP 98.6
[2021-01-08 18:39] VITALS: BP 146/65; O2SAT 100
--- OUTSIDE RECORDS SUMMARY | 2021-01-11 20:08 | XMS REPORT | Continuity of Care Document ---
:1955 Author Organization [facility] t Address [address] [place] [address] Care Team Providers Name Role Phone Manpreet Nieto Attending Clinician MANPREET RENTERIA Attending Clinician Unavailable Jenn Michael RN Attending Clinician Akira Attending Clinician DAVID Attending Clinician Unavailable Malou Piedra Attending Clinician David AREVALO Attending Clinician Miguel AREVALO Attending Clinician RO Attending Clinician Unavailable DAVID Admitting Clinician Unavailable David AREVALO Admitting Clinician RO Admitting Clinician Unavailable Payers Payer Name Policy Type Policy Number Effective Date Expiration Date S [facility] [place] P[place] 2019 2019 PENDING 00:00:00 00:00:00 Problems This patient has no known problems. Allergies, Adverse Reactions, Alerts Allergy Allergy Status Severity Reaction(s) Onset Inactive Treating Comm ents Source Name Type Date Date Clinician NO KNOWN Drug Active Univers ALLERGIE Class ity of S [facility] Medications This patient has no known medications. Procedures This patient has no known procedures. Encounters Start End Encounter Admission Attending Care Care Encounter Source Date/Time Date/Time Type Type Clinicians Facility Department ID 2020-10-07 2020-10-07 Emergency STANLEY Renteria [id number] 10:18:00 11:49:00 Manpreet Torres [id number] [place] [id number] [place] [id number] 2020-10-07 2020-10-07 Emergency [facility] [id number] Univers 10:09:00 10:09:00 MANPREET whitman [facility] 2019-06-11 2019-06-11 Patient Jenn Michael [id number] 00:00:00 00:00:00 Outreach E Aviles [id number] [place] [id number] [id number] 2019-04-27 2019-04-27 Patient Jenn Michael [id number] 00:00:00 00:00:00 Outreach E [place] [id number] [place] [id number] 2019-04-13 2019-04-13 Transition Shaila Champion [id number] 00:00:00 00:00:00 of Care Kandice Aviles [id number] [place] [id number] 2019-04-10 2019-04-[address] [facility] [facility] [id number] Univers 10:55:39 18:18:00 [facility] 2019-04-10 2019-04-12 Hospital Fabio Guzman [id number] 10:55:39 18:18:00 Encounter Fabio Guzman [id number] [facility] [id number] 2018-11-08 2018-11-08 Emergency [facility] [id number] 14:26:03 17:32:00 Narciso Torres [id number] [place] [id number] [place] [id number] Results Test Description Test Time Test Comments Results Result Comments Source Troponin T 2016-05-15 20:46:00 Test Item Value Reference Range Interpretation Comme nts Troponin T (test code = GERARD) <0.010 ng/mL 0.000-0.090 N Basic Metabolic [id number] 20:46:00 Test Item Value Reference Range Interpretation [...] by th e MDRD study and kaitlynn gonzalez be interpretedwith caution.eGFR Re sult Interpretation: eGFR > or = 60 is in t he Normal RangeeGF R < 60 may mean kidney diseaseeGFR < 1 5 may mean kidney failureRange s recommended by the National Kidney Foundation,http ://nkd ep.nih.gov CBC with [id number] 20:25:00 Test Item Value Reference Range Interpretation [...] code = ALYMPH) 1.7 K/cumm 0.5-4.6 N [place] Abs (test code = AMONO) 1.2 K/cumm 0.0-1.2 N Eos Abs (test code = AEOS) 0.10 K/cumm 0.00-0.74 N Baso Abs (test code = ABASO) 0.1 K/cumm 0.00-0.21 N
== END 2021-01-08 18:32 | disposition home or self-care (01) ==
LOC: ER 16:28
PROC: 2W3QX1Z Immobilization of Right Lower Leg using Splint (ICD-10-PCS; principal; 2021-01-08)
DX: S92.324A Nondisplaced fracture of second metatarsal bone, right foot, initial encounter for closed fracture (principal); S92.334A Nondisplaced fracture of third metatarsal bone, right foot, initial encounter for closed fracture; W23.0XXA Caught, crushed, jammed, or pinched between moving objects, initial encounter; Y92.009 Unspecified place in unspecified non-institutional (private) residence as the place of occurrence of the external cause; I10 Essential (primary) hypertension; F17.210 Nicotine dependence, cigarettes, uncomplicated; Z85.05 Personal history of malignant neoplasm of liver; Z86.19 Personal history of other infectious and parasitic diseases
CPT/HCPCS: 99284; J2405

== ENCOUNTER 2021-01-10 09:11 | Emergency (ER) | payer SELFPAY ==
--- NOTE | 2021-01-10 09:53 | RAD REPORT ---
EXAM DESCRIPTION: CT - Pelvis Wo Cont - 01/10/2021 9:27 am CLINICAL HISTORY: PAIN, fall L left-sided pelvic and hip pain COMPARISON: Chest Abdomen Pelvis W Cont dated 12/02/2020; Angio Aorta For Dissection dated 06/01/2019; Abdomen Pelvis W Contrast dated 07/11/2018 TECHNIQUE: Axial noncontrast 2 millimeter thick images of the pelvis were obtained. Sagittal and cor onal reformatted images were generated and reviewed. All CT scans are performed using dose optimization technique as appropriate and may include automate d exposure control or mA/KV adjustment according to patient size. FINDINGS: Visualized lower lumbar vertebrae L3-S1 are normal in height. No fracture changes seen. Ian grant has severe degenerative disc disease at L4-5 with degenerative gas in the disc space and endpla te spurring. Subcortical degenerative cystic changes are present. There is likely central spinal sten osis at this level from disc bulge, facet degenerative change and ligamentous thickening. There may b e additional spinal stenosis at L3-4. The central canal is inherently limited on CT imaging. No fracture of the bony pelvis identified. SI joint degenerative changes are present. No clearly path ologic bone process identified. Areas of lucent change in each ilium near the SI joint not grossly di fferent from exam of June 2018. This is favored to be osteopenic change. Myeloma or other lytic marrow process not likely given the absence of any clear progression over a greater than 2 year interval. N o fracture identified and the proximal femora. Hip joint degenerative changes minimal. No significant soft tissue contusion or hematoma identifiable. No acute finding in the peritoneal or see retroperitoneal spaces. Aortic atherosclerotic calcifications are present without displaced calci fication. Aortic size has not change from prior imaging. Bilateral fat filled inguinal hernias are pr esent. IMPRESSION: No pelvic or proximal femur fracture identified. Above detailed findings are not clearly different from prior imaging.
--- NOTE | 2021-01-10 10:31 | RAD REPORT ---
EXAM DESCRIPTION: RAD - Foot Right 3 View - 01/10/2021 9:55 am CLINICAL HISTORY: PAIN, trauma COMPARISON: Right foot January 08 FINDINGS: Splint material is in place which limits fine bony detail. Oblique fractures through the n daljit of the distal second and third metatarsals again noted. No change in alignment or positioning sin ce January 08. No additional fracture change identified. No air or foreign body in the soft tissues. IMPRESSION: Distal right second and third metatarsal fractures are again noted with no change in ali gnment or position of the fracture fragments. No additional fracture or acute bone findings seen.
--- NOTE | 2021-01-10 11:14 | ER ---
Nurse's Notes [facility] Name: Mic Gross Age: 65 yrs Sex: Male : 1955 Arrival Date: 01/10/2021 Time: 09:13 Bed 18 Private MD: Diagnosis: Fracture of unspecified metatarsal bone(s), right foot;Pain in left hip Presentation: 01/10 09:13 Chief complaint: EMS states: EMS reports pt. had a fall this morning off his crutches jt3 where he fell on his left side. Pt. had recent fall on Wednesday that required splinting of his right leg and foot. Pt. endorses right leg and left flank pain. No LOC and no deformities present on arrival. No uncontrolled bleeding. Past medical hx of HTN, Hernia, Liver cancer, and splenectomy. Coronavirus screen: Vaccine status: Patient reports receiving the 2nd dose of the covid vaccine. Ebola Screen: Patient negative for fever greater than or equal to 101.5 degrees Fahrenheit, and additional compatible Ebola Virus Disease symptoms Patient denies exposure to infectious person. Patient denies travel to an Ebola-affected area in the 21 days before illness onset. Initial Sepsis Screen: Does the patient meet any 2 criteria? No. Patient's initial sepsis screen is negative. Does the patient have a suspected source of infection? No. Patient's initial sepsis screen is negative. Risk Assessment: Do you want to hurt yourself or someone else? Patient reports no desire to harm self or others. Onset of symptoms was January 10, 2021. 09:13 Method Of Arrival: EMS: [facility] jt3 09:13 Acuity: RADHA 3 jt3 09:25 Care prior to arrival: None. Mechanism of Injury: Fall from standing position. Trauma vg1 event details: Injury occurred in the [facility]. Triage Assessment: 09:17 General: Appears uncomfortable, Behavior is calm, cooperative. Pain: Complains of pain jt3 in abdomen and right leg Pain currently is 7 out of 10 on a pain scale. Quality of pain is described as throbbing, Pt. reports left sided flank pain and right sided leg pain. Trauma Activation: Physician: ED Physician; Name: ; Notified At: ; Arrived At: Physician: General Surgeon; Name: ; Notified At: ; Arrived At: Physician: Radiology; Name: ; Notified At: ; Arrived At: Physician: Respiratory; Name: ; Notified At: ; Arrived At: Physician: Lab; Name: ; Notified At: ; Arrived At: 09:25 not called vg1 Historical: - Allergies: :17 No Known Allergies; jt3 - Home Meds: :17 lisinopril 10 mg Oral tab 1 tab once daily for Hypertension [Active]; jt3 - PMHx: :17 Hepatitis; C; Hernia; Hypertension; liver cancer; jt3 - Immunization history:: Adult Immunizations unknown. - Social history:: Smoking status: unknown. - Immunization history: Last tetanus immunization: unknown. Screenin:20 Abuse screen: Denies threats or abuse. Nutritional screening: No deficits noted. vg1 Tuberculosis screening: No symptoms or risk factors identified. 09:25 Fall Risk Fall in past 12 months (25 points). No secondary diagnosis (0 pts). No IV (0 vg1 pts). Ambulatory Aid- Crutches/Cane/Walker (15 pts). Gait- Impaired (20 pts.). Mental Status- Oriented to own ability (0 pts). Total Caldwell Fall Scale indicates High Risk Score (45 or more points). Fall prevention measures have been instituted. Side Rails Up X 2 Placed Close to Nursing Station. Primary Survey: 09:20 NO uncontrolled hemorrhage observed. A: The patient is alert. Breathing/Chest:. vg1 Circulation: Skin color: pink. Disability Alert. Exposure/Environment: There is no evidence of uncontrolled external bleeding. A warming method has been applied: A warm blanket has been provided to the patient. 09:20 Reassessment Breathing/Chest Respiratory pattern Regular Respiratory effort Spontaneous vg1 Breath sounds Clear Chest inspection Symmetrical. Secondary Survey: 09:20 HEENT: No deficits noted. Gastrointestinal: Abdomen is soft, Patient reports Nausea. vg1 : No signs and/or symptoms were reported regarding the genitourinary system. Musculoskeletal: Range of motion: limited in right leg. Assessment: 09:20 General: Appears in no apparent distress. uncomfortable, Behavior is calm, cooperative. vg1 Pain: Complains of pain in Left side flank, left side of back, and right leg Pain currently is 10 out of 10 on a pain scale. Pain began 1 hour ago. Neuro: Level of Consciousness is awake, alert, obeys commands, Oriented to person, place, time, situation. EENT: No signs and/or symptoms were reported regarding the EENT system. Cardiovascular: Patient's skin is warm and dry. Respiratory: Airway is patent Respiratory effort is even, unlabored. GI: Reports nausea. : No signs and/or symptoms were reported regarding the genitourinary system. Derm: Skin is intact, is healthy with good turgor. Musculoskeletal: Range of motion: limited in right leg. 09:39 Reassessment: Xray at bedside. vg1 10:56 Reassessment: Patient appears in no apparent distress at this time. Pt resting with ss eyes closed. Vital Signs: 09:13 BP 156 / 86; Pulse 78; Resp 17; Temp 98.9; Pulse Ox 99% on R/A; Weight 70.31 kg; Height jt3 5 ft. 6 in. (167.64 cm); 09:45 BP 145 / 76; Pulse 73; Resp 17; Pulse Ox 96% on R/A; vg1 10:30 BP 134 / 79; Pulse 67; Resp 16; Pulse Ox 97% ; ss 09:13 Body Mass Index 25.02 (70.31 kg, 167.64 cm) jt3 [place] Coma Score: 09:20 Eye Response: spontaneous(4). Verbal Response: oriented(5). Motor Response: obeys vg1 commands(6). Total: 15. Trauma Score (Adult): 09:20 Eye Response: spontaneous(1); Verbal Response: oriented(1); Motor Response: obeys vg1 commands(2); Systolic BP: > 89 mm Hg(4); Respiratory Rate: 10 to 29 per min(4); [place] Score: 15; Trauma Score: 12 ED Course: 09:13 Patient arrived in ED. jt3 09:15 Kirti Ceballos [facility]-C [facility] kb 09:15 Fabio Mock MD is Attending Physician. kb 09:17 Triage completed. jt3 09:17 Telma Tejeda, MARKELL is Primary Nurse. vg1 09:17 Arm band placed on right wrist. jt3 09:20 Patient has correct armband on for positive identification. Bed in low position. Call vg1 light in reach. Side rails up X2. 09:20 Patient maintains SpO2 saturation greater than 95% on room air. vg1 09:25 No provider procedures requiring assistance completed. vg1 09:26 Thermoregulation: warm blanket given to patient. vg1 09:27 CT Pelvis wo Cont In Process Unspecified. EDMS 09:55 Foot Right 3 View XRAY In Process Unspecified. EDMS 11:37 Patient did not have IV access during this emergency room visit. vg1 Administered Medications: 11:37 Drug: [place] (HYDROcodone-acetaminophen) 10 mg-325 mg 1 tabs Route: PO; vg1 11:37 Follow up: Response: Medication administered at discharge. vg1 Intake: 11:38 PO: 240ml (Water); Total: 240ml. vg1 Outcome: 11:13 Discharge ordered by MD. kb 11:37 Discharged to home with crutches. vg1 11:37 Condition: stable 11:37 Discharge instructions given to patient, Instructed on discharge instructions, follow up and referral plans. Demonstrated understanding of instructions, follow-up care. 11:39 Patient's length of stay was not longer than 2 hours. vg1 11:39 Patient left the ED. vg1 Signatures: Dispatcher [employer] Kirti Ta, MILITARY TECHNICIAN-C MILITARY TECHNICIAN-Maribel Pool, RN RN Telma Esparza RN RN vg1 Eduard Mar RN RN jt3
--- NOTE | 2021-01-10 11:15 | EDPHYS ---
Physician Documentation [facility] Name: Mic Gross Age: 65 yrs Sex: Male : 1955 Arrival Date: 01/10/2021 Time: 09:13 Bed 18 Private MD: ED Physician Fabio Mock HPI: 01/10 09:41 This 65 yrs old Male presents to ER via EMS with complaints of Fall Injury. kb 09:41 Details of fall: The patient fell from an upright position, while walking. Onset: The kb symptoms/episode began/occurred just prior to arrival. Associated injuries: The patient sustained left hip, painful injury, right foot, painful injury. Severity of symptoms: At their worst the symptoms were moderate, in the emergency department the symptoms are unchanged. The patient has not experienced similar symptoms in the past. The patient has not recently seen a physician. Pt was walking with crutches on wet surface and one crutch slipped causing him to fall. c/o pain to right foot that radiates up to hip and pain to left hip. Historical: - Allergies: 09:17 No Known Allergies; jt3 - Home Meds: 09:17 lisinopril 10 mg Oral tab 1 tab once daily for Hypertension [Active]; jt3 - PMHx: 09:17 Hepatitis; C; Hernia; Hypertension; liver cancer; jt3 - Immunization history:: Adult Immunizations unknown. - Social history:: Smoking status: unknown. - Immunization history: Last tetanus immunization: unknown. ROS: 09:32 Constitutional: Negative for fever, chills, and weight loss. kb 09:32 MS/extremity: Positive for pain, of the left hip and right foot. 09:32 All other systems are negative. Exam: 09:32 Constitutional: This is a well developed, well nourished patient who is awake, alert, kb and in no acute distress. Head/Face: Normocephalic, atraumatic. ENT: Moist Mucous membranes Respiratory: Respirations even and unlabored. No increased work of breathing, no retractions or nasal flaring. Abdomen/GI: Soft, non-tender. No distention Skin: Warm, dry with normal turgor. Normal color. Neuro: Awake and alert, GCS 15, oriented to person, place, time, and situation. Moves all extremities. Normal gait. Psych: Awake, alert, with orientation to person, place and time. Behavior, mood, and affect are within normal limits. 09:32 Back: pain, that is mild, of the left low back, vertebral tenderness, is not appreciated. 09:32 Musculoskeletal/extremity: Extremities: grossly normal except: noted in the right foot: pain, noted in the left hip: pain, ROM: pt has a short leg splint in place s/p recent metatarsal fracture, Circulation is intact in all extremities. Sensation intact. Weight bearing: can bear weight with assistance only, uses crutches. Vital Signs: 09:13 BP 156 / 86; Pulse 78; Resp 17; Temp 98.9; Pulse Ox 99% on R/A; Weight 70.31 kg; Height jt3 5 ft. 6 in. (167.64 cm); 09:45 BP 145 / 76; Pulse 73; Resp 17; Pulse Ox 96% on R/A; vg1 10:30 BP 134 / 79; Pulse 67; Resp 16; Pulse Ox 97% ; ss 09:13 Body Mass Index 25.02 (70.31 kg, 167.64 cm) jt3 [place] Coma Score: 09:20 Eye Response: spontaneous(4). Verbal Response: oriented(5). Motor Response: obeys vg1 commands(6). Total: 15. Trauma Score (Adult): 09:20 Eye Response: spontaneous(1); Verbal Response: oriented(1); Motor Response: obeys vg1 commands(2); Systolic BP: > 89 mm Hg(4); Respiratory Rate: 10 to 29 per min(4); [place] Score: 15; Trauma Score: 12 MDM: 09:15 Patient medically screened. kb 09:32 Data reviewed: vital signs, nurses notes. Data interpreted: Pulse oximetry: on room air kb is 99 %. Interpretation: normal. 11:12 Counseling: I had a detailed discussion with the patient and/or guardian regarding: the kb historical points, exam findings, and any diagnostic results supporting the discharge/admit diagnosis, radiology results, the need for outpatient follow up, a family practitioner, to return to the emergency department if symptoms worsen or persist or if there are any questions or concerns that arise at home. 01/10 09:15 Order name: CT Pelvis wo Cont; Complete Time: 09:55 kb 01/10 09:15 Order name: Foot Right 3 View XRAY; Complete Time: 11:12 kb Administered Medications: 11:37 Drug: [place] (HYDROcodone-acetaminophen) 10 mg-325 mg 1 tabs Route: PO; vg1 11:37 Follow up: Response: Medication administered at discharge. vg1 Disposition: 14:14 Co-signature as Attending Physician, Fabio Mock MD I agree with the assessment and kdr plan of care. Disposition Summary: 01/10/21 11:13 Discharge Ordered Location: Home kb Condition: Stable kb Diagnosis - Fracture of unspecified metatarsal bone(s), right foot kb - Pain in left hip kb Followup: kb - With: Emergency Department - When: As needed - Reason: Worsening of condition Followup: kb - With: Private Physician - When: 2 - 3 days - Reason: Recheck today's complaints, Continuance of care, Re-evaluation by your physician Discharge Instructions: - Discharge Summary Sheet kb - Musculoskeletal Pain kb - Fall Prevention in the Home, Adult, [id number] kb - Hip Pain kb Forms: - Medication Reconciliation Form kb - Thank You Letter kb - Antibiotic Education kb - Prescription Opioid Use kb Signatures: Dispatcher [employer] EDKirti Holliday, VASC TECH-C VASC TECH-Fabio Tabares MD MD kdr Garcia, Victoria, RN RN vg1 Eduard Mar RN RN jt3
[2021-01-10] MEDS ORDERED: HYDROCODONE/APAP 10/325 TAB ONE (11:30)
[2021-01-10 12:14] VITALS: TEMP 98.9
[2021-01-10 12:17] VITALS: BP 134/79; O2SAT 97
--- OUTSIDE RECORDS SUMMARY | 2021-01-11 22:33 | XMS REPORT | Continuity of Care Document ---
:1955 Author Organization [facility] t Address [address] [place] [address] Care Team Providers Name Role Phone Manpreet [...] Policy Number Effective Date Expiration Date S [facility] MEDICAID SSI PENDING 2019 2019 PENDING 00:00:00 00:00:00 Problems This patient has no known problems. Allergies, Adverse Reactions, Alerts Allergy Allergy Status Severity Reaction(s) Onset Inactive Treating Comm ents Source Name Type Date Date Clinician NO KNOWN Drug Active Univers ALLERGIE Class ity of S [facility] Medications This patient has no known medications. Procedures This patient has no known procedures. Encounters Start End Encounter Admission Attending Care Care Encounter Source Date/Time Date/Time Type Type Clinicians Facility Department ID 2020-10-07 2020-10-07 Emergency STANLEY Renteria [id number] 10:18:00 11:49:00 Manpreet Torres [id number] [place] [id number] [place] [id number] 2020-10-07 2020-10-07 [facility] [id number] Univers 10:09:00 10:09:00 MANPREET whitman [facility] 2019-06-11 2019-06-11 Patient Jenn Michael 1.2.840.114 [id number] 00:00:00 00:00:00 Outreach E Aviles [id number] [place] [id number] [id number] 2019-04-27 2019-04-27 Patient Jenn Michael 1.2.840.114 [id number] 00:00:00 00:00:00 Outreach E Aviles [id number] [place] [id number] [id number] 2019-04-13 2019-04-13 Transition Shaila Champion [id number] 00:00:00 00:00:00 of Care Kandice Aviles [id number] [place] 4.2.7.2.686 [id number] 2019-04-10 2019-04-12 [facility] [id number] Univers 10:55:39 18:18:00 [facility] 2019-04-10 2019-04-12 Hospital Fabio Guzman [id number] 10:55:39 18:18:00 Encounter Fabio Guzman [id number] [facility] [id number] 2018-11-08 2018-11-08 Emergency [facility] [id number] 14:26:03 17:32:00 Narciso Torres [id number] [place] [id number] [place] [id number] [id number] Results Test Description Test Time Test Comments Results Result Comments Source Troponin T 2016-05-15 20:46:00 Test Item Value Reference Range Interpretation Comme nts Troponin T (test code = GERARD) <0.010 ng/mL 0.000-0.090 N Basic Metabolic [id number] 20:46:00 Test Item Value Reference Range Interpretation [...] National Kidney Foundation,http ://nkd ep.nih.gov CBC with [id number] 20:25:00 Test Item Value Reference Range Interpretation [...] code = ALYMPH) 1.7 K/cumm 0.5-4.6 N [place] Abs (test code = AMONO) 1.2 K/cumm 0.0-1.2 N Eos Abs (test code = AEOS) 0.10 K/cumm 0.00-0.74 N Baso Abs (test code = ABASO) 0.1 K/cumm 0.00-0.21 N
== END 2021-01-10 11:39 | disposition home or self-care (01) ==
LOC: ER 09:11
DX: M25.552 Pain in left hip (principal); S92.301A Fracture of unspecified metatarsal bone(s), right foot, initial encounter for closed fracture; W01.0XXA Fall on same level from slipping, tripping and stumbling without subsequent striking against object, initial encounter; Y92.9 Unspecified place or not applicable; I10 Essential (primary) hypertension; B19.20 Unspecified viral hepatitis C without hepatic coma; Z85.05 Personal history of malignant neoplasm of liver
CPT/HCPCS: 72192; 99284

== ENCOUNTER 2021-01-24 18:27 | Emergency (ER) | payer SELFPAY ==
--- OUTSIDE RECORDS SUMMARY | 2021-01-24 18:32 | XMS REPORT | Continuity of Care Document ---
:1955 Author Organization [facility] t Address [address] [place] [address] Care Team Providers Name Role Phone Pcp, Does Not Have A Primary Care Physician [facility] Attending Clinician Unavailable Malou GUZMAN Attending Clinician Unavailable Megan FRANKLIN T Attending Clinician MYRA Attending Clinician Unavailable Myra FRANKLIN Attending Clinician Alec RN E Attending Clinician Akira Attending Clinician DAVID Attending Clinician Unavailable David AREVALO Attending Clinician Miguel AREVALO Attending Clinician RO Attending Clinician Unavailable MYRA Admitting Clinician Unavailable DAVID Admitting Clinician Unavailable David AREVALO Admitting Clinician RO Admitting Clinician Unavailable Payers Payer Name Policy Type Policy Number Effective Date Expiration Date S ource Problems Condition Condition Condition Status Onset Resolution Last Treating Co mments Source Name Details Category Date Date Treatment Clinician Date Nausea and Nausea and Disease Active 2019-0 U nivers vomiting vomiting 2-10 ity of 00:00: [address] Osteomyeli Osteomyeli Disease Active U nivers tis tis 5-07 ity of 00:00: [address] Adrenal Adrenal Disease Active Univers insufficie insufficie 07-05 it y of ncy ncy 00:00: [place] 00 [facility] Chronic Chronic Disease Active [facility] rheumatic rheumatic 07-05 [place] arthritis [place] Gangrene Gangrene Disease Active Unive rs of finger of finger 07-05 ity of 00:00: [place] 00 [facility] 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 07-03 ity of 00:00: [place] 00 [facility] Arteritis Arteritis Disease Active Uni vers 07-03 ity of 00:00: [place] 00 [facility] Allergies, Adverse Reactions, Alerts Allergy Allergy Status Severity Reaction(s) Onset Inactive Treating Comm ents Source Name Type Date Date Clinician NO KNOWN Drug Active [facility] ALLERGIE Class ity of S [facility] [place] Social History Social Habit Start Date Stop Date Quantity Comments Source Exposure to Not sure [facility] SARS-CoV-2 (event) Medica l Branch Alcohol intake 2021-01-20 2021-01-20 0 /d [facility] 00:00:00 00:00:00 Medical Branch Sex Ass[birth year] At [birth year] [facility] 00:00:00 00:00:00 Medical Branch Smoking Status Start Date Stop Date Source Smoker, current status 2015-07-05 00:00:00 [facility] Branch Medications Ordered Filled Start Stop Current Ordering Indication Dosage Frequency Signature Comments Components Source Medication Medication Date Date Medication? Clinician (SIG) Name Name HYDROcodone 2020-03- No 1{tbl} 1 tablet, Univers -acetaminop 03-22 Oral, ity of hen (NORCO 18:00: 17:24 ONCE, 1 [place] 5) 5-325 mg 00 :00 dose, On Medi [place] tablet 1 Mon Branch tablet 01/20/21 at 1200, RHETT traMADoL 50 2020-03- Yes [id number] 50mg Take 1 Uni vers mg tablet 03-2230 tablet by ity of 00:00: 05:59 mouth [place] 00 :00 every 6 Medical (six) Branch hours as needed for Pain (scale 4-6) for up to 7 days. Indication s: acute pain traMADoL 50 2020-03- Yes [id number] 50mg Take 1 Uni vers mg tablet 03-22 11-30 tablet by ity of 00:00: 05:59 mouth [place] 00 :00 every 6 Medical (six) Branch hours as needed for Pain (scale 4-6) for up to 7 days. Indication s: acute pain methocarbam 0 Yes [id number] 750mg Take 1 Univers oL 750 mg 8-09 tablet by ity o f tablet 00:00: mouth 4 [place] 00 (four) Medical times Branch daily as needed for Pain (scale 7-10). methocarbam 0 Yes [id number] 750mg Take 1 Univers oL 750 mg 8-09 tablet by ity o f tablet 00:00: mouth 4 [place] 00 (four) Medical times Branch daily as needed for Pain (scale 7-10). lactulose 0 Yes [id number] 15mL Take 15 mL Univers 10 gram/15 2-12 by mouth 3 ity of mL solution 00:00: (three) [place] as 00 times Medical daily. Branch lactulose Yes [id number] 15mL Take 15 mL Univers 10 gram/15 2-12 by mouth 3 ity of mL solution 00:00: (three) [place] as 00 times Medical daily. Branch docusate Yes [id number] 250mg Take 1 Univers sodium 250 9-10 [id number] capsule by i ty of mg capsule 00:00: mouth [place] 00 daily. Medical Branch ondansetron Yes [id number] 4mg Take 1 Univers 4 mg 9-10 [id number] tablet by ity of disintegrat 00:00: mouth [place] ing tablet 00 every 4 Medica l (four) Branch hours as needed for Nausea and Vomiting (N/V). docusate Yes [id number] 250mg Take 1 Univers sodium 250 9-10 [id number] capsule by i ty of mg capsule 00:00: mouth [place] 00 daily. Medical Branch ondansetron Yes [id number] 4mg Take 1 Univers 4 mg 9-10 [id number] tablet by ity of disintegrat 00:00: mouth [place] ing tablet 00 every 4 Medica l (four) Branch hours as needed for Nausea and Vomiting (N/V). amLODIPine Yes 10mg Take 1 Unive rs (NORVASC) 5-10 tablet by ity o f 10 mg 00:00: mouth [place] tablet 00 daily. Medical Branch lisinopril Yes 20mg Take 2 Unive rs (PRINIVIL,Z 5-10 tablets by it y of ESTRIL) 10 00:00: mouth [place] mg tablet 00 daily. Medical Branch amLODIPine Yes 10mg Take 1 Unive rs (NORVASC) 5-10 tablet by ity o f 10 mg 00:00: mouth [place] tablet 00 daily. Medical Branch lisinopril Yes 20mg Take 2 Unive rs (PRINIVIL,Z 5-10 tablets by it y of ESTRIL) 10 00:00: mouth [place] mg tablet 00 daily. Medical Branch Vital Signs Vital Name Observation Time Observation Value Comments Source Systolic blood 2021-01-20 16:46:00 155 mm[Hg[facility] Di[facility] 2021-01-20 16:46:00 84 mm[Hg] [facility] Heart rate 2021-01-20 16:46:00 83 /min [facility] Body temperature 2021-01-20 16:46:00 36.72 Ashly [facility] Respiratory rate 2021-01-20 16:46:00 18 /min [facility] Body weight 2021-01-20 16:46:00 75.751 kg [facility] BMI 2021-01-20 16:46:00 26.95 kg/m2 [facility] Oxygen saturation in 2021-01-20 16:46:00 99 /min [facility] Arterial blood by [facility] Pulse oximetry Branch Procedures Procedure Date / Time Performing Clinician Source Performed ED SPLINT APPLICATION 2021-01-20 19:05:41 Fabio Guzman [facility] XR FOOT 3+ VW RIGHT 2021-01-20 17:12:47 Fabio Guzman [facility] CONSENT/REFUSAL FOR 2021-01-20 16:52:15 Doctor Unassigned, No Un [facility] DIAGNOSIS AND TREATMENT Name Medical Branch Encounters Start End Encounter Admission Attending Care Care Encounter Source Date/Time Date/Time Type Type Clinicians Facility Department ID 2021-01-22 2021-01-22 Letter Orthopedic [facility] [id number] Univers 00:00:00 00:00:00 (Out) Clinic SPECIALTY [id number] ity of CARE [id number] Mirza martinez CENTER AT [id number] Mo ted ALARCON [address] [place] [address] 2021-01-20 2021-01-20 Emergency X FABIO GUZMAN [facility] ERT [id number] Univers 10:47:00 13:43:00 ity of [facility] [place] 2021-01-20 2021-01-20 Emergency Fabio Guzman TRAU[place] 1.2.840.114 [id number] Univers 10:47:00 13:43:00 T CENTER [id number] it y of 4.2.7.2.686 Mirza martinez [id number] [address] 2020-10-07 2020-10-07 Emergency [facility] [id number] Univers 10:18:00 11:49:00 MANPREET juliusaidan [facility] 2020-10-07 2020-10-07 Emergency [facility] 1.2.840.114 [id number] 10:18:00 11:49:00 Manpreet Melissa 350.1.13.10 [place] 4.2.7.2.686 [place] [id number] 2019-06-11 2019-06-11 Patient Jenn Michael [id number] 00:00:00 00:00:00 Outreach E Aviles 350.1.13.10 [place] 4.2.7.2.686 [id number] 2019-04-27 2019-04-27 Patient Jenn Michael 1.2.840.114 [id number] 00:00:00 00:00:00 Outreach E Aviles 350.1.13.10 [place] 4.2.7.2.686 [id number] 2019-04-13 2019-04-13 Transition Akira Shaila 1.2.840.114 [id number] 00:00:00 00:00:00 of Care Kandice Aviles 350.1.13.10 [place] 4.2.7.2.686 [id number] 2019-04-10 2019-04-12 [facility] [id number] Univers 10:55:39 18:18:00 [facility] 2019-04-10 2019-04-12 [facility] Fabio Guzman 1.2.840.114 [id number] 10:55:39 18:18:00 Encounter Fabio Guzman [id number] [facility] 4.2.7.2.686 [id number] 2018-11-08 2018-11-08 Emergency [facility] [id number] 14:26:03 17:32:00 Narciso Torres [id number] [place] 4.2.7.2.686 [place] [id number] Results Test Description Test Time Test Comments Results Result Comments Source Troponin T 2016-05-15 20:46:00 Test Item Value Reference Range Interpretation Comme nts Troponin T (test code = GERARD) <0.010 ng/mL 0.000-0.090 N Basic Metabolic [id number] 20:46:00 Test Item Value Reference Range Interpretation [...] into account, if the informationis provided. If e race is not provided , and the patient isAfrican-Ameri can, multiply by 1.2 12. If sex is not prov ided, and thepatient is female, multipl y by 0.742. Results for patients <18 ye ars ofage have not been validated by e MDRD study and kaitylnn d be interpretedwith caution.eGFR Re sult Interpretation: eGFR > or = 60 is in t he Normal RangeeGF R < 60 may mean kidney diseaseeGFR < 1 5 may mean kidney failureRange s recommended by the National Kidney Foundation,http ://nkd ep.nih.gov CBC with [id number] 20:25:00 Test Item Value Reference Range Interpretation [...] code = ALYMPH) 1.7 K/cumm 0.5-4.6 N [place] Abs (test code = AMONO) 1.2 K/cumm 0.0-1.2 N Eos Abs (test code = AEOS) 0.10 K/cumm 0.00-0.74 N Baso Abs (test code = ABASO) 0.1 K/cumm 0.00-0.21 N
[2021-01-24 19:04] LABS: Absolute Lymphocytes (CBC) 2.7 K/uL (0.7-4.9); Basophils % 0.8 % (0-1.3); Hematocrit 26.5 % (39.6-49.0); Lymphocytes % 20.8 % (15.3-44.8); MPV 9.5 fL (7.6-11.3); RBC Red Blood Cell Count 2.91 M/uL (4.33-5.43)
[2021-01-24 19:40] LABS: ALT/SGPT 56 U/L (12-78); AST/SGOT 78 U/L (15-37); Albumin 2.4 g/dL (3.4-5.0); Alkaline Phosphatase 236 U/L (45-117); BUN Blood Urea Nitrogen 38 mg/dL (7-18); Bicarbonate 25 mmol/L (21-32); Bilirubin Direct 0.2 mg/dL (0-0.2); Bilirubin Total 0.4 mg/dL (0.2-1.0); Glucose Level 134 mg/dL (74-106); Lipase 134 U/L (73-393); Potassium 4.3 mmol/L (3.5-5.1); Protein, Total 7.7 g/dL (6.4-8.2); Sodium Level 143 mmol/L (136-145)
[2021-01-24] MEDS ORDERED: NA CHLORIDE 0.9% 1,000 ML ONE ×2 (19:45→21:19)
[2021-01-24] MEDS ORDERED: NA CHLORIDE 0.9% 250 ML ONE (19:47)
[2021-01-24] MEDS ORDERED: PANTOPRAZOLE 40 MG INJ ONE (19:47)
[2021-01-24] MEDS ORDERED: OCTREOTIDE ACETATE 100 MCG/ML ONE ×2 (19:48→20:11)
[2021-01-24] MEDS ORDERED: OCTREOTIDE ACETATE 500 MCG/ML ONE (20:00)
[2021-01-24] MEDS ORDERED: METOCLOPRAMIDE 10 MG/2mL INJ ONE (20:03)
[2021-01-24 20:07] LABS: Protime INR 1.09
[2021-01-24] MEDS ORDERED: NA CHLORIDE 0.9% 500 ML ONE (20:10)
[2021-01-24] MEDS ORDERED: ONDANSETRON 4 MG/2 ML VIAL ONE (20:27)
--- NOTE | 2021-01-24 21:38 | RAD REPORT ---
EXAM DESCRIPTION: CT - Head Brain Wo Cont - 01/24/2021 9:28 pm CLINICAL HISTORY: Headache COMPARISON: 2017 TECHNIQUE: Computed axial tomography of the head was obtained. IV contrast was not requested. All CT scans are performed using dose optimization technique as appropriate and may include automated exposure control or mA/KV adjustment according to patient size. FINDINGS: An intracranial bleed is not seen . The ventricles are normal in caliber. No extra-axial fluid collection is noted. Mild low-density areas within periventricular, deep and subcortical white matter likely represent isc hemic changes secondary to small vessel disease. Fluid within the sinuses/ mastoids is not seen. IMPRESSION: No acute intracranial abnormality is seen. If patient's symptoms persist MRI of the bra in would be recommended.
--- NOTE | 2021-01-24 21:51 | RAD REPORT ---
EXAM DESCRIPTION: CT - Abdomen Pelvis Wo Contrast - 01/24/2021 9:28 pm CLINICAL HISTORY: Abdominal pain /GI bleed COMPARISON: November 2020 TECHNIQUE: Computed axial tomography of the abdomen and pelvis was obtained. IV and oral contrast we re not requested. All CT scans are performed using dose optimization technique as appropriate and may include automated exposure control or mA/KV adjustment according to patient size. FINDINGS: The evaluation of solid organs, vessels and bowel is limited secondary to the lack of con trast administration. Cirrhotic liver. No obvious change in hepatic lesions. Gallbladder distention. Splenectomy. 3.9 centimeter left adrenal mass. Pancreas, right adrenal and kidneys grossly normal. Multiple ventral hernias. No evidence of diverticulitis. . IMPRESSION: Gallbladder distention No obvious change in the hepatic lesion although evaluation is limited secondary to lack of IV contra st. 3.9 centimeter left adrenal mass consistent with a metastasis
--- NOTE | 2021-01-24 21:53 | RAD REPORT ---
EXAM DESCRIPTION: [place] Single View01/24/2021 8:22 pm CLINICAL HISTORY: Abd pain COMPARISON: September 2020 FINDINGS: The lungs appear clear of acute infiltrate. The heart is normal size IMPRESSION: No acute abnormalities displayed
--- NOTE | 2021-01-24 22:50 | ER ---
Nurse's Notes [facility] Name: Mic Gross Age: 65 yrs Sex: Male : 1955 Arrival Date: 01/24/2021 Time: 18:31 Bed 2 Private MD: Diagnosis: GI Bleed/ Gastrointestinal hemorrhage, unspecified-Upper Presentation: 01/24 18:35 Chief complaint: Patient states: N/V and headache that began this morning. Pt reports ss that his emesis and solid stools are black, smells of blood. Coronavirus screen: Client denies travel out of the [place] in the last 14 days. Ebola Screen: Patient denies exposure to infectious person. Patient denies travel to an Ebola-affected area in the 21 days before illness onset. Initial Sepsis Screen: Does the patient meet any 2 criteria? No. Patient's initial sepsis screen is negative. Does the patient have a suspected source of infection? No. Patient's initial sepsis screen is negative. Risk Assessment: Do you want to hurt yourself or someone else? Patient reports no desire to harm self or others. Onset of symptoms was January 24, 2021. 18:35 Method Of Arrival: Ambulatory ss 18:35 Acuity: RADHA 2 ss Triage Assessment: 19:25 GI: Reports upper abdominal pain, right upper quad; reports vomiting blood since 0500 cc4 this am \\T\\ passing "black" stool today; reports h/o cirrhosis \\T\\ liver cancer. Historical: - Allergies: 18:37 No Known Allergies; ss - PMHx: 18:37 Hepatitis; C; Hernia; Hypertension; liver cancer; Cirrhosis of liver; ss - Immunization history:: Client reports receiving the 2nd dose of the Covid vaccine. - Social history:: Smoking status: Patient denies any tobacco usage or history of. Screenin:55 Abuse screen: Denies threats or abuse. Denies injuries from another. Nutritional ss screening: No deficits noted. Tuberculosis screening: Never had TB. 19:25 Fall Risk Secondary diagnosis (15 points) Ortho boot intact right foot; blood loss from cc4 GI tract.. Assessment: 19:25 General: Appears uncomfortable, Behavior is calm, cooperative, # 18 g saline lock cc4 intact right AC with no s/sx's infection/infiltrtion noted of site.. Pain: Complains of pain in right upper quadrant Pain does not radiate. Pain currently is 8 out of 10 on a pain scale. Quality of pain is described as aching, Pain began this morning \\T\\ 0500 with vomiting of blood. Is intermittent, Alleviated by nothing. Neuro: No deficits noted. Level of Consciousness is awake, alert, obeys commands, Oriented to person, place, time, situation. Cardiovascular: No deficits noted. Heart tones S1 S2 Capillary refill < 3 seconds Rhythm is sinus rhythm. Respiratory: No deficits noted. Airway is patent Respiratory effort is even, unlabored, Respiratory pattern is regular, symmetrical, Breath sounds are clear bilaterally. 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 : No signs and/or symptoms were reported regarding the genitourinary system. EENT: No signs and/or symptoms were reported regarding the EENT system. Derm: No deficits noted. Skin is intact. Musculoskeletal: Capillary refill < 3 seconds, Range of motion: intact in all extremities, Ortho boot intact right foot for reported fracture of 2nd \\T\\ 3rd toes right foot; reports fracturing toes 2 weeks ago; no edema noted. 19:30 Reassessment: #18 g angiocath inserted left AC 1 attempt \\T\\ converted to saline lock cc4 with blood drawn \\T\\ sent to lab, ismael. well; no vomiting noted. 21:56 Reassessment: Initiated transfer at [facility]. Spoke with Doris, transfer ss coordinator waiting on phone call back. 22:21 Reassessment: Doris with [facility] states that [facility] must decline patient due ss to capacity. Doris states that they have one ICU bed left at [facility] and will try to see if that bed is appropriate for this patient. Awaiting phone call back. 22:35 Reassessment: # 7 Fr triple lumen central line inserted right femoral x [address] Morales with no difficulty with all three lumens flushed with 10 ml NS 0.9%. 22:45 Reassessment: Declined at [facility] due to needs higher level of care. 22:52 Reassessment: [facility] declined patient as they do not have capacity. 22:52 Reassessment: Initiated transfer with [facility]. Spoke with Mitzi Eduardo who ss states she will call back momentarily. 23:03 Reassessment: [facility] accepted patient to IMU. Mitzi Mares, transfer ss coordinator. Accepting doc is Dr. Mahmood. 23:28 Reassessment:. cc4 01/25 00:00 Reassessment: Voided 400 ml clear loretta urine with no stated difficulty; dipstick done cc4 with no abnormaalties. 00:05 Reassessment: Report telephoned to Richard Myles RN of [facility] (IMU). cc4 00:24 Reassessment: [facility] here \\T\\ transported to IMU ( [facility]) via ground cc4 ambulance. Vital Signs: 01/24 18:35 BP 118 / 66; Pulse 111; Resp 16; Temp 98.3(TE); Pulse Ox 98% on R/A; Weight 70.31 kg; Height 5 ft. 6 in. (167.64 cm); Pain 10/10; 19:15 BP 100 / 73; Pulse 101; Resp 20 S; Temp 97.9(O); Pulse Ox 98% on R/A; cc4 19:45 BP 99 / 70; Pulse 97; Resp 20 S; Pulse Ox 100% on R/A; cc4 20:00 BP 86 / 61; Pulse 95; Resp 18 S; Pulse Ox 99% on R/A; cc4 20:15 BP 108 / 59; Pulse 83; Resp 15 S; Pulse Ox 100% on R/A; cc4 20:30 BP 111 / 60; Pulse 84; Resp 16 S; Pulse Ox 100% on R/A; cc4 20:45 BP 98 / 61; Pulse 80; Resp 16 S; Pulse Ox 100% on R/A; cc4 21:00 BP 90 / 59; Pulse 85; Resp 16 S; Pulse Ox 98% on R/A; cc4 21:42 BP 104 / 63; Pulse 92; Resp 18 S; Pulse Ox 97% on R/A; cc4 21:53 BP 104 / 63; Pulse 86; Resp 18; Pulse Ox 98% on R/A; df1 22:00 BP 106 / 68; Pulse 88; Resp 16 S; Pulse Ox 98% on R/A; cc4 22:15 BP 102 / 65; Pulse 90; Resp 18 S; Pulse Ox 98% on R/A; cc4 22:30 BP 101 / 68; Pulse 94; Resp 20 S; Pulse Ox 99% on R/A; cc4 22:45 BP 102 / 72; Pulse 91; Resp 20 S; Pulse Ox 97% on R/A; cc4 23:00 BP 120 / 70; Pulse 93; Resp 17 S; Temp 98.9(O); Pulse Ox 98% on R/A; cc4 23:15 BP 102 / 66; Pulse 85; Resp 18 S; Pulse Ox 98% on R/A; cc4 23:30 BP 112 / 69; Pulse 89; Resp 18 S; Pulse Ox 97% on R/A; cc4 23:45 BP 118 / 68; Pulse 88; Resp 16 S; Pulse Ox 98% on R/A; cc4 01/25 00:00 BP 118 / 64; Pulse 88; Resp 18 S; Pulse Ox 98% on R/A; cc4 00:15 BP 111 / 86; Pulse 88; Resp 20 S; Pulse Ox 98% on R/A; cc4 01/24 18:35 Body Mass Index 25.02 (70.31 kg, 167.64 cm) ED Course: 01/24 18:31 Patient arrived in ED. mr 18:37 Triage completed. ss 18:37 Arm band placed on right wrist. 18:54 Inserted saline lock: 18 gauge in right antecubital area, using aseptic technique. Blood collected. 19:11 Giancarlo Morales MD is Attending Physician. [facility] 19:13 Cristal Barfield is Primary Nurse. df1 19:25 Patient has correct armband on for positive identification. Placed in gown. Bed in low cc4 position. Call light in reach. Side rails up X2. 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 Pulse ox on. NIBP on. 20:01 Chest Single View XRAY Sent. cc4 20:22 Chest Single View XRAY In Process Unspecified. EDMS 20:33 CT Abd/Pelvis - Without Contrast Sent. oe 20:33 CT Head Brain wo Cont Sent. oe 20:36 Type And Screen Sent. cc4 21:27 CT Abd/Pelvis - Without Contrast In Process Unspecified. EDMS 21:28 CT Head Brain wo Cont In Process Unspecified. EDMS Administered Medications: 19:50 Drug: NS 0.9% 1000 ml Route: IV; Rate: 1000 ml; Site: right antecubital; cc4 19:50 Drug: ProTONIX (pantoprazole) 80 mg Route: IVP; Site: right antecubital; cc4 19:52 Drug: ProTONIX (pantoprazole) 8 mg/hr Route: IV; Rate: 25 ml/hr; Site: right cc4 antecubital; 20:05 Drug: Reglan (metoCLOPramide) 20 mg Route: IVP; Site: right antecubital; cc4 20:10 Drug: Octreotide 50 mcg Route: IV; Rate: per protocol; Site: left antecubital; cc4 20:10 Drug: Octreotide Infusion (50 mcg/hr) - (Octreotide 500 mcg, NS 0.9% 500 ml) Route: IV; cc4 Rate: 50 ml/hr; Site: left antecubital; 20:30 Drug: Zofran (Ondansetron) 4 mg Route: IVP; Site: right antecubital; cc4 21:30 Drug: NS 0.9% 1000 ml Route: IV; Rate: 1 bolus; Site: right antecubital; 4 Outcome: 22:49 ER care complete, transfer ordered by . [facility] 01/25 00:26 Patient left the ED. 4 Signatures: Dispatcher [employer] EDVT Jenn Rubio Maribel Joshi RN RN Jameel Bauer Maurice, MD MD [facility] Vanessa Garcia RN RN [facility] Cristal Barfield df1 Corrections: (The following items were deleted from the chart) 01/24 21:08 19:45 BP 86 / 61; Pulse 95bpm; Resp 18bpm; Spontaneous; Pulse Ox 99% RA; cc4 cc4 21:15 19:25 Musculoskeletal: Capillary refill < 3 seconds, Range of motion: intact in all cc4 extremities, Ortho boot intact right foot for reported fracture of 2nd \\T\\ 3rd toes right foot; reports fracturing toes 2 weeks ago; no edema noted. cc4 21:15 19:30 General: #18 g Saline lock intact right AC with no s/sx's of cc4 infection/infiltration.. cc4 21:17 19:25 General: Appears uncomfortable, Behavior is calm, cooperative, cc4 cc4 23:14 22:45 BP 120 / 70; Pulse 93bpm; Resp 17bpm; Spontaneous; Pulse Ox 98% RA; cc4 cc4 23:23 23:00 BP 120 / 70; Pulse 93bpm; Resp 17bpm; Spontaneous; Pulse Ox 98% RA; cc4 cc4
--- NOTE | 2021-01-24 22:51 | EDPHYS ---
Physician Documentation [facility] Name: Mic Gross Age: 65 yrs Sex: Male : 1955 Arrival Date: 01/24/2021 Time: 18:31 Bed 2 Private MD: ED Physician Giancarlo Morales HPI: 01/24 19:28 This 65 yrs old Male presents to ER via Ambulatory with complaints of mh7 Black/Tarry Stools, Vomiting. 19:28 The patient presents to the emergency department vomiting blood, a moderate amount, mh7 dark brown, 5 times since symptom onset, with rectal bleeding, a moderate amount, dark red blood with bowel movement with multiple such episodes. Onset: The symptoms/episode began/occurred this morning, today. Abdominal pain: described as intermittent, vague,\\E\\ waxing and waning, located in the epigastric area and right upper quadrant, that does not radiate. Modifying factors: The symptoms are alleviated by nothing, the symptoms are aggravated by nothing. Associated signs and symptoms: Pertinent negatives: anorexia, chest pain, constipation, diarrhea, dizziness at rest, dizziness when standing, fever, shortness of breath, syncope, near-syncope. Severity of symptoms: At their worst the symptoms were moderate today, in the emergency department the symptoms are unchanged. Historical: - Allergies: 18:37 No Known Allergies; ss - PMHx: 18:37 Hepatitis; C; Hernia; Hypertension; liver cancer; Cirrhosis of liver; ss - Immunization history:: Client reports receiving the 2nd dose of the Covid vaccine. - Social history:: Smoking status: Patient denies any tobacco usage or history of. ROS: 19:28 Constitutional: Negative for fever, chills, and weight loss, Eyes: Negative for injury, mh7 pain, redness, and discharge, ENT: Negative for injury, pain, and discharge, Neck: Negative for injury, pain, and swelling, Cardiovascular: Negative for chest pain, palpitations, and edema, Respiratory: Negative for shortness of breath, cough, wheezing, and pleuritic chest pain, Back: Negative for injury and pain, : Negative for injury, bleeding, discharge, and swelling, MS/Extremity: Negative for injury and deformity, Skin: Negative for injury, rash, and discoloration, Neuro: Negative for headache, weakness, numbness, tingling, and seizure, Psych: Negative for depression, anxiety, suicide ideation, homicidal ideation, and hallucinations, Allergy/Immunology: Negative for hives, rash, and allergies, Endocrine: Negative for neck swelling, polydipsia, polyuria, polyphagia, and marked weight changes. Exam: 19:28 Head/Face: Normocephalic, atraumatic. Eyes: Pupils equal round and reactive to light, mh7 extra-ocular motions intact. Lids and lashes normal. Conjunctiva and sclera are non-icteric and not injected. Cornea within normal limits. Periorbital areas with no swelling, redness, or edema. Neck: Trachea midline, no thyromegaly or masses palpated, and no cervical lymphadenopathy. Supple, full range of motion without nuchal rigidity, or vertebral point tenderness. No Meningismus. Chest/axilla: Normal chest wall appearance and motion. Nontender with no deformity. No lesions are appreciated. 19:28 Respiratory: Lungs have equal breath sounds bilaterally, clear to auscultation and percussion. No rales, rhonchi or wheezes noted. No increased work of breathing, no retractions or nasal flaring. 19:28 Back: No spinal tenderness. No costovertebral tenderness. Full range of motion. Skin: Warm, dry with normal turgor. Normal color with no rashes, no lesions, and no evidence of cellulitis. MS/ Extremity: Pulses equal, no cyanosis. Neurovascular intact. Full, normal range of motion. Neuro: Awake and alert, GCS 15, oriented to person, place, time, and situation. Cranial nerves II-XII grossly intact. Motor strength 5/5 in all extremities. Sensory grossly intact. Cerebellar exam normal. Normal gait. Psych: Awake, alert, with orientation to person, place and time. Behavior, mood, and affect are within normal limits. 19:28 Constitutional: The patient appears in no acute distress, alert, awake, uncomfortable. 19:28 Cardiovascular: Rate: tachycardic, Rhythm: regular, Pulses: no pulse deficits are appreciated, Heart sounds: normal, normal S1and S2, Edema: is not appreciated, JVD: is not appreciated. 19:28 Abdomen/GI: Inspection: scar(s), are noted in the umbilical area and suprapubic area, Bowel sounds: active, all quadrants, Palpation: moderate abdominal tenderness, in the epigastric area and right upper quadrant, mass, is not appreciated, rebound tenderness, is not appreciated, voluntary guarding, is not appreciated, involuntary guarding, is not appreciated, no appreciated organomegaly, Rectal exam: Prostate: normal, rectal tone normal, Stool: guaiac positive, black, hemorrhoid(s), are not appreciated, mass, is not appreciated, swelling, is not appreciated, tenderness, is not appreciated, fecal impaction, is not appreciated, the exam is chaperoned by the nurse, Indicators: McBurney's point is not tender, Damon's sign is negative, Rovsing's sign is negative, Obturator sign is negative, Psoas sign is negative, Liver: is enlarged, Hernia: noted in the umbilical area, incarceration, is not appreciated, tenderness, is not appreciated, bowel sounds are appreciated on auscultation. Vital Signs: 18:35 BP 118 / 66; Pulse 111; Resp 16; Temp 98.3(TE); Pulse Ox 98% on R/A; Weight 70.31 kg; ss Height 5 ft. 6 in. (167.64 cm); Pain 10/10; 19:15 BP 100 / 73; Pulse 101; Resp 20 S; Temp 97.9(O); Pulse Ox 98% on R/A; cc4 19:45 BP 99 / 70; Pulse 97; Resp 20 S; Pulse Ox 100% on R/A; cc4 20:00 BP 86 / 61; Pulse 95; Resp 18 S; Pulse Ox 99% on R/A; cc4 20:15 BP 108 / 59; Pulse 83; Resp 15 S; Pulse Ox 100% on R/A; cc4 20:30 BP 111 / 60; Pulse 84; Resp 16 S; Pulse Ox 100% on R/A; cc4 20:45 BP 98 / 61; Pulse 80; Resp 16 S; Pulse Ox 100% on R/A; cc4 21:00 BP 90 / 59; Pulse 85; Resp 16 S; Pulse Ox 98% on R/A; cc4 21:42 BP 104 / 63; Pulse 92; Resp 18 S; Pulse Ox 97% on R/A; cc4 21:53 BP 104 / 63; Pulse 86; Resp 18; Pulse Ox 98% on R/A; df1 22:00 BP 106 / 68; Pulse 88; Resp 16 S; Pulse Ox 98% on R/A; cc4 22:15 BP 102 / 65; Pulse 90; Resp 18 S; Pulse Ox 98% on R/A; cc4 22:30 BP 101 / 68; Pulse 94; Resp 20 S; Pulse Ox 99% on R/A; cc4 22:45 BP 102 / 72; Pulse 91; Resp 20 S; Pulse Ox 97% on R/A; cc4 23:00 BP 120 / 70; Pulse 93; Resp 17 S; Temp 98.9(O); Pulse Ox 98% on R/A; cc4 23:15 BP 102 / 66; Pulse 85; Resp 18 S; Pulse Ox 98% on R/A; cc4 23:30 BP 112 / 69; Pulse 89; Resp 18 S; Pulse Ox 97% on R/A; cc4 23:45 BP 118 / 68; Pulse 88; Resp 16 S; Pulse Ox 98% on R/A; cc4 01/25 00:00 BP 118 / 64; Pulse 88; Resp 18 S; Pulse Ox 98% on R/A; cc4 00:15 BP 111 / 86; Pulse 88; Resp 20 S; Pulse Ox 98% on R/A; cc4 01/24 18:35 Body Mass Index 25.02 (70.31 kg, 167.64 cm) ss Procedures: 01/24 22:37 Central Line: the site was prepped with Betadine, in sterile fashion, a triple lumen mh7 catheter was inserted, in the right femoral vein, in 1 attempts. placement was verified, by blood return, the site was dressed with Tegaderm, using sterile technique, the patient tolerated the procedure, well. MDM: 22:40 Differential diagnosis: gastritis, diverticulitis, hemorrhagic shock, varices, Upper GI mh7 bleed, lower GI bleed. Data reviewed: vital signs, nurses notes, old medical records, lab test result(s), cardiac enzymes, CBC, electrolytes, Rh: EKG, radiologic studies, CT scan, plain films. Data interpreted: Pulse oximetry: on room air is 98 %. Interpretation: normal. Counseling: I had a detailed discussion with the patient and/or guardian regarding: the historical points, exam findings, and any diagnostic results supporting the discharge/admit diagnosis, lab results, radiology results, the need to transfer to another facility, [facility] does not immediately have the required specialist. Response to treatment: the patient's symptoms have markedly improved after treatment. 22:49 Patient medically screened. [facility] 01/24 18:40 Order name: Basic Metabolic Panel; Complete Time: 20:01 01/24 18:40 Order name: CBC with Diff; Complete Time: 19:27 01/24 18:40 Order name: Hepatic Function; Complete Time: 20:01 01/24 18:40 Order name: Lipase; Complete Time: 20: 01/24 18:40 Order name: Type And Screen; Complete Time: 22:04 01/24 18:50 Order name: SARS-COV-2 RT PCR (Document "Date of Onset" if Symptomatic); Complete Time: em1 20:01/24 19:26 Order name: Troponin (emerg Dept Use Only); Complete Time: 20:13 [facility] 01/24 19:26 Order name: ETOH Level; Complete Time: 20:13 [facility] 01/24 19:26 Order name: Chest Single View XRAY; Complete Time: 21:55 [facility] 01/24 19:26 Order name: Protime (+inr); Complete Time: 20:13 [facility] 01/24 19:26 Order name: Ptt, Activated; Complete Time: 20:13 [facility] 01/24 19:28 Order name: CT Head Brain wo Cont; Complete Time: 21:43 [facility] 01/24 19:28 Order name: CT Abd/Pelvis - Without Contrast; Complete Time: 21:53 [facility] 01/25 00:14 Order name: Urine Dipstick-Ancillary [facility] 01/24 18:40 Order name: IV Saline Lock; Complete Time: 20:36 01/24 18:40 Order name: Labs collected and sent; Complete Time: 20:36 01/24 19:26 Order name: EKG; Complete Time: 19:26 [facility] 01/24 19:26 Order name: EKG - Nurse/Tech; Complete Time: 20:36 [facility] 01/24 19:26 Order name: Urine Dipstick-Ancillary (obtain specimen) [facility] Administered Medications: 19:50 Drug: NS 0.9% 1000 ml Route: IV; Rate: 1000 ml; Site: right antecubital; cc4 19:50 Drug: ProTONIX (pantoprazole) 80 mg Route: IVP; Site: right antecubital; cc4 19:52 Drug: ProTONIX (pantoprazole) 8 mg/hr Route: IV; Rate: 25 ml/hr; Site: right cc4 antecubital; 20:05 Drug: Reglan (metoCLOPramide) 20 mg Route: IVP; Site: right antecubital; cc4 20:10 Drug: Octreotide 50 mcg Route: IV; Rate: per protocol; Site: left antecubital; cc4 20:10 Drug: Octreotide Infusion (50 mcg/hr) - (Octreotide 500 mcg, NS 0.9% 500 ml) Route: IV; cc4 Rate: 50 ml/hr; Site: left antecubital; 20:30 Drug: Zofran (Ondansetron) 4 mg Route: IVP; Site: right antecubital; cc4 21:30 Drug: NS 0.9% 1000 ml Route: IV; Rate: 1 bolus; Site: right antecubital; cc4 Disposition Summary: 01/24/21 22:49 Transfer Ordered Reason: Higher level of care [facility] Condition: Stable 7 Problem: new [facility] Symptoms: have improved mh7 Transfer Location: [facility](01/24/21 23:06) [facility] Accepting Physician: Dr. Mahmood(01/25/21 00:26) cc4 Diagnosis - GI Bleed/ Gastrointestinal hemorrhage, unspecified - Upper [facility] Forms: - Medication Reconciliation Form [facility] - SBAR form [facility] Signatures: Dispatcher [employer] Maribel Roland RN RN Giancarlo Morales MD MD 7 Vanessa Garcia RN RN cc4 Corrections: (The following items were deleted from the chart) 23: 22:49 Dr. LORENZO Monica [facility] 23:06 22:49 Other Acute Care Facility [place] [id number] 01/25 00:26 01/24 23:06 Dr. Mahmood [facility] cc4
[2021-01-25 00:14] LABS: Urine Blood Negative (Negative); Urine Glucose Negative (Negative); Urine Protein Negative (Negative); Urine Specific Gravity 1.025 (1.005-1.030); Urine pH 5.5 (5.0-7.0)
[2021-01-25] MEDS ORDERED: NA CHLORIDE 0.9% 1,000 ML ONE (00:18)
[2021-01-25 00:50] VITALS: TEMP 98.9
[2021-01-25 00:53] VITALS: O2SAT 98
[2021-01-25 00:56] VITALS: BP 111/86
== END 2021-01-25 00:26 | disposition short-term general hospital (02) ==
LOC: ER 18:27
PROC: 06HM33Z Insertion of Infusion Device into Right Femoral Vein, Percutaneous Approach (ICD-10-PCS; principal; 2021-01-24)
DX: K92.2 Gastrointestinal hemorrhage, unspecified (principal); C22.9 Malignant neoplasm of liver, not specified as primary or secondary; Z20.822 Contact with and (suspected) exposure to COVID-19
CPT/HCPCS: 36415; 70450; 71045; 74176; 80048; 80076; 80320; 81003; 83690; 84484; 85025; 85610; 85730; 86850; 86900; 86901; 93005; 99284; C9113; J2354; J2405; J2765; J7030; J7040; J7050; U0003

== ENCOUNTER 2021-02-25 09:07 | Inpatient (IN) | payer SELFPAY ==
--- OUTSIDE RECORDS SUMMARY | 2021-02-25 09:09 | XMS REPORT | Continuity of Care Document ---
:1955 Author Organization [facility] t Address [address] [place] [address] Care Team Providers Name Role Phone PCP, DOES NOT HAVE A Primary Care Physician [facility]available [facility] Attending Clinician Unavailable Malou GUZMAN Attending Clinician Unavailable Malou Piedra Attending Clinician MYRA Attending Clinician Unavailable Myra FRANKLIN Attending Clinician Alec GUILLAUME E Attending Clinician Akira Attending Clinician David AREVALO Attending Clinician DAVID Attending Clinician Unavailable Miguel AREVALO Attending Clinician RO Attending Clinician Unavailable Malou GUZMAN Admitting Clinician Unavailable MYRA Admitting Clinician Unavailable David AREVALO Admitting Clinician DAVID Admitting Clinician Unavailable RO Admitting Clinician Unavailable Payers Payer Name Policy Type Policy Number Effective Date Expiration Date S ource Problems Condition Condition Condition Status Onset Resolution Last Treating Co mments Source Name Details Category Date Date Treatment Clinician Date Nausea and Nausea and Disease Active 0 U nivers vomiting vomiting 2-10 ity of 00:00: [address] Gangrene Gangrene Disease Active 0 Unive rs of finger of finger 5-07 ity of 00:00: [place] 00 [facility] Osteomyeli Osteomyeli Disease Active U nivers tis tis 07-05 ity of 00:00: [place] [facility] Adrenal Adrenal Disease Active Univers insufficie insufficie 07-05 it y of ncy ncy 00:00: [place] [facility] Chronic Chronic Disease Active Univers rheumatic rheumatic 07-05 [place] [facility] [place] 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 07-03 ity of 00:00: [place] [facility] Arteritis Arteritis Disease Active Uni vers 07-03 ity of 00:00: [place] 00 [facility] Allergies, Adverse Reactions, Alerts Allergy Allergy Status Severity Reaction(s) Onset Inactive Treating Comm ents Source Name Type Date Date Clinician NO KNOWN Drug Active [facility] ALLERGIE Class ity of S [facility] Social History Social Habit Start Date Stop Date Quantity Comments Source Exposure to Not sure [facility] SARS-CoV-2 (event) Medica l Branch Alcohol intake 2021-01-20 2021-01-20 0 /d [facility] 00:00:00 00:00:00 Medical Branch Sex Ass[birth year] [facility] 00:00:00 00:00:00 Medical Branch Smoking Status Start Date Stop Date Source Smoker, current status 2015-07-05 00:00:00 [facility] Medical unknown Branch Medications Ordered Filled Start Stop Current [...] Take 1 Uni vers mg tablet 03-22 tablet by ity of 00:00: 05:59 mouth [...] Indication s: acute pain methocarbam 0 Yes [id number] 750mg Take 1 Univers oL 750 mg 8-09 tablet by ity o f tablet 00:00: mouth 4 [place] 00 (four) Medical times Branch daily as needed for Pain (scale 7-10). methocarbam Yes [id number] 750mg Take 1 Univers oL 750 mg 8-09 tablet by ity o f tablet 00:00: mouth 4 [place] 00 (four) Medical times Branch daily as needed for Pain (scale 7-10). lactulose 0 Yes [id number] 15mL Take 15 mL Univers 10 gram/15 2-12 by mouth 3 ity of mL solution 00:00: (three) [place] as 00 times Medical daily. Branch lactulose 0 Yes [id number] 15mL Take 15 mL Univers 10 gram/15 2-12 by mouth 3 ity of mL solution 00:00: (three) [place] as 00 times Medical daily. Branch docusate Yes [id number] 250mg Take 1 Univers sodium 250 9-10 [id number] capsule by i ty of mg capsule 00:00: mouth [place] 00 daily. Medical Branch ondansetron Yes [id number] 4mg Take 1 Univers 4 mg 9-10 [id number] tablet by ity of disintegrat 00:00: mouth [place] ing tablet 00 every 4 Medica l (four) Branch hours as needed for Nausea and Vomiting (N/V). docusate Yes [id number] 250mg Take 1 Univers sodium 250 9-10 [id number] capsule by i ty of mg capsule 00:00: mouth [place] 00 daily. Medical Branch ondansetron Yes [id number] 4mg Take 1 Univers 4 mg 9-10 [id number] tablet by ity of disintegrat 00:00: mouth [place] ing tablet 00 every 4 Medica l (four) Branch hours as needed for Nausea and Vomiting (N/V). amLODIPine Yes 10mg Take 1 Unive rs (NORVASC) 5-10 tablet by ity o f 10 mg 00:00: mouth [place] tablet 00 daily. Medical Branch lisinopril 2015- Yes 20mg Take 2 Unive rs (PRINIVIL,Z [...] Source Systolic blood 2021-01-20 16:46:00 155 mm[facility]Hg[facility] Di[facility] blood 2021-01-20 16:46:00 84 mm[Hg] [facility] Heart rate 2021-01-20 16:46:00 83 /min [facility] Body temperature 2021-01-20 16:46:00 36.72 [facility] Respiratory rate 2021-01-20 16:46:00 18 /min [facility] Body weight 2021-01-20 16:46:00 75.751 kg [facility] BMI 2021-01-20 16:46:00 26.95 kg/m2 [facility] Oxygen saturation in 2021-01-20 16:46:00 99 /min [facility] Arterial blood by [facility] Pulse oximetry Branch Procedures Procedure Date / Time Performing Clinician Source Performed ED SPLINT APPLICATION 2021-01-20 19:05:[address] [facility] XR FOOT 3+ VW RIGHT 2021-01-20 17:12:47 Fabio Guzman [facility] CONSENT/REFUSAL FOR 2021-01-20 16:52:15 Doctor Unassigned, No Un [facility] DIAGNOSIS AND TREATMENT Name Medical Branch Encounters Start End Encounter Admission Attending Care Care Encounter Source Date/Time Date/Time Type Type Clinicians Facility Department ID 2021-01-24 [facility] [id number] 22:30:05 [facility] 2021-01-22 2021-01-22 Letter Orthopedic [facility] [id number] Univers 00:00:00 00:00:00 (Out) Clinic SPECIALTY [id number] ity of CARE [id number] Mirza martinez CENTER AT [phone] [address] 2021-01-20 2021-01-20 Emergency X MEGAN FAIBO [facility] ERT [id number] Univers 10:47:00 13:43:00 ity of [facility] 2021-01-20 2021-01-20 Emergency MeganFabio clark TRAUMA [id number] Univers 10:47:00 13:43:00 T CENTER [id number] it y of [id number] Mirza s [id number] [address] 2020-10-07 2020-10-07 Emergency X RENTERIA, [facility] ERT [id number] Univers 10:18:00 11:49:00 MANPREET ity [facility] 2020-10-07 2020-10-07 Emergency [facility] [id number] 10:18:00 11:49:00 Manpreet Torres [id number] [place] [id number] [place] [id number] 2019-06-11 2019-06-11 Patient Jenn Michael [id number] 00:00:00 00:00:00 Outreach E [place] [id number] [place] [id number] [id number] 2019-04-27 2019-04-27 Patient Jenn Michael [id number] 00:00:00 00:00:00 Outreach E [place] [id number] [place] [id number] [id number] 2019-04-13 2019-04-13 Transition Shaila Champion [id number] 00:00:00 00:00:00 of Care Kandice [place] [id number] [place] [id number] [id number] 2019-04-10 2019-04-12 [facility] Fabio Guzman [id number] 10:55:39 18:18:00 Encounter Fabio Guzman [id number] [facility] [id number] [id number] 2019-04-10 2019-04-12 Inpatient X [facility] [id number] Univers 10:55:39 18:18:00 [facility] 2018-11-08 2018-11-08 Emergency [facility] [id number] 14:26:03 17:32:00 Narciso Torres [id number] [place] [id number] [place] [id number] Results Test Description Test Time Test Comments Results Result Comments Source Troponin T 2016-05-15 20:46:00 Test Item Value Reference Range Interpretation Comme nts Troponin T (test code = GERARD) <0.010 ng/mL 0.000-0.090 N Basic Metabolic [id number] 20:46:00 Test Item Value Reference Range Interpretation [...] National Kidney Foundation,http :[email or web address] ep.nih.gov CBC with [id number] 20:25:00 Test Item Value Reference Range Interpretation [...] code = ALYMPH) 1.7 K/cumm 0.5-4.6 N [place] Abs (test code = AMONO) 1.2 K/cumm 0.0-1.2 N Eos Abs (test code = AEOS) 0.10 K/cumm 0.00-0.74 N Baso Abs (test code = ABASO) 0.1 K/cumm 0.00-0.21 N
[2021-02-25] MEDS ORDERED: ONDANSETRON 4 MG/2 ML VIAL ONE (12:08)
[2021-02-25] MEDS ORDERED: MORPHINE 4 MG/ML SYR ONE ×2 (12:08→15:45)
[2021-02-25 12:30] LABS: Absolute Lymphocytes (CBC) 4.2 K/uL (0.7-4.9); Hematocrit 27.7 % (39.6-49.0); Lymphocytes % 49.7 % (15.3-44.8); MPV 9.1 fL (7.6-11.3); RBC Red Blood Cell Count 3.34 M/uL (4.33-5.43)
[2021-02-25 12:44] LABS: ALT/SGPT 53 U/L (12-78); AST/SGOT 70 U/L (15-37); Albumin 2.7 g/dL (3.4-5.0); Alkaline Phosphatase 285 U/L (45-117); BUN Blood Urea Nitrogen 13 mg/dL (7-18); Bicarbonate 25 mmol/L (21-32); Bilirubin Direct 0.3 mg/dL (0-0.2); Bilirubin Total 0.7 mg/dL (0.2-1.0); Glucose Level 89 mg/dL (74-106); Lipase 148 U/L (73-393); Protein, Total 8.8 g/dL (6.4-8.2); Sodium Level 141 mmol/L (136-145)
[2021-02-25 13:16] LABS: Blood Morphology Comment NOT SEEN (NOT SEEN); Platelet Estimate ADEQ
--- NOTE | 2021-02-25 13:42 | RAD REPORT ---
EXAM DESCRIPTION: CT - Abdomen Pelvis W Contrast - 02/25/2021 1:06 pm CLINICAL HISTORY: ABD PAIN History of esophageal varices with esophageal and placement 3 weeks earlier, history of hepatitis C a nd prior splenectomy COMPARISON: Abdomen Pelvis W Contrast dated 09/03/2020; Abdomen Pelvis Wo Contrast dated 1; Chest Abdomen Pelvis W Cont dated 12/02/2020; Abdomen Pelvis W Contrast dated 07/11/2018 TECHNIQUE: Biphasic, helical CT imaging of the abdomen and pelvis was performed following 100 ml non -ionic IV contrast. No oral contrast was administered. All CT scans are performed using dose optimization technique as appropriate and may include automated exposure control or mA/KV adjustment according to patient size. FINDINGS: No suspicious findings in the lung bases. Liver shows prominent nodular capsule contour and prominent left lobe relative to the right. These ar e classic cirrhosis liver findings. No portal vein thrombosis seen. In the upper central liver segmen ts IV/VIII there is an approximately 5 centimeter AP x 3.5 centimeter TR focus of mixed cystic and en hancing tissue. Scattered throughout both lobes of are focal rounded and confluent areas of enhancing hepatic parenchyma on arterial phase imaging. On venous phase imaging the upper central mass complex shows persistence of the cystic area. The areas of scattered enhancement in the liver parenchyma the , isodense. In the lateral subcapsular segment there is a 3.5 centimeter area of heterogeneous low -level enhancement on arterial phase imaging that persists as an area of comparatively diminished att enuation on venous phase imaging. The upper central mass complex has been present on prior studies. Inferolateral right lobe lesion was not clearly seen on prior imaging. The rounded and confluent areas of right left lobe enhancement ar e more prominent than on prior imaging. Gallbladder is distended and the kaye appear mildly edematous. This may well be secondary response t o the underlying hepatic parenchymal disease. Gallstones can be occult. No biliary tree dilatation. N o pancreatic or peripancreatic acute finding. Splenectomy changes are evident. A 4 centimeter rounded focus of tissue medial aspect of the posterior left upper quadrant has not changed from the most rec ent imaging but shows slow growth over serial imaging. Symmetric renal function is seen with no hydronephrosis or suspicious renal mass. No pyelonephritis o r acute parenchymal process. No bladder abnormalities. No adrenal abnormalities. No gastric dilatation. Absence of gastric lumen content accentuates wall thickness. A discrete gastri c wall mass is not identified. Kaye are mildly prominent at the antrum. Antritis is possible. Simila rly the duodenal bulb is mildly prominent and could reflect duodenitis. Mid and distal portions of th e duodenum not outside of normal range. Prominent but nondilated small bowel loops are present. No di lated colon or focal colon mass lesions seen. A primary colon process is not identified. No appendici tis findings. Ventral hernia in the midline upper abdomen is present. The anti mesenteric margin of t he mid transverse colon extends through the hernia defect. No wall thickening or edema. There is mini mal congestion of the herniated fat. Additional smaller fat only hernias are present inferior to the bowel containing hernia. No free air, free fluid or inflammatory stranding. No mass or bulky lymphadenopathy. No suspicious bony findings. IMPRESSION: No bowel obstruction, free air or surgically emergent finding identifiable. Distended gallbladder with mild wall thickening or edema suspected. Acute gallbladder disease and chr onic changes from liver cirrhosis can both present in this manner. No biliary dilatation. Patient has a midline upper abdominal hernia containing the anti mesenteric portion of the mid transv erse colon. The colon kaye not thickened or edematous. Minimal stranding in the herniated fat seen. This is a potential source for pain and can be correlated with clinical presentation. Kaye of the gastric antrum and duodenal bulb are prominent. Antritis/duodenitis would be possible an d needs correlation as well. The cirrhotic liver shows multiple lesions of variable enhancing characteristics. Much of this may be variability due to variable degrees of fibrosis or regenerating tissue. One or more foci of hepatoce llular carcinoma cannot be excluded. If future intervention would be contemplated, follow-up outpatie nt MRI liver protocol could be performed for further characterization. Left adrenal lesion has shown progression over time. Degenerative splenic tissue is possible. A neopl astic adrenal or metastatic lesion also possible.
--- NOTE | 2021-02-25 17:36 | RAD REPORT ---
EXAM DESCRIPTION: US - Abdomen Exam Limited - 02/25/2021 5:28 pm CLINICAL HISTORY: ABD PAIN COMPARISON: Abdomen Pelvis W Contrast dated 02/25/2021 FINDINGS: Small amount of sludge is present layering in the dependent portion the gallbladder. No ga llstones confirmed. Gallbladder is distended but not dilated. Minimal gallbladder wall thickening is present. This can be seen with acute cholecystitis; however, wall thickening is also very common in t he setting of hepatic cirrhosis. No pericholecystic fluid. No common duct stone or biliary tree dilatation identified. IMPRESSION: Minimal amount of sludge is present with no gallstones seen. Gallbladder wall is mildly thickened. This can be an indication of acute cholecystitis; however, wall thickening is also very common in the setting of cirrhosis. No biliary tree abnormality.
--- NOTE | 2021-02-25 20:47 | ER ---
Nurse's Notes [facility] Name: Mic Gross Age: 65 yrs Sex: Male : 1955 Arrival Date: 02/25/2021 Time: 09:55 Bed 8 Private MD: Diagnosis: Upper abdominal pain, unspecified Presentation: 02/25 10:07 Chief complaint: Patient states: severe pain in abdomen. Had surgery on esophagus ll1 01/25/21 due to bleeding. Pt now having nausea and pain. Coronavirus screen: Vaccine status: Patient reports receiving the 2nd dose of the covid vaccine. Client denies travel out of the [place] in the last 14 days. Ebola Screen: Patient negative for fever greater than or equal to 101.5 degrees Fahrenheit, and additional compatible Ebola Virus Disease symptoms Patient denies exposure to infectious person. Patient denies travel to an Ebola-affected area in the 21 days before illness onset. Initial Sepsis Screen: Does the patient meet any 2 criteria? No. Patient's initial sepsis screen is negative. Does the patient have a suspected source of infection? No. Patient's initial sepsis screen is negative. Risk Assessment: Do you want to hurt yourself or someone else? Patient reports no desire to harm self or others. Onset of symptoms was February 25, 2021. 10:07 Method Of Arrival: Ambulatory ll1 10:07 Acuity: RADHA 3 ll1 Triage Assessment: 10:10 General: Appears uncomfortable, slender, Behavior is calm, cooperative, appropriate for ll1 age. Pain: Complains of pain in abdomen. GI: Reports lower abdominal pain, upper abdominal pain, nausea. Historical: - PMHx: 10:10 cirrhosis of liver; Hepatitis; C; Hernia; Hypertension; liver cancer; ll1 - Immunization history:: Adult Immunizations up to date. - Social history:: Smoking status: Patient denies any tobacco usage or history of. Screenin:11 Abuse screen: Denies threats or abuse. Denies injuries from another. Nutritional ll1 screening: No deficits noted. Tuberculosis screening: No symptoms or risk factors identified. Fall Risk None identified. Assessment: 11:15 Reassessment: SEE TRIAGE NOTE. bp 13:30 Reassessment: No changes from previously documented assessment. Patient and/or family bp updated on plan of care and expected duration. Pain level reassessed. Patient is alert, oriented x 3, equal unlabored respirations, skin warm/dry/pink. 15:30 Reassessment: No changes from previously documented assessment. Patient and/or family bp updated on plan of care and expected duration. Pain level reassessed. PT SLEEPING. TBA, PER MD. 16:30 Reassessment: No changes from previously documented assessment. Patient and/or family bp updated on plan of care and expected duration. Pain level reassessed. U/S RESULTS PENDING FOR DISPO. 18:30 Reassessment: No changes from previously documented assessment. Patient and/or family bp updated on plan of care and expected duration. Pain level reassessed. U/S COMPLETED. DISPO PENDING. 20:01 General: Appears in no apparent distress. Pain: Complains of pain in abdomen. as6 Vital Signs: 10:07 BP 151 / 104; Pulse 70; Resp 18; Temp 98.6; Pulse Ox 100% ; Weight 70.31 kg; Height 5 ll1 ft. 6 in. (167.64 cm); Pain 10/10; 12:30 BP 156 / 83; Pulse 67; Resp 17; Pulse Ox 98% ; bp 13:30 BP 159 / 85; Pulse 71; Resp 16; Pulse Ox 97% ; bp 14:30 BP 121 / 70; Pulse 67; Resp 15; Pulse Ox 98% ; bp 15:30 BP 157 / 86; Pulse 64; Resp 16; Pulse Ox 98% ; bp 16:30 BP 156 / 82; Pulse 61; Resp 17; Pulse Ox 97% ; bp 17:30 BP 140 / 90; Pulse 66; Resp 17; Pulse Ox 96% ; bp 18:30 BP 161 / 83; Pulse 80; Resp 16; Pulse Ox 98% ; bp 20:01 BP 145 / 86; Pulse 79; Resp 18; Pulse Ox 98% on R/A; as6 10:07 Body Mass Index 25.02 (70.31 kg, 167.64 cm) ll1 ED Course: 09:55 Patient arrived in ED. mr 10:10 Triage completed. ll1 10:11 Arm band placed on left wrist. ll1 11:06 Patient placed in an exam room, on a stretcher. ll1 11:13 Familia Merchant NP is PHCP. pm1 11:13 Fabio Mock MD is Attending Physician. pm1 11:59 Raman Henderson, RN is Primary Nurse. bp 12:15 Inserted saline lock: 20 gauge in right antecubital area, using aseptic technique. bp Blood collected. 13:06 CT Abd/Pelvis - IV Contrast Only In Process Unspecified. EDMS 17:28 US Abdomen Limited: RUQ ONLY In Process Unspecified. EDMS 20:45 Yaya Garvin PA is Hospitalizing Provider. pm1 02/26 00:26 Bed in low position. Call light in reach. Side rails up X2. as6 00:27 No provider procedures requiring assistance completed. Patient admitted, IV remains in as6 place. Administered Medications: 02/25 12:15 Drug: morphine 4 mg Route: IVP; Site: right antecubital; bp 12:43 Follow up: Response: Pain is decreased bp 12:15 Drug: Zofran (Ondansetron) 4 mg Route: IVP; Site: right antecubital; bp 12:43 Follow up: Response: No adverse reaction bp 16:00 Drug: morphine 4 mg Route: IVP; Site: left hand; bp 18:40 Follow up: Response: No adverse reaction; Pain is decreased bp 21:29 Drug: Zosyn (piperacillin-tazobactam) 3.375 grams Route: IVPB; Infused Over: 60 mins; as6 Site: right antecubital; 02/26 00:24 Follow up: Response: No adverse reaction; IV Status: Completed infusion; IV Intake: as6 100ml 02/25 21:29 Drug: NS 0.9% 1000 ml Route: IV; Rate: 100 ml/hr; Site: right antecubital; as6 02/26 00:25 Follow up: Response: No adverse reaction; IV Status: Infusion continued upon admission as6 Intake: 00:24 IV: 100ml; Total: 100ml. as6 Outcome: 02/25 20:46 Decision to Hospitalize by Provider. pm1 02/26 00:29 Admitted to Med/surg accompanied by tech, via wheelchair, room 211, with chart, Report as6 called to RN Condition: stable 00:30 Patient left the ED. as6 Signatures: Dispatcher [employer] EDPA Jenn Rubio DebraFamilia keller, KILN TRANSFER OPERATOR KILN TRANSFER OPERATOR pm1 Raman Henderson, MARKELL RN Erwin Ledesma RN RN ll1 Sheng Alejo, RN RN as6
--- NOTE | 2021-02-25 20:47 | EDPHYS ---
Physician Documentation [facility] Name: Mic Gross Age: 65 yrs Sex: Male : 1955 Arrival Date: 02/25/2021 Time: 09:55 Bed 8 Private MD: ED Physician Fabio Mock HPI: 02/25 12:18 This 65 yrs old Male presents to ER via Ambulatory with complaints of pm1 Abdominal Pain. 12:18 The patient presents with abdominal pain in the right upper quadrant. Onset: The pm1 symptoms/episode began/occurred 1-2 weeks ago. The symptoms do not radiate. 12:18 Associated signs and symptoms: Pertinent positives: nausea, Pertinent negatives: pm1 diarrhea, fever, vomiting. The symptoms are described as vague. Modifying factors: the symptoms are aggravated by food. Severity of pain: in the emergency department the pain is actually worse. The patient has not recently seen a physician. Historical: - PMHx: 10:10 cirrhosis of liver; Hepatitis; C; Hernia; Hypertension; liver cancer; ll1 - Immunization history:: Adult Immunizations up to date. - Social history:: Smoking status: Patient denies any tobacco usage or history of. ROS: 12:18 Constitutional: Negative for fever, chills, and weight loss, Cardiovascular: Negative pm1 for chest pain, palpitations, and edema, Respiratory: Negative for shortness of breath, cough, wheezing, and pleuritic chest pain. 12:18 Back: Negative for injury and pain, MS/Extremity: Negative for injury and deformity, Skin: Negative for injury, rash, and discoloration, Neuro: Negative for headache, weakness, numbness, tingling, and seizure. 12:18 Abdomen/GI: Positive for abdominal pain, nausea, Negative for vomiting, diarrhea, constipation. 12:18 All other systems are negative. Exam: 12:18 Constitutional: This is a well developed, well nourished patient who is awake, alert, pm1 and in no acute distress. Head/Face: Normocephalic, atraumatic. Cardiovascular: Regular rate and rhythm with a normal S1 and S2. No gallops, murmurs, or rubs. Normal PMI, no JVD. No pulse deficits. Respiratory: Lungs have equal breath sounds bilaterally, clear to auscultation and percussion. No rales, rhonchi or wheezes noted. No increased work of breathing, no retractions or nasal flaring. 12:18 Back: No spinal tenderness. No costovertebral tenderness. Full range of motion. Skin: Warm, dry with normal turgor. Normal color with no rashes, no lesions, and no evidence of cellulitis. MS/ Extremity: Pulses equal, no cyanosis. Neurovascular intact. Full, normal range of motion. 12:18 Abdomen/GI: Inspection: abdomen appears normal, Palpation: soft, in all quadrants, mild abdominal tenderness, in the right upper quadrant, Hernia: noted in the paraumbilical area, incarceration, is not appreciated. 12:18 Neuro: Exam negative for acute changes, Orientation: is normal, Mentation: is normal, Motor: is normal, moves all fours. Vital Signs: 10:07 BP 151 / 104; Pulse 70; Resp 18; Temp 98.6; Pulse Ox 100% ; Weight 70.31 kg; Height 5 ll1 ft. 6 in. (167.64 cm); Pain 10/10; 12:30 BP 156 / 83; Pulse 67; Resp 17; Pulse Ox 98% ; bp 13:30 BP 159 / 85; Pulse 71; Resp 16; Pulse Ox 97% ; bp 14:30 BP 121 / 70; Pulse 67; Resp 15; Pulse Ox 98% ; bp 15:30 BP 157 / 86; Pulse 64; Resp 16; Pulse Ox 98% ; bp 16:30 BP 156 / 82; Pulse 61; Resp 17; Pulse Ox 97% ; bp 17:30 BP 140 / 90; Pulse 66; Resp 17; Pulse Ox 96% ; bp 18:30 BP 161 / 83; Pulse 80; Resp 16; Pulse Ox 98% ; bp 20:01 BP 145 / 86; Pulse 79; Resp 18; Pulse Ox 98% on R/A; as6 10:07 Body Mass Index 25.02 (70.31 kg, 167.64 cm) ll1 MDM: 11:31 Patient medically screened. pm1 20:28 Physician consultation: Tomasz Nuno MD regarding consult, patient's condition, and pm1 will see patient tomorrow, would like medications started, Zosyn, NPO, IV fluids. 20:36 Data reviewed: vital signs. Data interpreted: Pulse oximetry: on room air is 98 %. pm1 Interpretation: normal. Counseling: I had a detailed discussion with the patient and/or guardian regarding: the historical points, exam findings, and any diagnostic results supporting the discharge/admit diagnosis, lab results, radiology results, the need for further work-up and treatment in the hospital. 20:36 Physician consultation: Yaya LAUREN regarding admission, patient's condition, and pm1 will see patient in ED, shortly. 02/25 11:43 Order name: Basic Metabolic Panel; Complete Time: 12:52 pm1 02/25 11:43 Order name: CBC with Diff; Complete Time: 13:50 pm1 02/25 11:43 Order name: Hepatic Function; Complete Time: 12:52 pm1 02/25 11:43 Order name: Lipase; Complete Time: 12:52 pm1 02/25 12:37 Order name: Manual Differential; Complete Time: 13:50 EDMS 02/25 21:18 Order name: COVID-19 SARS RT PCR (Document "Date of Onset" if Symptomatic) as6 02/25 12:21 Order name: CT Abd/Pelvis - IV Contrast Only; Complete Time: 13:50 pm1 02/25 15:51 Order name: US Abdomen Limited: RUQ ONLY; Complete Time: 19:07 bp 02/25 22:14 Order name: SARS-COV-2 RT PCR EDMS 02/25 11:43 Order name: IV Saline Lock; Complete Time: 12:18 pm1 02/25 11:43 Order name: Labs collected and sent; Complete Time: 12:18 pm1 02/25 20:58 Order name: CONS Physician Consult EDMS Administered Medications: 12:15 Drug: morphine 4 mg Route: IVP; Site: right antecubital; bp 12:43 Follow up: Response: Pain is decreased bp 12:15 Drug: Zofran (Ondansetron) 4 mg Route: IVP; Site: right antecubital; bp 12:43 Follow up: Response: No adverse reaction bp 16:00 Drug: morphine 4 mg Route: IVP; Site: left hand; bp 18:40 Follow up: Response: No adverse reaction; Pain is decreased bp 21:29 Drug: Zosyn (piperacillin-tazobactam) 3.375 grams Route: IVPB; Infused Over: 60 mins; as6 Site: right antecubital; 02/26 00:24 Follow up: Response: No adverse reaction; IV Status: Completed infusion; IV Intake: as6 100ml 02/25 21:29 Drug: NS 0.9% 1000 ml Route: IV; Rate: 100 ml/hr; Site: right antecubital; as6 02/26 00:25 Follow up: Response: No adverse reaction; IV Status: Infusion continued upon admission as6 Disposition: 07:25 Co-signature as Attending Physician, Fabio Mock MD I agree with the assessment and kdr plan of care. Disposition Summary: 02/25/21 20:46 Hospitalization Ordered Hospitalization Status: Observation pm1 Provider: Yaya Garvin pm1 Location: Telemetry/MedSurg (observation) pm1 Condition: Stable pm1 Problem: new pm1 Symptoms: have improved pm1 Bed/Room Type: Standard pm1 Room Assignment: 211(02/26/21 00:06) cg Diagnosis - Upper abdominal pain, unspecified pm1 Forms: - Medication Reconciliation Form pm1 - SBAR form pm1 Signatures: Dispatcher [employer] EDMS Fabio Mock MD MD kdr Josselyn Tejeda, RN RN cg Familia Merchant NP BRAKES INSPECTOR pm1 Raman Henderson RN RN bp Erwin Draper RN RN ll1 Sheng Alejo RN RN as6 Corrections: (The following items were deleted from the chart) 02/25 23:04 20:46 pm1 cg 02/26 00:06 02/25 23:04 222 cg cg
[2021-02-25] MEDS ORDERED: PIPERACIL/TAZO 3.375 GM VIAL IV ONE (21:02)
[2021-02-25] MEDS ORDERED: NA CHLORIDE 0.9% 1,000 ML ONE (21:02)
[2021-02-25] MEDS ORDERED: NA CHLORIDE 0.9% 100 ML ONE (21:02)
--- NOTE | 2021-02-25 21:28 | P.HP ---
Certification for Inpatient Patient admitted to: Inpatient With expected LOS: <2 Midnights Patient will require the following post-hospital care: None Practitioner: I am a practitioner with admitting privileges, knowledge of patient current condition, hospital course, and medical plan of care. Services: Services provided to patient in accordance with Admission requirements found in Title 42 Section 412.3 of the Code of Federal Regulations Patient History Date of Service: 02/25/21 Reason for admission: RUQ pain History of Present Illness: Mr. Gross is a 65 yo M with liver cirrhosis, HTN who presents with two weeks of constant RUQ and epigastric pain. He also reports nausea. Denies vomiting, hematemesis, melena, hematochezia. He says the pain is worse after eating, and he also has pain at his hernia site. He had esophageal varices banded last month at [facility] [place] [place] after episodes of hematemesis and melena. He says since the procedure he has been lightheaded, dizzy, and has had headaches. H/H 8.4 Dbili 0.3 AST 70 alk phos 258. Abdominal US IMPRESSION: Minimal amount of sludge is present with no gallstones seen. Gallbladder wall is mildly thickened. This can be an indication of acute cholecystitis; however, wall thickening is also very common in the setting of cirrhosis. No biliary tree abnormality. Abdominal CT IMPRESSION: No bowel obstruction, free air or surgically emergent finding identifiable. Distended gallbladder with mild wall thickening or edema suspected. Acute gallbladder disease and chronic changes from liver cirrhosis can both present in this manner. No biliary dilatation. Patient has a midline upper abdominal hernia containing the anti mesenteric portion of the mid transverse colon. The colon kaye not thickened or edematous. Minimal stranding in the herniated fat seen. This is a potential source for pain and can be correlated with clinical presentation. Kaye of the gastric antrum and duodenal bulb are prominent. Antritis/duodenitis would be possible and needs correlation as well. The cirrhotic liver shows multiple lesions of variable enhancing character istics. Much of this may be variability due to variable degrees of fibrosis or regenerating tissue. One or more foci of hepatocellular carcinoma cannot be excluded. If future intervention would be contemplated, follow-up outpatient MRI liver protocol could be performed for further characterization. Left adrenal lesion has shown progression over time. Degenerative splenic tissue is possible. A neoplastic adrenal or metastatic lesion also possible. Allergies No Known Drug Allergies Allergy (Verified 08/16/16 08:12) Unknown No Known Allergies Allergy (Uncoded 02/07/17 15:49) Unknown Home Medications: NK [No Home Meds] 03/01/20 - Past Medical/Surgical History Diabetic: No -: Hypertension -: gout -: hepatitis c -: ruputured spleen -: hernia -: tobacco abuse -: esophageal varices -: splenectomy -: I&D left hand -: variceal banding - Family History Mother -: Heart disease, Diabetes Father -: Lung disease, Diabetes Brother -: Diabetes - Social History Smoking Status: Former smoker Alcohol use: No CD- Drugs: No Caffeine use: Yes Place of Residence: Home Review of Systems 10-point ROS is otherwise unremarkable General: Unremarkable Eyes: Unremarkable ENT: Unremarkable Respiratory: Unremarkable Cardiovascular: Unremarkable Gastrointestinal: Nausea, Abdominal Pain Genitourinary: Unremarkable Musculoskeletal: Unremarkable Integumentary: Unremarkable Neurological: Unremarkable Lymphatics: Unremarkable Physical Examination - Physical Exam General: Alert, In no apparent distress HEENT: Atraumatic, PERRLA, Mucous membr. moist/pink, EOMI, Sclerae nonicteric Neck: Supple, 2+ carotid pulse no bruit, No LAD, Without JVD or thyroid abnormality Respiratory: Clear to auscultation bilaterally, Normal air movement Cardiovascular: Regular rate/rhythm, Normal S1 S2 Gastrointestinal: Normal bowel sounds, No ascites, No rebound, No guarding, Tenderness, Masses (hernia) Musculoskeletal: No tenderness Integumentary: No rashes Neurological: Normal speech, Normal strength at 5/5 x4 extr, Normal tone, Normal affect Lymphatics: No axilla or inguinal lymphadenopathy - Studies Laboratory Data (last 24 hrs) 02/25/21 12:17: WBC 8.50, Hgb 8.4 L, Hct 27.7 L, Plt Count 324 02/25/21 12:17: Sodium 141, Potassium 4.0, BUN 13, Creatinine 0.78, Glucose 89, Total Bilirubin 0.7, AST 70 H, ALT 53, Alkaline Phosphatase 285 H, Lipase 148 Assessment and Plan - Problems (Diagnosis) (1) Cirrhosis Current Visit: Yes Status: Chronic Qualifiers: Hepatic cirrhosis type: alcoholic cirrhosis Ascites presence: without ascites Qualified Code(s): K70.30 - Alcoholic cirrhosis of liver without ascites (2) HTN (hypertension) Current Visit: Yes Status: Chronic Qualifiers: Hypertension type: primary hypertension Qualified Code(s): I10 - Essential (primary) hypertension (3) Anemia Current Visit: Yes Status: Chronic Qualifiers: Anemia type: iron deficiency Iron deficiency anemia type: unspecified iron deficiency Qualified Code(s): D50.9 - Iron deficiency anemia, unspecified (4) RUQ pain Current Visit: Yes Status: Acute - Plan surgery consulted NPO after midnight continue IV fluids, IV zosyn pain management and antiemetics as needed hydralazine PRN for BP spikes dietitian and social work consulted reconcile and continue home medications DVT ppx Discharge Plan: Home Plan to discharge in: 24 Hours - Advance Directives Does patient have a Living Will: No Does patient have a Durable POA for Healthcare: No - Code Status/Comfort Care Code Status Assessed: Yes (full code ) Critical Care: No Time Spent Managing Pts Care (In Minutes): 70
[2021-02-26] MEDS ORDERED: HYDRALAZINE HCL 20 MG/ML VIAL IV PRN (00:13)
[2021-02-26] MEDS ORDERED: NA CHLORIDE 0.9% 1,000 ML IV SCH (00:13)
[2021-02-26] MEDS: MORPHINE 2 MG/ML SYR IV PRN ×6 (00:32→21:25)
[2021-02-26 00:33] VITALS: BMI 25.0
[2021-02-26 04:43] LABS: Absolute Lymphocytes (CBC) 2.2 K/uL (0.7-4.9); Lymphocytes % 33.4 % (15.3-44.8); MPV 9.3 fL (7.6-11.3); RBC Red Blood Cell Count 3.01 M/uL (4.33-5.43)
[2021-02-26 04:52] LABS: ALT/SGPT 43 U/L (12-78); AST/SGOT 57 U/L (15-37); Albumin 2.3 g/dL (3.4-5.0); Alkaline Phosphatase 226 U/L (45-117); BUN Blood Urea Nitrogen 15 mg/dL (7-18); Bicarbonate 26 mmol/L (21-32); Bilirubin Total 0.6 mg/dL (0.2-1.0); Glucose Level 85 mg/dL (74-106); Phosphorus 3.8 mg/dL (2.5-4.9); Potassium 3.9 mmol/L (3.5-5.1); Protein, Total 7.3 g/dL (6.4-8.2); Sodium Level 140 mmol/L (136-145)
[2021-02-26] MEDS ORDERED: INFLUENZA VACCINE (for 6+ mo) 0.5 ML DOSE IMVAC ONE (08:00)
[2021-02-26] MEDS: PIPER TAZO 3.375 GM in NA CHLORIDE 0.9% 100 ML IV SCH ×2 (08:30→21:24)
[2021-02-26] MEDS ORDERED: POTASSIUM 25 MEQ EFFERV TAB PO ONE (09:00)
[2021-02-26] MEDS ORDERED: POTASSIUM CL SA 10 MEQ TAB PO ONE (09:00)
--- NOTE | 2021-02-26 10:41 | CON ---
Date of Consultation: 02/26/2021 Diagnosis: Abdominal pain. History Of Present Illness: This is the case of a 65-year-old patient with a long history of abdomin al pain. He says he is having abdominal pain, epigastric and also upper abdomen for the last 5 month s since he had esophageal varicosities clip at [facility]. He has history of hematemesis, hist ory of melena. He has been having abdominal pain all this time. He has history of cirrhosis of the liver, also history of hernia for a long time ago. He has seen surgeons in the past for the hernia, although they all agreed that at one point it had to be fixed due to his medical issues that has not been done yet. That hernia is reducible. That is an incisional hernia. Since the pain was present and did not improve yesterday, the patient was admitted for hospital and a consult was obtained. He denies any new dysuria, hematuria, hematochezia, or melena. Denies any recent traveling out of the [facility]. Denies any family member sick at home. Past Medical History: Cirrhosis of the liver with esophageal varicosities, hypertension, gout, hepat itis C. Past Surgical History: Includes laparotomy for ruptured spleen, although he does not remember how mu ch of the spleen is left and he thing has a splenectomy done. He has variceal bandings on the esopha gerson. Social History: He smoked and he used to drink alcohol, but he is stating not any more and also he i s a former smoker. Family History: Includes diabetes and heart disease. Review of Systems: Chronic abdominal pain, mainly upper abdomen. Nausea present. Ten points otherwise unremarkable. Physical Examination: General: The patient is awake, alert. HEENT: Pupils equal and reactive, anicteric. Neck: Supple. Chest: Clear. Abdomen: Soft and depressible. There is a midline incisional hernia, incisional and reducible. No peritonitis present. Epigastric area with mild tenderness present. No Damon sign. Extremities: Good capillary refill. Laboratory Data: Blood work shows WBC count of 6 with hemoglobin of 7 and platelets of 265. Potassi um is 3.9, alkaline phosphate 226, lipase 148. Ultrasound and CT scan interpreted by Dr. Chaudhry as minimal amount of sludge present. No gallstones seen. The gallbladder has mild thickening, but this specified that this could be due to also history of cirrhosis of liver. Assessment: It is 65-year-old patient with chronic abdominal pain. He has esophageal varices bandin g before due to hematemesis. He has been in pain since then. Right now, he comes with some findings . We cannot rule out another pathology like cholecystitis at the same time, so the patient was admit naresh to the hospital, put on bowel rest, IV antibiotics. Obviously, he understands his risks of any s urgical intervention. We are going to give him antibiotics and bowel rest to see how he develops. I f he improves symptoms, then he may have to have elective cholecystectomy and also elective repair of his hernias, but let us see how he develops clinically. The benefits, alternatives, and risks were fully explained. HESHAM Voice ID: [id number] Report ID: [id number]
--- NOTE | 2021-02-26 12:52 | P.PN ---
Subjective Date of Service: 02/26/21 Chief Complaint: RUQ pain Patient reports right upper quadrant pain which is worse with eating, coughing and dry heaving. No vomiting. Status post banding of esophageal varices 4 weeks ago. Physical Examination - Vital Signs Temperature: 98.0 F Blood Pressure: 146/84 Pulse: 72 Respirations: 20 Pulse Ox (%): 95 - Physical Exam General: Alert, In no apparent distress, Oriented x3 HEENT: Mucous membr. moist/pink Neck: JVD not distended Respiratory: Clear to auscultation bilaterally, Normal air movement Cardiovascular: No edema, Regular rate/rhythm, Normal S1 S2 Capillary refill: <2 Seconds Gastrointestinal: Normal bowel sounds, Soft and benign, Tenderness (RUQ.) Musculoskeletal: No swelling, No tenderness Integumentary: No rashes, No erythema Neurological: Normal speech, Normal strength at 5/5 x4 extr Assessment And Plan - Current Problems (Diagnosis) (1) RUQ pain Current Visit: Yes Status: Acute (2) Anemia Current Visit: Yes Status: Chronic Qualifiers: Anemia type: iron deficiency Iron deficiency anemia type: unspecified iron deficiency Qualified Code(s): D50.9 - Iron deficiency anemia, unspecified (3) Cirrhosis Current Visit: Yes Status: Chronic Qualifiers: Hepatic cirrhosis type: alcoholic cirrhosis Ascites presence: without ascites Qualified Code(s): K70.30 - Alcoholic cirrhosis of liver without ascites (4) HTN (hypertension) Current Visit: Yes Status: Chronic Qualifiers: Hypertension type: primary hypertension Qualified Code(s): I10 - Essential (primary) hypertension (5) DM2 (diabetes mellitus, type 2) Current Visit: No Status: Acute - Plan Patient seen by general surgery-Dr. Nuno will recommend conservative management to see if his symptoms improve. There is a concern for acute cholecystitis. Gallbladder finding could also be secondary to just edema. Continue antibiotics. Start clear liquid diet. Discontinue IV fluid due to risk of volume overload, third spacing and worsening of gallbladder edema. Trial of IV Lasix. Serial abdominal examination. Resume lisinopril for hypertension. Blood glucose readings within normal range.
[2021-02-26 15:31] LABS: Urine Appearance CLEAR (Clear); Urine Bilirubin NEGATIVE (Negative); Urine Blood NEGATIVE (Negative); Urine Color DK YELLOW (Yellow); Urine Glucose NEGATIVE (Negative); Urine Protein NEGATIVE (Negative); Urine pH 6.5 (5.0-7.0)
[2021-02-26 15:32] LABS: Urine Microscopic Reflex NO UMIC
[2021-02-26] MEDS: FUROSEMIDE 40 MG/4 ML VIAL IV SCH (17:17)
[2021-02-26] MEDS: ENSURE HIGH PROTEIN 237 ML CAN PO SCH (21:00)
[2021-02-27] MEDS: MORPHINE 2 MG/ML SYR IV PRN ×5 (02:13→21:00)
[2021-02-27 05:22] LABS: Albumin 2.3 g/dL (3.4-5.0); Bilirubin Total 0.6 mg/dL (0.2-1.0); Potassium 3.8 mmol/L (3.5-5.1); Protein, Total 7.7 g/dL (6.4-8.2)
[2021-02-27 05:30] LABS: Absolute Lymphocytes (CBC) 2.8 K/uL (0.7-4.9); Hematocrit 25.4 % (39.6-49.0); Lymphocytes % 39.3 % (15.3-44.8); MPV 9.5 fL (7.6-11.3)
[2021-02-27] MEDS: PIPER TAZO 3.375 GM in NA CHLORIDE 0.9% 100 ML IV SCH ×2 (08:03→17:08)
[2021-02-27] MEDS: ENSURE HIGH PROTEIN 237 ML CAN PO SCH ×3 (08:03→20:37)
[2021-02-27] MEDS: FUROSEMIDE 40 MG/4 ML VIAL IV SCH (08:03)
[2021-02-27] MEDS ORDERED: POTASSIUM 25 MEQ EFFERV TAB PO ONE (09:00)
--- NOTE | 2021-02-27 10:53 | P.PN ---
Subjective Date of Service: 02/27/21 Chief Complaint: RUQ pain Patient still complaining of significant right upper quadrant pain. States pain is intermittent. He is ambulating. No vomiting. Physical Examination - Vital Signs Temperature: 97.7 F Blood Pressure: 136/80 Pulse: 76 Respirations: 16 Pulse Ox (%): 92 - Physical Exam General: Alert, In no apparent distress, Oriented x3 HEENT: Mucous membr. moist/pink Neck: JVD not distended Respiratory: Clear to auscultation bilaterally, Normal air movement Cardiovascular: No edema, Regular rate/rhythm, Normal S1 S2 Gastrointestinal: Soft and benign, Other (Ventral hernia-epigastrium), Tenderness (Right upper quadrant) Musculoskeletal: No swelling, No tenderness Integumentary: No rashes, No erythema, No cyanosis Neurological: Normal strength at 5/5 x4 extr Assessment And Plan - Current Problems (Diagnosis) (1) RUQ pain Current Visit: Yes Status: Acute (2) Anemia Current Visit: Yes Status: Chronic Qualifiers: Anemia type: iron deficiency Iron deficiency anemia type: unspecified iron deficiency Qualified Code(s): D50.9 - Iron deficiency anemia, unspecified (3) Cirrhosis Current Visit: Yes Status: Chronic Qualifiers: Hepatic cirrhosis type: alcoholic cirrhosis Ascites presence: without ascites Qualified Code(s): K70.30 - Alcoholic cirrhosis of liver without ascites (4) HTN (hypertension) Current Visit: Yes Status: Chronic Qualifiers: Hypertension type: primary hypertension Qualified Code(s): I10 - Essential (primary) hypertension (5) DM2 (diabetes mellitus, type 2) Current Visit: No Status: Acute - Plan There is a concern for acute cholecystitis. Gallbladder finding could also be secondary to just edema. Continue antibiotics for 1 more day to see if his symptoms will improve Continue clear liquid diet. Discontinue IV fluid due to risk of volume overload, third spacing and worsening of gallbladder edema. No response with IV Lasix. IV Lasix discontinued. Serial abdominal examination. Continue lisinopril for hypertension. Blood glucose readings within normal range. General surgery to follow.
[2021-02-28] MEDS: PIPER TAZO 3.375 GM in NA CHLORIDE 0.9% 100 ML IV SCH ×3 (01:17→16:48)
[2021-02-28] MEDS: MORPHINE 2 MG/ML SYR IV PRN ×5 (01:18→20:03)
[2021-02-28] MEDS: ONDANSETRON 4 MG/2 ML VIAL IV PRN ×2 (04:39→10:16)
[2021-02-28 06:18] LABS: Absolute Lymphocytes (CBC) 2.2 K/uL (0.7-4.9); Hematocrit 25.6 % (39.6-49.0); Lymphocytes % 32.9 % (15.3-44.8); MPV 9.1 fL (7.6-11.3)
[2021-02-28 06:36] LABS: Albumin 2.4 g/dL (3.4-5.0); Bilirubin Total 0.5 mg/dL (0.2-1.0); Potassium 4.1 mmol/L (3.5-5.1)
[2021-02-28] MEDS: ENSURE HIGH PROTEIN 237 ML CAN PO SCH ×2 (07:49→20:04)
--- NOTE | 2021-02-28 14:11 | PN ---
Date of Progress Note: 02/28/2021 Subjective: Mr. Gross is a 65-year-old patient who comes to us with multiple medical problems. T he patient came over here with different problems. He has history of cirrhosis of the liver, recentl y treated at [facility] for esophageal varices for GI bleed, chronic pain. He has this hernia there for years that the surgeon has not been able to fix due to history of cirrhosis as per the waylon ent. He mentions some kind of cancer, but we do not have evidence of that at this institution. He w as advised to give us any information he might have. He also has history of cirrhosis of the liver w ith swelling of the gallbladder that may be cause of that but at the same time we cannot rule out cho lecystitis. So, he has been on antibiotics and diet restriction. He has improvement of his pains, b ut is still requiring some pain medication to take care of his treatment IV. Physical Examination: Chest: Clear. Abdomen: Soft and depressible. He has chronic hernia that is reducible in the upper abdomen. Once again, he has generalized pain mostly in the upper abdomen that he claims is chronic, although he wan ts to be pain-free. Extremities: Good capillary refill. Eyes: Anicteric. Laboratory Data: Blood work reviewed. Plan: Yes, the patient may need hernia repair eventually. The patient may even take care of the gal lstones. The question is if he is at the right time to do so in this institution with limitations th at we have at this moment. We do not have even a dividend clerk. If he does not improve, the pl an will be then through the primary doctor to find a safer way how to do this surgery which could be in a center where they can provide liver treatment. He also understand the cirrhosis of the liver an d that can be done successfully without any major complications. I asked him to see if he has a live r specialist. He does not have any. Somebody who is already treated for bleeding esophageal varices , I expect at this moment to already to have a liver specialist to be working on the person. He is a high risk for this institution. He is stable at this moment. He has been on and off for a long glenn e. Once again, the ultrasound does not show any major pneumatosis in the gallbladder, even the fluid is something that may be present in somebody with also cirrhosis of the liver, but if he does not im prove with conservative treatment and antibiotics, then surgeries have to be done in another institut ion where they provide liver care. KEO/ELANA Voice ID: [id number] Report ID: [id number]
--- NOTE | 2021-02-28 16:51 | RAD REPORT ---
EXAM DESCRIPTION: US - Abdomen Exam Limited - 02/28/2021 2:33 pm CLINICAL HISTORY: follow up thickened gall bladder wall COMPARISON: Abdomen Exam Limited dated 02/25/2021; Abdomen Pelvis W Contrast dated 02/25/2021 FINDINGS: No gallstones are identified. Only trace amounts of sludge seen in a distended but nondila naresh gallbladder. Minimal gallbladder wall thickening is seen. No edema within the wall is clearly see n and there is no pericholecystic fluid. No common duct stone or biliary tree dilatation identified. Liver is grossly abnormal in appearance with a pronounced nodular capsule contour. There is diffuse h eterogeneity of the hepatic parenchyma without a clearly defined mass. IMPRESSION: Trace amount of sludge with no gallstones identified. Mild gallbladder wall thickening is present. No biliary tree dilatation. Liver is grossly abnormal with heterogeneous echogenicity and nodular capsule contour consistent with cirrhosis and diffuse hepatic parenchymal disease. Liver parenchymal heterogeneity may reflect multifocal hepatocellular carcinoma; however, there are n o clearly defined masses that might guide biopsy.
[2021-03-01] MEDS: MORPHINE 2 MG/ML SYR IV PRN ×3 (00:36→11:53)
[2021-03-01] MEDS: PIPER TAZO 3.375 GM in NA CHLORIDE 0.9% 100 ML IV SCH ×2 (01:15→09:31)
[2021-03-01 02:34] VITALS: O2SAT 99
[2021-03-01 06:06] LABS: Absolute Lymphocytes (CBC) 2.7 K/uL (0.7-4.9); Hematocrit 24.9 % (39.6-49.0); Lymphocytes % 43.8 % (15.3-44.8); RBC Red Blood Cell Count 3.04 M/uL (4.33-5.43)
[2021-03-01 06:23] LABS: Albumin 2.2 g/dL (3.4-5.0); Bilirubin Total 0.5 mg/dL (0.2-1.0); Protein, Total 7.4 g/dL (6.4-8.2)
[2021-03-01] MEDS: ENSURE HIGH PROTEIN 237 ML CAN PO SCH (09:31)
--- NOTE | 2021-03-01 11:16 | P.DS ---
Admission Date: 02/25/21 Discharge Date: 03/01/21 Disposition: ROUTINE DISCHARGE Discharge Condition: FAIR Reason for Admission: RUQ pain - Problems (1) RUQ pain Current Visit: Yes Status: Acute (2) Anemia Current Visit: Yes Status: Chronic Qualifiers: Anemia type: iron deficiency Iron deficiency anemia type: unspecified iron deficiency Qualified Code(s): D50.9 - Iron deficiency anemia, unspecified (3) Cirrhosis Current Visit: Yes Status: Chronic Qualifiers: Hepatic cirrhosis type: alcoholic cirrhosis Ascites presence: without ascites Qualified Code(s): K70.30 - Alcoholic cirrhosis of liver without ascites (4) HTN (hypertension) Current Visit: Yes Status: Chronic Qualifiers: Hypertension type: primary hypertension Qualified Code(s): I10 - Essential (primary) hypertension (5) DM2 (diabetes mellitus, type 2) Current Visit: No Status: Acute Brief History of Present Illness: Mr. Gross is a 65 yo M with liver cirrhosis, HTN who presents with two weeks of constant RUQ and epigastric pain. He also reports nausea. Denies vomiting, hematemesis, melena, hematochezia. He says the pain is worse after eating, and he also has pain at his hernia site. He had esophageal varices banded last month at [facility] after episodes of hematemesis and melena. He says since the procedure he has been lightheaded, dizzy, and has had headaches. H/H 8.4 Dbili 0.3 AST 70 alk phos 258. Abdominal US IMPRESSION: Minimal amount of sludge is present with no gallstones seen. Gallbladder wall is mildly thickened. This can be an indication of acute cholecystitis; however, wall thickening is also very common in the setting of cirrhosis. No biliary tree abnormality. Abdominal CT IMPRESSION: No bowel obstruction, free air or surgically emergent finding identifiable. Distended gallbladder with mild wall thickening or edema suspected. Acute gallbladder disease and chronic changes from liver cirrhosis can both present in this manner. No biliary dilatation. Patient has a midline upper abdominal hernia containing the anti mesenteric por tion of the mid transverse colon. The colon kaye not thickened or edematous. Minimal stranding in the herniated fat seen. This is a potential source for pain and can be correlated with clinical presentation. Kaye of the gastric antrum and duodenal bulb are prominent. Antritis/duodenitis would be possible and needs correlation as well. The cirrhotic liver shows multiple lesions of variable enhancing characteristics. Much of this may be variability due to variable degrees of fibrosis or regenerating tissue. One or more foci of hepatocellular carcinoma cannot be excluded. If future intervention would be contemplated, follow-up outpatient MRI liver protocol could be performed for further characterization. Left adrenal lesion has shown progression over time. Degenerative splenic tissue is possible. A neoplastic adrenal or metastatic lesion also possible. Hospital Course: Admitted to the medical floor and started on IV antibiotics for possible acute cholecystitis. He was seen and evaluated by general surgery-Dr. Nuno who recommended medical management at this time since there is no clear-cut evidence of acute cholecystitis, and the patient has only biliary sludge. He has epigastric hernia which could also explain his right upper quadrant pain. Patient was treated with IV antibiotics for a few days. Repeat right upper quadrant sonogram is is unchanged from the previous ultrasound. It again showed trace amount of biliary sludge, mild gallbladder wall thickening. Dr. Nuno recommended patient will need epigastric hernia repaired and may need cholecystectomy in the process but given patient's significant liver disease, who recommended elective procedure to be done in a tertiary center where a liver specialist is available. Noted patient also has an adrenal nodule that is progressing in size and need further outpatient evaluation with an MRI. Patient has been informed. MRI of the abdomen will also help evaluate for hepatocellular carcinoma. His hemoglobin dropped from 8.4-7.5. No active bleeding, no melena. Patient may need blood transfusion as needed as an outpatient given his history of bleeding esophageal varices which was recently banded. Patient is aware he needs to follow-up with the liver clinic in [facility]. Vital Signs/Physical Exam: Temp Pulse Resp BP Pulse Ox 97.9 F 70 16 142/83 H 95 03/01/21 08:00 03/01/21 08:00 03/01/21 08:00 03/01/21 08:00 03/01/21 08:00 General: Alert, In no apparent distress, Oriented x3 HEENT: Mucous membr. moist/pink Neck: JVD not distended Respiratory: Clear to auscultation bilaterally, Normal air movement Cardiovascular: No edema, Regular rate/rhythm, Normal S1 S2 Gastrointestinal: Soft and benign, Non-distended, No rebound, No guarding, Tenderness (Mild tenderness in the right RUQ.) Musculoskeletal: No swelling Integumentary: No rashes Neurological: Normal strength at 5/5 x4 extr Laboratory Data at Discharge: WBC 6.20 K/uL (4.3-10.9) 03/01/21 05:57 Hgb 7.5 g/dL (13.6-17.9) L 03/01/21 05:57 Hct 24.9 % (39.6-49.0) L 03/01/21 05:57 Plt Count 268 K/uL (152-406) 03/01/21 05:57 Sodium 139 mmol/L (136-145) 03/01/21 05:57 Potassium 4.0 mmol/L (3.5-5.1) 03/01/21 05:57 BUN 8 mg/dL (7-18) 03/01/21 05:57 Creatinine 0.86 mg/dL (0.55-1.3) 03/01/21 05:57 Glucose 89 mg/dL (74-106) 03/01/21 05:57 Phosphorus 3.8 mg/dL (2.5-4.9) 02/26/21 04:02 Magnesium 2.0 mg/dL (1.8-2.4) 02/26/21 04:02 Total Bilirubin 0.5 mg/dL (0.2-1.0) 03/01/21 05:57 AST 59 U/L (15-37) H 03/01/21 05:57 ALT 43 U/L (12-78) 03/01/21 05:57 Alkaline Phosphatase 226 U/L (45-117) H 03/01/21 05:57 Lipase 148 U/L (73-393) 02/25/21 12:17 Home Medications: Lisinopril [Zestril] 10 mg PO BID 02/26/21 Amox/Clavulanate [Augmentin 875-125 Tab] 1 each PO BID #14 tab 03/01/21 traMADol HCL [Ultram*] 50 mg PO Q6H PRN #20 tab 03/01/21 New Medications: Amox/Clavulanate [Augmentin 875-125 Tab] 1 each PO BID #14 tab traMADol HCL [Ultram*] 50 mg PO Q6H PRN #20 tab PRN Reason: Pain Physician Discharge Instructions: You may need an elective cholecystectomy ( Gall bladder removal) at a hospital with a liver specialist for example [facility] or [facility]. Diet: AHA Activity: Ad stuart Followup: NONE,NONE [Primary Care Provider] - 1-2 Weeks Time spent managing pt's care (in minutes): 40
[2021-03-01 11:37] VITALS: BP 131/76; TEMP 97.7
== END 2021-03-01 15:15 | disposition home or self-care (01) | DRG 395 ==
LOC: ER 09:07 → ERHOLD 21:16 → 2ND 02-26 00:11
PROVIDERS: ADMIT Internal Medicine; ATTEND Internal Medicine
DX: K43.9 Ventral hernia without obstruction or gangrene (principal); K70.30 Alcoholic cirrhosis of liver without ascites; I10 Essential (primary) hypertension; E11.9 Type 2 diabetes mellitus without complications; M10.9 Gout, unspecified; D50.9 Iron deficiency anemia, unspecified; Z85.05 Personal history of malignant neoplasm of liver; Z87.891 Personal history of nicotine dependence; Z20.822 Contact with and (suspected) exposure to COVID-19
CPT/HCPCS: 36415; 74177; 76705; 80048; 80053; 80076; 81003; 83690; 83735; 84100; 85025; 99285; J1940; J2270; J2405; J2543; J7030; Q9967; U0003

== ENCOUNTER 2021-06-15 05:42 | Emergency (ER) | payer SELFPAY ==
--- OUTSIDE RECORDS SUMMARY | 2021-06-15 05:45 | XMS REPORT | Continuity of Care Document ---
:1955 Author Organization [facility] t Address [address] [place] [address] Care Team Providers Name Role Phone PCP, DOES NOT HAVE A Primary Care Physician Unavailable KULDEEP Attending Clinician Unavailable ALLISON Attending Clinician Unavailable MD Hanna COOPER Attending Clinician Unavailable [facility] Attending Clinician Unavailable Malou GUZMAN Attending Clinician Unavailable Megan FRANKLIN, T Attending Clinician Myra BAP Attending Clinician MYRA Attending Clinician Unavailable Alec RN, E Attending Clinician Akira Attending Clinician DAVID Attending Clinician Unavailable David AREVALO Attending Clinician Miguel AREVALO Attending Clinician RO Attending Clinician Unavailable ALLISON Admitting Clinician Unavailable MD Bong COOPER. Admitting Clinician Unavailable Malou GUZMAN Admitting Clinician Unavailable MYRA Admitting Clinician Unavailable DAVID Admitting Clinician Unavailable David AREVALO Admitting Clinician RO Admitting Clinician Unavailable Payers Payer Name Policy Type Policy Number Effective Date Expiration Date S ource Problems Condition Condition Condition Status Onset Resolution Last Treating Co mments Source Name Details Category Date Date Treatment Clinician Date Nausea and Nausea and Disease Active 2020-0 U nivers vomiting vomiting 2-10 ity of 00:00: [place] 00 [facility] Gangrene Gangrene Disease Active Unive rs of finger of finger 07-05 ity of 00:00: [place] 00 [facility] Osteomyeli Osteomyeli Disease Active U nivers tis tis 07-05 ity of 00:00: [place] 00 [facility] Adrenal Adrenal Disease Active Univers insufficie insufficie 07-05 it y of ncy ncy 00:00: [place] [facility] Chronic Chronic Disease Active Univers rheumatic rheumatic 07-05 [place] of arthritis [place] 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 07-03 ity of 00:00: [place] 00 [facility] Arteritis Arteritis Disease Active Uni vers 07-03 ity of 00:00: [place] 00 Medical Branch Allergies, Adverse Reactions, Alerts Allergy Allergy Status Severity Reaction(s) Onset Inactive Treating Comm ents Source Name Type Date Date Clinician NO KNOWN Drug Active Univers ALLERGIE Class ity of S [facility] Social History Social Habit Start Date Stop Date Quantity Comments Source Exposure to Not sure [facility] SARS-CoV-2 (event) Medica l Branch Alcohol intake 2021-01-20 2021-01-20 0 /d [facility] 00:00:00 00:00:00 Medical Branch Sex [birth year] [facility] 00:00:00 00:00:00 Medical Branch Smoking Status Start Date Stop Date Source Smoker, current status 2015-07-05 00:00:00 [facility] Medical unknown Branch Medications Ordered Filled Start [...] 01/20/21 at 1200, RHETT traMADoL 50 2020-03- No 4647 50mg Take 1 Uni vers mg tablet 03-22 tablet by ity of 00:00: 05:59 mouth [place] 00 :00 every 6 Medical (six) Branch hours as needed for Pain (scale 4-6) for up to 7 days. Indication s: acute pain traMADoL 50 2020-03- No 4647 50mg Take 1 Uni vers mg tablet 03-22-30 tablet by ity of 00:00: 05:59 mouth [place] 00 :00 every 6 Medical (six) Branch hours as needed for Pain (scale 4-6) for up to 7 days. Indication s: acute pain methocarbam Yes [id number] 750mg Take 1 Univers oL 750 mg 8-09 tablet by ity o f tablet 00:00: mouth 4 [place] 00 (four) Medical times Branch daily as needed for Pain (scale 7-10). methocarbam Yes [id number] 750mg Take 1 Univers oL 750 mg 8-09 tablet by ity o f tablet 00:00: mouth 4 [place] 00 (four) Medical times Branch daily as needed for Pain (scale 7-10). lactulose Yes [id number] 15mL Take 15 mL Univers 10 gram/15 2-12 by mouth 3 ity of mL solution 00:00: (three) [place] as 00 times Medical daily. Branch lactulose Yes [id number] 15mL Take 15 mL Univers 10 gram/15 2-12 by mouth 3 ity of mL solution 00:00: (three) [place] as 00 times Medical daily. Branch docusate Yes [id number] 250mg Take 1 Univers sodium 250 9-10 [id number] capsule by i ty of mg capsule 00:00: mouth [place] 00 daily. Medical Branch ondansetron Yes [id number] 4mg Take 1 Univers 4 mg 9-10 [id number] tablet by ity of disintegrat 00:00: mouth [place] ing tablet 00 every 4 Medica l (four) Branch hours as needed for Nausea and Vomiting (N/V). docusate Yes [id number] 250mg Take 1 Univers sodium 250 9-10 [id number] capsule by i ty of mg capsule 00:00: mouth [place] 00 daily. Medical Branch ondansetron Yes [id number] 4mg Take 1 Univers 4 mg 9-10 [id number] tablet by ity of disintegrat 00:00: mouth [place] ing tablet 00 every 4 Medica l (four) Branch hours as needed for Nausea and Vomiting (N/V). amLODIPine 2016-0 Yes 10mg Take 1 Unive rs (NORVASC) 5-10 tablet by ity o f 10 mg 00:00: mouth [place] tablet 00 daily. Medical Branch lisinopril 0 Yes 20mg Take 2 Unive rs (PRINIVIL,Z 5-10 tablets by it y of ESTRIL) 10 00:00: mouth [place] mg tablet 00 daily. Medical Branch amLODIPine 0 Yes 10mg Take 1 Unive rs (NORVASC) 5-10 tablet by ity o f 10 mg 00:00: mouth [place] tablet 00 daily. Medical Branch lisinopril 0 Yes 20mg Take 2 Unive rs (PRINIVIL,Z 5-10 tablets by it y of ESTRIL) 10 00:00: mouth [place] mg tablet 00 daily. Medical Branch Vital Signs Vital Name Observation Time Observation Value Comments Source Systolic blood 2021-01-20 16:46:00 155 mm[Hg] [facility] pressure [facility] Diastolic blood 2021-01-20 16:46:00 84 mm[Hg] [facility] Heart rate 2021-01-20 16:46:00 83 /min [facility] Body temperature 2021-01-20 16:46:00 36.72 Ashly [facility] Respiratory rate 2021-01-20 16:46:00 18 /min [facility] Body weight 2021-01-20 16:46:00 75.751 kg [facility] BMI 2021-01-20 16:46:00 26.95 kg/m2 [facility] Oxygen saturation in 2021-01-20 16:46:00 99 /min [facility] blood by [facility] Pulse oximetry Branch Procedures Procedure Date / Time Performing Clinician Source Performed ED SPLINT APPLICATION 2021-01-20 19:05:41 Fabio Guzman [facility] XR FOOT 3+ VW RIGHT 2021-01-20 17:12:47 Fabio Guzman [facility] CONSENT/REFUSAL FOR 2021-01-20 16:52:15 Doctor Unassigned, No Un [facility] DIAGNOSIS AND TREATMENT Name Medical Branch Encounters Start End Encounter Admission Attending Care Care Encounter Source Date/Time Date/Time Type Type Clinicians Facility Department ID 2021-04-28 Outpatient [facility]EP [facility] [id number] [place] 01:04:42 ANGELL[facility] 2021-01-[address] [facility] Internal [id number] [facility] 22:30:05 [facility] 2021-03-01 2021-03-03 Outpatient ALLISON [place] [id number] [place] 00:00:00 00:00:[address] 2021-01-22 2021-01-22 Letter Orthopedic [facility] [id number] Univers 00:00:00 00:00:00 (Out) Clinic SPECIALTY [id number] ity of CARE [id number] Mirza martinez CENTER AT [id number] [address] 2021-01-20 2021-01-20 Emergency X MEGAN FABIO [facility] ERT [id number] Univers 10:47:00 13:43:00 ity [facility] 2021-01-20 2021-01-20 Emergency Fabio Guzman TRAU[place] [id number] Univers 10:47:00 13:43:00 T CENTER [id number] it y of [id number] Mirza martinez [id number] [address] 2020-10-07 2020-10-07 Emergency [place], [facility] [id number] 10:18:00 11:49:00 Manpreet Torres [id number] [place] [id number] [place] [id number] 2020-10-07 2020-10-07 Emergency X RENTERIA, [facility] ERT [id number] Univers 10:18:00 11:49:00 MANPREET ity [facility] 2019-06-11 2019-06-11 Patient Jenn Michael [id number] 00:00:00 00:00:00 Outreach E [place] [id number] [place] [id number] [id number] 2019-04-27 2019-04-27 Patient Jenn Michael [id number] 00:00:00 00:00:00 Outreach Nettie [place] [id number] [place] [id number] [id number] 2019-04-13 2019-04-13 Transition Shaila Champion [id number] 00:00:00 00:00:00 of Care Kandice [place] [id number] [place] [id number] [id number] 2019-04-10 2019-04-[address] [facility] [id number] Univers 10:55:39 18:18:00 [facility] 2019-04-10 2019-04-12 [facility] MeganFabio [id number] 10:55:39 18:18:00 Encounter Fabio Guzman [id number] [facility] [id number] [id number] 2018-11-08 2018-11-08 Emergency [facility] [id number] 14:26:03 17:32:00 Narciso Torres [id number] [place] [id number] [place] [id number] Results Test Description Test Time Test Comments Results Result Comments Source SARS-CoV-2 (COVID-19) RNA [Presence] in Respiratory sp ecimen by 2021-03-02 11:23:42 ABRIL with probe detection Test Item Value Reference Range Interpretation Comme nts SARS-CoV-2 (COVID-19) RNA [Presence] in Respiratory Not detected No t-Detected specimen by ABRIL with probe detection (test code = 40532-7) Whether patient is employed in a healthcare setting (test code = 09151-2) Whether the patient has symptoms related to condition of interest (test code = 40344-1) Patient was hospitalized because of this condition (test code = 62295-2) Whether the patient was admitted to intensive care unit (ICU) for condition of interest (test code = 94853-9) Whether patient resides in a congregate care setting (test code = 02766-8) Troponin [id number] 20:46:00 Test Item Value Reference Range Interpretation Comments Troponin T (test code = GERARD) <0.010 ng/mL 0.000-0.090 N Basic Metabolic [id number] 20:46:00 Test Item Value Reference Range Interpretation [...] [employer],http :[email or web address] ep.nih.gov CBC with [id number] 20:25:00 Test Item Value Reference Range Interpretation [...] code = ALYMPH) 1.7 K/cumm 0.5-4.6 N Sharp Abs (test code = AMONO) 1.2 K/cumm 0.0-1.2 N Eos Abs (test code = AEOS) 0.10 K/cumm 0.00-0.74 N Baso Abs (test code = ABASO) 0.1 K/cumm 0.00-0.21 N
[2021-06-15] MEDS ORDERED: MORPHINE 4 MG/ML SYR ONE (06:43)
[2021-06-15] MEDS ORDERED: ONDANSETRON 4 MG/2 ML VIAL ONE ×2 (06:43→09:40)
[2021-06-15 07:24] LABS: ALT/SGPT 75 U/L (12-78); AST/SGOT 117 U/L (15-37); Albumin 2.2 g/dL (3.4-5.0); Alkaline Phosphatase 299 U/L (45-117); BUN Blood Urea Nitrogen 12 mg/dL (7-18); Bicarbonate 24 mmol/L (21-32); Bilirubin Total 0.9 mg/dL (0.2-1.0); Glucose Level 87 mg/dL (74-106); Lipase 110 U/L (73-393); Potassium 4.1 mmol/L (3.5-5.1); Protein, Total 8.1 g/dL (6.4-8.2); Sodium Level 138 mmol/L (136-145); Troponin High Sensitivity 9.7 pg/mL (<58.9)
[2021-06-15 07:48] LABS: Hematocrit 26.7 % (39.6-49.0); MPV 8.6 fL (7.6-11.3); RBC Red Blood Cell Count 3.58 M/uL (4.33-5.43)
[2021-06-15] MEDS ORDERED: FAMOTIDINE 20 MG/2 ML VIAL IV ONE (07:57)
--- NOTE | 2021-06-15 08:18 | RAD REPORT ---
EXAM DESCRIPTION: CT - Abdomen Pelvis W Contrast - 06/15/2021 7:55 am CLINICAL HISTORY: Abdominal pain COMPARISON: January 2021 TECHNIQUE: Computed axial tomography of the abdomen pelvis was obtained. 100 cc Isovue-300 was admin istered intravenously. Oral contrast was not requested which limits evaluation of bowel. All CT scans are performed using dose optimization technique as appropriate and may include automated exposure control or mA/KV adjustment according to patient size. FINDINGS: Gallbladder distention. Multiple ill-defined hepatic lesions are without significant change. However there has been developme nt of a 5.4 centimeter mass which extends into the main portal vein. . Hepatic fibrosis is present. R ecanalization umbilical vein with upper quadrant varices. 2.9 centimeter mass pancreatic head. Splenectomy. 6.6 centimeter mass left adrenal gland continues to enlarge. Right adrenal gland are unremarkable. Kidneys unremarkable No evidence diverticulitis. Trace amount ascites. Normal appendix. Moderate right inguinal hernia contains fat. Multiple small ventral hernias. IMPRESSION: Cirrhosis. 5.4 centimeter hepatic mass extending into the portal vein presumably tumor thrombus. Multiple ill-defined hepatic lesions. Some may represent hepatocellular carcinoma. Others may represe nt regenerating nodules. 6.6 centimeter left adrenal mass may represent adrenal malignancy or unusual appearing splenosis. Gallbladder distention 2.9 centimeter mass within the pancreatic head may represent a lymph node or pancreatic neoplasm
--- NOTE | 2021-06-15 08:32 | EDPHYS ---
Physician Documentation [facility] Name: Mic Gross Age: 66 yrs Sex: Male : 1955 Arrival Date: 06/15/2021 Time: 05:57 Bed 20 Private MD: ED Physician Matt Harris HPI: 06/15 06:18 This 66 yrs old Male presents to ER via Unassigned with complaints of rn abdominal pain, chest pain. 06:18 The patient presents with abdominal pain right sided abd pain. Onset: The rn symptoms/episode began/occurred 2 day(s) ago. The symptoms radiate to chest. Associated signs and symptoms: Pertinent positives: nausea and vomiting, Pertinent negatives: blood in stools, fever, hematuria, shortness of breath, vomiting blood. The symptoms are described as intermittent, sharp. Modifying factors: The symptoms are alleviated by nothing, the symptoms are aggravated by touching the area. Severity of pain: At its worst the pain was moderate in the emergency department the pain is unchanged. The patient has experienced similar episodes in the past, chronically. The patient has not recently seen a physician. Pt reports right sided abd pain, for 2 days, has had before, no trauma, no fever. Reports feels like "radiates into chest" causing chest pain. Pt with known cirrhosis. No blood in stool. No hematemesis.. Historical: - Allergies: 07:26 No Known Allergies; ll3 - PMHx: 07:26 cirrhosis of liver; Hepatitis; C; Hernia; Hypertension; liver cancer; ll3 - Immunization history:: Client reports receiving the 2nd dose of the Covid vaccine. - Social history:: Smoking status: Patient reports the use of cigarette tobacco products, denies chronic smoking, but will smoke occasionally. - Family history:: not pertinent. - Hospitalizations: : No recent hospitalization is reported. ROS: 06:21 Constitutional: Negative for fever, chills, and weight loss, Eyes: Negative for injury, rn pain, redness, and discharge, Neck: Negative for injury, pain, and swelling, Cardiovascular: Negative for palpitations, and edema, Respiratory: Negative for shortness of breath, cough, wheezing Abdomen/GI: + right sided abd pain, + nausea and vomiting Back: Negative for injury and pain, : Negative for injury, bleeding, discharge, and swelling, MS/Extremity: Negative for injury and deformity, Skin: Negative for injury, rash, and discoloration, Neuro: Negative for headache, weakness, numbness, tingling, and seizure. Exam: 06:21 Constitutional: This is a well developed, well nourished patient who is awake, alert, rn and in no acute distress. Head/Face: Normocephalic, atraumatic. Eyes: Periorbital areas with no swelling, redness, or edema. Cardiovascular: Regular rate and rhythm. No pulse deficits. Respiratory: No increased work of breathing, no retractions or nasal flaring. Abdomen/GI: Soft, + ventral hernia without focal tenderness, no focal tenderness, no distension. Skin: Warm, dry MS/ Extremity: Pulses equal, no cyanosis. Neurovascular intact. Full, normal range of motion. Equal circumference. Neuro: Awake and alert, GCS 15, oriented to person, place, time, and situation. Cranial nerves II-XII grossly intact. Motor strength 5/5 in all extremities. Sensory grossly intact. Cerebellar exam normal. MDM: 06:00 Patient medically screened. rn 07:28 Patient medically screened. [facility] 07:58 Data reviewed: vital signs, nurses notes, lab test result(s), EKG, radiologic studies, [facility] plain films. 06/15 06:01 Order name: CBC with Diff; Complete Time: 11:00 06/15 06:01 Order name: CMP; Complete Time: 07:29 06/15 06:01 Order name: Lipase; Complete Time: 07:29 06/15 06:01 Order name: Troponin High Sensitivity; Complete Time: 07:29 06/15 07:41 Order name: PT-INR [facility] 06/15 07:41 Order name: AMMONIA; Complete Time: 11:00 [facility] 06/15 06:01 Order name: CT Abd/Pelvis - IV Contrast Only; Complete Time: 08:21 06/15 06:01 Order name: XRAY Chest (1 view); Complete Time: 08:54 06/15 07:41 Order name: Magnesium; Complete Time: 10:15 [facility] 06/15 07:58 Order name: Manual Differential; Complete Time: 11:00 EDMS 06/15 08:30 Order name: Troponin High Sensitivity: 930am; Complete Time: 10:32 [facility] 06/15 06:01 Order name: IV Saline Lock; Complete Time: 07:05 rn 06/15 06:01 Order name: Labs collected and sent; Complete Time: 07:05 rn 06/15 06:01 Order name: EKG; Complete Time: 06:01 rn 06/15 06:01 Order name: EKG - Nurse/Tech; Complete Time: 07:05 rn Administered Medications: 07:10 Drug: Zofran (Ondansetron) 4 mg Route: IVP; Site: right forearm; ll3 07:46 Follow up: Response: No adverse reaction britt 07:10 Drug: morphine 4 mg Route: IVP; Site: right forearm; ll3 07:45 Follow up: Response: No adverse reaction britt 08:03 Drug: Pepcid (famotidine) 20 mg Route: IVP; Site: right antecubital; britt 08:04 Follow up: Response: No adverse reaction britt 09:40 Drug: fentaNYL (PF) 50 mcg Route: IVP; Site: right antecubital; britt 09:42 Follow up: Response: No adverse reaction britt 09:40 Drug: Zofran (Ondansetron) 4 mg Route: IVP; Site: right antecubital; britt 09:41 Follow up: Response: No adverse reaction britt Disposition Summary: 06/15/21 08:32 Discharge Ordered Location: Home vinod Problem: new vinod Symptoms: have improved vinod Condition: Fair vinod Diagnosis - Unspecified cirrhosis of liver vinod - Liver cell carcinoma - hepatocellular carcinoma vinod - Ventral hernia without obstruction or gangrene vinod - Anemia, unspecified vinod - Portal vein thrombosis vinod - 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 vinod Followup: vinod - With: Private Physician - When: 1 - 2 days - Reason: Recheck today's complaints, Continuance of care, Re-evaluation by your physician Discharge Instructions: - Discharge Summary Sheet vinod - Anemia vinod - Cirrhosis vinod - Hernia, Adult, Dezd-zi-Nclo vinod - Aspirin and Your Heart vinod - Ventral Hernia vinod - Liver Cancer vinod - Portal Vein Thrombosis vinod Forms: - Medication Reconciliation Form vinod - Thank You Letter vinod - Antibiotic Education vinod - Prescription Opioid Use vinod Prescriptions: - Pepcid 20 mg Oral Tablet - take 1 tablet by ORAL route every 12 hours for 10 days; 20 tablet; Refills: 0, vinod Product Selection Permitted - Zofran 4 mg Oral Tablet - take 1 tablet by ORAL route every 12 hours As needed; 20 tablet; Refills: 0, [facility] Product Selection Permitted - dicyclomine 20 mg Oral Tablet - take 1 tablet by ORAL route 4 times per day; 28 tablet; Refills: 0, Product [facility] Selection Permitted - Lactulose 10 gram/15 mL Oral Solution - take 30 milliliters by ORAL route once daily; 300 milliliter; Refills: 0, [facility] Product Selection Permitted - Spironolactone 25 mg Oral Tablet - take 1 tablet by ORAL route once daily; 20 tablet; Refills: 0, Product [facility] Selection Permitted Signatures: Dispatcher [employer] Matt Kapoor MD MD cha Nieto, Roman, MD MD rn Loubet, Lynsea RN RN ll3 Lindsey Schofield RN RN britt
--- NOTE | 2021-06-15 08:32 | ER ---
Nurse's Notes [facility] Name: Mic Gross Age: 66 yrs Sex: Male : 1955 Arrival Date: 06/15/2021 Time: 05:57 Bed 20 Private MD: Diagnosis: Unspecified cirrhosis of liver;Liver cell carcinoma-hepatocellular carcinoma;Ventral hernia without obstruction or gangrene;Anemia, unspecified;Portal vein thrombosis;Malignant neoplasm of pancreatic duct-head Presentation: 06/15 07:23 Chief complaint: EMS states: EMS toned out for abdominal pain and chest pain 10/10 for ll3 the past 3 days, c/o dizziness, nausea, and mouth numbness, states he vomited last night. Coronavirus screen: Vaccine status: Patient reports receiving the 2nd dose of the covid vaccine. nausea, vomiting. Ebola Screen: No symptoms or risks identified at this time. Initial Sepsis Screen: Does the patient meet any 2 criteria? No. Patient's initial sepsis screen is negative. Does the patient have a suspected source of infection? No. Patient's initial sepsis screen is negative. Risk Assessment: Do you want to hurt yourself or someone else? Patient reports no desire to harm self or others. Onset of symptoms was June 12, 2021. 07:23 Method Of Arrival: EMS: [facility] ll3 07:23 Acuity: RADHA 3 ll3 Triage Assessment: 06:00 General: Appears uncomfortable, Behavior is calm, cooperative. Pain: Complains of pain ll3 in anterior aspect of right lateral abdomen and chest Pain currently is 10 out of 10 on a pain scale. Pain began 2-3 days ago. Aggravated by Taking a deep breath. Neuro: Level of Consciousness is awake, alert, obeys commands, Oriented to person, place, time, situation. Cardiovascular: Reports chest pain, States pain is aggravated by taking a deep breath Patient's skin is warm and dry. Respiratory: Respiratory effort is even, unlabored, Respiratory pattern is regular, symmetrical. GI: Reports nausea, vomiting, Patient currently denies diarrhea. Derm: Skin is pink, warm \\T\\ dry. Historical: - Allergies: 07:26 No Known Allergies; ll3 - PMHx: 07:26 cirrhosis of liver; Hepatitis; C; Hernia; Hypertension; liver cancer; ll3 - Immunization history:: Client reports receiving the 2nd dose of the Covid vaccine. - Social history:: Smoking status: Patient reports the use of cigarette tobacco products, denies chronic smoking, but will smoke occasionally. - Family history:: not pertinent. - Hospitalizations: : No recent hospitalization is reported. Screenin:31 Abuse screen: Denies threats or abuse. Nutritional screening: No deficits noted. ll3 Tuberculosis screening: No symptoms or risk factors identified. Fall Risk No fall in past 12 months (0 pts). No secondary diagnosis (0 pts). IV access (20 points). Ambulatory Aid- None/Bed Rest/Nurse Assist (0 pts). Gait- Normal/Bed Rest/Wheelchair (0 pts) Mental Status- Oriented to own ability (0 pts). Total Caldwell Fall Scale indicates No Risk (0-24 pts). Assessment: 06:00 General: See triage. ll3 06:17 General: Reports "My lips are really tingly. I bit myself and I didn't even know it.". ll3 ED Course: 05:57 Patient arrived in ED. bp1 06:00 Wero Sorensen MD is Attending Physician. rn 07:00 XRAY Chest (1 view) In Process Unspecified. EDMS 07:03 Mis Abraham, MARKELL is Primary Nurse. ll3 07:26 Triage completed. ll3 07:27 Attending Physician role handed off by Wero Sorensen MD vinod 07:27 Matt Harris MD is Attending Physician. vinod 07:31 Patient has correct armband on for positive identification. Placed in gown. Bed in low ll3 position. Call light in reach. Side rails up X 1. 07:31 Inserted saline lock: 20 gauge in right forearm, using aseptic technique. Blood ll3 collected. 07:57 CT Abd/Pelvis - IV Contrast Only In Process Unspecified. EDMS 11:20 Arm band placed on. britt 11:20 No provider procedures requiring assistance completed. Inserted IV discontinued, britt intact, Pressure dressing applied. Administered Medications: 07:10 Drug: Zofran (Ondansetron) 4 mg Route: IVP; Site: right forearm; ll3 07:46 Follow up: Response: No adverse reaction britt 07:10 Drug: morphine 4 mg Route: IVP; Site: right forearm; ll3 07:45 Follow up: Response: No adverse reaction britt 08:03 Drug: Pepcid (famotidine) 20 mg Route: IVP; Site: right antecubital; britt 08:04 Follow up: Response: No adverse reaction britt 09:40 Drug: fentaNYL (PF) 50 mcg Route: IVP; Site: right antecubital; britt 09:42 Follow up: Response: No adverse reaction britt 09:40 Drug: Zofran (Ondansetron) 4 mg Route: IVP; Site: right antecubital; britt 09:41 Follow up: Response: No adverse reaction britt Outcome: 08:32 Discharge ordered by MD. brock 11:20 Discharged to home britt 11:20 Condition: good 11:20 Discharge instructions given to patient, Prescriptions given X 5 11:20 Patient left the ED. britt Signatures: Dispatcher [employer] EDMS Matt Harris MD MD cha Nieto, Roman, MD MD rn Paniauga, Brittany bp1 Loubet, Lynsea, RN RN ll3 Lindsey Schofield RN RN
--- NOTE | 2021-06-15 08:40 | RAD REPORT ---
EXAM DESCRIPTION: Pelon Single View06/15/2021 6:58 am CLINICAL HISTORY: Chest pain COMPARISON: 2020 FINDINGS: The lungs appear clear of acute infiltrate. The heart is normal size IMPRESSION: No acute abnormalities displayed
[2021-06-15] MEDS ORDERED: ASPIRIN 81 MG CHEWABLE TABLET ONE (09:39)
[2021-06-15] MEDS ORDERED: FENTANYL CITR 100 MCG/2 ML ONE (09:40)
[2021-06-15] MEDS ORDERED: FENTANYL 50 MCG/PATCH TD ONE (10:00)
[2021-06-15 10:57] LABS: Anisocytosis SLIGHT; Blood Morphology Comment NOTED (NOT SEEN); Hypochromasia 2+; Platelet Estimate ADEQ; Poikilocytosis SLIGHT; Target Cells 3+
[2021-06-15 11:42] LABS: Protime INR 1.15
== END 2021-06-15 11:20 | disposition home or self-care (01) ==
LOC: ER 05:42
DX: K74.60 Unspecified cirrhosis of liver (principal); K43.9 Ventral hernia without obstruction or gangrene; D64.9 Anemia, unspecified; C22.0 Liver cell carcinoma; C25.3 Malignant neoplasm of pancreatic duct; I10 Essential (primary) hypertension; F17.210 Nicotine dependence, cigarettes, uncomplicated
CPT/HCPCS: 36415; 71045; 74177; 80053; 82140; 83690; 83735; 84484; 85025; 85610; 93005; 99284; J2405; J3010; J3490; Q9967

== ENCOUNTER 2021-08-01 16:00 | Emergency (ER) | payer OTHER, SELFPAY ==
--- OUTSIDE RECORDS SUMMARY | 2021-08-01 16:02 | XMS REPORT | Continuity of Care Document ---
:[address] [facility] t Address [address] [place] [address] Care Team Providers Name Role Phone PCP, DOES NOT HAVE A Primary Care Physician Unavailable KULDEEP Attending Clinician Unavailable CICI WALKER Attending Clinician Unavailable ALLISON Attending Clinician Unavailable MD Hanna COOPER Attending Clinician Unavailable [facility] Attending Clinician Unavailable Malou GUZMAN Attending Clinician Unavailable Megan FRANKLIN T Attending Clinician MYRA Attending Clinician Unavailable Myra FRANKLIN Attending Clinician Alec RN, E Attending Clinician Akira Attending Clinician DAVID Attending Clinician Unavailable David AREVALO Attending Clinician Miguel AREVALO Attending Clinician RO Attending Clinician Unavailable ALLISON Admitting Clinician Unavailable MD Hanna COOPER Admitting Clinician Unavailable Malou GUZMAN Admitting Clinician Unavailable MYRA Admitting Clinician Unavailable DAVID Admitting Clinician Unavailable David AREVALO Admitting Clinician RO Admitting Clinician Unavailable Payers Payer Name Policy Type Policy Number Effective Date Expiration Date S ource Problems Condition Condition Condition Status Onset Resolution Last Treating Co mments Source Name Details Category Date Date Treatment Clinician Date Nausea and Nausea and Disease Active U nivers vomiting vomiting 2-10 ity of 00:00: [place] [facility] Gangrene Gangrene Disease Active Unive rs of finger of finger 5 ity of 00:00: [place] [facility] [...] Active Uni vers 07-03 ity of 00:00: [place] 00 [facility] Allergies, Adverse Reactions, Alerts Allergy Allergy Status Severity Reaction(s) Onset Inactive Treating Comm ents Source Name Type Date Date Clinician NO KNOWN Drug Active Univers ALLERGIE Class ity of [facility] Social History Social Habit Start Date Stop Date Quantity Comments Source Exposure to Not sure [facility] SARS-CoV-2 (event) Medica l Branch Alcohol intake 2021-01-20 2021-01-20 0 /d [facility] 00:00:00 00:00:00 [facility] Sex Assigned At [birth year] [facility] [place] 00:00:00 00:00:00 Medical Branch Smoking Status Start Date Stop Date Source Smoker, current status 2015-07-05 00:00:00 [facility] Branch Medications Ordered Filled Start [...] tablet 01/20/21 at 1200, RHETT traMADoL 50 2020-03 No [id number] 50mg Take 1 Uni vers mg tablet 1-22 11-30 tablet by ity of 00:00: 05:59 [...] days. Indication s: acute pain methocarbam Yes [id number] 750mg Take 1 Univers oL 750 mg 8-09 tablet by ity o f tablet 00:00: mouth 4 [place] 00 (four) Medical times Branch daily as needed for Pain (scale 7-10). methocarbam Yes [id number] 750mg Take 1 Univers oL 750 mg 8-09 tablet by ity o f tablet 00:00: mouth 4 [place] 00 (four) Medical times Branch daily as needed for Pain (scale 7-10). lactulose Yes [id number] 15mL Take 15 mL Univers 10 gram/15 2-12 by mouth 3 ity of mL solution 00:00: (three) [place] as 00 times Medical daily. Branch lactulose Yes [id number] 15mL Take 15 mL Univers 10 gram/15 2-12 by mouth 3 ity of mL solution 00:00: (three) [place] as 00 times Medical daily. Branch docusate Yes [id number] 250mg Take 1 Univers sodium 250 9-10 [id number] capsule by i ty of mg capsule 00:00: mouth [place] 00 daily. Medical Branch ondansetron Yes [id number] 4mg Take 1 Univers 4 mg 9-10 [id number] tablet by ity of disintegrat 00:00: mouth [place] ing tablet 00 every 4 Medica l (four) Branch hours as needed for Nausea and Vomiting (N/V). docusate Yes [id number] 250mg Take 1 Univers sodium 250 9-10 [id number] capsule by i ty of mg capsule 00:00: mouth [place] 00 daily. Medical Branch ondansetron Yes [id number] 4mg Take 1 Univers 4 mg 9-10 [id number] tablet by ity of disintegrat 00:00: mouth [place] ing tablet 00 every 4 Medica l (four) Branch hours as needed for Nausea and Vomiting (N/V). amLODIPine 0 Yes 10mg Take 1 Unive [...] Source Systolic blood 2021-01-20 16:46:00 155 mm[Hg] [facility] Diastolic blood 2021-01-20 16:46:00 84 mm[Hg] [facility] Heart rate 2021-01-20 16:46:00 83 /min [facility] Body temperature 2021-01-20 16:46:00 36.72 [facility] Respiratory rate 2021-01-20 16:46:00 18 /min [facility] Body weight 2021-01-20 16:46:[address] [facility] BMI 2021-01-20 16:46:00 26.95 kg/m2 [facility] Oxygen saturation in 2021-01-20 16:46:00 99 /min [facility] Arterial blood by [facility] Pulse oximetry Branch Procedures Procedure Date / Time Performing Clinician Source Performed ED SPLINT APPLICATION 2021-01-20 19:05:41 Fabio Guzman [facility] XR FOOT 3+ VW RIGHT 2021-01-20 17:12:47 Fabio Guzman [facility] CONSENT/REFUSAL FOR 2021-01-20 16:52:15 Doctor Unassigned, No Un [facility] DIAGNOSIS AND TREATMENT Name Medical Branch Encounters Start End Encounter Admission Attending Care Care Encounter Source Date/Time Date/Time Type Type Clinicians Facility Department ID 2021-04-28 Outpatient KULDEEP [facility] [id number] [place] 01:04:42 [facility] 2021-01-24 Inpatient ER [facility] Internal [id number] [facility] 22:30:05 [facility] 2021-05-23 2021-05-23 Emergency E DENISE, MHBL MHBL [id number] MHBL 14:42:00 19:07:00 NAUN 2021-03-01 2021-03-03 [facility] [id number] [place] 00:00:00 00:00:00 [place] [address] 2021-01-22 2021-01-22 Letter Orthopedic RUST [id number] Univers 00:00:00 00:00:00 (Out) Clinic SPECIALTY [id number] ity [facility] [id number] [facility] AT [id number] [address] 2021-01-20 2021-01-20 Emergency X FABIO GUZMAN RUST ERT [id number] Univers 10:47:00 13:43:00 ity of [facility] 2021-01-20 2021-01-20 Emergency Fabio Guzman TRAUMA [id number] Univers 10:47:00 13:43:00 T CENTER [id number] it [facility] [id number] [facility] [id number] [address] 2020-10-07 2020-10-07 Emergency X RENTERIA, RUST ERT [id number] Univers 10:18:00 11:49:00 MANPREET ity [facility] 2020-10-07 2020-10-07 Emergency Renteria, RUST [id number] 10:18:00 11:49:00 Manpreet Torres [id number] [place] [id number] [place] [id number] 2019-06-11 2019-06-11 Patient Jenn Michael [id number] 00:00:00 00:00:00 Outreach Nettie Aviles [id number] [place] [id number] [id number] 2019-04-27 2019-04-27 Patient Jenn Michael [id number] 00:00:00 00:00:00 Outreach Nettie Aviles [id number] [place] [id number] 2019-04-13 2019-04-13 Transition Shaila Champion [id number] 00:00:00 00:00:00 of Care Kandice Aviles [id number] [place] [id number] 2019-04-10 2019-04-12 Inpatient X [facility] [id number] Univers 10:55:39 18:18:00 [facility] 2019-04-10 2019-04-12 Hospital Fabio Guzman Elv[place] [id number] 10:55:39 18:18:00 Encounter Megan Fabiojordi Cifuentes [id number] [facility] [id number] 2018-11-08 2018-11-08 Emergency [facility] [id number] 14:26:03 17:32:00 Narciso Torres [id number] [place] [id number] [place] [id number] Results Test Description Test Time Test Comments Results Result Comments Source SARS-CoV-2 (COVID-19) RNA [Presence] in Respiratory sp ecimen by 2021-03-02 11:23:42 ABRIL with probe detection Test Item Value Reference Range Interpretation Comme nts SARS-CoV-2 (COVID-19) RNA [Presence] in Respiratory Not detected No t-Detected specimen by ABRIL with probe detection (test code = 53466-0) Whether patient is employed in a healthcare setting (test code = 59808-3) Whether the patient has symptoms related to condition of interest (test code = 48727-2) Patient was hospitalized because of this condition (test code = 42496-9) Whether the patient was admitted to intensive care unit (ICU) for condition of interest (test code = 99445-6) Whether patient resides in a congregate care setting (test code = 10007-3) Troponin [id number] 20:46:00 Test Item Value Reference Range Interpretation Comments Troponin T (test code = GERARD) <0.010 ng/mL 0.000-0.090 N Basic Metabolic [id number] 20:46:00 Test Item Value Reference Range Interpretation [...] National [employer] Foundation,http :[email or web address] ep.nih.gov CBC with [id number] 20:25:00 Test Item Value Reference Range Interpretation [...] code = ALYMPH) 1.7 K/cumm 0.5-4.6 N [place] Abs (test code = AMONO) 1.2 K/cumm 0.0-1.2 N Eos Abs (test code = AEOS) 0.10 K/cumm 0.00-0.74 N Baso Abs (test code = ABASO) 0.1 K/cumm 0.00-0.21 N
--- NOTE | 2021-08-01 17:53 | RAD REPORT ---
EXAM DESCRIPTION: RAD - Shoulder Right 2 View - 08/01/2021 5:36 pm CLINICAL HISTORY: fall, shoulder pain COMPARISON: No comparisons FINDINGS: Mild AC joint and glenohumeral joint arthritic changes are present. No fracture is seen.
--- NOTE | 2021-08-01 17:54 | RAD REPORT ---
EXAM DESCRIPTION: RAD - Tib Fib Left - 08/01/2021 5:36 pm CLINICAL HISTORY: fall COMPARISON: No comparisons FINDINGS: Small calcaneal spurs. No acute fracture or dislocation.
--- NOTE | 2021-08-01 17:56 | RAD REPORT ---
EXAM DESCRIPTION: RAD - Tib Fib Right - 08/01/2021 5:36 pm CLINICAL HISTORY: fall COMPARISON: No comparisons FINDINGS: No fracture or dislocation is seen. Mild soft tissue swelling.
[2021-08-01] MEDS ORDERED: ONDANSETRON 4 MG/2 ML VIAL ONE (20:31)
[2021-08-01] MEDS ORDERED: MORPHINE 4 MG/ML SYR ONE (20:31)
[2021-08-01] MEDS ORDERED: ACETAMINOPHEN 500 MG TAB ONE (20:48)
[2021-08-01 20:52] LABS: Hematocrit 26.9 % (39.6-49.0); MPV 9.4 fL (7.6-11.3); RBC Red Blood Cell Count 3.27 M/uL (4.33-5.43)
[2021-08-01 20:54] LABS: Albumin 1.9 g/dL (3.4-5.0); Potassium 3.4 mmol/L (3.5-5.1)
[2021-08-01 20:59] LABS: Bilirubin Total 1.8 mg/dL (0.2-1.0); Protein, Total 8.6 g/dL (6.4-8.2)
[2021-08-01 21:43] LABS: Anisocytosis 1+; Blood Morphology Comment NOTED (NOT SEEN); Platelet Estimate ADEQ
--- NOTE | 2021-08-01 21:53 | RAD REPORT ---
EXAM DESCRIPTION: CTAbdomen Pelvis W Contrast - 08/01/2021 9:16 pm CLINICAL HISTORY: Abdominal pain. Abdominal pain, acute, nonlocalized COMPARISON: Abdomen Pelvis W Contrast dated 06/15/2021; Abdomen Pelvis W Contrast dated ; Abdomen Pelvis W Contrast dated 09/03/2020; Abdomen Pelvis W Contrast dated 04/03/2020 TECHNIQUE: Biphasic CT imaging of the abdomen and pelvis was performed with 100 ml non-ionic IV cont rast. All CT scans are performed using dose optimization technique as appropriate and may include automated exposure control or mA/KV adjustment according to patient size. FINDINGS: Linear atelectasis is present in both lung bases. Liver cirrhosis is present. Irregular infiltrative mass lesion is seen in the right lobe of the liver . There is extensive tumor thrombus extending into portal vein. Spleen appears absent. Large left adrenal mass is present measuring 7.1 cm, previously 5.9 cm. Both kidneys appear unremarkable. Soft tissue mass in the left lower quadrant measuring 4.6 cm, previ ously 2.7 cm. Gallbladder is significantly distended. Mild ascites. 3.8 cm mass is seen in the posterior left inferior pubic ramus. IMPRESSION: Findings are compatible with hepatocellular carcinoma with extensive tumor thrombus in t he portal vein. Enlargement of left adrenal mass is present compatible with metastatic disease. Destructive mass present inferior left pubic ramus compatible with metastatic disease.
[2021-08-01 22:08] LABS: Urine Blood Negative (Negative); Urine Glucose Trace (Negative); Urine Protein Trace (Negative)
[2021-08-01] MEDS ORDERED: NA CHLORIDE 0.9% 100 ML ONE (22:45)
[2021-08-01] MEDS ORDERED: PIPERACIL/TAZO 3.375 GM VIAL IV ONE (22:45)
--- NOTE | 2021-08-02 00:05 | EDPHYS ---
Physician Documentation [facility] Name: Mic Gross Age: 66 yrs Sex: Male : 1955 Arrival Date: 08/01/2021 Time: 16:03 Bed 17 Private MD: [email or web address] Physician Matt Harris HPI: 08/01 16:45 This 66 yrs old Male presents to ER via Wheelchair with complaints of Shoulder jmm Pain, Leg Pain. 16:45 The patient presents with abdominal distention. jmm 08/02 00:00 Onset: The symptoms/episode began/occurred gradually, 3 day(s) ago. The symptoms do not jmm radiate. Is a 66-year-old male with a history of hypertension, liver cancer the presents emerged part with complaints of generalized abdominal pain, right shoulder pain, right and left lower leg pain. Patient states after lifting a mattress he fell landing on his right side. Patient states his abdominal pain has worsened as well.. Historical: - Allergies: 08/01 16:18 No Known Allergies; vg1 - PMHx: 16:18 cirrhosis of liver; Hepatitis; C; Hernia; Hypertension; liver cancer; vg1 - Immunization history:: Client reports receiving the 1st dose of the Covid vaccine. - Social history:: Smoking status: Patient denies any tobacco usage or history of. ROS: 08/02 00:00 Constitutional: Positive for body aches, chills. jmm Abdomen/GI: Positive for abdominal pain. MS/extremity: Positive for injury or acute deformity. All other systems are negative. Exam: 00:00 Constitutional: This is a well developed, well nourished patient who is awake, alert, jmm and in no acute distress. Head/Face: atraumatic. Eyes: EOMI, no conjunctival erythema appreciated ENT: Moist Mucus Membranes Neck: Trachea midline, Supple Chest/axilla: Normal chest wall appearance and motion. Cardiovascular: Regular rate and rhythm. No edema appreciated Respiratory: Normal respirations, no respiratory distress appreciated 00:00 Back: Normal ROM Skin: General appearance color normal MS/ Extremity: Moves all extremities, no obvious deformities appreciated, no edema noted to the lower extremities Neuro: Awake and alert Psych: Behavior is normal, Mood is normal, Patient is cooperative and pleasant 00:00 Abdomen/GI: Inspection: distension, that is mild, Bowel sounds: normal, Palpation: soft, moderate abdominal tenderness, in all quadrants. 00:00 Musculoskeletal/extremity: Right lower extremity erythema appreciated. 00:00 Skin: Appearance: Color: normal in color, Erythema noted to the right lower leg. 00:00 Neuro: Orientation: is normal, Mentation: is normal, Memory: is normal. 00:00 Psych: Behavior/mood is pleasant, cooperative. Vital Signs: 08/01 16:14 BP 160 / 93; Pulse 86; Resp 20; Temp 100.1(O); Pulse Ox 99% on R/A; Weight 70.31 kg; vg1 Height 5 ft. 6 in. (167.64 cm); Pain 10/10; 20:30 BP 164 / 88; Pulse 90; Resp 18; Temp 100(O); Pulse Ox 99% on R/A; lg3 21:30 BP 139 / 82; Pulse 89; Resp 17; Pulse Ox 98% on R/A; lg3 22:45 BP 155 / 93; Pulse 82; Resp 18; Pulse Ox 98% on R/A; lg3 22:59 Temp 98.4(O); lg3 08/02 01:40 BP 148 / 84; Pulse 82; Resp 18; Pulse Ox 99% on R/A; lg3 03:43 BP 146 / 82; Pulse 84; Resp 17; Pulse Ox 99% on R/A; lg3 08/01 16:14 Body Mass Index 25.02 (70.31 kg, 167.64 cm) vg1 MDM: 08/01 16:46 Patient medically screened. [facility] 08/02 00:02 Data reviewed: vital signs, nurses notes. Counseling: I had a detailed discussion with [facility] the patient and/or guardian regarding: the historical points, exam findings, and any diagnostic results supporting the discharge/admit diagnosis, lab results, radiology results, the need to transfer to another facility. ED course: I discussed the patient with [facility] whom accepted the patient to his service.. 08/01 16:45 Order name: CBC with Diff; Complete Time: 21:43 [facility] 08/01 16:45 Order name: CMP; Complete Time: 21:05 [facility] 08/01 16:45 Order name: Lipase; Complete Time: 21:05 [facility] 08/01 20:42 Order name: Urine Culture [facility] 08/01 20:50 Order name: COVID-19 SARS RT PCR (Document "Date of Onset" if Symptomatic); Complete lg3 Time: 23:27 08/01 21:43 Order name: Manual Differential; Complete Time: 21:43 [facility] 08/01 16:45 Order name: Shoulder Right (2 View) XRAY; Complete Time: 18:10 [facility] 08/01 16:45 Order name: Tib Fib Left XRAY; Complete Time: 18:10 [facility] 08/01 16:45 Order name: Tib Fib Right XRAY; Complete Time: 18:10 [facility] 08/01 16:46 Order name: CT Abd/Pelvis - IV Contrast Only; Complete Time: 21:57 [facility] 08/01 21:13 Order name: US Abdomen Limited [facility] 08/01 22:09 Order name: Urine Dipstick-Ancillary; Complete Time: 22:09 [facility] 08/01 22:09 Order name: Blood Culture Adult (2) [facility] 08/01 16:45 Order name: IV Saline Lock; Complete Time: 20:30 [facility] 08/01 16:45 Order name: Labs collected and sent; Complete Time: 20:30 [facility] 08/01 20:42 Order name: Urine Dipstick-Ancillary (obtain specimen); Complete Time: 22:08 [facility] Administered Medications: 08/01 20:38 Drug: morphine 4 mg Route: IVP; Infused Over: 4 mins; Site: left antecubital; lg3 20:46 Follow up: Response: No adverse reaction lg3 20:38 Drug: Zofran (Ondansetron) 4 mg Route: IVP; Site: left antecubital; lg3 20:46 Follow up: Response: No adverse reaction lg3 20:46 Drug: Tylenol 1000 mg Route: PO; lg3 20:46 Follow up: Response: No adverse reaction lg3 23:06 Drug: Zosyn (piperacillin-tazobactam) 3.375 grams Route: IVPB; Infused Over: 60 mins; lg3 Site: left antecubital; 08/02 00:56 Follow up: Response: No adverse reaction; IV Status: Completed infusion; IV Intake: lg3 100ml 00:56 Drug: morphine 4 mg Route: IVP; Infused Over: 4 mins; Site: left antecubital; lg3 00:56 Follow up: Response: No adverse reaction lg3 Disposition Summary: 08/02/21 00:04 Transfer Ordered Transfer Location: [facility] jmm Reason: Higher level of care jmm Condition: Stable jmm Problem: new jmm Symptoms: are unchanged jmm Accepting Physician: Dr. Mclaughlin(08/02/21 03:44) lg3 Diagnosis - Malignant neoplasm of liver, not specified as primary or secondary jmm - Abdominal pain, Generalized jmm - Cellulitis of right lower limb jmm Forms: - Medication Reconciliation Form jmm - SBAR form jmm Signatures: Dispatcher [employer] EDMS Vicente Castillo PA PA jmm Gibson, Lacie, RN RN lg3 Telma Tejeda RN RN vg1 Corrections: (The following items were deleted from the chart) 03:44 00:04 Dr. Arnoldo dhillon lg3
--- NOTE | 2021-08-02 00:05 | ER ---
Nurse's Notes [facility] Name: Mic Gross Age: 66 yrs Sex: Male : 1955 Arrival Date: 08/01/2021 Time: 16:03 Bed 17 Private MD: Diagnosis: Malignant neoplasm of liver, not specified as primary or secondary;Abdominal pain, Generalized;Cellulitis of right lower limb Presentation: 08/01 16:14 Chief complaint: Patient states: Right shoulder pain and Right leg pain that appears to vg1 be swollen; also states ABD pain due to lifting a mattress. Coronavirus screen: Vaccine status: Patient reports receiving the 1st dose of the Covid vaccine. Client denies travel out of the [place] in the last 14 days. Ebola Screen: Patient denies exposure to infectious person. Patient denies travel to an Ebola-affected area in the 21 days before illness onset. Initial Sepsis Screen: Does the patient meet any 2 criteria? No. Patient's initial sepsis screen is negative. Does the patient have a suspected source of infection? No. Patient's initial sepsis screen is negative. Risk Assessment: Do you want to hurt yourself or someone else? Patient reports no desire to harm self or others. Onset of symptoms was July 31, 2021. 16:14 Method Of Arrival: Wheelchair vg1 16:14 Acuity: RADHA 3 vg1 Triage Assessment: 16:18 General: Appears uncomfortable, Behavior is cooperative. Pain: Complains of pain in vg1 abdomen, right leg and left leg and right shoulder Pain currently is 10 out of 10 on a pain scale. Historical: - Allergies: 16:18 No Known Allergies; vg1 - PMHx: 16:18 cirrhosis of liver; Hepatitis; C; Hernia; Hypertension; liver cancer; vg1 - Immunization history:: Client reports receiving the 1st dose of the Covid vaccine. - Social history:: Smoking status: Patient denies any tobacco usage or history of. Screenin:30 Abuse screen: Denies threats or abuse. Denies injuries from another. Nutritional lg3 screening: No deficits noted. Tuberculosis screening: No symptoms or risk factors identified. Fall Risk Secondary diagnosis (15 points) impaired mobility, IV access (20 points). Ambulatory Aid- None/Bed Rest/Nurse Assist (0 pts). Gait- Weak (10 pts.). Total Caldwell Fall Scale indicates High Risk Score (45 or more points). Side Rails Up X 2 Frequent Obs/Assessments Occuring. Assessment: 20:33 General: Appears in no apparent distress. uncomfortable, Behavior is calm, cooperative. lg3 Pain: Complains of pain in abdomen and right leg and right shoulder. Neuro: No deficits noted. Bolton Agitation-Sedation Scale (RASS): 0 - Alert and Calm Level of Consciousness is awake, alert, obeys commands, Oriented to person, place, time, situation. Cardiovascular: No deficits noted. Denies chest pain, Capillary refill < 3 seconds Clubbing of nail beds is absent JVD is absent Patient's skin is warm and dry. Respiratory: No deficits noted. Reports shortness of breath on exertion Airway is patent Trachea midline Respiratory effort is even, unlabored, Respiratory pattern is regular, symmetrical. GI: Abdomen is round hernia noted to abdomen Reports lower abdominal pain, upper abdominal pain, epigastric pain, intolerance of fluids, intolerance of food, nausea. : No deficits noted. No signs and/or symptoms were reported regarding the genitourinary system. EENT: No deficits noted. No signs and/or symptoms were reported regarding the EENT system. Derm: Skin is intact, is healthy with good turgor, Skin is dry, Skin temperature is warm. Musculoskeletal: Reports weakness in generalized. 23:04 Reassessment: Patient appears in no apparent distress at this time. No changes from lg3 previously documented assessment. Patient and/or family updated on plan of care and expected duration. Pain level reassessed. Patient is alert, oriented x 3, equal unlabored respirations, skin warm/dry/pink. 08/02 00:45 General: attempted to call report. nurse not available. provided call back number . lg3 01:20 General: report given to MAR[facility]LL Blake [facility] . lg3 03:41 Reassessment: Patient appears in no apparent distress at this time. No changes from lg3 previously documented assessment. Patient and/or family updated on plan of care and expected duration. Pain level reassessed. Patient is alert, oriented x 3, equal unlabored respirations, skin warm/dry/pink. Patient states feeling better. Vital Signs: 08/01 16:14 BP 160 / 93; Pulse 86; Resp 20; Temp 100.1(O); Pulse Ox 99% on R/A; Weight 70.31 kg; vg1 Height 5 ft. 6 in. (167.64 cm); Pain 10/10; 20:30 BP 164 / 88; Pulse 90; Resp 18; Temp 100(O); Pulse Ox 99% on R/A; lg3 21:30 BP 139 / 82; Pulse 89; Resp 17; Pulse Ox 98% on R/A; lg3 22:45 BP 155 / 93; Pulse 82; Resp 18; Pulse Ox 98% on R/A; lg3 22:59 Temp 98.4(O); lg3 08/02 01:40 BP 148 / 84; Pulse 82; Resp 18; Pulse Ox 99% on R/A; lg3 03:43 BP 146 / 82; Pulse 84; Resp 17; Pulse Ox 99% on R/A; lg3 08/01 16:14 Body Mass Index 25.02 (70.31 kg, 167.64 cm) vg1 ED Course: 08/01 16:03 Patient arrived in ED. rg4 16:18 Triage completed. vg1 16:18 Arm band placed on. vg1 16:39 Vicente Castillo PA is PHCP. jmm 16:39 Matt Harris MD is Attending Physician. jmm 17:38 Shoulder Right (2 View) XRAY In Process Unspecified. EDMS 17:38 Tib Fib Left XRAY In Process Unspecified. EDMS 17:38 Tib Fib Right XRAY In Process Unspecified. EDMS 20:11 Magdalene Watson, RN is Primary Nurse. lg3 20:30 Patient has correct armband on for positive identification. Placed in gown. Bed in low lg3 position. Call light in reach. Side rails up X 1. Client placed on continuous cardiac and pulse oximetry monitoring. NIBP monitoring applied. Door closed. Noise minimized. 20:30 CBC with Diff Sent. lg3 20:30 CMP Sent. lg3 20:30 Lipase Sent. lg3 20:30 Inserted saline lock: 20 gauge in left antecubital area, using aseptic technique. Blood lg3 collected. 21:18 CT Abd/Pelvis - IV Contrast Only In Process Unspecified. EDMS 22:18 COVID-19 SARS RT PCR (Document "Date of Onset" if Symptomatic) Sent. lg3 22:18 Urine Culture Sent. lg3 22:21 Initiated transfer to [facility], spoke to Leeanna Kim. wm 22:33 [facility] called back to deny due to capacity. wm 22:34 Blood Culture Adult (2) Sent. lg3 22:35 Initiated transfer to [facility], spoke with [place]. wm 22:56 [facility] called back to deny due to capacity. wm 23:01 US Abdomen Limited In Process Unspecified. EDMS 23:30 Initiated transfer to [facility] and spoke to Brittany Navarrete. wm 23:55 [facility] Pt for transfer with Dr. Ayon. / 00:58 [facility] agreed to transport. wm 01:13 No provider procedures requiring assistance completed. Patient transferred, IV remains lg3 in place. intact, No redness/swelling at site. Administered Medications: 08/01 20:38 Drug: morphine 4 mg Route: IVP; Infused Over: 4 mins; Site: left antecubital; lg3 20:46 Follow up: Response: No adverse reaction lg3 20:38 Drug: Zofran (Ondansetron) 4 mg Route: IVP; Site: left antecubital; lg3 20:46 Follow up: Response: No adverse reaction lg3 20:46 Drug: Tylenol 1000 mg Route: PO; lg3 20:46 Follow up: Response: No adverse reaction lg3 23:06 Drug: Zosyn (piperacillin-tazobactam) 3.375 grams Route: IVPB; Infused Over: 60 mins; lg3 Site: left antecubital; 08/02 00:56 Follow up: Response: No adverse reaction; IV Status: Completed infusion; IV Intake: lg3 100ml 00:56 Drug: morphine 4 mg Route: IVP; Infused Over: 4 mins; Site: left antecubital; lg3 00:56 Follow up: Response: No adverse reaction lg3 Medication: 08/01 20:30 VIS not applicable for this client. lg3 Intake: 08/02 00:56 IV: 100ml; Total: 100ml. lg3 Outcome: 00:04 ER care complete, transfer ordered by MD. agudelo 01:13 Transferred by ground EMS to [facility], Transfer form lg3 completed. 01:13 Condition: stable 01:13 Instructed on the need for transfer, Demonstrated understanding of instructions. 03:44 Patient left the ED. lg3 Signatures: Dispatcher [employer] EDMS Vicente Castillo PA PA jmm Garcia, Rubi rg4 Magdalene Watson RN RN lg3 Telma Tejeda RN RN vg1 Aracely Juarez Corrections: (The following items were deleted from the chart) 01:03 00:45 General: attempted to call report. nurse not available . lg3 lg3
[2021-08-02] MEDS ORDERED: MORPHINE 4 MG/ML SYR ONE (00:59)
[2021-08-02 03:55] VITALS: TEMP 98.4
[2021-08-02 03:56] VITALS: O2SAT 99
[2021-08-02 03:58] VITALS: BP 146/82
--- NOTE | 2021-08-04 12:34 | RAD REPORT ---
EXAM DESCRIPTION: US - Abdomen Exam Limited - 08/01/2021 10:59 pm CLINICAL HISTORY: Abdominal pain. COMPARISON: None. TECHNIQUE: Ultrasound of the gallbladder with Doppler flow imaging was obtained. FINDINGS: Gallbladder: Distended gallbladder with mild wall thickening of 0.5 cm. No cholelithiasis is visualized. Small amount of gallbladder sludge. Bile ducts: No dilatation of the intrahepatic bile ducts. The common bile duct measures 0.5 cm in camden meter at the tena hepatis. IMPRESSION: Distended gallbladder with mild wall thickening. Small amount of gallbladder sludge. Electronically signed by: Kyara Coelho MD 08/01/2021 11:24 PM CDT Due to temporary technical issues with the PACS/Fluency reporting system, reports are being signed by the in house radiologist without review as a courtesy to ensure prompt reporting. The interpreting r adiologist is fully responsible for the content of the report.
== END 2021-08-02 03:44 | disposition short-term general hospital (02) ==
LOC: ER 16:00
DX: R10.84 Generalized abdominal pain (principal); C22.9 Malignant neoplasm of liver, not specified as primary or secondary; L03.115 Cellulitis of right lower limb; M25.511 Pain in right shoulder; Z20.822 Contact with and (suspected) exposure to COVID-19
CPT/HCPCS: 96365; 87040 ×2; 87088; 85025; 87086; 36415; 87205 ×4; 87077 ×2; 87186 ×2; 81003; 83690; 80053; 74177; 73030; 73590 ×2; 76705; 96375; 99285; 96366; U0003; Q9967; J2543; J2405

== ENCOUNTER 2021-08-24 18:51 | Emergency (ER) | payer OTHER ==
--- OUTSIDE RECORDS SUMMARY | 2021-08-24 18:57 | XMS REPORT | Continuity of Care Document ---
:1955 Author Organization [facility] t Address [address] [place] [address] Care Team Providers Name Role Phone Pcp, Does Not Have A Primary Care Physician KULDEEP Attending Clinician Unavailable Doctor Unassigned, Name Attending Clinician Unavailable Akira CASAREZ Attending Clinician COLT Attending Clinician Unavailable Colt AREVALO Attending Clinician Lala AREVALO Attending Clinician CICI WALKER Attending Clinician Unavailable ALLISON Attending Clinician Unavailable MD Hanna COOPER Attending Clinician [facility]available [facility] Attending Clinician Unavailable Malou GUZMAN Attending Clinician Unavailable Megan FRANKLIN, T Attending Clinician MYRA Attending Clinician Unavailable Myra FRANKLIN Attending Clinician Alec RN, E Attending Clinician DAVID Attending Clinician Unavailable David AREVALO Attending Clinician Miguel AREVALO Attending Clinician RO Attending Clinician Unavailable COLT Admitting Clinician Unavailable Colt AREVALO Admitting Clinician ALLISON Admitting Clinician Unavailable MD Hanna COOPER [...] Details Category Date Date Treatment Clinician Date E44.0 E44.0 Disease Active Univers Moderate Moderate 6-05 ity of protein protein 00:00: [place] calorie calorie 00 Medical malnutriti malnutriti Br anch on on HCC HCC Disease Active Univers (hepatocel (hepatocel 6-04 it y of lular lular 00:00: [place] carcinoma) carcinoma) 00 Co dical Branch Hepatocell Hepatocell Disease Active U nivers ular ular 1-02 [place] of carcinoma carcinoma [place] Cirrhosis Cirrhosis Disease Active Uni vers of liver of liver 1-02 ity of without without 00:00: [place] ascites ascites 00 Medical Branch Adrenal Adrenal Disease Active Univers mass mass 1-02 ity of 00:00: [place] [facility] Nausea and Nausea and Disease Active U nivers vomiting vomiting 2-10 ity of 00:00: [place] 00 Medical Branch Gangrene Gangrene Disease Active Unive rs of finger of finger 5-07 ity of 00:00: [place] [facility] Osteomyeli Osteomyeli Disease Active U nivers tis tis 5-07 ity of 00:00: [place] 00 Medical Branch Adrenal Adrenal Disease Active Univers insufficie insufficie 5-07 it y of ncy ncy 00:00: [place] 00 Medical Branch Chronic Chronic Disease Active Univers rheumatic rheumatic 5-07 [place] of arthritis arthritis [place] 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 Alcohol intake 2021-08-02 2021-08-02 0 /d [facility] 00:00:00 00:00:00 Medical [place] Tobacco use and 2021-08-02 2021-08-02 Never used [facility] exposure 00:00:00 00:00:00 [facility] Sex [birth year] [facility] 00:00:00 00:00:00 Medical [place] Smoking Status Start Date Stop Date Source Former smoker 2021-08-02 00:00:00 2021-08-02 00:00:00 [facility] Smoker, current status 2015-07-05 00:00:00 [facility] unknown Medical [place] Medications Ordered Filled Start Stop Current Ordering Indication Dosage Frequency Signature Comments Components Source Medication Medication Date Date Medication? Clinician (SIG) Name Name spironolact Yes [id number] 50mg Take 1 Univers one 50 mg 6-09 tablet by ity o f tablet 00:00: mouth [place] 00 daily. Medical Branch pantoprazol Yes [id number] 40mg Take 1 Univers e 40 mg EC 6-09 tablet by ity of tablet 00:00: mouth [place] 00 daily. Medical Branch furosemide Yes [id number] 20mg Take 1 Univers 20 mg 6-09 tablet by ity of tablet 00:00: mouth [place] 00 daily. Medical Branch spironolact Yes [id number] 50mg Take 1 Univers one 50 mg 6-09 tablet by ity o f tablet 00:00: mouth [place] 00 daily. Medical Branch pantoprazol Yes [id number] 40mg Take 1 Univers e 40 mg EC 6-09 tablet by ity of tablet 00:00: mouth [place] 00 daily. Medical Branch furosemide Yes [id number] 20mg Take 1 Univers 20 mg 6-09 tablet by ity of tablet 00:00: mouth [place] 00 daily. Medical Branch spironolact 2021- Yes [id number] 50mg Take 1 Univers one 50 mg 6-09 tablet by ity o f tablet 00:00: mouth [place] 00 daily. Medical Branch pantoprazol 2021- Yes [id number] 40mg Take 1 Univers e 40 mg EC 6-09 tablet by ity of tablet 00:00: mouth [place] 00 daily. Medical Branch furosemide 0 Yes [id number] 20mg Take 1 Univers 20 mg 6-09 tablet by ity of tablet 00:00: mouth [place] 00 daily. Medical Branch spironolact Yes [id number] 50mg Take 1 Univers one 50 mg 6-09 tablet by ity o f tablet 00:00: mouth [place] 00 daily. Medical Branch pantoprazol Yes [id number] 40mg Take 1 Univers e 40 mg EC 6-09 tablet by ity of tablet 00:00: mouth [place] 00 daily. Medical Branch furosemide Yes [id number] 20mg Take 1 Univers 20 mg 6-09 tablet by ity of tablet 00:00: mouth [place] 00 daily. Medical Branch acetaminoph 2021- No 1{tbl} Take 1 U nivers en-codeine 08-06-08 tablet by ity of (TYLENOL-CO 16:12: 00:00 [place] DEINE #3) 10 :00 every 4 Medical 300-30 mg (four) Branch tablet hours as needed. spironolact Yes 50mg 50 mg, Univ ers one -08 Oral, ity of (ALDACTONE) 16:00: DAILY, [place] tablet 50 00 First dose [place]i [place] mg on Wed Branch 08/06/21 at 1100, Until Discontinu ed, Routine furosemide 2021-0 Yes 20mg 20 mg, Unive rs (LASIX) 6-08 Oral, ity of tablet 20 16:00: DAILY, [place] mg 00 First dose Medical on Wed Branch 08/06/21 at 1100, Until Discontinu ed, Routine morphine ER 0 Yes 15mg 15 mg, Univ ers (MS CONTIN) 6 Oral, ity of 12 hr 15:45: Q12H, [place] tablet 15 00 First dose [place]i [place] mg on Wed Branch 08/06/21 at 1045, Until Discontinu ed, Routine enoxaparin Yes 40mg 40 mg, Unive rs (LOVENOX) 08-06 Subcutaneo ity of injection 14:08: us, Q24H, [place] 40 mg 00 First dose Medical (after Branch last modificati on) on Wed08/06/21 at 0915, Until Discontinu ed, Routine magnesium 2021- No 400mg 400 mg, Uni vers oxide 08-06 Oral, ity of (MAG-OX 14:00: 14:04 ONCE, 1 [place] 400) tablet 00 :00 dose, On Medi [place] 400 mg Wed08/06/21 Branch at 0900, Routine ondansetron Yes [id number] 4mg Take 1 Univers 4 mg tablet 6-08 tablet by ity of 00:00: mouth [place] 00 every 8 Medical (eight) Branch hours as needed for Nausea and Vomiting (N/V). ondansetron Yes [id number] 4mg Take 1 Univers 4 mg tablet 6-08 tablet by ity of 00:00: mouth [place] 00 every 8 Medical (eight) Branch hours as needed for Nausea and Vomiting (N/V). ondansetron 0 Yes [id number] 4mg Take 1 Univers 4 mg tablet 6-08 tablet by ity of 00:00: mouth [place] 00 every 8 Medical (eight) Branch hours as needed for Nausea and Vomiting (N/V). ondansetron 0 Yes [id number] 4mg Take 1 Univers 4 mg tablet 6-08 tablet by ity of 00:00: mouth [place] 00 every 8 Medical (eight) Branch hours as needed for Nausea and Vomiting (N/V). morphine ER 0 2021- Yes [id number] 15mg Take 1 Uni vers 15 mg 12 hr 08-06 tablet by it y of tablet 00:00: 04:59 mouth [place] 00 :00 every 12 Medical (twelve) Branch hours for 10 days. Indication s: chronic pain HYDROcodone 2021-0 2021- Yes [id number] 1{tbl} Take 1 U nivers -acetaminop 08-06 tablet by it y of hen 5-325 00:00: 04:59 mouth [place] mg tablet 00 :00 every 6 Medical (six) Branch hours as needed for Pain (scale 4-6) for up to 10 days. Indication s: acute pain morphine ER 2021- Yes [id number] 15mg Take 1 Uni vers 15 mg 12 hr 08-0619 tablet by it y of tablet 00:00: 04:59 mouth [place] 00 :00 every 12 Medical (twelve) Branch hours for 10 days. Indication s: chronic pain HYDROcodone 2021- Yes [id number] 1{tbl} Take 1 U nivers -acetaminop 08-06 tablet by it y of hen 5-325 00:00: 04:59 mouth [place] mg tablet 00 :00 every 6 Medical (six) Branch hours as needed for Pain (scale 4-6) for up to 10 days. Indication s: acute pain morphine ER 2021- Yes [id number] 15mg Take 1 Uni vers 15 mg 12 hr 08-06 tablet by it y of tablet 00:00: 04:59 mouth [place] 00 :00 every 12 Medical (twelve) Branch hours for 10 days. Indication s: chronic pain HYDROcodone 2021- Yes [id number] 1{tbl} Take 1 U nivers -acetaminop 08-06 tablet by it y of hen 5-325 00:00: 04:59 mouth [place] mg tablet 00 :00 every 6 Medical (six) Branch hours as needed for Pain (scale 4-6) for up to 10 days. Indication s: acute pain morphine ER 2021- Yes [id number] 15mg Take 1 Uni vers 15 mg 12 hr 08-06 tablet by it y of tablet 00:00: 04:59 mouth [place] 00 :00 every 12 Medical (twelve) Branch hours for 10 days. Indication s: chronic pain HYDROcodone 2021- Yes [id number] 1{tbl} Take 1 U nivers -acetaminop 08-0619 tablet by it y of hen 5-325 00:00: 04:59 mouth [place] mg tablet 00 :00 every 6 Medical (six) Branch hours as needed for Pain (scale 4-6) for up to 10 days. Indication s: acute pain iopamidol 2021- No [id number] 100mL 100 mL, Univers (ISOVUE 08-05 Intravenou ity o f 370-500 mL) 18:00: 18:00 s, ONCE, 1 [place] injection 00 :00 dose, On Medica l 100 mL Wed08/05/21 Branch at 1300, Routine tc No [id number] 29i 29 [facility] s 99m-medrona 08-05 millicurie i ty of te 15:15: 15:10 , [place] (DRAXIMAGE 00 :00 Intravenou Med ical MDP-25) s, ONCE, 1 [place] injection dose, On Wed08/05/21 millicurie at 1015, Routine enoxaparin 2021- No 80mg 80 mg, [facility] ers (LOVENOX) 08-05 Subcutaneo ity of injection 13:00: 21:51 [place], Q12H, [place] 80 mg 00 :38 First dose Medical (after Branch last modificati on) on Wed08/05/21 at 0800, Until Discontinu ed, Routine pantoprazol Yes 40mg 40 mg, [facility] ers e 08-04 Oral, ity of (PROTONIX) 14:00: DAILY, [place] EC tablet 00 First dose Medi [place] 40 mg on Wed08/04/21 at 0900, Until Discontinu ed, Routine simethicone Yes 80mg 80 mg, [facility] ers (GAS RELIEF 08-04 Oral, ity of (SIMETHICON 14:00: PC+HS, [place] E)) 00 First dose Medical chewable on Wed tablet 80 08/04/21 at mg 0900, Until Discontinu ed, Routine morpHINE (4 2021- No 4mg 4 mg, Slow Univers mg/mL) 08-04 06-08 IV Push, ity of injection 4 13:33: 14:59 Q8HPRN, [place] mg 24 :07 Starting Medical on Wed08/04/21 at 0833, Until Wed08/06/21 at 0959, Routine, Pain (scale 7-10) HYDROcodone Yes 1{tbl} 1 tablet, Univers -acetaminop 08-04 Oral, ity of hen (NORCO 13:32: Q6HPRN, [place] 5) 5-325 mg 33 Starting Medi [place] tablet 1 on Mon Branch tablet 08/04/21 at 0832, Until Discontinu ed, Routine, Pain (scale 4-6) maalox:diph No 15mL 15 mL, Uni vers enhydrAMINE 08-04 Oral, ity of :lidocaine 03:27: 03:44 ONCE, 1 [place] 2 % viscous 00 :00 dose, On Medi [place] 1:1:1 08/03/21 Branch (FIRST-MOUT at 2230, HWASH BLM) RHETT oral suspension 15 mL iopamidol 2021- No [id number] 100mL 100 mL, Univers (ISOVUE 08-03 Intravenou ity o f 370-500 mL) 23:15: 23:15 s, ONCE, 1 [place] injection 00 :00 dose, On Medica l 100 mL 08/03/21 Branch at 1815, Routine piperacilli No 3.375g 3.375 g, Univers n-tazobacta 08-03 IV ity of m (ZOSYN) 21:30: 15:41 Piggyback, [place] 3.375 g in 00 :20 Q8H ABX, Medic al NaCl 0.9% First dose Bran ch (NS) 50 mL on [place] MINI-BAG 08/03/21 at 1630, Until Discontinu ed, Administer over 4 Hours, 50 mL
Reas on for Anti-Infec tive: Empiric Therapy for Suspected Infection< br>Empiric Therapy Site: Abdominal< br>Duratio n of therapy: 7 days HYDROcodone 2021- No 1{tbl} 1 tablet, Univers -acetaminop 08-03- Oral, ity of hen (NORCO 17:33: 13:33 Q6HPRN, [place] 5) 5-325 mg 55 :33 Starting [place] tablet 1 on Sun Branch tablet 08/03/21 at 1233, Until 08/04/21 at 0833, Routine, Pain (scale 7-10) HYDROcodone 2021- No 1{tbl} 1 tablet, Univers -acetaminop 08-03- Oral, ity of hen (NORCO 16:24: 17:34 Q6HPRN, [place] 5) 5-325 mg 48 :07 Starting [place] tablet 1 on [facility] tablet 08/03/21 at 1124, Until [place] 08/03/21 at 1234, Routine, Pain (scale 4-6), Pain (scale 7-10) piperacilli 2021- No 4.5g 4.5 g, IV Univers n-tazobacta 08-03 Piggyback, i ty of m (ZOSYN) 14:00: 14:43 ONCE, 1 [place] 4.5 g in 00 :00 dose, On Medical NaCl 0.9% [place] 08/03/21 Bran ch (NS) 50 mL at 0900, MINI-BAG Administer over 30 Minutes, 50 mL
Reas on for Anti-Infec tive: Empiric Therapy for Suspected Infection< br>Empiric Therapy Site: Abdominal< br>Duratio n of therapy: 7 days polyethylen 2021- No 17g 17 g, Univ ers e glycol 08-03 Oral, BID, ity of 3350 powder 01:00: 14:58 First dose [place] 17 g 00 :48 on [facility] 08/02/21 at Branch 1999, Until Discontinu ed, Routine enoxaparin 2021- No 1mg/kg 80 mg Uni vers (LOVENOX) 08-03 (rounded ity o f injection 01:00: 14:27 [place] 75.8 [place] 80 mg 00 :39 mg = 1 Medical mg/kg [place] ?75.8 kg), Subcutaneo us, Q12H, First dose (after last modificati on) on [facility] 08/02/21 at 2000, Until Discontinu ed, Routine enoxaparin 2021- No 30mg 30 mg, Univ ers (LOVENOX) 08-02 Subcutaneo ity of injection 16:00: 22:08 us, Q12H, [place] 30 mg 00 :02 First dose Medical on [facility] 08/02/21 at 1100, Until Discontinu ed, Routine lisinopriL 2021- No 20mg 20 mg, Univ ers (PRINIVIL,Z 08-02 Oral, ity of ESTRIL) 14:00: 16:42 DAILY, [place] tablet 20 00 :23 First dose Medi [place] mg on [facility] Branch 08/02/21 at 0900, Until Discontinu ed, Routine polyethylen 17g 17 g, Univ ers e glycol 08-02 Oral, ity of 3350 powder 14:00: 15:50 DAILY, [place] 17 g 00 :32 First dose Medical on [facility] 08/02/21 at 0900, Until Discontinu ed, Routine NaCl 0.9% 1000mL at 100 Uni vers (NS) IV 08-02 mL/hr, IV ity of infusion 13:30: 16:29 Infusion, [place] 1,000 mL 00 :33 CONTINUOUS Medic al , Starting Branch on [facility] 08/02/21 at 0830, Until [facility] 08/02/21 at 1129, Routine lactulose 15mL 15 mL, Unive rs (CEPHULAC) 08-02 Oral, BID, it y of solution 15 13:00: 15:33 First dose [place] mL 00 :34 on [facility] Medical 08/02/21 at Branch 0800, Until Discontinu ed, Routine ondansetron Yes 4mg 4 mg, Slow Univers (ZOFRAN 08-02 IV Push, ity of (PF)) 11:15: Q6HPRN, [place] injection 4 54 Starting Medi [place] mg on [facility] 08/02/21 at 0615, Until Discontinu ed, Routine, Nausea and Vomiting (N/V) morpHINE (4 No 4mg 4 mg, Slow Univers mg/mL) 08-02 IV Push, ity of injection 4 11:15: 11:14 Q4HPRN, [place] mg 36 :36 Starting Medical on [facility] 08/02/21 at 0615, Until 08/03/21 at 0614, Routine, Pain (scale 7-10) traMADoL No 50mg 50 mg, Univer s (ULTRAM) 08-02 Oral, ity of tablet 50 11:15: 11:14 Q8HPRN, [place] mg 33 :33 Starting Medical on [facility] 08/02/21 at 0615, Until 08/04/21 at 0614, Routine, Pain (scale 4-6) acetaminoph Yes 650mg 650 mg, Un kaylynn en 08-02 Oral, ity of (TYLENOL) 11:15: Q6HPRN, [place] tablet 650 31 Starting Medic al mg on Sat Branch 08/02/21 at 0615, Until Discontinu ed, Routine, Pain (scale 1-3) polyethylen 2021- No 17g Take 17 g Univers e glycol 03-03 by mouth. ity o f 3350 17 00:00: 00:00 [place] gram powder 00 :00 Medical Branch HYDROcodone 2020-03 1{tbl} 1 tablet, Univers -acetaminop 03-22 Oral, [...] days. Indication s: acute pain methocarbam Yes [id number] 750mg Take 1 Univers oL 750 mg 8-09 tablet by ity o f tablet 00:00: mouth 4 [place] 00 (four) Medical times Branch daily as needed for Pain (scale 7-10). methocarbam Yes [id number] 750mg Take 1 Univers oL 750 mg 8-09 tablet by ity o f tablet 00:00: mouth 4 [place] 00 (four) Medical times Branch daily as needed for Pain (scale 7-10). methocarbam 2021- No [id number] 750mg Take 1 Univers oL 750 mg 10-07-04 tablet by ity of tablet 00:00: 00:00 mouth 4 [place] 00 :00 (four) Medical times Branch daily as needed for Pain (scale 7-10). lactulose Yes [id number] 15mL Take 15 mL Univers 10 gram/15 2-12 by mouth 3 ity of mL solution 00:00: (three) [place] 00 times Medical daily. Branch lactulose Yes [id number] 15mL Take 15 mL Univers 10 gram/15 2-12 by mouth 3 ity of mL solution 00:00: (three) [place] 00 times Medical daily. Branch lactulose 2021- No [id number] 15mL Take 15 mL Univers 10 gram/15 2-12 -04 by mouth 3 it y of mL solution 00:00: 00:00 (three) [place] 00 :00 times Medical daily. Branch docusate Yes [id number] 250mg Take 1 Univers sodium 250 9-10 [id number] capsule by i ty of mg capsule 00:00: mouth [place] 00 daily. Medical Branch ondansetron Yes [id number] 4mg Take 1 Univers 4 mg 9-10 [id number] tablet by ity of disintegrat 00:00: mouth [place] ing tablet 00 every 4 Medica l (four) Branch hours as needed for Nausea and Vomiting (N/V). docusate Yes [id number] 250mg Take 1 Univers sodium 250 9-10 [id number] capsule by i ty of mg capsule 00:00: mouth [place] 00 daily. Medical Branch ondansetron Yes [id number] 4mg Take 1 Univers 4 mg 9-10 [id number] tablet by ity of disintegrat 00:00: mouth [place] ing tablet 00 every 4 Medica l (four) Branch hours as needed for Nausea and Vomiting (N/V). docusate 2021- No [id number] 250mg Take 1 Univers sodium 250 9-10 06-04 [id number] capsule by ity of mg capsule 00:00: 00:00 mouth [place] 00 :00 daily. Medical Branch ondansetron 2021- No [id number] 4mg Take 1 Univers 4 mg 9-10 06-04 [id number] tablet by ity of disintegrat 00:00: 00:00 [place] tablet 00 :00 every 4 Medica l (four) Branch hours [...] [place] mg tablet 00 daily. Medical Branch lisinopril 2021- No 20mg Take 2 Univ ers (PRINIVIL,Z 5-10 06-08 tablets by i ty of ESTRIL) 10 00:00: 00:00 mouth [place] mg tablet 00 :00 daily. Medical Branch amLODIPine 2021- No 10mg Take 1 Univ ers (NORVASC) 5-10 06-04 tablet by ity of 10 mg 00:00: 00:00 mouth [place] tablet 00 :00 daily. Medical Branch Vital Signs Vital Name Observation Time Observation Value Comments Source Systolic blood 2021-08-06 21:27:00 142 mm[Hg] Univer sity of pressure [facility] Diastolic blood 2021-08-06 21:27:00 73 mm[Hg] Unive rsity of pressure [facility] Heart rate 2021-08-06 21:27:00 82 /min [facility] Body temperature 2021-08-06 21:27:00 35.72 Ashly [facility] Res[facility] rate 2021-08-06 21:27:00 18 /min [facility] Oxygen saturation in 2021-08-06 21:27:00 97 /min [facility] Arterial blood by [facility] Pulse oximetry Branch Body height 2021-08-06 13:02:00 167.6 cm [facility] Body weight 2021-08-06 13:02:00 75.751 kg [facility] BMI 2021-08-06 13:02:00 26.97 kg/m2 [facility] Systolic blood 2021-01-20 16:46:00 155 mm[Hg] Univer sity of pressure [facility] Diastolic blood 2021-01-20 16:46:00 84 mm[Hg] [facility] Heart rate 2021-01-20 16:46:00 83 /min [facility] Body temperature 2021-01-20 16:46:00 36.72 Ashly [facility] Respiratory rate 2021-01-20 16:46:00 18 /min [facility] Body weight 2021-01-20 16:46:00 75.751 kg [facility] BMI 2021-01-20 16:46:00 26.95 kg/m2 [facility] Oxygen saturation in 2021-01-20 16:46:00 99 /min [facility] Arterial blood by [facility] Pulse oximetry [place] Procedures Procedure Date / Time Performing Clinician Source Performed EXTERNAL PROVIDER RECORDS 2021-08-16 05:01:00 Doctor Unassigned, [facility] [place] [facility] Branch MAGNESIUM 2021-08-06 08:17:00 Isabela, [facility] BASIC METABOLIC PANEL 2021-08-06 08:17:00 Osmin Lewis [facility] (NA, K, CL, CO2, GLUCOSE, Medica l Branch BUN, CREATININE, CA) CBC WITH DIFF 2021-08-06 08:17:00 Osmin Lewis [facility] [place] BONE WHOLE BODY 2021-08-05 18:46:00 Belkis Freeman [facility] TROPONIN I 2021-08-05 17:47:00 Osmin Lewis [facility] CT CHEST PULMONARY 2021-08-05 16:47:53 Osmin Lewis [facility] ANGIOGRAM [facility] AC PANEL 21 + LACTIC ACID 2021-08-05 10:21:00 [facility] 2021-08-05 10:20[facility] 2021-08-05 10:20:00 Mariano Almaraz [facility] BASIC METABOLIC PANEL 2021-08-05 10:20:00 [facility] ([facility], K, CL, CO2, GLUCOSE, Medica l Branch BUN, CREATININE, CA) CBC WITH DIFF 2021-08-05 10:20:00 [facility] PROTHROMBIN TIME / INR 2021-08-05 10:20:00 Lydia [facility] D-DIMER 2021-08-05 10:20:00 Mariano Almaraz [facility] XR KUB 2021-08-04 22:07:00 [facility] LACTIC ACID WHOLE BLOOD 2021-08-04 17:47:00 Lydia [facility] XR KUB 2021-08-04 15:12:00 [facility] URINE CULTURE 2021-08-04 14:59:00 [facility] LACTATE DEHYDROGENASE 2021-08-04 14:32:00 Lydia [facility] HAPTOGLOBIN, SERUM 2021-08-04 14:32:00 Belkis Freeman [facility] MAGNESIUM 2021-08-04 08:20:00 Elisa Quiles [facility] BASIC METABOLIC PANEL 2021-08-04 08:20:00 Elisa Quiles [facility] (NA, K, CL, CO2, GLUCOSE, Medica l Branch BUN, CREATININE, CA) DIFF CONSULT 2021-08-04 08:20[facility] 2021-08-04 08:20:00 Elisa Quiles [facility] CBC WITH DIFF 2021-08-04 00:43:00 Elisa Quiles [facility] XR BONE SURVEY 2021-08-03 22:51:00 lEisa Quiles [facility] XR ELBOW >3 VW RIGHT 2021-08-03 22:51:00 José Miguel Montana [facility] CT THORAX W CONTRAST 2021-08-03 22:13:00 [facility] DUPLEX VENOUS LEGS 2021-08-03 18:34:36 Elisa Quiles [facility] BILATERAL - BY VASCULAR [facility] LAB XR HUMERUS 2 VW RIGHT 2021-08-03 15:46:00 José [facility] [place] [facility] XR PELVIS <3 VW 2021-08-03 15:46:00 José Miguel Montana [facility] XR SHOULDER 2+ VW RIGHT 2021-08-03 15:46:00 Nan [facility] BLOOD CULTURE SCREEN 2021-08-03 14:13:00 Joshua [facility] BLOOD CULTURE SCREEN 2021-08-03 14:12:00 Joshua [facility] POCT GLUCOSE (AUTOMATED) 2021-08-03 14:04:00 Chantelle Blevins [facility] FERRITIN SERUM 2021-08-03 08:38:[address] [facility] VITAMIN B12, LEVEL 2021-08-03 08:38:00 Ken [facility] FOLATE 2021-08-03 08:38:[address] [facility] HEPATIC FUNCTION PANEL 2021-08-03 08:38:00 Mariano Almaraz [facility] ([id number]) (ALB,T.PRO[facility] T,BU/BC,ALT,AST,ALK PHOS) BASIC METABOLIC PANEL 2021-08-03 08:38:00 Mariano Almaraz [facility] (NA, K, CL, CO2, GLUCOSE, Medica l Branch BUN, CREATININE, CA) CBC WITH DIFF 2021-08-03 08:38:00 Rufina Mariano [facility] PROTHROMBIN TIME / INR 2021-08-03 08:38:00 [facility] RETICULOCYTES AUTOMATED 2021-08-03 08:38:00 Judy Rogers [facility] AMMONIA, PLASMA 2021-08-02 21:07:00 Mariano Almaraz [facility] HEPATITIS C VIRUS (HCV) 2021-08-02 21:07:00 Mariano Almaraz [facility] BY QUANTITATIVE NAAT Medical [facility] XR TIBIA FIBULA 2 VW 2021-08-02 18:59:02 Mariano Almaraz [facility] BILATERAL Medical [place] XR SHOULDER <2 VW RIGHT 2021-08-02 18:58:31 Mariano Almaraz [facility] CT ABDOMEN PELVIS W 2021-08-02 18:58:23 Mariano Almaraz [facility] CONTRAST [facility] US ABDOMEN LIMITED WITH 2021-08-02 13:02:15 Mariano Almaraz [facility] DOPPLER [facility] COVID-19 (ID NOW RAPID 2021-08-02 11:52:00 [facility] TESTING) Medical Branch LAB ONLY COVID 2021-08-02 11:52:00 Mariano Almaraz [facility] INTERPRETATION [facility] BLOOD CULTURE SCREEN 2021-08-02 11:48:00 Mariano Almaraz [facility] BLOOD CULTURE SCREEN 2021-08-02 11:43:00 Mariano Almaraz [facility] COMP. METABOLIC PANEL 2021-08-02 11:41:00 Mariano Almarza [facility] ([id number]) [facility] ALPHA FETOPROTEIN 2021-08-02 11:41:00 Mariano Almaraz [facility] CBC WITH DIFF 2021-08-02 11:41:00 Mariano Almaraz [facility] PROTHROMBIN TIME / INR 2021-08-02 11:41:00 [facility] HEPATITIS B SURFACE 2021-08-02 11:41:00 Mariano Almaraz [facility] ANTIBODY [facility] HEPATITIS B SURFACE 2021-08-02 11:41:00 Mariano Almaraz [facility] ANTIGEN [facility] HCV ANTIBODY 2021-08-02 11:41:00 Almaraz, [facility] URINE DRUG (IMMUNOASSAY) 2021-08-02 11:34:[address] [facility] SCREEN URINALYSIS 2021-08-02 11:34:00 Mariano Almaraz [facility] ED SPLINT APPLICATION 2021-01-20 19:05:41 [facility] VW RIGHT 2021-01-20 17:12:47 Fabio Guzman [facility] CONSENT/REFUSAL FOR 2021-01-20 16:52:15 Doctor Robinson Claudio [facility] DIAGNOSIS AND TREATMENT [place] [facility] Encounters Start End Encounter Admission Attending Care Care Encounter Source Date/Time Date/Time Type Type Clinicians Facility Department ID 2021-04-28 Outpatient KUL[facility]EP [facility] [id number] [place] 01:04:42 [facility] 2021-01-[address] [facility] Internal [id number] [facility] St 22:30:05 [facility] 2021-08-16 2021-08-16 Orders Doctor VINSON 1.2.840.114 [id number] Univers 00:00:00 00:00:00 Only Unassigned, KUMAR 350.1.13.10 ity of [place] [facility] 4.2.7.2.686 [place] [phone] [facility] 009 Branch 2021-08-07 2021-08-07 Transition SHAILA Champion 1.2.840.114 [id number] Univers 00:00:00 00:00:00 of Care Kandicedimas BHAKTA 350.1.13.10 [place] [phone] [facility] 403 Branch 2021-08-02 2021-08-06 Inpatient U COLT [facility] [id number] Univers 05:31:00 18:25:00 CHANTELLE ity [facility] 2021-08-02 2021-08-06 Hospital CRAIG Blevins [id number] Univers 05:31:00 18:25:00 Encounter Chantelle HEATH [id number] ity of [facility] 4.2.7.2.686 [place] [phone] [facility] 094 Branch 2021-08-06 2021-08-06 Multidisci Lala, UNIVERSIT 1.2.840.1 [id number] Univers 00:00:00 00:00:00 plinary Marc Y HEALTH 350.1.13.10 i ty of [facility] CLINICS 4.2.7.2.[place] [phone] [facility] 080 Branch 2021-05-23 2021-05-23 Emergency E DENISE, MHBL MHBL 7501 MHBL 14:42:00 19:07:00 NAUN 2021-03-01 2021-03-03 Outpatient ALLISON, [facility] [id number] [place] 00:00:00 00:00:00 RICKEY [address] 2021-01-22 2021-01-22 Letter Orthopedic [facility] 1.2.840.114 [id number] Univers 00:00:00 00:00:00 (Out) Clinic SPECIALTY [id number] ity of [facility] [place] C[place] AT [phone] Co ted [address] 2021-01-20 2021-01-20 Emergency X FABIO GUZMAN [facility] ERT [id number] Univers 10:47:00 13:43:00 ity of [facility] 2021-01-20 2021-01-20 Emergency Megan Fabio TRAUMA 1.2.840.114 [id number] Univers 10:47:00 13:43:00 T CENTER 350.1.13.10 [place] [phone] [facility] 014 Branch 2020-10-07 2020-10-07 Emergency X RENTERIA, [facility] ERT [id number] Univers 10:18:00 11:49:00 MANPREET ity [facility] 2020-10-07 2020-10-07 Emergency Renteria, [facility] 1.2.840.114 [id number] 10:18:00 11:49:00 Manpreet Torres 350.1.13.10 [place] 4.2.7.2.686 [place] [phone] 084 2019-06-11 2019-06-11 Patient Jenn Michael 1.2.840.114 [id number] 00:00:00 00:00:00 Outreach Eduardo Bhakta 350.1.13.10 [place] 4.2.7.2.686 [id number] 2019-04-27 2019-04-27 Patient Jenn Michael 1.2.840.114 [id number] 00:00:00 00:00:00 Outreach Eduardo Bhakta 350.1.13.10 [place] 4.2.7.2.686 [id number] 2019-04-13 2019-04-13 Transition Shaila Champion 1.2.840.114 [id number] 00:00:00 00:00:00 of Care Kandice Bhakta 350.1.13.10 [place] 4.2.7.2.686 [id number] 403 2019-04-10 2019-04-12 Inpatient X [facility] [id number] Univers 10:55:39 18:18:00 [facility] 2019-04-10 2019-04-12 [facility] Fabio Guzman Craig 1.2.840.114 [id number] 10:55:39 18:18:00 Encounter Fabio Guzman 350.1.13.10 [facility] 4.2.7.2.686 [id number] 2018-11-08 2018-11-08 Emergency [facility] [id number] 14:26:03 17:32:00 Narciso Torres 350.1.13.10 [place] 4.2.7.2.686 [place] [id number] 084 Results Test Description Test Time Test Comments Results Result Comments Source CBC WITH DIFF 2021-08-06 09:22:37 Test Item Value Reference Range Interpretation Comme nts WBC (test code = 6690-2) See_Comment [A utomated message] The system which ge nerated this result transmit narehs reference range: 4.20 - 1 0.70 10*3/?L. The reference r jonathon was not used to interpr et this result as normal/abnor mal. RBC (test code = 789-8) See_Comment L [Au tomated message] The system which ge nerated this result transmit naresh reference range: 4.26 - 5 .52 10*6/?L. The reference r jonathon was not used to interpr et this result as normal/abnor mal. HGB (test code = 718-7) 7.6 g/dL 12.2-16.4 L HCT (test code = 4544-3) 22.8 % 38.4-49.3 L MCV (test code = 787-2) 82.3 fL 81.7-95.6 MCH (test code = 785-6) 27.4 pg 26.1-32.7 MCHC (test code = 786-4) 33.3 g/dL 31.2-35.0 RDW-SD (test code = 81629-4) 70.4 fL 38.5-51.6 H RDW-CV (test code = 788-0) 25.1 % 12.1-15.4 H PLT (test code = 777-3) See_Comment [Au tomated message] The system which mPortico nerated this result transmit naresh reference range: 150 - 32 8 10*3/?L. The reference range was not used to interpret th is result as normal/abnormal . MPV (test code = 63729-4) 11.7 fL 9.8-13.0 IPF % (test code = 10.1 % 1.2-10.7 Platelet count measured by [id number]) fluorescence me thod. NRBC/100 WBC (test code = See_Comment [ Automated message] The 4737302453) system which mPortico nerated this result transmit naresh reference range: 0.0 - 10 .0 /100 WBCs. The reference r jonathon was not used to interpr et this result as normal/abnor mal. NRBC x10^3 (test code = <0.01 See_Comment [Au tomated message] The 6027851521) system which mPortico nerated this result transmit naresh reference range: 10*3/?L. The reference range was not u sed to interpret this result as normal/abnormal . GRAN MAT (NEUT) % (test code 57.7 % = 770-8) IMM GRAN % (test code = 0.50 % 4736916965) LYMPH % (test code = 736-9) 23.5 % MONO % (test code = 5905-5) 12.5 % EOS % (test code = 713-8) 5.0 % BASO % (test code = 706-2) 0.8 % GRAN MAT x10^3(ANC) (test 4.81 10*3/uL 1.99-6.95 code = 3747314627) IMM GRAN x10^3 (test code = 0.04 10*3/uL 0.00-0.06 3173234861) LYMPH x10^3 (test code = 1.96 10*3/uL 1.09-3.23 731-0) MONO x10^3 (test code = 1.04 10*3/uL 0.36-1.02 H 742-7) EOS x10^3 (test code = 0.42 10*3/uL 0.06-0.53 711-2) BASO x10^3 (test code = 0.07 10*3/uL 0.01-0.09 704-7) HJ BODIES (test code = Present A 7793-3) SCHISTOCYTES (test code = 1+ A 800-3) TARGET CELLS (test code = 2+ See_Comment A [ Automated message] The 50197-9) system which mPortico nerated this result transmit naresh reference range: (none). The reference range was not u sed to interpret this result as normal/abnormal . HYPERSEG NEUTS (test code = Present See_Comment A [Automated message] The 765-8) system which mPortico nerated this result transmit naresh reference range: (none). The reference range was not u sed to interpret this result as normal/abnormal . Lab Interpretation (test Abnormal code = 04977-4) [facility] METABOLIC PANEL (NA, K, CL, CO2, GLUCOSE, BUN, CREATININE, CA)2021-08-06 09:13:07 Test Item Value Reference Range Interpretation Comments NA (test code = 135 mmol/L 135-145 0006995202) K (test code = 4.1 mmol/L 3.5-5.0 9318290578) CL (test code = 107 mmol/L 98-108 0247719457) CO2 TOTAL (test code = 25 mmol/L 23-31 1779287549) AGAP (test code = 2-16 6146738416) BUN (test code = 10 mg/dL 7-23 8804890613) GLUCOSE (test code = 99 mg/dL 70-110 9402598862) CREATININE (test code = 0.60 mg/dL 0.60-1.25 7775069862) CALCIUM (test code = 7.5 mg/dL 8.6-10.6 L 7756117446) eGFR (test code = mL/min/1.73m2 3388249739) PAIGE (test code = PAIGE) Association of Glomerular Filtration Rate (GFR) and Staging of Kidney Disease* + --+ --+ ------+| GFR (mL/min/1.73 m2) ?| With Kidney Damage ?| ?Without Kidney Damage+ --------+ --------+ +| ?>90 ?| ?Stage one ?| ? Normal ?+ ---+ ---+ -------+| ?60-89 ?| ?Stage two ?| ? Decreased GFR ? + --+ --+ ------+| ?30-59 ?| ?Stage three ?| ? Stage three ? + --+ --+ ------+| ?15-29 ?| ?Stage four ? | ? Stage four ?+ ---+ ---+ -------+| ?<15 (or dialysis) ? ?| ?Stage five ? | ? Stage five ?+ ---+ ---+ -------+ *Each stage assumes the associated GFR level has been in effect for at least three months. ?Stages 1 to 5, with or without kidney disease, indicate chronic kidney disease. Notes: Determination of stages one and two (with eGFR >59mL/min/1.73 m2) requires estimation of kidney damage for at least three months as defined by structural or functional abnormalities of the kidney, manifested by either:Pathological abnormalities or Markers of kidney damage (including abnormalities in the composition of the blood or urine or abnormalities in imaging tests). Lab Interpretation Abnormal (test code = 39498-5) [facility]07 Test Item Value Reference Range Interpretation Comments MAGNESIUM (test code = 0158343348) 1.8 mg/dL 1.7-2.4 Lab Interpretation (test code = Normal 89507-6) [facility] [id number] 18:25:02 Test Item Value Reference Interpretation Comments Range TROPONIN I (test 0.022 ng/mL See_Comment [Automated code = 5531352825) message] The system which generated this result transmitted reference range : <=0.034. The reference range was not used to interpret this result as normal/abnormal . PAIGE (test code = Reference (Normal) PAIGE) Range (defined by the 99th percentile reference limit): <= 0.034 ng/mL Note: Cardiac troponin begins to rise 3-4 hours after the onset of ischemia. Repeat in 4-6 hours if the sample was drawn within 3-4 hours of the onset of the symptom and found normal. Diagnosis of myocardial injury is made with acute changes in cTn concentrations with at least one serial sample above the 99th percentile upper reference limit (URL), taken together with the patient's clinical presentation. Biotin has been reported to cause a negative bias, interpret results relative to patient's use of biotin. Lab Interpretation Normal (test code = 01551-8) [facility] [id number] 16:28:44 ABSOLUTE MONOCYTOSIS. MICROCYTIC NORMOCHROMIC ANEMIA. PLATELETS UNREMARKABLE. [facility] [id number] 11:23:07 Test Item Value Reference Interpretation Comments Range TROPONIN I (test 0.035 ng/mL See_Comment H [Automated code = 6412528196) message] The system which generated this result transmitted reference range : <=0.034. The reference range was not used to interpret this result as normal/abnormal . PAIGE (test code = Reference (Normal) PAIGE) Range (defined by the 99th percentile reference limit): <= 0.034 ng/mL Note: Cardiac troponin begins to rise 3-4 hours after the onset of ischemia. Repeat in 4-6 hours if the sample was drawn within 3-4 hours of the onset of the symptom and found normal. Diagnosis of myocardial injury is made with acute changes in cTn concentrations with at least one serial sample above the 99th percentile upper reference limit (URL), taken together with the patient's clinical presentation. Biotin has been reported to cause a negative bias, interpret results relative to patient's use of biotin. Lab Interpretation Abnormal (test code = 71975-0) [facility] WITH [id number] 11:05:11 Test Item Value Reference Range Interpretation Comments WBC (test code = See_Comment [Automated 6690-2) message] The sy stem which generated this result transmitted reference range : 4.20 - 10.70 10*3/?L. The reference range was not used to interpret this result as normal/abnormal . RBC (test code = See_Comment L [Automated 789-8) message] The sy stem which generated this result transmitted reference range : 4.26 - 5.52 10*6/?L. The reference range was not used to interpret this result as normal/abnormal . HGB (test code = 7.6 g/dL 12.2-16.4 L 718-7) HCT (test code = 22.9 % 38.4-49.3 L 4544-3) MCV (test code = 82.1 fL 81.7-95.6 787-2) MCH (test code = 27.2 pg 26.1-32.7 785-6) MCHC (test code = 33.2 g/dL 31.2-35.0 786-4) RDW-SD (test code = 71.1 fL 38.5-51.6 H 04841-1) RDW-CV (test code = 25.0 % 12.1-15.4 H 788-0) PLT (test code = See_Comment [Automated 777-3) message] The sy stem which generated this result transmitted reference range : 150 - 328 10*3/ ?L. The reference r jonathon was not used to interpret this result as normal/abnormal . MPV (test code = 11.8 fL 9.8-13.0 53676-9) IPF % (test code = 8.4 % 1.2-10.7 Platelet count 9221668171) measured by fluorescence method. NRBC/100 WBC (test See_Comment [Automat ed code = 1898941043) message] The system which generated this result transmitted reference range : 0.0 - 10.0 /100 WBCs. The refer ence range was not u sed to interpret th is result as normal/abnormal . NRBC x10^3 (test code <0.01 See_Comment [Auto mated = 8163349916) message] The s ystem which generated this result transmitted reference range : 10*3/?L. The reference range was not used to interpret this result as normal/abnormal . GRAN MAT (NEUT) % 58.6 % (test code = 770-8) IMM GRAN % (test code 0.60 % = 6925117642) LYMPH % (test code = 23.5 % 736-9) MONO % (test code = 11.9 % 5905-5) EOS % (test code = 4.8 % 713-8) BASO % (test code = 0.6 % 706-2) GRAN MAT x10^3(ANC) 5.15 10*3/uL 1.99-6.95 (test code = 8452929778) IMM GRAN x10^3 (test 0.05 10*3/uL 0.00-0.06 code = 2102021851) LYMPH x10^3 (test code 2.06 10*3/uL 1.09-3.23 = 731-0) MONO x10^3 (test code 1.04 10*3/uL 0.36-1.02 H = 742-7) EOS x10^3 (test code = 0.42 10*3/uL 0.06-0.53 711-2) BASO x10^3 (test code 0.05 10*3/uL 0.01-0.09 = 704-7) TARGET CELLS (test 2+ See_Comment A [Automat ed code = 49443-8) message] The system which generated this result transmitted reference range : (none). The reference range was not used to interpret this result as normal/abnormal . Lab Interpretation Abnormal (test code = 42773-4) [facility] METABOLIC PANEL (NA, K, CL, CO2, GLUCOSE, BUN, CREATININE, CA)2021-08-05 11:03:05 Test Item Value Reference Range Interpretation Comments NA (test code = 134 mmol/L 135-145 L 0786765558) K (test code = 4.1 mmol/L 3.5-5.0 4107645243) CL (test code = 107 mmol/L 98-108 4616149432) CO2 TOTAL (test code = 25 mmol/L 23-31 7924246705) AGAP (test code = 2-16 0142322397) BUN (test code = 12 mg/dL 7-23 4662165851) GLUCOSE (test code = 94 mg/dL 70-110 5912760835) CREATININE (test code = 0.64 mg/dL 0.60-1.25 4934015091) CALCIUM (test code = 7.5 mg/dL 8.6-10.6 L 1548761794) eGFR (test code = mL/min/1.73m2 9918438812) PAIGE (test code = PAIGE) Association of Glomerular Filtration Rate (GFR) and Staging of Kidney Disease* + --+ --+ ------+| GFR (mL/min/1.73 m2) ?| With Kidney Damage ?| ?Without Kidney Damage+ --------+ --------+ +| ?>90 ?| ?Stage one ?| ? Normal ?+ ---+ ---+ -------+| ?60-89 ?| ?Stage two ?| ? Decreased GFR ? + --+ --+ ------+| ?30-59 ?| ?Stage three ?| ? Stage three ? + --+ --+ ------+| ?15-29 ?| ?Stage four ? | ? Stage four ?+ ---+ ---+ -------+| ?<15 (or dialysis) ? ?| ?Stage five ? | ? Stage five ?+ ---+ ---+ -------+ *Each stage assumes the associated GFR level has been in effect for at least three months. ?Stages 1 to 5, with or without kidney disease, indicate chronic kidney disease. Notes: Determination of stages one and two (with eGFR >59mL/min/1.73 m2) requires estimation of kidney damage for at least three months as defined by structural or functional abnormalities of the kidney, manifested by either:Pathological abnormalities or Markers of kidney damage (including abnormalities in the composition of the blood or urine or abnormalities in imaging tests). Lab Interpretation Abnormal (test code = 64642-8) [facility] 11:03:05 Test Item Value Reference Range Interpretation Comments MAGNESIUM (test code = 0123699563) 1.9 mg/dL 1.7-2.4 Lab Interpretation (test code = Normal 19978-1) [facility] / [id number] 10:50:25 Test Item Value Reference Range Interpretation Comments PROTIME PATIENT (test See_Comment H [Auto mated message] code = 5964-2) The system wh ich generated this result transmitted ref erence range: 10.1 - 1 2.6 Seconds. The reference range was not used to int erpret this result as normal/abnormal . INR (test code = 6301-6) Nor mal INR <1.1; Warfarin Therap eutic range 2.0 to 3. 0 or 2.5 to 3.5, dep ending upon the indica tions. Lab Interpretation (test Abnormal code = 09511-5) [id number] 10:50:25 Test Item Value Reference Interpretation Comments Range D-DIMER (test code = See_Comment H [Autom ated 5723156904) message] The system which generated this result transmitted reference range : <0.50 ?g/mL (FEU). The reference range was not used to interpret this result as normal/abnormal . PAIGE (test code = This test may be PAIGE) used in conjunction with a clinical pretest probability (PTP) assessment model to exclude venous thromboembolism (VTE) in patients suspected of deep venous thrombosis (DVT) and pulmonary embolism (PE) A D-Dimer value less than 0.50 ?g/ml (FEU) has a negative predicative value of 96 to 100% (95% CI)and 97 to 100% (95% CI) as an aid in the diagnosis of deep vein thrombosis (DVT) and pulmonary embolism when there is low or moderate pretest probability of PE or DVT. D-Dimer values are expressed in initial fibrinogen equivalent units (FEU)" The assay results should be used with other information, including the clinical context, in forming a diagnosis. Lab Interpretation Abnormal (test code = 76952-5) [facility] + LACTIC [id number] 10:44:47 Test Item Value Reference Range Interpretation Comments PH (test code = 7.32-7.42 4541262793) PCO2 RONAL (test code = See_Comment [Auto mated 1735513269) message] The sy stem which generated this result transmitted reference range : 41 - 51 mmHg. The reference range was not used to interpret this result as normal/abnormal . PO2 RONAL (test code = See_Comment HH [Autom ated 2629340395) message] The sy stem which generated this result transmitted reference range : 25 - 40 mmHg. The reference range was not used to interpret this result as normal/abnormal . HCO3 RONAL (test code = See_Comment [Auto mated 7581199295) message] The sy stem which generated this result transmitted reference range : 24 - 28 mEq/L. The reference range was not used to interpret this result as normal/abnormal . AC VBE(BEAKER) (test mEq/L code = 2714109384) THB RONAL (test code = 9.4 g/dL 13.5-18.0 L 4782953747) %O2HB RONAL (test code = 89.6 % 52.0-63.0 H 4530533198) %COHB RONAL (test code = 0.6 % 0.0-1.5 0929312395) %METHB RONAL (test code = 0.3 % 0.4-1.5 L 6774846429) VOL%O2 RONAL (test code = 11.9 % 6.0-12.0 2243794104) NA (test code = 132 mmol/L 135-145 L 5386007359) K+ (test code = 3.9 mmol/L 3.5-5.0 5793757397) AC CA IONZ (test code = 4.50 mg/dL 4.50-5.30 9411299387) GLUCOSE (test code = 94 mg/dL 70-110 2120257332) LACTIC ACID (test code 1.18 mmol/L 0.50-2.20 = 2277693040) Lab Interpretation Abnormal (test code = 49889-5) [facility] (HCV) BY QUANTITATIVE NAAT 2021-08-04 18:54:21 Test Item Value Reference Range Interpretation Comments HCV Quantitative NAAT Not Detected log - log IU/mL (test code IU/mL = 82823-8) HCV Quantitative NAAT Not Detected - IU/mL (test code = IU/mL 74667-2) HCV Quantitative Detected Not Detected A Interpretation (test code = 4407081869) PAIGE (test code = PAIGE) The Aptima HCV Quant Dx assay is an FDA-approved real-time commercial marketing specialist-mediated amplification (TMA) test used for both detection and quantitation of hepatitis C virus (HCV) RNA in human serum and plasma from HCV-infected individuals. ?It is intended for use as an aid in the diagnosis of active HCV infection and the management of HCV-infected patients undergoing HCV antiviral drug therapy. ?It is not approved for use as a screening test for the presence of HCV RNA in blood or blood products. The quantitative range of this assay is 1.00 - 8.00 log IU/mL or 10 - 100,000,000 IU/mL. An interpretation of "Not Detected" does not rule out the presence of inhibitors in the patient specimen or HCV RNA concentration below the level of detection of the test. ?Care should be taken when interpreting any single viral load determination. Detected, not Quantifiable: HCV RNA detected, but at a level below 10 IU/mL (1.0 log IU/mL). ?HCV RNA concentration is below the lower limit of quantitation of the assay. Indeterminate: Error indicated in the generation of the result. ?Please submit a new specimen for repeat testing if clinically indicated. Lab Interpretation Abnormal (test code = 16690-1) [facility] Whole [id number] 17:59:40 Test Item Value Reference Range Interpretation Comments LACTIC ACID (test code = 1.91 mmol/L 0.50-2.20 2928128833) Lab Interpretation (test code = Normal 92422-3) [facility]GLOB[facility], [id number] 16:11:07 Test Item Value Reference Range Interpretation Comments HAPTOGLOB (test code = 1435183708) 26 mg/dL 16-200 Lab Interpretation (test code = Normal 74003-0) [facility] Tyler[facility]CT[facility] [id number] 15:02:21 Test Item Value Reference Range Interpretation Comments LDH (test code = 5198428650) 620 U/L 300-600 H Lab Interpretation (test code = Abnormal 51931-7) [facility] WITH [id number] 09:08:37 Test Item Value Reference Range Interpretation Comments WBC (test code = See_Comment [Automated 3553-2) message] The sy stem which generated this result transmitted reference range : 4.20 - 10.70 10*3/?L. The reference range was not used to interpret this result as normal/abnormal . RBC (test code = See_Comment L [Automated 789-8) message] The sy stem which generated this result transmitted reference range : 4.26 - 5.52 10*6/?L. The reference range was not used to interpret this result as normal/abnormal . HGB (test code = 7.8 g/dL 12.2-16.4 L 718-7) HCT (test code = 23.8 % 38.4-49.3 L 4544-3) MCV (test code = 81.2 fL 81.7-95.6 L 787-2) MCH (test code = 26.6 pg 26.1-32.7 785-6) MCHC (test code = 32.8 g/dL 31.2-35.0 786-4) RDW-SD (test code = 69.5 fL 38.5-51.6 H 49799-1) RDW-CV (test code = 24.5 % 12.1-15.4 H 788-0) PLT (test code = See_Comment [Automated 777-3) message] The sy stem which generated this result transmitted reference range : 150 - 328 10*3/ ?L. The reference r jonathon was not used to interpret this result as normal/abnormal . MPV (test code = 12.2 fL 9.8-13.0 37220-1) IPF % (test code = 10.6 % 1.2-10.7 Platelet count 2447712535) measured by fluorescence method. NRBC/100 WBC (test See_Comment [Automat ed code = 2429951182) message] The system which generated this result transmitted reference range : 0.0 - 10.0 /100 WBCs. The refer ence range was not u sed to interpret th is result as normal/abnormal . NRBC x10^3 (test code <0.01 See_Comment [Auto mated = [id number]) message] The s ystem which generated this result transmitted reference range : 10*3/?L. The reference range was not used to interpret this result as normal/abnormal . GRAN MAT (NEUT) % 63.8 % (test code = 770-8) IMM GRAN % (test code 0.50 % = 7049808800) LYMPH % (test code = 19.2 % 736-9) MONO % (test code = 11.6 % 5905-5) EOS % (test code = 4.2 % 713-8) BASO % (test code = 0.7 % 706-2) GRAN MAT x10^3(ANC) 6.80 10*3/uL 1.99-6.95 (test code = 8223718809) IMM GRAN x10^3 (test 0.05 10*3/uL 0.00-0.06 code = 1061198116) LYMPH x10^3 (test code 2.04 10*3/uL 1.09-3.23 = 731-0) MONO x10^3 (test code 1.24 10*3/uL 0.36-1.02 H = 742-7) EOS x10^3 (test code = 0.45 10*3/uL 0.06-0.53 711-2) BASO x10^3 (test code 0.07 10*3/uL 0.01-0.09 = 704-7) TARGET CELLS (test 2+ See_Comment A [Automat ed code = 16311-8) message] The system which generated this result transmitted reference range : (none). The reference range was not used to interpret this result as normal/abnormal . Lab Interpretation Abnormal (test code = 32987-4) [facility] METABOLIC PANEL (NA, K, CL, CO2, GLUCOSE, BUN, CREATININE, CA)2021-08-04 09:05:12 Test Item Value Reference Range Interpretation Comments NA (test code = 135 mmol/L 135-145 8716707295) K (test code = 4.1 mmol/L 3.5-5.0 5012514157) CL (test code = 106 mmol/L 98-108 3424891775) CO2 TOTAL (test code = 24 mmol/L 23-31 1185306637) AGAP (test code = 2-16 0901522637) BUN (test code = 12 mg/dL 7-23 9203906325) GLUCOSE (test code = 110 mg/dL 70-110 7878510684) CREATININE (test code = 0.71 mg/dL 0.60-1.25 0141520993) CALCIUM (test code = 7.6 mg/dL 8.6-10.6 L 8257359778) eGFR (test code = mL/min/1.73m2 9699722867) PAIGE (test code = PAIGE) Association of Glomerular Filtration Rate (GFR) and Staging of Kidney Disease* + --+ --+ ------+| GFR (mL/min/1.73 m2) ?| With Kidney Damage ?| ?Without Kidney Damage+ --------+ --------+ +| ?>90 ?| ?Stage one ?| ? Normal ?+ ---+ ---+ -------+| ?60-89 ?| ?Stage two ?| ? Decreased GFR ? + --+ --+ ------+| ?30-59 ?| ?Stage three ?| ? Stage three ? + --+ --+ ------+| ?15-29 ?| ?Stage four ? | ? Stage four ?+ ---+ ---+ -------+| ?<15 (or dialysis) ? ?| ?Stage five ? | ? Stage five ?+ ---+ ---+ -------+ *Each stage assumes the associated GFR level has been in effect for at least three months. ?Stages 1 to 5, with or without kidney disease, indicate chronic kidney disease. Notes: Determination of stages one and two (with eGFR >59mL/min/1.73 m2) requires estimation of kidney damage for at least three months as defined by structural or functional abnormalities of the kidney, manifested by either:Pathological abnormalities or Markers of kidney damage (including abnormalities in the composition of the blood or urine or abnormalities in imaging tests). Lab Interpretation Abnormal (test code = 95051-0) [facility] Test Item Value Reference Range Interpretation Comments MAGNESIUM (test code = 8271101313) 1.9 mg/dL 1.7-2.4 Lab Interpretation (test code = Normal 38880-7) [facility] WITH [id number] 01:25:21 Test Item Value Reference Range Interpretation Comments WBC (test code = See_Comment H [Automated 0090-2) message] The sy stem which generated this result transmitted reference range : 4.20 - 10.70 10*3/?L. The reference range was not used to interpret this result as normal/abnormal . RBC (test code = See_Comment L [Automated 789-8) message] The sy stem which generated this result transmitted reference range : 4.26 - 5.52 10*6/?L. The reference range was not used to interpret this result as normal/abnormal . HGB (test code = 8.0 g/dL 12.2-16.4 L 718-7) HCT (test code = 24.6 % 38.4-49.3 L 4544-3) MCV (test code = 82.3 fL 81.7-95.6 787-2) MCH (test code = 26.8 pg 26.1-32.7 785-6) MCHC (test code = 32.5 g/dL 31.2-35.0 786-4) RDW-SD (test code = 71.7 fL 38.5-51.6 H 22649-9) RDW-CV (test code = 24.8 % 12.1-15.4 H 788-0) PLT (test code = See_Comment [Automated 777-3) message] The sy stem which generated this result transmitted reference range : 150 - 328 10*3/ ?L. The reference r jonathon was not used to interpret this result as normal/abnormal . MPV (test code = Not Measure d 54106-0) IPF % (test code = 10.6 % 1.2-10.7 Platelet count 0605725360) measured by fluorescence method. NRBC/100 WBC (test See_Comment [Automat ed code = 6222905967) message] The system which generated this result transmitted reference range : 0.0 - 10.0 /100 WBCs. The refer ence range was not u sed to interpret th is result as normal/abnormal . NRBC x10^3 (test code <0.01 See_Comment [Auto mated = 6399831515) message] The s ystem which generated this result transmitted reference range : 10*3/?L. The reference range was not used to interpret this result as normal/abnormal . GRAN MAT (NEUT) % 66.0 % (test code = 770-8) IMM GRAN % (test code 0.50 % = 0077703198) LYMPH % (test code = 18.2 % 736-9) MONO % (test code = 11.2 % 5905-5) EOS % (test code = 3.6 % 713-8) BASO % (test code = 0.5 % 706-2) GRAN MAT x10^3(ANC) 7.59 10*3/uL 1.99-6.95 H (test code = 7578759897) IMM GRAN x10^3 (test 0.06 10*3/uL 0.00-0.06 code = 7177911102) LYMPH x10^3 (test code 2.10 10*3/uL 1.09-3.23 = 731-0) MONO x10^3 (test code 1.29 10*3/uL 0.36-1.02 H = 742-7) EOS x10^3 (test code = 0.42 10*3/uL 0.06-0.53 711-2) BASO x10^3 (test code 0.06 10*3/uL 0.01-0.09 = 704-7) SCHISTOCYTES (test 1+ A code = 800-3) TARGET CELLS (test 2+ See_Comment A [Automat ed code = 92528-6) message] The system which generated this result transmitted reference range : (none). The reference range was not used to interpret this result as normal/abnormal . Lab Interpretation Abnormal (test code = 32613-6) [facility], [id number] 16:48:32 Test Item Value Reference Range Interpretation Comments VIT B12 (test code = 813 pg/mL 240-930 4464920565) PAIGE (test code = PAIGE) Biotin has been reported to cause a positive bias, interpret results relative to patient's use of biotin. Lab Interpretation (test Normal code = 84336-5) [facility] 15:09:47 Test Item Value Reference Range Interpretation Comments FOLATE SER (test code = 3017032742) 5.5 ng/mL 3.0-20.0 Lab Interpretation (test code = Normal 54712-6) [facility] TylerFERRITIN [id number] 14:38:41 Test Item Value Reference Range Interpretation Comments FERRITIN (test code = 35.9 ng/mL 18.0-464.0 0643146024) PAIGE (test code = PAIGE) Biotin has been reported to cause a negative bias, interpret results relative to patient's use of biotin. Lab Interpretation (test Normal code = 82826-4) [facility]ATED)2021-08-03 14:06:14 Test Item Value Reference Range Interpretation Comments POCT GLU (test code = 9545113541) 83 mg/dL 70-110 Lab Interpretation (test code = Normal 70960-1) [facility] TylerRETICULOCYTES [id number] 13:37:02 Test Item Value Reference Range Interpretation Comments RETIC Count Automated 3.73 % 0.59-2.24 H (test code = 6032078011) RETIC Absolute Count See_Comment [Autom ated message] (test code = 3248258175) The system which generated this result transmitted ref erence range: 0.0260 - 0.1170 10*6/?L. The reference range was not used to int erpret this result as normal/abnormal . IRF % (test code = 39.80 % 2.00-19.10 H 7565043098) RETIC-HE (test code = 31.9 pg 27.3-36.4 1326761876) Lab Interpretation (test Abnormal code = 50909-9) [facility] TylerCBC with [id number] 09:13:35 Test Item Value Reference Range Interpretation Comments WBC (test code = See_Comment H [Automated 6690-2) message] The sy stem which generated this result transmitted reference range : 4.20 - 10.70 10*3/?L. The reference range was not used to interpret this result as normal/abnormal . RBC (test code = See_Comment L [Automated 789-8) message] The sy stem which generated this result transmitted reference range : 4.26 - 5.52 10*6/?L. The reference range was not used to interpret this result as normal/abnormal . HGB (test code = 7.4 g/dL 12.2-16.4 L 718-7) HCT (test code = 22.7 % 38.4-49.3 L 4544-3) MCV (test code = 81.4 fL 81.7-95.6 L 787-2) MCH (test code = 26.5 pg 26.1-32.7 785-6) MCHC (test code = 32.6 g/dL 31.2-35.0 786-4) RDW-SD (test code = 70.9 fL 38.5-51.6 H 31601-2) RDW-CV (test code = 24.6 % 12.1-15.4 H 788-0) PLT (test code = See_Comment [Automated 777-3) message] The sy stem which generated this result transmitted reference range : 150 - 328 10*3/ ?L. The reference r jonathon was not used to interpret this result as normal/abnormal . MPV (test code = 11.8 fL 9.8-13.0 12909-2) NRBC/100 WBC (test See_Comment [Automat ed code = 0673566126) message] The system which generated this result transmitted reference range : 0.0 - 10.0 /100 WBCs. The refer ence range was not u sed to interpret th is result as normal/abnormal . NRBC x10^3 (test code See_Comment [Auto mated = 4859572828) message] The s ystem which generated this result transmitted reference range : 10*3/?L. The reference range was not used to interpret this result as normal/abnormal . GRAN MAT (NEUT) % 52.5 % (test code = 770-8) IMM GRAN % (test code 0.50 % = 1531532113) LYMPH % (test code = 29.9 % 736-9) MONO % (test code = 14.6 % 5905-5) EOS % (test code = 2.1 % 713-8) BASO % (test code = 0.4 % 706-2) GRAN MAT x10^3(ANC) 6.13 10*3/uL 1.99-6.95 (test code = 9318321108) IMM GRAN x10^3 (test 0.06 10*3/uL 0.00-0.06 code = 2234547929) LYMPH x10^3 (test code 3.49 10*3/uL 1.09-3.23 H = 731-0) MONO x10^3 (test code 1.70 10*3/uL 0.36-1.02 H = 742-7) EOS x10^3 (test code = 0.24 10*3/uL 0.06-0.53 711-2) BASO x10^3 (test code 0.05 10*3/uL 0.01-0.09 = 704-7) SCHISTOCYTES (test 1+ A code = 800-3) TARGET CELLS (test 2+ See_Comment A [Automat ed code = 00625-7) message] The system which generated this result transmitted reference range : (none). The reference range was not used to interpret this result as normal/abnormal . GIANT PLATELETS (test Present See_Comment A [Auto mated code = 5908-9) message] The system which generated this result transmitted reference range : (none). The reference range was not used to interpret this result as normal/abnormal . Lab Interpretation Abnormal (test code = 74849-5) [facility] Metabolic Panel (NA, K, CL, CO2, GLUCOSE, BUN, CREATININE, CA)2021-08-03 09:02:02 Test Item Value Reference Range Interpretation Comments NA (test code = 135 mmol/L 135-145 9882180282) K (test code = 3.8 mmol/L 3.5-5.0 7768713777) CL (test code = 108 mmol/L 98-108 0852620230) CO2 TOTAL (test code = 23 mmol/L 23-31 6959441603) AGAP (test code = 2-16 3435763637) BUN (test code = 13 mg/dL 7-23 6280492780) GLUCOSE (test code = 92 mg/dL 70-110 1840535458) CREATININE (test code = 0.73 mg/dL 0.60-1.25 7418505997) CALCIUM (test code = 7.5 mg/dL 8.6-10.6 L 0670175823) eGFR (test code = mL/min/1.73m2 8537857644) PAIGE (test code = PAIGE) Association of Glomerular Filtration Rate (GFR) and Staging of Kidney Disease* + --+ --+ ------+| GFR (mL/min/1.73 m2) ?| With Kidney Damage ?| ?Without Kidney Damage+ --------+ --------+ +| ?>90 ?| ?Stage one ?| ? Normal ?+ ---+ ---+ -------+| ?60-89 ?| ?Stage two ?| ? Decreased GFR ? + --+ --+ ------+| ?30-59 ?| ?Stage three ?| ? Stage three ? + --+ --+ ------+| ?15-29 ?| ?Stage four ? | ? Stage four ?+ ---+ ---+ -------+| ?<15 (or dialysis) ? ?| ?Stage five ? | ? Stage five ?+ ---+ ---+ -------+ *Each stage assumes the associated GFR level has been in effect for at least three months. ?Stages 1 to 5, with or without kidney disease, indicate chronic kidney disease. Notes: Determination of stages one and two (with eGFR >59mL/min/1.73 m2) requires estimation of kidney damage for at least three months as defined by structural or functional abnormalities of the kidney, manifested by either:Pathological abnormalities or Markers of kidney damage (including abnormalities in the composition of the blood or urine or abnormalities in imaging tests). Lab Interpretation Abnormal (test code = 86015-4) [facility] (ALB,T.PRO,BILI T,BU/BC,ALT,AST,ALK PHOS)2021-08-03 09:02:02 Test Item Value Reference Range Interpretation Comments TOTAL BILI (test code = 3210839625) 2.3 mg/dL 0.1-1.1 H BILI UNCON (test code = 1809206091) 0.9 mg/dL 0.1-1.1 BILI CONJ (test code = 9362649540) 0.4 mg/dL 0.0-0.3 H T PROTEIN (test code = 8634438398) 7.7 g/dL 6.3-8.2 ALBUMIN (test code = 0152941662) 2.7 g/dL 3.5-5.0 L ALK PHOS (test code = 1594887797) 290 U/L 34-122 H ALTv (test code = 1742-6) 86 U/L 5-50 H AST(SGOT) (test code = 3766569293) 154 U/L 13-40 H Lab Interpretation (test code = Abnormal 61908-8) [facility] TylerProthrombin Time / [id number] 08:54:05 Test Item Value Reference Range Interpretation Comments PROTIME PATIENT (test See_Comment H [Auto mated message] code = 5964-2) The system wh ich generated this result transmitted ref erence range: 10.1 - 1 2.6 Seconds. The reference range was not used to int erpret this result as normal/abnormal . INR (test code = 6301-6) Nor mal INR <1.1; Warfarin Therap eutic range 2.0 to 3. 0 or 2.5 to 3.5, dep ending upon the indica tions. Lab Interpretation (test Abnormal code = 85916-6) [facility] TylerAMMONIA, [id number] 21:36:11 Test Item Value Reference Range Interpretation Comments AMMONIA (test code = 5109275952) 36 umol/L 9-33 H Lab Interpretation (test code = Abnormal 59833-7) [facility] TylerHEPATITIS B SURFACE [id number] 15:29:44 Test Item Value Reference Range Interpretation Comments HBsAB (test code = Indeterminate 7502542445) HBsAb mIU/mL Semi-Quantitative (test code = 6566853584) PAIGE (test code = Unable to determine if PAIGE) antibody to Hepatitis B Surface Antigen is present at levels consistent with immunity. ?Patient's immune status should be assessed with other clinical information and/or retesting in 4-6 weeks as clinically indicated. ?If any questions, please contact Clinical Chemistry Director manager animation at .Unable to determine if antibody to Hepatitis B Surface Antigen is present at levels consistent with immunity. ?Patient's immune status should be assessed with other clinical information and/or retesting in 4-6 weeks as clinically indicated. ?If any questions, please contact Clinical Chemistry Director manager animation at .Unable to determine if antibody to Hepatitis B Surface Antigen is present at levels consistent with immunity. ?Patient's immune status should be assessed with other clinical information and/or retesting in 4-6 weeks as clinically indicated. ?If any questions, please contact Clinical Chemistry Director manager animation at .Interpretati on: ?Hepatitis B Surface Antibody ? Negative - Patient is considered to be not immune to infection with HBV. ? ? Positive - Anti-HBs detected at greater than or equal to 12 mIU/mL. ?Patient is considered to be immune to infection with HBV. ? [facility] Tyler[facility]CV [id number] 13:38:48 Test Item Value Reference Range Interpretation Comments HCV Ab (test code = Positive 74639-7) HCV Semi-Quantitative (test code = 90623-4) APRI (test code = 0098815393) PAIGE (test code = Positive for HCV antibody PAIGE) with a high signal to cutoff ratio (s/c). ?Supplementary test for Hepatitis C Virus RNA Real-Time PCR is recommended if clinically indicated. ?If any questions, please contact Clinical Chemistry Director manager animation at [phone]. [facility] TylerALPHA [id number] 13:18:05 Test Item Value Reference Range Interpretation Comments AFP (test code = 169.0 ng/mL See_Comment H [Automated 6260328766) message] The system which generated this result transmitted reference range : <=7.5. The reference range was not used to interpret this result as normal/abnormal . PAIGE (test code = PAIGE) Biotin has been reported to cause a negative bias, interpret results relative to patient's use of biotin. Lab Interpretation Abnormal (test code = 03448-5) [facility] TylerHEPATITIS B SURFACE [id number] 13:14:19 Test Item Value Reference Range Interpretation Comments HBsAg Semi-Quantitative (test code = Negative Negative 5195-3) [facility] Tyler[facility] WITH [id number] 12:49:51 Test Item Value Reference Range Interpretation Comments WBC (test code = See_Comment [Automated 8628-2) message] The sy stem which generated this result transmitted reference range : 4.20 - 10.70 10*3/?L. The reference range was not used to interpret this result as normal/abnormal . RBC (test code = See_Comment L [Automated 167-8) message] The sy stem which generated this result transmitted reference range : 4.26 - 5.52 10*6/?L. The reference range was not used to interpret this result as normal/abnormal . HGB (test code = 9.1 g/dL 12.2-16.4 L 718-7) HCT (test code = 28.4 % 38.4-49.3 L 4544-3) MCV (test code = 82.8 fL 81.7-95.6 787-2) MCH (test code = 26.5 pg 26.1-32.7 785-6) MCHC (test code = 32.0 g/dL 31.2-35.0 786-4) RDW-SD (test code = 74.3 fL 38.5-51.6 H 81673-5) RDW-CV (test code = 25.6 % 12.1-15.4 H 788-0) PLT (test code = See_Comment [Automated 777-3) message] The sy stem which generated this result transmitted reference range : 150 - 328 10*3/ ?L. The reference r jonathon was not used to interpret this result as normal/abnormal . MPV (test code = Not Measure d 40265-0) IPF % (test code = 10.9 % 1.2-10.7 H Platelet count 8432545073) measured by fluorescence method. NRBC/100 WBC (test See_Comment [Automat ed code = 8701248188) message] The system which generated this result transmitted reference range : 0.0 - 10.0 /100 WBCs. The refer ence range was not u sed to interpret th is result as normal/abnormal . NRBC x10^3 (test code <0.01 See_Comment [Auto mated = 1042588937) message] The s ystem which generated this result transmitted reference range : 10*3/?L. The reference range was not used to interpret this result as normal/abnormal . GRAN MAT (NEUT) % 54.9 % (test code = 770-8) IMM GRAN % (test code 0.50 % = 2135650576) LYMPH % (test code = 28.7 % 736-9) MONO % (test code = 12.1 % 5905-5) EOS % (test code = 3.2 % 713-8) BASO % (test code = 0.6 % 706-2) GRAN MAT x10^3(ANC) 5.72 10*3/uL 1.99-6.95 (test code = 8707004140) IMM GRAN x10^3 (test 0.05 10*3/uL 0.00-0.06 code = 5428993947) LYMPH x10^3 (test code 2.99 10*3/uL 1.09-3.23 = 731-0) MONO x10^3 (test code 1.26 10*3/uL 0.36-1.02 H = 742-7) EOS x10^3 (test code = 0.33 10*3/uL 0.06-0.53 711-2) BASO x10^3 (test code 0.06 10*3/uL 0.01-0.09 = 704-7) SCHISTOCYTES (test 1+ A code = 800-3) TARGET CELLS (test 2+ See_Comment A [Automat ed code = 88515-5) message] The system which generated this result transmitted reference range : (none). The reference range was not used to interpret this result as normal/abnormal . Lab Interpretation Abnormal (test code = 27459-5) [facility]. METABOLIC PANEL (35199)2021-08-02 12:43:40 Test Item Value Reference Range Interpretation Comments NA (test code = 138 mmol/L 135-145 5692529320) K (test code = 4.0 mmol/L 3.5-5.0 6499748694) CL (test code = 106 mmol/L 98-108 4180239804) CO2 TOTAL (test code = 25 mmol/L 23-31 4182441099) AGAP (test code = 2-16 9904374916) BUN (test code = 16 mg/dL 7-23 9577932973) GLUCOSE (test code = 83 mg/dL 70-110 1752370774) CREATININE (test code = 0.76 mg/dL 0.60-1.25 4015113519) TOTAL BILI (test code = 3.5 mg/dL 0.1-1.1 H 7212407821) CALCIUM (test code = 8.2 mg/dL 8.6-10.6 L 1981050308) T PROTEIN (test code = 8.9 g/dL 6.3-8.2 H 1711764745) ALBUMIN (test code = 3.1 g/dL 3.5-5.0 L 4339069621) ALK PHOS (test code = 329 U/L 34-122 H 1962382461) ALTv (test code = 116 U/L 5-50 H 1742-6) AST(SGOT) (test code = 217 U/L 13-40 H 8424623089) eGFR (test code = mL/min/1.73m2 2787898493) PAIGE (test code = PAIGE) Association of Glomerular Filtration Rate (GFR) and Staging of Kidney Disease* + --+ --+ ------+| GFR (mL/min/1.73 m2) ?| With Kidney Damage ?| ?Without Kidney Damage+ --------+ --------+ +| ?>90 ?| ?Stage one ?| ? Normal ?+ ---+ ---+ -------+| ?60-89 ?| ?Stage two ?| ? Decreased GFR ? + --+ --+ ------+| ?30-59 ?| ?Stage three ?| ? Stage three ? + --+ --+ ------+| ?15-29 ?| ?Stage four ? | ? Stage four ?+ ---+ ---+ -------+| ?<15 (or dialysis) ? ?| ?Stage five ? | ? Stage five ?+ ---+ ---+ -------+ *Each stage assumes the associated GFR level has been in effect for at least three months. ?Stages 1 to 5, with or without kidney disease, indicate chronic kidney disease. Notes: Determination of stages one and two (with eGFR >59mL/min/1.73 m2) requires estimation of kidney damage for at least three months as defined by structural or functional abnormalities of the kidney, manifested by either:Pathological abnormalities or Markers of kidney damage (including abnormalities in the composition of the blood or urine or abnormalities in imaging tests). Lab Interpretation Abnormal (test code = 52617-0) [facility] Tyler[facility]th[facility]bin [facility] (PTT) / [id number] 12:07:03 Test Item Value Reference Range Interpretation Comments PROTIME PATIENT (test See_Comment H [Auto mated message] code = 5964-2) The system HAUL generated this result transmitted ref erence range: 10.1 - 1 2.6 Seconds. The reference range was not used to int erpret this result as normal/abnormal . INR (test code = 6301-6) Nor mal INR <1.1; Warfarin Therap eutic range 2.0 to 3. 0 or 2.5 to 3.5, dep ending upon the indica tions. Lab Interpretation (test Abnormal code = 31552-3) [facility]) RNA [Presence] in Respiratory specimen by ABRIL with probe [id number] 11:23:42 Test Item Value Reference Range Interpretation Comments SARS-CoV-2 (COVID-19) RNA Not detected Not-Detected [Presence] in Respiratory specimen by ABRIL with probe detection (test code = 26764-0) Whether patient is employed in a healthcare setting (test code = 72197-2) Whether the patient has symptoms related to condition of interest (test code = 09343-2) Patient was hospitalized because of this condition (test code = 72941-9) Whether the patient was admitted to intensive care unit (ICU) for condition of interest (test code = 23728-6) Whether patient resides in a congregate care setting (test code = 31700-0) Troponin [id number] 20:46:00 Test Item Value Reference Range Interpretation Comments Troponin T (test code = GERARD) <0.010 ng/mL 0.000-0.090 N Basic Metabolic [id number] 20:46:00 Test Item Value Reference Range Interpretation [...] is not provided , and the patient isLenny-Narcisa can, multiply by 1.2 12. If sex [...] [employer],http :[email or web address] ep.nih.gov CBC with [id number] 20:25:00 Test Item Value Reference Range Interpretation [...] code = ALYMPH) 1.7 K/cumm 0.5-4.6 N [place] Abs (test code = AMONO) 1.2 K/cumm 0.0-1.2 N Eos Abs (test code = AEOS) 0.10 K/cumm 0.00-0.74 N Baso Abs (test code = ABASO) 0.1 K/cumm 0.00-0.21 N
[2021-08-24] MEDS ORDERED: MORPHINE 4 MG/ML SYR ONE (20:37)
[2021-08-24] MEDS ORDERED: ONDANSETRON 4 MG/2 ML VIAL ONE (20:37)
[2021-08-24 20:46] LABS: Hematocrit 26.5 % (39.6-49.0); MPV 9.3 fL (7.6-11.3); RBC Red Blood Cell Count 2.94 M/uL (4.33-5.43)
--- NOTE | 2021-08-24 20:49 | RAD REPORT ---
EXAM DESCRIPTION: RAD - Chest Single View - 08/24/2021 8:35 pm CLINICAL HISTORY: SOB COMPARISON: Portable 06/15/2021 TECHNIQUE: AP portable chest image was obtained 08/24/2021 8:35 pm . FINDINGS: Lung volumes are quite low accentuating the baseline interstitial pattern. Lung base atele ctasis is present potentially masking minimal lung base infiltrates. Heart and vasculature are normal. No measurable pleural effusion and no pneumothorax. No acute bony abnormality seen. No acute aortic findings suspected. IMPRESSION: Limited portable study showing lung base atelectasis. Minimal lung base infiltrates could be masked by the atelectasis and shallow inspiration affects.
[2021-08-24 20:57] LABS: Protime INR 1.49
[2021-08-24 21:08] LABS: Troponin High Sensitivity 5.8 pg/mL (<58.9)
[2021-08-24 21:13] LABS: Albumin 1.6 g/dL (3.4-5.0); Bilirubin Direct 2.3 mg/dL (0-0.2); Bilirubin Total 3.4 mg/dL (0.2-1.0); Protein, Total 8.4 g/dL (6.4-8.2)
[2021-08-24 21:15] LABS: Magnesium 2.1 mg/dL (1.8-2.4); Potassium 4.6 mmol/L (3.5-5.1)
[2021-08-24 22:30] LABS: Urine Blood Negative (Negative); Urine Glucose Negative (Negative); Urine Protein Trace (Negative); Urine Specific Gravity 1.015 (1.005-1.030)
[2021-08-25 00:27] LABS: Anisocytosis 1+; Blood Morphology Comment NOTED (NOT SEEN); Hypochromasia 1+; Platelet Estimate ADEQ; Target Cells 1+
--- NOTE | 2021-08-25 01:11 | EDPHYS ---
Physician Documentation [facility] Name: Mic Gross Age: 66 yrs Sex: Male : 1955 Arrival Date: 08/24/2021 Time: 18:53 Bed 25 Private MD: [email or web address] Physician Giancarlo Morales HPI: 08/24 20:00 This 66 yrs old Male presents to ER via Wheelchair with complaints of mh7 Abdominal Pain, Breathing Difficulty. 20:00 The patient presents with abdominal pain that is diffuse. Onset: The symptoms/episode mh7 began/occurred 2 week(s) ago. The symptoms do not radiate. Associated signs and symptoms: Pertinent positives: nausea, shortness of breath. The symptoms are described as intermittent, vague, waxing/waning. Modifying factors: The symptoms are alleviated by nothing, the symptoms are aggravated by nothing. Severity of pain: At its worst the pain was moderate 7 day(s) ago, in the emergency department the pain is unchanged. transferred to another facility. States he was diagnosed with liver cancer and has been having abdominal pain, nausea, and SOB for a while. He was seen at an OSH in the past but does not know the treatment plan for his condition.. Historical: - Allergies: 19:01 No Known Allergies; vg1 - PMHx: 19:01 cirrhosis of liver; Hepatitis; C; Hernia; Hypertension; liver cancer; vg1 - Immunization history:: Client reports receiving the 2nd dose of the Covid vaccine. - Social history:: Smoking status: Patient reports the use of cigarette tobacco products, denies chronic smoking, but will smoke occasionally. ROS: 20:00 Constitutional: Negative for fever, chills, and weight loss, Eyes: Negative for injury, mh7 pain, redness, and discharge, ENT: Negative for injury, pain, and discharge, Neck: Negative for injury, pain, and swelling, Cardiovascular: Negative for chest pain, palpitations, and edema. 20:00 Back: Negative for injury and pain, : Negative for injury, bleeding, discharge, and swelling, MS/Extremity: Negative for injury and deformity, Skin: Negative for injury, rash, and discoloration, Neuro: Negative for headache, weakness, numbness, tingling, and seizure, Psych: Negative for depression, anxiety, suicide ideation, homicidal ideation, and hallucinations, Allergy/Immunology: Negative for hives, rash, and allergies, Endocrine: Negative for neck swelling, polydipsia, polyuria, polyphagia, and marked weight changes, Hematologic/Lymphatic: Negative for swollen nodes, abnormal bleeding, and unusual bruising. 20:00 Respiratory: Positive for cough, with clear sputum. Exam: 20:00 Head/Face: Normocephalic, atraumatic. Eyes: Pupils equal round and reactive to light, mh7 extra-ocular motions intact. Lids and lashes normal. Conjunctiva and sclera are non-icteric and not injected. Cornea within normal limits. Periorbital areas with no swelling, redness, or edema. Neck: Trachea midline, no thyromegaly or masses palpated, and no cervical lymphadenopathy. Supple, full range of motion without nuchal rigidity, or vertebral point tenderness. No Meningismus. Chest/axilla: Normal chest wall appearance and motion. Nontender with no deformity. No lesions are appreciated. Cardiovascular: Regular rate and rhythm with a normal S1 and S2. No gallops, murmurs, or rubs. Normal PMI, no JVD. No pulse deficits. Respiratory: Lungs have equal breath sounds bilaterally, clear to auscultation and percussion. No rales, rhonchi or wheezes noted. No increased work of breathing, no retractions or nasal flaring. 20:00 Back: No spinal tenderness. No costovertebral tenderness. Full range of motion. Skin: Warm, dry with normal turgor. Normal color with no rashes, no lesions, and no evidence of cellulitis. MS/ Extremity: Pulses equal, no cyanosis. Neurovascular intact. Full, normal range of motion. Neuro: Awake and alert, GCS 15, oriented to person, place, time, and situation. Cranial nerves II-XII grossly intact. Motor strength 5/5 in all extremities. Sensory grossly intact. Cerebellar exam normal. Normal gait. Psych: Awake, alert, with orientation to person, place and time. Behavior, mood, and affect are within normal limits. 20:00 Constitutional: The patient appears in no acute distress, alert, awake, uncomfortable. 20:00 Abdomen/GI: Inspection: distension, that is moderate, Bowel sounds: normal, in all quadrants, Palpation: mild abdominal tenderness, in all quadrants, mass, is not appreciated, rebound tenderness, is not appreciated, voluntary guarding, is not appreciated, involuntary guarding, is not appreciated, organomegaly is appreciated, hepatomegaly, Indicators: McBurney's point is not tender, Damon's sign is negative, Rovsing's sign is negative, Obturator sign is negative, Psoas sign is negative, Liver: is enlarged, Hernia: not appreciated. Vital Signs: 19:00 BP 129 / 88; Pulse 88; Resp 24; Temp 99.5(TE); Pulse Ox 100% on R/A; Weight 68.04 kg; vg1 Height 5 ft. 5 in. (165.10 cm); Pain 10/10; 19:33 BP 161 / 97; Pulse 87; Resp 16; Temp 98.5; Pulse Ox 98% ; Weight 68.04 kg; Height 5 ft. zm 5 in. (165.10 cm); 20:35 BP 135 / 80; Pulse 82; Resp 20; Pulse Ox 98% on R/A; mh5 08/25 01:13 BP 131 / 86; Pulse 76; Resp 16 S; Pulse Ox 98% on R/A; bb 08/24 19:33 Body Mass Index 24.96 (68.04 kg, 165.10 cm) zm MDM: 01:06 Differential diagnosis: bowel obstruction, coronary artery disease, diverticulitis, mh7 gastroesophageal reflux disease, Hepatitis, non-specific abd pain, pancreatitis, Peptic Ulcer Disease, Ureterolithiasis, urinary tract infection. Data reviewed: vital signs, nurses notes, old medical records, lab test result(s), cardiac enzymes, CBC, electrolytes, EKG, radiologic studies, CT scan, plain films. Data interpreted: Pulse oximetry: on room air is 98 %. Interpretation: normal. Counseling: I had a detailed discussion with the patient and/or guardian regarding: the historical points, exam findings, and any diagnostic results supporting the discharge/admit diagnosis, lab results, radiology results, the need to transfer to another facility. Counseling: I had a detailed discussion with the patient and/or guardian regarding: the need to transfer to another facility, [facility] does not immediately have the required specialist. Response to treatment: the patient's symptoms have mildly improved after treatment. 01:10 Patient medically screened. mh7 01:11 ED course: Patient requests transfer to [facility] where he was recently treated for this mh7 condition.. 08/24 19:58 Order name: Basic Metabolic Panel; Complete Time: 21:30 [facility] 08/24 19:58 Order name: CBC with Diff; Complete Time: 00:29 [facility] 08/24 19:58 Order name: LFT's; Complete Time: 21:30 [facility] 08/24 19:58 Order name: Magnesium; Complete Time: 21:30 [facility] 08/24 19:58 Order name: NT PRO-BNP; Complete Time: 21:30 [facility] 08/24 19:58 Order name: PT-INR; Complete Time: 21:30 [facility] 08/24 19:58 Order name: Troponin HS; Complete Time: 21:30 [facility] 08/24 19:58 Order name: XRAY Chest (1 view); Complete Time: 20:53 [facility] 08/24 19:58 Order name: Lipase; Complete Time: 21:30 [facility] 08/24 19:59 Order name: COVID-19 SARS RT PCR (Document "Date of Onset" if Symptomatic); Complete [facility] Time: 21:30 08/24 20:00 Order name: Influenza Screen (a \\T\\ B); Complete Time: 21:30 [facility] 08/24 21:27 Order name: Manual Differential; Complete Time: 00:29 [facility] 08/24 21:32 Order name: CT Chest For PE Angio [facility] 08/24 22:30 Order name: Urine Dipstick-Ancillary; Complete Time: 23:42 [facility] 08/24 19:58 Order name: EKG; Complete Time: 20:02 [facility] 08/24 19:58 Order name: Cardiac monitoring; Complete Time: 20:33 [facility] 08/24 19:58 Order name: EKG - Nurse/Tech; Complete Time: 20:54 [facility] 08/24 19:58 Order name: IV Saline Lock; Complete Time: 20:33 [facility] 08/24 19:58 Order name: Labs collected and sent; Complete Time: 20:34 [facility] 08/24 19:58 Order name: O2 Per Protocol; Complete Time: 20:34 [facility] 08/24 19:58 Order name: O2 Sat Monitoring; Complete Time: 20:54 [facility] 08/24 19:58 Order name: Urine Dipstick-Ancillary (obtain specimen); Complete Time: 23:03 [facility] 08/24 21:32 Order name: CT Abd/Pelvis - IV Contrast Only 7 Administered Medications: 08/24 20:50 Drug: Zofran (Ondansetron) 4 mg Route: IVP; Site: left antecubital; bb 22:00 Follow up: Response: No adverse reaction bb 20:54 Drug: morphine 4 mg Route: IVP; Infused Over: 4 mins; Site: left antecubital; bb 22:00 Follow up: Response: Pain is decreased bb 08/25 02:13 Drug: Zofran (Ondansetron) 4 mg Route: IVP; Site: left antecubital; bb 02:39 Follow up: Response: No adverse reaction bb 02:15 Drug: Dilaudid (HYDROmorphone) 1 mg Route: IVP; Site: left antecubital; bb 02:39 Follow up: Response: No adverse reaction; Pain is decreased bb Disposition Summary: 08/25/21 01:10 Transfer Ordered Transfer Location: [place] [address] Reason: Higher level of care [facility] Condition: Stable [facility] Problem: an ongoing problem [facility] Symptoms: have improved [facility] Accepting Physician: Dr. 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 Pina [facility] bb
--- NOTE | 2021-08-25 01:11 | ER ---
Nurse's Notes [facility] Name: Mic Gross Age: 66 yrs Sex: Male : 1955 Arrival Date: 08/24/2021 Time: 18:53 Bed 25 Private MD: Diagnosis: Alcoholic cirrhosis of liver;Metastatic Heppatocellular carcinoma;Poratal Vein Thrombosis;Intractable Pain Presentation: 08/24 19:00 Chief complaint: Patient states: RUQ pain and SOB x 2 days, states nausea. Coronavirus vg1 screen: Vaccine status: Patient reports receiving the 2nd dose of the covid vaccine. Client denies travel out of the [place] in the last 14 days. Ebola Screen: Patient denies exposure to infectious person. Patient denies travel to an Ebola-affected area in the 21 days before illness onset. Initial Sepsis Screen: Does the patient meet any 2 criteria? RR > 20 per min. Does the patient have a suspected source of infection? No. Patient's initial sepsis screen is negative. Risk Assessment: Do you want to hurt yourself or someone else? Patient reports no desire to harm self or others. Onset of symptoms was August 22, 2021. 19:00 Method Of Arrival: Wheelchair vg1 19:00 Acuity: RADHA 3 vg1 Triage Assessment: 19:01 General: Appears uncomfortable, Behavior is cooperative. Pain: Complains of pain in vg1 abdomen Pain currently is 10 out of 10 on a pain scale. EENT: Eyes jaundice. GI: Abdomen is round distended, Reports nausea. Historical: - Allergies: 19:01 No Known Allergies; vg1 - PMHx: 19:01 cirrhosis of liver; Hepatitis; C; Hernia; Hypertension; liver cancer; vg1 - Immunization history:: Client reports receiving the 2nd dose of the Covid vaccine. - Social history:: Smoking status: Patient reports the use of cigarette tobacco products, denies chronic smoking, but will smoke occasionally. Screenin:10 Abuse screen: Denies threats or abuse. Nutritional screening: No deficits noted. bb Tuberculosis screening: No symptoms or risk factors identified. Fall Risk None identified. Assessment: 21:10 General: Appears in no apparent distress. Behavior is calm, cooperative. Pain: bb Complains of pain in abdomen. Neuro: Level of Consciousness is awake, alert, obeys commands, Oriented to person, place, time, situation. Cardiovascular: Capillary refill < 3 seconds Patient's skin is warm and dry. Respiratory: Respiratory effort is unlabored, Respiratory pattern is regular. GI: Abdomen is distended, from ventral hernia Bowel sounds present X 4 quads. Abdomen is tender to palpation X 4 quads. Derm: Skin is jaundiced. Musculoskeletal: Circulation, motion, and sensation intact. 23:30 Reassessment: Patient is alert, oriented x 3, equal unlabored respirations, skin bb warm/dry/pink. pt awaiting transfer. 08/25 01:14 Reassessment: pt sleeping, eyes closed, resp unlabored, arouses easily awaiting bb transfer. 01:52 Reassessment: report called for [facility] spoke to Vance GUILLAUME. bb 02:37 Reassessment: EMS at bedside for transfer of pt to [facility]. Pt is A\\T\\O x 3. bb resp unlabored, IV site intact with no erythema or edema noted. Vital Signs: 08/24 19:00 BP 129 / 88; Pulse 88; Resp 24; Temp 99.5(TE); Pulse Ox 100% on R/A; Weight 68.04 kg; vg1 Height 5 ft. 5 in. (165.10 cm); Pain 10/10; 19:33 BP 161 / 97; Pulse 87; Resp 16; Temp 98.5; Pulse Ox 98% ; Weight 68.04 kg; Height 5 ft. zm 5 in. (165.10 cm); 20:35 BP 135 / 80; Pulse 82; Resp 20; Pulse Ox 98% on R/A; 5 08/25 01:13 BP 131 / 86; Pulse 76; Resp 16 S; Pulse Ox 98% on R/A; bb 08/24 19:33 Body Mass Index 24.96 (68.04 kg, 165.10 cm) ED Course: 08/24 18:53 Patient arrived in ED. bp1 19:01 Triage completed. vg1 19:01 Arm band placed on. vg1 19:43 Giancarlo Morales MD is Attending Physician. mh7 19:52 Tena Conrad, MARKELL is Primary Nurse. bb 20:15 Patient has correct armband on for positive identification. Bed in low position. Call light in reach. Side rails up X 1. Adult w/ patient. Pulse ox on. NIBP on. 20:33 Influenza Screen (a \\T\\ B) Sent. [facility] 20:33 COVID-19 SARS RT PCR (Document "Date of Onset" if Symptomatic) Sent. [facility] 20:33 Lipase Sent. [facility] 20:34 Basic Metabolic Panel Sent. [facility] 20:34 CBC with Diff Sent. [facility] 20:34 LFT's Sent. [facility] 20:34 Magnesium Sent. [facility] 20:34 NT PRO-BNP Sent. [facility] 20:34 PT-INR Sent. [facility] 20:34 Troponin HS Sent. [facility] 20:34 Initial lab(s) drawn, by sd, sent to lab. EKG done, by ED staff, reviewed by Giancarlo Morales MD COVID swab sent to lab. Flu and/or RSV swab sent to lab. Inserted saline lock: 22 gauge in right antecubital area, using aseptic technique. Blood collected. 20:37 XRAY Chest (1 view) In Process Unspecified. EDMS 22:33 CT Chest For PE Angio In Process Unspecified. EDMS 22:33 CT Abd/Pelvis - IV Contrast Only In Process Unspecified. EDMS 08/25 00:29 intiated a transfer with Collette from [facility] Transfer Center. [facility] 01:14 No provider procedures requiring assistance completed. bb 01:25 administrative approval given by Collette Gómez/ patient has been accepted to [address] 10 B 234/ Dr. Wang accepted the patient in transfer/report to be called to [phone]. 01:53 Patient transferred, IV remains in place. bb Administered Medications: 08/24 20:50 Drug: Zofran (Ondansetron) 4 mg Route: IVP; Site: left antecubital; bb 22:00 Follow up: Response: No adverse reaction bb 20:54 Drug: morphine 4 mg Route: IVP; Infused Over: 4 mins; Site: left antecubital; bb 22:00 Follow up: Response: Pain is decreased bb 08/25 02:13 Drug: Zofran (Ondansetron) 4 mg Route: IVP; Site: left antecubital; bb 02:39 Follow up: Response: No adverse reaction bb 02:15 Drug: Dilaudid (HYDROmorphone) 1 mg Route: IVP; Site: left antecubital; bb 02:39 Follow up: Response: No adverse reaction; Pain is decreased bb Medication: 01:53 VIS not applicable for this client. bb Outcome: 01:10 ER care complete, transfer ordered by MD. garcia 01:53 Transferred by ground EMS to [facility], Transfer form bb completed. X-rays sent w/ patient. 01:53 Condition: good 01:53 Instructed on the need for transfer. 02:38 Patient left the ED. bb Signatures: Dispatcher [employer] EDTena Cifuentes, RN RN Pavithra Rodriguez 5 Pérez Castorena [facility] Telma Tejeda RN RN 1 Christa Ledesma Maurice, MD MD 7 Penny Nuno Corrections: (The following items were deleted from the chart) 02:04 00:29 intiated a transfer with Suzie from [facility] Transfer Center [place] [address] 02:04 01:25 administrative approval given by oCllette Gómez/ patient has been accepted to [address] 10 B 234/ Dr. Wang accepted the patient in transfer/report to be called to [phone] [facility]
[2021-08-25] MEDS ORDERED: HYDROMORPHONE HCL 1 MG/ML INJ ONE (02:13)
[2021-08-25] MEDS ORDERED: ONDANSETRON 4 MG/2 ML VIAL ONE (02:14)
[2021-08-25 02:48] VITALS: TEMP 98.5; O2SAT 98
[2021-08-25 02:51] VITALS: BP 131/86
--- NOTE | 2021-08-25 14:41 | EKG ---
Test Date: 2021-08-24 Test Time: 20:53:57 Autism Specialist: MANJIT MEASUREMENT RESULTS: Intervals: Rate: 78 HI: 170 QRSD: 86 QT: 412 QTc: 469 [place]: P: 59 HI: 170 QRS: 53 T: 54 INTERPRETIVE STATEMENTS: Sinus rhythm with premature atrial complexes Cannot rule out Anterior infarct, age undetermined Abnormal ECG Compared to ECG 06/15/2021 06:41:51 Atrial premature complex(es) now present Myocardial infarct finding now present ST (T wave) deviation no longer present Electronically Signed On 08-25-21 14:40:21 CDT by Donny Marley
--- NOTE | 2021-08-25 18:50 | RAD REPORT ---
EXAM DESCRIPTION: CT - Abdomen Pelvis W Contrast - 08/25/2021 6:22 am CLINICAL HISTORY: 66 years Male Abdominal pain, acute, nonlocalized TECHNIQUE: Contiguous axial images obtained through the abdomen and pelvis following intravenous con trast administration. Coronal and sagittal reformatted images provided. This CT exam was performed according to our departmental dose-optimization program, which includes on e or more of the following dose reduction techniques: automated exposure control, adjustment of the m A and/or kV according to patient size, and/or use of iterative reconstruction technique. COMPARISON: 08/01/2021. FINDINGS: Again seen is cirrhosis of the liver with and ill-defined, infiltrative soft tissue mass a rising from the right lobe of the liver and distending the main portal vein.. The remainder of the liver demonstrates heterogeneous attenuation. There are extensive upper abdomina l varices and there is a small to moderate amount of diffuse peritoneal ascites. Platelike atelectasis at the lung bases. Pronounced gallbladder distention again noted without definite mural thickening or visualized gallsto ne. No biliary dilatation. Prior splenomegaly. No acute pancreatic, right adrenal, or bilateral renal abnormality. Again seen is a predominantly solid left adrenal mass measuring 7.3 cm. Also again seen is a heteroge neous mass in the left paracolic gutter measuring up to 5.7 cm, abutting the lateral margin of the le ft psoas. No evidence of bowel obstruction, pneumatosis, or free intraperitoneal air. Atherosclerosis without abdominal aortic aneurysm. Multiple small ventral abdominal wall hernias cont ain fat and ascitic fluid. Again seen are lytic osseous lesions in the right superior acetabulum and left ischium. No visualized acute fracture. IMPRESSION: Again seen are findings consistent with diffusely infiltrative hepatocellular carcinoma with extensive tumor thrombus in the portal vein. Left adrenal and left retroperitoneal metastatic ma sses. Lytic lesions in the right superior acetabulum and left ischium consistent with bony metastases . No new findings. Electronically signed by: Vinita Downs MD 08/24/2021 11:36 PM CDT Due to temporary technical issues with the PACS/Fluency reporting system, reports are being signed by the in house radiologists without. review as a courtesy to insure prompt reporting. The interpreting radiologist is fully responsible for the content of the report
--- NOTE | 2021-08-25 18:58 | RAD REPORT ---
EXAM DESCRIPTION: CT - Chest For Pe Angio - 08/25/2021 6:22 am CLINICAL HISTORY: Shortness of breath. History of metastatic hepatocellular carcinoma with portal ve nous tumor thrombus. COMPARISON: None. TECHNIQUE: CTA of the chest was performed following intravenous administration of iodinated contrast . Axial soft tissue and lung window, and coronal and sagittal soft tissue window reconstructions were created and sent to PACS. 3D postprocessing was performed on an independent workstation, with images sent to PACS for subsequen t review. This exam was performed according to our departmental dose-optimization program, which includes autom ated exposure control, adjustment of the mA and/or kV according to patient size and/or use of iterati ve reconstruction technique. FINDINGS: Vascular: Suboptimal evaluation of the pulmonary arteries due to contrast timing and strea k artifact at the segmental and subsegmental levels. No CT evidence of central acute pulmonary thromb oembolism. No evidence of aortic aneurysm or dissection. Lungs and pleura: No pulmonary consolidation. No pleural effusion. No pneumothorax. Mild atelectasis at the lung bases. Mediastinum and neck: No mediastinal lymphadenopathy by CT size criteria. Unremarkable appearance of the thyroid gland. Cardiac: Mild left cardiac chamber enlargement. No pericardial effusion. Abdomen: Please see the separate report regarding findings below the diaphragm. Musculoskeletal: No concerning osseous abnormality. IMPRESSION: 1. Suboptimal evaluation of the pulmonary arteries due to contrast timing and streak a rtifact. No CTA evidence of central acute pulmonary thromboembolism. 2. No pulmonary consolidation or pleural effusion. 3. Mild atelectasis at the lung bases. Electronically signed by: Kyara Coelho MD 08/24/2021 11:55 PM CDT Due to temporary technical issues with the PACS/Fluency reporting system, reports are being signed by the in house radiologists without. review as a courtesy to insure prompt reporting. The interpreting radiologist is fully responsible for the content of the report
== END 2021-08-25 02:38 | disposition short-term general hospital (02) ==
LOC: ER 18:51
DX: K70.30 Alcoholic cirrhosis of liver without ascites (principal); C22.0 Liver cell carcinoma; I81 Portal vein thrombosis; R52 Pain, unspecified; I10 Essential (primary) hypertension; Z20.822 Contact with and (suspected) exposure to COVID-19
CPT/HCPCS: 93005; 85025; 80048; 36415; 83735; 85610; 80076; 81003; 84484; 83690; 83880; 87804 ×2; 71275; 74177; 71045; U0003; Q9967; J1170; J2405 ×2; 96374; 96375; 99285